=== PATIENT | female | born 1945 | race Caucasian/White ===

== ENCOUNTER → 2017-10-15 10:48 | Outpatient (CLI) | payer MEDICARE, SELFPAY ==
--- NOTE | 2017-10-15 14:48 | PFTCOMP ---
COMPLETE PULMONARY FUNCTION TEST INTERPRETATION Brief HPI: Patient is a 72 year old female, currently under the care of myself, who presents to [facility] for complete pulmonary function tests secondary to diagnosis of pulmonary hypertension. Respiratory therapist reports good effort and reproducible results. Interpretation: Forced expiration spirometry shows no large airways obstructive ventilatory defect with an FEV1 of 89 % predicted. There is no significant bronchodilator response by ATS criteria. Spirograms are of good quality and plateau normally. The respiratory flow volume loop shows a normal pattern. Lung volumes by body plethysmography show a normal total lung capacity at 4.13 L, 90 % predicted. All other lung volumes are within normal limits. Diffusion capacity by carbon monoxide is decreased at 42 % predicted. The airway resistance is normal. Compared to previous pulmonary function tests from 03/15/2017, there has been no significant change. Impression: Isolated defect in diffusion capacity consistent with patient's diagnosis of pulmonary hypertension. There is been no significant change compared to previous testing
--- NOTE | 2017-10-15 14:51 | PFTCOMP_ITS ---
COMPLETE PULMONARY FUNCTION TEST INTERPRETATION Brief HPI: Patient is a 72 year old female, currently under the care of myself, who presents to [facility] for complete pulmonary function tests secondary to diagnosis of pulmonary hypertension. Respiratory therapist reports good effort and reproducible results. Interpretation: Forced expiration spirometry shows no large airways obstructive ventilatory defect with an FEV1 of 89 % predicted. There is no significant bronchodilator response by ATS criteria. Spirograms are of good quality and plateau normally. The respiratory flow volume loop shows a normal pattern. Lung volumes by body plethysmography show a normal total lung capacity at 4.13 L , 90 % predicted. All other lung volumes are within normal limits. Diffusion capacity by carbon monoxide is decreased at 42 % predicted. The airway resistance is normal. Compared to previous pulmonary function tests from 03/15/2017, there has been no significant change. Impression: Isolated defect in diffusion capacity consistent with patient's diagnosis of pulmonary hypertension. There is been no significant change compared to previous testing
== END ==
PROVIDERS: Family Provider Internal Medicine; PCP Internal Medicine; Visit Provider Internal Medicine Critical Care Medicine
DX: I27.20 Pulmonary hypertension, unspecified (principal)
CPT/HCPCS: 94060; 94726; 94729

== ENCOUNTER 2017-10-23 14:22 | Outpatient (RCR) | payer MEDICARE, SELFPAY | END 2017-10-23 23:59 | LOC: NS 14:22 | PROVIDERS: Family Provider Internal Medicine; PCP Internal Medicine; Visit Provider Specialist | DX: E66.8 Other obesity (principal); E11.9 Type 2 diabetes mellitus without complications; Z71.3 Dietary counseling and surveillance | CPT/HCPCS: 97802 ==

== ENCOUNTER 2017-11-13 10:21 | Outpatient (RCR) | payer MEDICARE, SELFPAY | END 2017-11-23 23:59 | LOC: NS 10:21 | PROVIDERS: Family Provider Internal Medicine; PCP Internal Medicine; Visit Provider Specialist | DX: E66.8 Other obesity (principal); E11.9 Type 2 diabetes mellitus without complications; Z71.3 Dietary counseling and surveillance | CPT/HCPCS: 97803 ==

== ENCOUNTER 2017-11-25 11:57 | Outpatient (RCR) | payer MEDICARE, SELFPAY | END 2017-12-23 23:59 | LOC: NS 11:57 | PROVIDERS: Family Provider Internal Medicine; PCP Internal Medicine; Visit Provider Specialist | DX: E66.8 Other obesity (principal); E11.9 Type 2 diabetes mellitus without complications; Z71.3 Dietary counseling and surveillance | CPT/HCPCS: 97803 ==

== ENCOUNTER → 2017-11-26 11:00 | Outpatient (CLI) | payer MEDICARE, SELFPAY | PROVIDERS: Family Provider Internal Medicine; PCP Internal Medicine; Visit Provider Internal Medicine Critical Care Medicine | DX: G47.9 Sleep disorder, unspecified (principal) | CPT/HCPCS: 98960; G0463 ==

== ENCOUNTER 2018-01-22 09:45 | Outpatient (RCR) | payer MEDICARE, SELFPAY | END 2018-01-23 23:59 | LOC: NS 09:45 | PROVIDERS: Family Provider Internal Medicine; PCP Internal Medicine; Visit Provider Specialist | DX: E66.8 Other obesity (principal); E11.9 Type 2 diabetes mellitus without complications; Z71.3 Dietary counseling and surveillance | CPT/HCPCS: 97803 ==

== ENCOUNTER → 2018-02-14 09:09 | Outpatient (CLI) | payer MEDICARE, SELFPAY ==
[2018-02-14 09:41] VITALS: PULSE 56; PULSE 58; PULSE 81; PULSE 83; PULSE 84; PULSE 85; PULSE 88; PULSE 90; O2SAT 88; O2SAT 91; O2SAT 92; O2SAT 93; O2SAT 96; O2SAT 98
--- NOTE | 2018-02-14 12:07 | WT_ITS ---
PSN 6 Minute Walk Test - 6 Minute Walk Test 6 Minute Walk Test: 6 Minute Walk Test PSN:6-Minute Walk Test Start: 02/14/18 09: 41 Freq: Status: Active Protocol: RESP.6MINW Document 02/14/18 09:41 ROB (Rec: 02/14/18 09:43 ROB [id number]) 6 Minute Walk Test Date Performed 02/14/18 Time Performed 09:15 Height 5 ft 3 in Weight: 282 lb Weight in Pounds 282.[address]: Jake Silva Assistive device used: Cane Pre-test Oxygen Delivery Method Room Air Pulse Ox (%) 96 Pulse Rate (60-100 beats/min) 56 L Dyspnea Domonique Scale (0-10) 0 Exertion Domonique Scale (6-20) 6 1st minute Oxygen Delivery Method Room Air Pulse Ox (%) 92 Pulse Rate (60-100 beats/min) 81 2nd minute Oxygen Delivery Method Room Air Pulse Ox (%) 88 Pulse Rate (60-100 beats/min) 85 3rd minute Oxygen Flow Rate (L/min) (L/min) 2 Oxygen Delivery Method Nasal Cannula Pulse Ox (%) 93 Pulse Rate (60-100 beats/min) 83 4th minute Oxygen Flow Rate (L/min) (L/min) 2 Oxygen Delivery Method Nasal Cannula Pulse Ox (%) 92 Pulse Rate (60-100 beats/min) 84 5th minute Oxygen Flow Rate (L/min) (L/min) 2 Oxygen Delivery Method Nasal Cannula Pulse Ox (%) 92 Pulse Rate (60-100 beats/min) 88 6th minute Oxygen Flow Rate (L/min) (L/min) 2 Oxygen Delivery Method Nasal Cannula Pulse Ox (%) 91 Pulse Rate (60-100 beats/min) 90 Dyspnea Domonique Scale (0-10) 3 Exertion Domonique Scale (6-20) 13 Post-test Oxygen Flow Rate (L/min) (L/min) 2 Oxygen Delivery Method Nasal Cannula Pulse Ox (%) 98 Pulse Rate (60-100 beats/min) 58 L Full Laps Walked 13 Partial Lap, Number of Tiles Walked 28 Total Distance Walked (ft) 795 - Interpretation Interpretation: The patient ambulated 795 feet over the course of 6 minutes beginning on room air with use of a cane. Pretesting oxygen saturation was noted to be 96% on room air. With ambulation, the miguelina oxygen saturation was 88% at minute 2 of testing. 2 L/min of supplemental oxygen was applied and the patient was able to complete the remainder of the test, while maintaining oxygen saturations at or above 88%. This testing indicates significant exertional oxygen desaturation along with impaired walk distance. - Recommendations Recommendations: 2 L/min of supplemental oxygen she be utilized with exertion.
== END ==
PROVIDERS: Family Provider Internal Medicine; PCP Internal Medicine; Visit Provider Nurse Practitioner Acute Care
DX: R06.02 Shortness of breath (principal)
CPT/HCPCS: 94618

== ENCOUNTER → 2018-02-25 11:25 | Outpatient (CLI) | payer MEDICARE, SELFPAY ==
[2018-02-25 14:22] LABS: Absolute Lymphocyte Count 1.32 X10^3/ul (0.83-4.51); Basophil# 0.03 X10^3/uL; Basophil% 0.6 % (0-1); Eosinophil# 0.22 X10^3/uL; Eosinophils% 4.4 % (0-5); Hematocrit 33.1 % (37-47); Hemoglobin 10.4 g/dl (12.0-15.0); Lymphocyte # 1.32 X10^3/ul (4.0); Lymphocyte % 26.6 % (19-41); Mean Corp Hgb Conc 31.4 g/gl (32-36); Mean Corpuscular Hgb 28.4 pg (27.0-32.0); Mean Corpuscular Volume 90.4 fL (81-99); Mean Platelet Vol. 12.1 fl (6.2-12.0); Monocyte# 0.37 X10^3/uL; Monocyte% 7.4 % (0-10); Neutrophil # 3.02 X10^3/uL (2.7-7.7); Neutrophil % 60.8 % (47-70); Platelet Count 214 K/mm3 (150-450); RBC Distribution Width CV 13.7 % (11.6-14.6); RBC Distribution Width SD 45.1 fl (35.1-43.9); Red Blood Count 3.66 M/mm3 (4.2-5.4)
[2018-02-25 14:29] LABS: POSITIVE COUNT NO; POSITIVE DIFFERENTIAL NO; POSITIVE MORPHOLOGY NO
[2018-02-25 14:34] LABS: Microalbumin,Random Urine 58.6 mg/L (NO RANGE EST.); Microalbumin:Creatinine Ratio 29.9 mg/g CRE (<30 mg/g CRE)
[2018-02-25 15:17] LABS: AST(SGOT) 20 U/L (15-37); Alanine Aminotransfer ALT/SGPT 29 U/L (13-56); Albumin, Serum 3.8 g/dL (3.2-5.0); Alkaline Phosphatase 76 U/L (45-117); Anion Gap 10 (5-15); BUN 34 mg/dL (7-18); BUN/Creat Ratio 38.1 RATIO (10-20); Calcium,Total 8.9 mg/dL (8.5-10.1); Chloride 106 mmol/L (98-107); Cholesterol 126 mg/dL (200); Creatinine, Serum 0.89 mg/dL (0.55-1.02); EST Glomerular Filtration Rate 66 mL/min (>60); Est Glom Filt Rate - Afr Amer 80 mL/min (>60); Ferritin 99 ng/mL (8-252); Globulin 3.9 g/dL (2.2-4.2); Glucose 91 mg/dL (74-106); High Density Lipoprotein 43 mg/dL; Iron 59 ug/dL (50-170); Iron Binding Capacity,Total 375 ug/dL (250-450); Potassium 4.5 mmol/L (3.5-5.1); Protein, Total 7.7 g/dL (6.4-8.2); Sodium Level 141 mmol/L (136-145); Thyroid Stim Hormone (TSH) 0.97 uIU/mL (0.358-3.74); Triglycerides 104 mg/dL; Very Low Density Lipoprotein 21 mg/dL (5-40)
[2018-02-26 09:52] LABS: Vitamin B12 492 pg/mL (211-911)
[2018-02-28 13:11] LABS: Lipoprotein A 130 nmol/L (<75)
[2018-02-28 14:06] LABS: Vitamin D 1,25-Dihydroxy 19.3 pg/mL (19.9-79.3)
== END ==
PROVIDERS: Internal Medicine Medical Oncology; Family Provider Internal Medicine; PCP Internal Medicine; Visit Provider Internal Medicine
DX: E55.9 Vitamin D deficiency, unspecified (principal); E78.2 Mixed hyperlipidemia; E53.8 Deficiency of other specified B group vitamins; I11.9 Hypertensive heart disease without heart failure; E11.9 Type 2 diabetes mellitus without complications
CPT/HCPCS: 36415; 80053; 80061; 82043; 82570; 82607; 82652; 82728; 82746; 83540; 83550; 83695; 84443; 85025

== ENCOUNTER → 2018-10-02 10:35 | Outpatient (CLI) | payer MEDICARE, SELFPAY ==
[2018-09-19 11:17] VITALS: BMI 52.6
[2018-10-02 12:24] LABS: Absolute Lymphocyte Count 1.37 X10^3/ul (0.83-4.51); Absolute Neutrophil Count 3.6 X10^3/uL (2.0-7.7); Basophil# 0.05 X10^3/uL; Basophil% 0.9 % (0-1); Eosinophil# 0.22 X10^3/uL; Eosinophils% 3.9 % (0-5); Hematocrit 36.8 % (37-47); Hemoglobin 11.2 g/dl (12.0-15.0); Lymphocyte # 1.37 X10^3/ul (4.0); Mean Corp Hgb Conc 30.4 g/gl (32-36); Mean Corpuscular Hgb 27.9 pg (27.0-32.0); Mean Corpuscular Volume 91.8 fL (81-99); Monocyte# 0.43 X10^3/uL; Monocyte% 7.5 % (0-10); Neutrophil # 3.61 X10^3/uL (2.7-7.7); Neutrophil % 63.3 % (47-70); Platelet Count 219 K/mm3 (150-450); RBC Distribution Width CV 13.8 % (11.6-14.6); RBC Distribution Width SD 45.8 fl (35.1-43.9); Red Blood Count 4.01 M/mm3 (4.2-5.4); White Blood Count 5.7 K/mm3 (4.4-11.0)
[2018-10-02 12:25] LABS: Color, Urine Yellow (Yellow); Glucose, Dipstick Normal (Normal); Ketone-Dipstick Negative (Negative); Leukocyte Esterase-Dipstick 25 /ul (Negative); Nitrite-Dipstick Negative (Negative); Occult Blood-Urine Negative /ul (Negative); Protein-Dipstick Negative (Negative); Urine Bilirubin Dipstick Negative (Negative); Urine Clarity Sl. Cloudy (Clear); Urine Urobilinogen Normal (Normal)
[2018-10-02 12:40] LABS: Microalbumin:Creatinine Ratio 11.6 mg/g CRE (<30 mg/g CRE)
[2018-10-02 12:44] LABS: POSITIVE COUNT NO; POSITIVE DIFFERENTIAL NO; POSITIVE MORPHOLOGY NO
[2018-10-02 13:01] LABS: AST(SGOT) 16 U/L (15-37); Alanine Aminotransfer ALT/SGPT 27 U/L (13-56); Albumin, Serum 3.9 g/dL (3.2-5.0); Alkaline Phosphatase 85 U/L (45-117); Anion Gap 12 (5-15); BUN 30 mg/dL (7-18); BUN/Creat Ratio 35.3 RATIO (10-20); Calcium,Total 9.2 mg/dL (8.5-10.1); Chloride 107 mmol/L (98-107); Cholesterol 153 mg/dL (200); Creatinine, Serum 0.85 mg/dL (0.55-1.02); EST Glomerular Filtration Rate 70 mL/min (>60); Est Glom Filt Rate - Afr Amer 84 mL/min (>60); Glucose 101 mg/dL (74-106); High Density Lipoprotein 47 mg/dL; Potassium 4.7 mmol/L (3.5-5.1); Protein, Total 7.9 g/dL (6.4-8.2); Sodium Level 140 mmol/L (136-145); Thyroid Stim Hormone (TSH) 0.97 uIU/mL (0.358-3.74); Triglycerides 158 mg/dL; Very Low Density Lipoprotein 32 mg/dL (5-40)
[2018-10-03 10:14] LABS: Vitamin D,25 Hydroxy 32.3 ng/mL (29.95-100.01)
== END ==
PROVIDERS: Family Provider Internal Medicine; PCP Internal Medicine; Referring Provider Internal Medicine; Visit Provider Internal Medicine
DX: E11.9 Type 2 diabetes mellitus without complications (principal); E55.9 Vitamin D deficiency, unspecified; I27.23 Pulmonary hypertension due to lung diseases and hypoxia
CPT/HCPCS: 36415; 80053; 80061; 81002; 82043; 82306; 82570; 84443; 85025

== ENCOUNTER → 2018-12-18 12:04 | Outpatient (CLI) | payer MEDICARE, SELFPAY ==
[2018-10-20 13:21] VITALS: BMI 53.3
--- NOTE | 2018-12-18 12:07 | RAD_ITS ---
STUDY: X-RAY - RIGHT KNEE REASON FOR EXAM: Female, 73 years old. Pain TECHNIQUE: 4 view(s) of the knee. COMPARISON: None. FINDINGS: Normal visualized distal femur. Normal visualized proximal tibia and fibula. Normal proximal tibiofibular articulation. There is severe degenerative arthrosis of the medial femorotibial compartment with severe joint space narrowing. Normal lateral femorotibial compartment. There is moderate degenerative arthrosis of the patellofemoral articulation. The soft tissue structures are unremarkable. RAD/Knee 4 or More Views IMPRESSION: Degenerative arthrosis. Electronically Signed: Armando Shelby MD at 12:44 EDT , Service support ,
--- NOTE | 2018-12-18 12:08 | RAD_ITS ---
STUDY: X-RAY - LEFT KNEE REASON FOR EXAM: Female, 73 years old. Pain TECHNIQUE: 4 view(s) of the knee. COMPARISON: None. FINDINGS: Normal visualized distal femur. Normal visualized proximal tibia and fibula. Normal proximal tibiofibular articulation. There is severe degenerative arthrosis of the medial femorotibial compartment with severe joint space narrowing. Normal lateral femorotibial compartment. There is severe degenerative arthrosis of the patellofemoral articulation. The soft tissue structures are unremarkable. RAD/Knee 4 or More Views IMPRESSION: Degenerative arthrosis. Electronically Signed: Armando Shelby MD at 12:45 EDT , Service support ,
== END ==
PROVIDERS: Family Provider Internal Medicine; PCP Internal Medicine; Referring Provider Internal Medicine; Visit Provider Internal Medicine
DX: M25.561 Pain in right knee (principal); M25.562 Pain in left knee
CPT/HCPCS: 73564

== ENCOUNTER → 2019-02-05 14:10 | Outpatient (CLI) | payer MEDICARE, SELFPAY ==
[2018-10-20 13:21] VITALS: BMI 53.3
--- NOTE | 2019-02-05 14:12 | BI_ITS ---
MAMMOGRAPHY - BILATERAL SCREENING REASON FOR EXAM: Female, 73 years old. Routine annual screening examination. PERTINENT HISTORY: Non-contributory. TECHNIQUE: Digital bilateral breast yvonne (3D mammographic acquisition) in the CC and MLO projections. 2-D mediolateral oblique (MLO) and craniocaudad (CC) views of both breasts were obtained. CAD: Full Field Digital Mammography with Computer Added Detection was performed. COMPARISON: Comparison is made with prior study dated October 16, 2016 and March 01, 2015. FINDINGS: Breast Composition: There are scattered areas of fibroglandular density. There are no dominant masses or suspicious calcifications. No other significant abnormalities are identified. There has been no significant change since the prior study. BI/SCREEN MAMM (CAD) W/YVONNE BILAT IMPRESSION: Stable bilateral screening mammogram. Yearly follow-up mammogram recommended. (A) ASSESSMENT CATEGORY: BIRADS Category 1: Negative. A letter regarding these results will be sent to the patient by the facility within 30 days. Approximately 10% of breast cancers are not detected by mammography. A normal mammogram should not delay biopsy of a clinically suspicious abnormality. [id number] Electronically Signed: Reginaldo Martinez, at 8:22 EDT , Service support ,
--- NOTE | 2019-02-05 14:15 | BD_ITS ---
STUDY: DUAL ENERGY X-RAY ABSORPTIOMETRY / DXA REASON FOR EXAM: Female, 73 years old. The patient is postmenopausal. Loss of height. TECHNIQUE: Bone Mineral Density (BMD) measurements of lumbar spine and bilateral hips were obtained. COMPARISON: Comparison is made with prior study dated October 16, 2016. FINDINGS: Lumbar Spine (L1-L4): g/cm2 (1.538) / T-score (3.1) / Z-score (4.8) Findings are suggestive of normal bone density with a low fracture risk. Left Femur Total: g/cm2 (1.329) / T-score (2.5) / Z-score (4.2) Left Femoral Neck: g/cm2 (1.253) / T-score (1.5) / Z-score (3.4) Right Femur Total: g/cm2 (1.182) / T-score (1.4) / Z-score (3.0) Right Femoral Neck: g/cm2 (1.096) / T-score (0.4) / Z-score (2.3) The T-Scores on the most recent prior examination were: Lumbar Spine (L1-L4): There has been worsening of bone density since the previous examination. Left Femur Total: which represents an improvement of 2.2%. Right Femur Total: which represents a worsening of 6.7%. BD/Dexa Bone Density Study IMPRESSION: The patient is considered normal as outlined below according to World [place] Organization (WHO) criteria with a low fracture risk. There has been worsening of bone density since the previous examination. Reference Information: The T-score is the number of standard deviations above or below the standard which is normal for young adults at their peak bone mineral density. The World Health Organization (WHO) interprets the T-scores as follows: Above -1 Normal bone density Between -1 and -2.5 Osteopenia Equal to / or below -2.5 Osteoporosis As a practical clinical guideline, osteopenia may be graded as follows: Mild -1 through -1.5 Moderate -1.6 through -2.0 Severe -2.1 through -2.4 The Z-score is the number of standard deviations above or below age-matched controls. A Z-score of less than -1.5 would be considered abnormal. References: 1. NIH Osteoporosis and Related Bone Diseases http://www.osteo.org 2. International Society for Clinical Densitometry http://www.iscd.org 3. National Osteoporosis Foundation http://www.nof.org Electronically Signed: Reginaldo Martinez, at 15:44 EDT , Service support ,
== END ==
PROVIDERS: Family Provider Internal Medicine; PCP Internal Medicine; Referring Provider Internal Medicine; Visit Provider Internal Medicine
DX: Z12.31 Encounter for screening mammogram for malignant neoplasm of breast (principal); Z78.0 Asymptomatic menopausal state; M54.32 Sciatica, left side
CPT/HCPCS: 77063; 77067; 77080; 97110; 97162

== ENCOUNTER 2019-03-18 11:30 | Outpatient (RCR) | payer MEDICARE, SELFPAY ==
[2018-10-20 13:21] VITALS: BMI 53.3
--- NOTE | 2019-02-05 17:02 | HP.PTEVAL ---
Patient's Visit Information SHANTI PAZ is a 73 year old F referred to Physical Therapy by Skyla Tobias DO with a diagnosis of RIGHT KNEE PAIN. Date of Evaluation: 02/05/19 Physical Therapist: Harsh Flores, PT, Cert MDT, OCS - Visit Plan Frequency: 2x /Week Duration: 4 Weeks Plan: PT INTERVENTIONS ROM ,STRENGTHENING QUADS/HAMS /HIP ,BALANCE PROGRAM ,NUSTEP,MODALITIES NEEDED - Subjective Findings: This 73 y/o female presents to physical therapy with right > left knee pain. This pateint has had knee pain for several years. Patient for DR Tobias recommended PT and tried Stem cells 2weeks . Patient also seen DR Collazo and needs TKR due to patient severe DJD arthrosis . Patient pain is worse on right than left. Patient symptoms located global knee . Described as ache,sharp pain occasionally . Aggravating factors worse with standing,walking ,stairs. Patient unable to knee or squat. Allevaiting factors MHP,rest. Denies parathesia/tingling.Patient has peripheral neuropathy thus can have occassional tingling. Patient has improved sleeping. Patient has had cortizone injections. Symptoms affects ability to perform ADL'S and housework chores.Thus ,patient needs to use QC for gait. Patient condition affect QOL. SOCIAL: . VOCATION: retired - Pain Right Knee Pain Intensity (Out of 10): 5 Pain Intensity Range: 10 Left Knee Pain Intensity (Out of 10): 3 Pain Intensity Range: 10 - Objective POSTURE: mild foward posture,knee valgus, genu rectuvatum. GAIT: ambulates with with QC with 3 point gait slow janet. BALANCE : good- with QC. NEURO: intact. PALPATION: medial joint superintendent pipelines right > left. MMT: quads/hams 4-/5,hip flexion 4-/5,ankle 4/5,hip abd 3+/5. AROM: 0-110 degrees supine flexion. FLEXABLITY: hams min tight. STAIRS: one step at a time with rail - Goals Goal 1:: Patient to be Independant with HEP Goal Time Frame: 4-6 Weeks Goal 2:: Patient decrease pain by by 50% or greater to improve function gait. Goal Time Frame: 4-6 Weeks Goal 3:: Patient to improve AROM knee flexion by 5-10 degrees to improve function. Goal Time Frame: 4-6 Weeks Goal 4:: Patient to increase strength quads/hams/hip 4/5 to improve function gait. Goal Time Frame: 4-6 Weeks Goal 5:: Patient to improve LFES score by 5 points > to improve QOL. Goal Time Frame: 4-6 Weeks - Rehabilitation Potential Physical Therapy Diagnosis: This patient has bilateral knee pain with decrease ROM,strengt impairs walking and standing thus bveifit from skilled PT . Rehabilitation Potential: Good - Anticipated Interventions Patient/Client Instruction: Educate patient on: Condition, Plan of Care For the Purpose of:: To decrease pain, To increase ROM, To improve muscle performance and motor function, To improve ability to perform ADL's, To improve performance and independence with ADL's, To improve ability of physical actions for home/community/work/leisure, To improve health of tissue, To decrease soft tissue restriction, To increase flexibility/ROM, To improve balance, To reduce risk of recurrence, To improve ability to perform tasks related to life management Therapeutic Exercise to Include: Strength training, Endurance training, Balance training, Flexibilty training, Passive ROM, Active ROM Comment: KNEE/HIP For the Purpose of:: To decrease pain, To increase ROM, To improve muscle performance and motor function, To improve ability to perform ADL's, To increase tolerance to activity/condition/position, To improve ability of physical actions for home/community/work/leisure, To improve health of tissue, To decrease soft tissue restriction, To increase flexibility/ROM, To improve balance, To improve ability to perform tasks related to life management TENS: Yes IF ES: Yes Cryotherapy (ice pack, ice massage): Yes Thermo therapy (hot pack): Yes Ultrasound (thermal/non thermal): Yes For the Purpose of:: To decrease pain, To improve nutrient delivery to tissue, To increase oxygenation perfusion, To improve health of tissue, To decrease soft tissue restriction Thank you for the opportunity to evaluate your patient. For Medicare and Medicare HMO plans, please review the plan of care and approve it. It will need to be FAXED BACK to us at [phone] for Medicare purposes. For Medicare only, by signing this I certify the plan of care. Please let me know if there are questions or concerns regarding this plan of care. Physician Signature: Date:
--- NOTE | 2019-04-28 10:43 | HP.PTDCNRP_ITS ---
HP - Discharge Summary (1) - Patient Information SHANTI PAZ was seen in my office for initial evaluation on 02/05/19. The following Plan of Care was established for this patient: Initial Frequency: 2x /Week Initial Duration: 4 Weeks - Anticipated Interventions Patient/Client Instruction: Educate patient on: Condition, Plan of Care For the Purpose of:: To decrease pain, To increase ROM, To improve muscle perfo rmance and motor function, To improve ability to perform ADL's, To improve performance and independence with ADL's, To improve ability of physical actions for home/community/work/leisure, To improve health of tissue, To decrease soft tissue restriction, To increase flexibility/ROM, To improve balance, To reduce risk of recurrence, To improve ability to perform tasks related to life management Therapeutic Exercise to Include: Strength training, Endurance training, Balance training, Flexibilty training, Passive ROM, Active ROM For the Purpose of:: To decrease pain, To increase ROM, To improve muscle performance and motor function, To improve ability to perform ADL's, To increase tolerance to activity/condition/position, To improve ability of physical actions for home/community/work/leisure, To improve health of tissue, To decrease soft tissue restriction, To increase flexibility/ROM, To improve balance, To improve ability to perform tasks related to life management TENS: Yes IF ES: Yes Cryotherapy (ice pack, ice massage): Yes Thermo therapy (hot pack): Yes Ultrasound (thermal/non thermal): Yes For the Purpose of:: To decrease pain, To improve nutrient delivery to tissue, To increase oxygenation perfusion, To improve health of tissue, To decrease soft tissue restriction This patient was last seen in our office 03/18/19. Pertinent comments regarding their Physical therapy will appear below: Patient seen for knee pain for Aquatic PT for ROM strength ,progressing with decreasing pain and strength,thus d/c. At this point I will be discontinuing this patient from physical therapy. I would be happy to see this patient again in the future if found appropriate by the physician. Thank you! Harsh Flores, PT, Cert MDT, OCS
== END 2019-03-18 19:00 | disposition home or self-care (01) ==
LOC: PT 11:30
PROVIDERS: Family Provider Internal Medicine; PCP Internal Medicine; Visit Provider Internal Medicine
DX: M54.32 Sciatica, left side (principal)
CPT/HCPCS: 97014; 97110; 97113; 97162; G0283

== ENCOUNTER → 2019-08-13 15:18 | Outpatient (CLI) | payer MEDICARE, SELFPAY ==
[2019-05-20 14:21] VITALS: BMI 56.7
--- NOTE | 2019-08-13 15:34 | CT_ITS ---
STUDY: CT ABDOMEN AND PELVIS WITHOUT CONTRAST REASON FOR EXAM: Female, 73 years old. Left flank pain. RADIATION DOSAGE (If Supplied By Facility): CTDIvol = ( 31.15 ) mGy, DLP = ( 1642.17 ) mGycm TECHNIQUE: Transaxial images were obtained from the dome of the diaphragm to the symphysis pubis without oral contrast, and without intravenous contrast. Sagittal and coronal images were reconstructed. Individualized dose optimization techniques were used for this CT. COMPARISON: None. FINDINGS: 1.3 x 0.9 cm nodule in the left lower lobe seen on series 2 image 7. This is not demonstrated on prior radiographs. Heart size is normal. The liver is unremarkable. The gallbladder is unremarkable. The spleen and pancreas are unremarkable. The adrenal glands are normal. The kidneys are unremarkable. No stones or hydronephrosis. Ureters are normal in course and caliber. No ureteral stone. The aorta is normal in caliber. There is no free fluid, free air, or organized collection. No bowel obstruction or inflammatory change. Diverticulosis. No acute diverticulitis. Normal appendix. Urinary bladder is nondistended. Small, fat-containing umbilical hernia. Normal osseous structures. CT/Abdomen/Pelvis without Cont IMPRESSION: 1. Left lower lobe lung nodule, nonspecific. Options for further evaluation include: Chest CT to evaluate for additional lesions, 3 month follow-up, PET scan. 2. Diverticulosis, no acute diverticulitis. 3. Fat-containing umbilical hernia. Electronically Signed: Johanna Borja MD at 16:59 EST Tel , Service support ,
[2019-08-13 15:37] LABS: Absolute Lymphocyte Count 1.03 X10^3/uL (0.83-4.51); Absolute Neutrophil Count 7.5 X10^3/uL (2.0-7.7); Basophil# 0.05 X10^3/uL; Basophil% 0.5 % (0-1); Eosinophil# 0.05 X10^3/uL; Eosinophils% 0.5 % (0-5); Hematocrit 34.7 % (37-47); Hemoglobin 11.2 g/dL (12.0-15.0); Lymphocyte # 1.03 X10^3/ul (4.0); Lymphocyte % 11.1 % (19-41); Mean Corp Hgb Conc 32.3 g/dL (32-36); Mean Corpuscular Hgb 28.4 pg (27.0-32.0); Mean Corpuscular Volume 87.8 fL (81-99); Mean Platelet Vol. 10.6 fl (6.2-12.0); Monocyte# 0.57 X10^3/uL; Monocyte% 6.1 % (0-10); NRBC Flagged by Analyzer 0 % (0-5); Neutrophil % 80.5 % (47-70); Platelet Count 192 K/mm3 (150-450); RBC Distribution Width CV 13.5 % (11.6-14.6); RBC Distribution Width SD 43.5 fl (35.1-43.9); Red Blood Count 3.95 M/mm3 (4.2-5.4); White Blood Count 9.3 K/mm3 (4.4-11.0)
[2019-08-13 15:59] LABS: ALB/GLOB Ratio 0.9 RATIO (0.9-2.4); AST(SGOT) 18 U/L (15-37); Alanine Aminotransfer ALT/SGPT 21 U/L (13-56); Albumin, Serum 3.8 g/dL (3.2-5.0); Alkaline Phosphatase 91 U/L (45-117); Anion Gap 7 (5-15); BUN 23 mg/dL (7-18); BUN/Creat Ratio 23.8 RATIO (10-20); Calcium,Total 8.8 mg/dL (8.5-10.1); Chloride 109 mmol/L (98-107); Creatinine, Serum 0.97 mg/dL (0.55-1.02); EST Glomerular Filtration Rate 60 mL/min (>60); Est Glom Filt Rate - Afr Amer 73 mL/min (>60); Globulin 4.3 g/dL (2.2-4.2); Glucose 131 mg/dL (74-106); Potassium 4.1 mmol/L (3.5-5.1); Protein, Total 8.1 g/dL (6.4-8.2); Sodium Level 136 mmol/L (136-145)
== END ==
PROVIDERS: Family Provider Internal Medicine; PCP Internal Medicine; Referring Provider Nurse Practitioner Gerontology; Visit Provider Nurse Practitioner Gerontology
DX: R50.9 Fever, unspecified (principal); R10.9 Unspecified abdominal pain
CPT/HCPCS: 36415; 74176; 80053; 85025

== ENCOUNTER → 2019-08-24 06:38 | Outpatient (CLI) | payer MEDICARE, SELFPAY ==
[2019-05-20 14:21] VITALS: BMI 56.7
--- NOTE | 2019-08-24 06:40 | CT_ITS ---
STUDY: CT CHEST WITH CONTRAST REASON FOR EXAM: Female, 74 years old. LUNG NODULE FOLLOW UP SEEN ON CT ABD/PEL -- INCREASED SHORTNESS OF BREATH -- HX-PULMONARY HTN,DIAB,HTN RADIATION DOSAGE (If Supplied By Facility): CTDIvol = ( 17.91 ) mGy, DLP = ( 708.51 ) mGycm TECHNIQUE: Transaxial imaging was performed following intravenous administration of IV 100mL Isovue-300. Individualized dose optimization techniques were used for this CT. COMPARISON: None. FINDINGS: There is a lobulated nodule in the posterior basal segment of the left lung lower lobe measures 1.4 cm may represent a neoplastic process. Further evaluation by PET scan and or biopsy may be warranted. There is no demonstrated pleural abnormality. Normal heart and pericardium. Normal mediastinum. Normal hilar regions. Multiple moderate-sized segmental and subsegmental pulmonary emboli are noted in the right upper lobe, right lower lobe, right middle lobe, left upper lobe, lingula and left lower lobe consistent with pulmonary emboli. Normal aorta arch and descending thoracic aorta. Normal osseous structures. There is no demonstrated abnormality of the visualized upper abdomen. CT/Chest WITH Contrast IMPRESSION: There is a lobulated nodule in the posterior basal segment of the left lung lower lobe measures 1.4 cm may represent a neoplastic process. Further evaluation by PET scan and or biopsy may be warranted. Multiple moderate-sized segmental and subsegmental pulmonary emboli are noted in the right upper lobe, right lower lobe, right middle lobe, left upper lobe, lingula and left lower lobe consistent with pulmonary emboli. N.B. : The above information has been verbally conveyed by Mary Grace Tyson to Dr Jake MD, on 08/24/2019 07:57:47 (ET). Electronically Signed: Mary Grace Tyson, at 7:39 EST Tel , Service support ,
== END ==
PROVIDERS: Family Provider Internal Medicine; PCP Internal Medicine; Referring Provider Internal Medicine; Visit Provider Internal Medicine
DX: R91.1 Solitary pulmonary nodule (principal)
CPT/HCPCS: 71260; Q9967

== ENCOUNTER 2019-08-24 07:03 | Inpatient (IN) | payer MEDICARE, SELFPAY ==
[2019-05-20 14:21] VITALS: BMI 56.7
[2019-08-24] VITALS (17 sets, daily range): BP systolic 128–169; BP diastolic 51–97; PULSE 72–99; RESP 14–19; TEMP 36.6–36.9; O2SAT 89–98; BMI 51.5; BMI 50.1
--- NOTE | 2019-08-24 07:39 | EKG12_ITS ---
Test Reason : SOB Blood Pressure : / mmHG Vent. Rate : 094 BPM Atrial Rate : 094 BPM P-R Int : 210 ms QRS Dur : 092 ms QT Int : 342 ms P-R-T Axes : 053 000 056 degrees QTc Int : 427 ms Sinus rhythm with 1st degree A-V block Poor R-wave progression Confirmed by USAMA WELSH, SERENA ([id number]), legal editor DANIELA BRAGA ([id number]) on 08/27/2019 11:05:45 AM Referred By: LOLITA Confirmed By:SERENA FORRESTER MD
[2019-08-24 08:06] LABS: Absolute Lymphocyte Count 2.08 X10^3/uL (0.83-4.51); Basophil# 0.08 X10^3/uL; Basophil% 0.9 % (0-1); Eosinophil# 0.27 X10^3/uL; Eosinophils% 2.9 % (0-5); Hematocrit 37.9 % (37-47); Hemoglobin 11.9 g/dL (12.0-15.0); Lymphocyte # 2.08 X10^3/ul (4.0); Lymphocyte % 22.7 % (19-41); Mean Corp Hgb Conc 31.4 g/dL (32-36); Mean Corpuscular Hgb 28.2 pg (27.0-32.0); Mean Corpuscular Volume 89.8 fL (81-99); Mean Platelet Vol. 10.6 fl (6.2-12.0); Monocyte# 0.64 X10^3/uL; NRBC Flagged by Analyzer 0 % (0-5); Neutrophil # 6.02 X10^3/uL (2.7-7.7); Neutrophil % 65.7 % (47-70); Platelet Count 261 K/mm3 (150-450); RBC Distribution Width CV 13.8 % (11.6-14.6); RBC Distribution Width SD 45.1 fl (35.1-43.9); Red Blood Count 4.22 M/mm3 (4.2-5.4); White Blood Count 9.2 K/mm3 (4.4-11.0)
[2019-08-24 08:21] LABS: Anion Gap 8 (5-15); BUN 38 mg/dL (7-18); BUN/Creat Ratio 30.9 RATIO (10-20); Calcium,Total 9.4 mg/dL (8.5-10.1); Chloride 111 mmol/L (98-107); Creatinine, Serum 1.23 mg/dL (0.55-1.02); EST Glomerular Filtration Rate 45 mL/min (>60); Est Glom Filt Rate - Afr Amer 55 mL/min (>60); Estimated Creatinine Clearance 34.65 ml/min; Glucose 129 mg/dL (74-106); Potassium 4.8 mmol/L (3.5-5.1); Sodium Level 141 mmol/L (136-145)
--- NOTE | 2019-08-24 08:27 | ED.VISSUMM ---
- ER Visit Summary Date of Service: 08/24/19 Chief Complaint: [Shortness of breath and concern for pulmonary emboli] History of Present Illness: The patient is a 74 F [presents to the emergency department from radiology. Patient was having an outpatient CT scan of the chest to evaluate a nodule that was found on earlier CT of the abdomen and pelvis. The techs had concern for bilateral pulmonary emboli. Patient denies any chest pain. She denies any fevers. She is had a mild cough that is nonproductive. She describes increased exertional dyspnea recently. Patient has history of diabetes, hypertension, COPD, rheumatoid arthritis, anxiety, neuropathy. Patient states that she wears oxygen at night but not typically during the day.] Physical Examination: [HEENT-PERRLA, EOMI. Cranial nerves II through XII grossly intact. TMs clear. Mucous membranes moist. No adenopathy. Cardiovascular-regular rate and rhythm without murmur or ectopy Lungs-good aeration bilaterally. Patient has some coarse rhonchi occasionally. No accessory muscle use or retractions. No conversational dyspnea. Abdomen-normoactive bowel sounds, soft, nontender, no rebound or rigidity, no peritoneal signs. Extremities-intact ?4, normal range of motion, normal pulses, atraumatic] Test Results: [CBC with differential was unremarkable. Chemistries unremarkable. BUN was 38 and creatinine 1.23. Troponin is less than 0.15. CT of the chest showed bilateral pulmonary emboli and a left lower lobe nodule measuring 1.4 cm which they recommended further evaluation with biopsy.] EKG obtained arrival showed a sinus rhythm with a ventricular rate of 94 bpm with no acute ST segment changes. Emergency Department Course and Treatment: [Patient ambulated in the department without oxygen and her O2 sat dropped into the low 80s and then into the 70s before getting placed back on oxygen. She was started on Lovenox subcu 140 mg.] Treatment Plan: [Admit] Disposition: [Admit] Impression: [Bilateral pulmonary emboli Hypoxemia Left lung nodule suspicious for malignancy.] This note was generated with [employer] software. It may contain incorrect words, spelling, and punctuation that were not noted in review of the chart prior to signing ED Disposition - Plan for ED Patient: Referrals: Skyla Tobias DO [Primary Care Provider] -
--- NOTE | 2019-08-24 08:39 | PCM.HP.STD ---
Problem List (1) Chronic hypoxemic respiratory failure Status: Chronic (2) History of left heart catheterization Status: Chronic Comment: 08/30/[address] Cook [facility]; per Dr. Anderson [facility] (NORMAL CORONARIES) (3) Hyperlipidemia Status: Chronic Qualifiers: Hyperlipidemia type: pure hypercholesterolemia Qualified Code(s): E78.00 - Pure hypercholesterolemia, unspecified; E78.0 - Pure hypercholesterolemia (4) Rheumatoid arthritis Status: Chronic (5) Gallstones Status: Chronic (6) Depression Status: Chronic (7) Anxiety Status: Chronic (8) Osteoarthritis Status: Chronic Qualifiers: Osteoarthritis location: knee Osteoarthritis type: primary Laterality: right Qualified Code(s): M17.11 - Unilateral primary osteoarthritis, right knee (9) COPD (chronic obstructive pulmonary disease) Status: Chronic (10) Fatigue Status: Chronic (11) Hyperkalemia Status: Chronic (12) Type 2 diabetes mellitus Status: Chronic (13) BMI 50.0-59.9, adult Status: Chronic (14) Dyspnea on exertion Status: Chronic (15) Palpitations Status: Chronic (16) Ectopic atrial tachycardia Status: Chronic (17) Hypertension Status: Chronic Qualifiers: Hypertension type: essential hypertension Qualified Code(s): I10 - Essential (primary) hypertension (18) Compression of sciatic nerve Status: Chronic (19) Neuropathy, peripheral Status: Chronic (20) Hypoxemia Status: Chronic (21) Dyspnea Status: Chronic (22) JAYE (obstructive sleep apnea) Status: Chronic Comment: BiPAP 18/14 cm of water (23) Pulmonary hypertension Status: Chronic (24) Anemia Status: Chronic Qualifiers: Anemia type: unspecified type Qualified Code(s): D64.9 - Anemia, unspecified History of Present Illness Date of Admission: 08/24/19 Chief Complaint: Shortness of breath. The patient is a 74 year old F who comorbidities who was sent to the emergency department with abnormal CT. Patient had been diagnosed with a lung nodule as part of evaluation for kidney stones. Repeat CT was ordered on the day of her admission which did show presence of bilateral pulmonary embolism. Patient on further questioning did admit to bilateral flank pain. She also did complain of some shortness of breath. Patient however denied any chest pain. Denied any recent long travel. Denied any bilateral calf pain. Patient was started on therapeutic Lovenox admitted to a monitored bed subsequently Past Medical History Past Medical History (Chronic Problems): Chronic Problems (Last Reviewed 08/24/19 @ 13:48 by Binu Chirinos MD) Chronic hypoxemic respiratory failure (Chronic) History of left heart catheterization (Chronic) 08/30/[address] Cook [facility]; per Dr. Anderson [facility] (NORMAL CORONARIES) Hyperlipidemia (Chronic) Rheumatoid arthritis (Chronic) Gallstones (Chronic) Depression (Chronic) Anxiety (Chronic) Osteoarthritis (Chronic) COPD (chronic obstructive pulmonary disease) (Chronic) Fatigue (Chronic) Hyperkalemia (Chronic) Type 2 diabetes mellitus (Chronic) BMI 50.0-59.9, adult (Chronic) Dyspnea on exertion (Chronic) Palpitations (Chronic) Ectopic atrial tachycardia (Chronic) Hypertension (Chronic) Compression of sciatic nerve (Chronic) Neuropathy, peripheral (Chronic) Hypoxemia (Chronic) Dyspnea (Chronic) JAYE (obstructive sleep apnea) (Chronic) BiPAP 18/14 cm of water Pulmonary hypertension (Chronic) Anemia (Chronic) Medical History: Medical History (Last Reviewed 08/24/19 @ 13:48 by Binu Chirinos MD) Hyperlipidemia (Chronic) E78.5 History of hysterectomy (Resolved) Z98.890, Z90.710 Rheumatoid arthritis (Chronic) M06.9 Gallstones (Chronic) K80.20 Osteoarthritis (Chronic) M19.90 COPD (chronic obstructive pulmonary disease) (Chronic) J44.9 Type 2 diabetes mellitus (Chronic) E11.9 BMI 50.0-59.9, adult (Chronic) Z68.43 Ectopic atrial tachycardia (Chronic) I47.1 Hypertension (Chronic) I10 JAYE (obstructive sleep apnea) (Chronic) G47.33 BiPAP 18/14 cm of water Pulmonary hypertension (Chronic) I27.20 Anemia (Chronic) D64.9 Allergies codeine Adverse Reaction (Verified 08/24/19 07:04) Vomiting hydrocodone bitartrate [From Vicodin] Adverse Reaction (Verified 08/24/19 07:04) Nausea meperidine HCl [From Demerol] Adverse Reaction (Verified 08/24/19 07:04) Vomiting morphine Adverse Reaction (Verified 08/24/19 07:04) Vomiting Home Medications: Ambulatory Orders Medication Instructions Recorded Paroxetine [Paxil] 20 mg PO QHS 06/17/14 metFORMIN HCl [Glucophage] 1,000 mg PO DINNER 06/17/14 Metoprolol Tartrate [Lopressor 50 mg PO BID 11/20/16 (Beta Chasity)] cholecalciferol (vitamin D3) 5,000 5,000 unit PO QDAY 12/13/17 unit tablet meloxicam 15 mg tablet 15 mg PO QDAY 12/13/17 glucosamine 750 kg-allzlhogqhz-txp 1 tab PO DAILY tab 10/20/18 no1 644 mg-C 30 mg-victorina 1 mg tablet losartan 50 mg-hydrochlorothiazide 1 tab PO DAILY #90 tab 10/20/18 12.5 mg tablet fluticasone propionate 50 2 spray INTRANASAL DAILY #18.2 g 05/20/19 mcg/actuation nasal spray,suspension Clarithromycin 1 tab PO BID 08/24/19 Surgical History: Surgical History (Last Reviewed 08/24/19 @ 13:49 by Binu Chirinos MD) History of left heart catheterization (Chronic) Z98.890 08/30/[address] Cook [facility]; per Dr. Anderson [facility] (NORMAL CORONARIES) History of dilation and curettage (Resolved) Z98.890 History of cholecystectomy (Resolved) Z98.890, Z90.49 History of carpal tunnel release (Resolved) Z98.890 Smoking Status: Former smoker - *Family History Maternal Family History: Family History (Last Reviewed 08/24/19 @ 13:49 by Binu Chirinos MD) Father CAD (coronary artery disease) Diabetes Hypertension Arthritis Mother Arthritis Heart disease Hypertension Paternal Family History: Family History (Last Reviewed 08/24/19 @ 13:49 by Binu Chirinos MD) Father CAD (coronary artery disease) Diabetes Hypertension Arthritis Mother Arthritis Heart disease Hypertension Review of Systems Constitutional: Denies: Anorexia, Chills, Fever, Night Sweats, Weight Change HEENT: Denies: Head Aches, Sinus Congestion, Sinus Drainage Cardiovascular: Denies: Chest Pain, Orthopnea, Palpitations, Paroxysmal Noc. Dyspnea Respiratory: Reports: Shortness of Breath, Shortness of breath upon exertion. Denies: Cough Gastrointestinal: Denies: Abdominal Pain, Hematemesis, Hematochezia, Nausea, Melena, Vomiting Genitourinary: Denies: Dysuria, Frequency, Hematuria, Urgency Musculoskeletal: Denies: Joint Pain, Joint Tenderness Skin: Denies: Rash Neurological: Denies: Focal weakness, Numbness, Tingling Psychiatric: Denies: Homicidal Ideations, Suicidal Ideations Hematologic/ Lymphatic: Denies: Easy Bruising, Easy Bleeding VTE Information - Inpt Only VTE Present on Admission: Yes Objective: GENERAL: cooperative HEENT: Atraumatic; EYES; Anicteric, Normal Conjunctiva NECK; supple, normal thyroid, RESPIRATORY: Diminished to auscultation CARDIOVASCULAR: Regular S1 S2, GI: soft, normoactive bowel sounds, : No Renal angle tenderness; EXTREMITIES: No edema, no clubbing, MUSCULOSKELETAL: no muscle waisting NEURO: Awake; no lateralizing signs. SKIN: No Rash PSYCH; Flat affect - Physical Exam Vitals/I&O's: Vital Signs Temp Pulse Resp BP Pulse Ox 97.9 F 99 14 138/79 H 95 08/24/19 07:04 08/24/19 08:28 08/24/19 08:28 08/24/19 08:28 08/24/19 08:28 Oxygen Flow Rate (L/min) 2 Oxygen Delivery Method Nasal Cannula Weight: 136.078 kg Body Mass Index (BMI) 51.5 Laboratory Results 08/24/19 07:55: WBC 9.2, RBC 4.22, Hgb 11.9 L, Hct 37.9, MCV 89.8, MCH 28.2, MCHC 31.4 L, RDW Std Deviation 45.1 H, RDW Coeff of Marine 13.8, Plt Count 261, MPV 10.6, Immature Gran % (Auto) 0.800, Neut % (Auto) 65.7, Lymph % (Auto) 22.7, Archuleta % (Auto) 7.0, Eos % (Auto) 2.9, Baso % (Auto) 0.9, Absolute Neuts (auto) 6.0, Absolute Lymphs (auto) 2.08, Nucleated RBC % 0 08/24/19 07:55: Sodium 141, Potassium 4.8, Chloride 111 H, Carbon Dioxide 22.0, Anion Gap 8, BUN 38 H, Creatinine 1.23 H, Estim Creat Clear Calc 34.65, Est GFR (MDRD) Af Amer 55 L, Est GFR (MDRD) Non-Af 45 L, BUN/Creatinine Ratio 30.9 H, Glucose 129 H, Calcium 9.4, Troponin I < 0.015 08/24/19 07:55: Protein C Antigen Pending, Free Protein S Pending, Total Protein S Pending 08/24/19 07:55: PT Ratio Pending, Thrombin Time Pending, Thrombin Time Mix Pending, Lupus Anticoag aPTT Pending, Func Antithrombin III Pending, Factor V Leiden Mutat Pending, Beta-2-GPI IgG Ab Pending, Beta-2-GPI IgA Ab Pending, Beta-2-GPI IgM Ab Pending, Anti-Cardiolipin IgG Ab Pending, Anti-Cardiolipin IgM Ab Pending Assessment/Plan All Active Problems (Last Reviewed 08/24/19 @ 13:48 by Binu Chirinos MD) History of dilation and curettage (Resolved) History of hysterectomy (Resolved) History of cholecystectomy (Resolved) History of carpal tunnel release (Resolved) Abnormal stress test (Resolved) Abnormal findings on diagnostic imaging of heart and coronary circulation (Resolved) Patient is a 74-year-old lady admitted with shortness of breath found to have bilateral pulmonary embolism 1. Acute bilateral pulmonary embolism. ?CTA obtained demonstrated multiple moderate sized segmental and subsegmental pulmonary emboli noted in the right upper lobe, right lower lung right middle lobe left upper lobe lingula and left lower lobe patient admitted to a monitored bed. Patient was started on therapeutic Lovenox. As part of her management ordered a 2D echo bilateral venous duplex 2. Lung nodule ?CT obtained demonstrated a 1.4 cm lobulated nodule in the posterior basal segment of the left lung which was felt to represent possible neoplastic process further evaluation with PET scan versus biopsy was recommended. Consult placed to pulmonary medicine 3. Pulmonary hypertension Patient is followed by pulmonary medicine as outpatient consult placed 4. Hypertension ~ blood pressure controlled, home medications continued with dose adjustment as needed 5. Dyslipidemia ~Managed with diet 6. Morbid obesity with BMI of 50.1 Weight loss advised 7. Diabetes mellitus type II ~ patient's oral hypoglycemics held. Placed onAccu-Cheks a.c. and at bedtime and covered with sliding scale insulin 8. Chronic hypoxic respiratory failure Patient is on baseline home O2 9. Obstructive sleep apnea ?Patient is on Pap therapy at home 10. Generalized osteoarthritis ?Pain meds as needed Advance planning; did discuss with the patient regarding advanced directives as well as CODE STATUS. Did explain the various scenarios involved ( FULL CODE, DNR CCA, DNR CCA with no intubation, and DNR CC and what each meant) patient is to remain full code with CPR and intubation if warranted.. Order was placed. Time spent on discussion 18 minutes. Active Medications Acetaminophen (Tylenol) 650 mg PO Q6H PRN PRN PRN Reason: Pain Score 1-3/Temp > 100.7 F Last Admin: 08/24/19 11:27 Dose: 650 mg Documented by: Al Hydroxide/Mg Hydroxide (Mylanta Ii) 30 ml PO Q6H PRN PRN PRN Reason: Gastric Burning Albuterol Sulfate (Ventolin Aerosols) 2.5 mg INHALATION Q2H PRN PRN PRN Reason: SOB/Wheezing Enoxaparin Sodium (Lovenox) 100 mg SC Q12 [facility] Last Admin: 08/24/19 11:19 Dose: Not Given Documented by: Enoxaparin Sodium (Lovenox) 40 mg SC Q12 [facility] Last Admin: 08/24/19 11:19 Dose: Not Given Documented by: Glucagon () 1 mg IM .X1 PRN PRN Reason: Hypoglycemia Guaifenesin (Robitussin) 20 ml PO Q4H PRN PRN PRN Reason: COUGH Hydrochlorothiazide () 12.5 mg PO DAILY [facility] Last Admin: 08/24/19 11:52 Dose: 12.5 mg Documented by: Sodium Chloride () 250 mls @ 15 mls/hr IV .[id number] PRN PRN Reason: Saline Flush Sodium Chloride () 250 mls @ 15 mls/hr IV .[id number] PRN PRN Reason: Additional IVPB Infusion Dextrose (Dextrose 10%-Water) 250 mls @ 999 mls/hr IV .Q16M PRN; Protocol PRN Reason: HYPOGLYCEMIA Insulin Human Lispro (Humalog Kwikpen (Bkc)) 0 unit SC ACHS [facility]; Protocol Losartan Potassium (Cozaar) 50 mg PO DAILY [facility] Last Admin: 08/24/19 11:27 Dose: 50 mg Documented by: Magnesium Hydroxide (Milk Of Magnesia) 30 ml PO DAILY PRN PRN PRN Reason: Constipation Melatonin (Melatonin) 3 mg PO QHS PRN PRN PRN Reason: INSOMNIA Metoprolol Tartrate (Lopressor (Beta Chasity)) 50 mg PO BID [facility] Last Admin: 12/30/19 11:27 Dose: 50 mg Documented by: Nitroglycerin (Nitrostat) 0.4 mg SUBLINGUAL Q5M PRN PRN Reason: CARDIAC/CHEST PAIN Ondansetron HCl (Zofran) 4 mg IV Q8H PRN PRN PRN Reason: NAUSEA/VOMITING Oxycodone HCl (Oxyir) 5 mg PO Q4H PRN PRN PRN Reason: Pain Score 4-5/10 Oxycodone HCl (Oxyir) 10 mg PO Q4H PRN PRN PRN Reason: Pain Score 6-10/10 Paroxetine HCl (Paxil) 20 mg PO DAILY@2200 [place] Sodium Chloride () 10 - 40 ml IV UD PRN PRN Reason: SALINE FLUSH Code Visit Inpatient E&M: 98580 Init Hosp L3 Procedures: 73139 Advncd Care Plan 30 Min
--- NOTE | 2019-08-24 09:18 | VDLE_ITS ---
Reason For Study: Pulmonary embolism RIGHT LEFT GSV is normal. GSV is normal. CFV is compressible, spontaneous, phasic, CFV is compressible, spontaneous, phasic, competent and demonstrates normal competent, and demonstrates normal augmentation. augmentation. FV is compressible, spontaneous, phasic, FV is compressible, spontaneous, phasic, competent and demonstrates normal competent and demonstrates normal augmentation. augmentation. POP V is compressible, spontaneous, phasic, POP V is compressible, spontaneous, phasic, competent and demonstrates normal competent and demonstrates normal augmentation. augmentation. T/P Trunk is compressible. T/P Trunk is compressible. PTV is compressible. PTV is compressible. RT PerV is compressible. LT PerV is compressible. Procedure Exam performed portable in patient room. A preliminary report was called and/or faxed to [facility]. Interpretation Summary Deep veins of the lower extremities are bilaterally patent and compressible segmentally. There is no evidence of deep vein thrombosis on either side. Valvular competence appears intact within the proximal deep venous systems bilaterally. The great saphenous veins appear bilaterally patent and compressible segmentally. Ordering Physician: Binu Chirinos Referring Physician: Skyla Tobias M.D. Performed By: Anjelica Lazaro RVT
[2019-08-24] MEDS: Enoxaparin 150 MG/ML Syringe 140 MG SC ×2 (09:55→20:34)
[2019-08-24] MEDS: Acetaminophen 325 MG Tablet 650 MG PO ×2 (11:27→20:25)
[2019-08-24] MEDS: Metoprolol Tartrate 50 MG Tablet PO ×2 (11:27→20:22)
[2019-08-24] MEDS: Losartan Potassium 50 MG Tablet PO (11:27)
[2019-08-24] MEDS: hydroCHLOROthiazide 12.5mg 12.5 MG PO (11:52)
[2019-08-24 12:31] LABS: Bedside Glucose 99 mg/dL (70-110)
[2019-08-24 17:20] LABS: Bedside Glucose 85 mg/dL (70-110)
--- NOTE | 2019-08-24 20:30 | NURSING ---
Pt requesting meds to be given early at this time.
[2019-08-24 21:16] LABS: Bedside Glucose 147 mg/dL (70-110)
[2019-08-24] MEDS: Paroxetine 20 MG Tablet PO (22:32)
[2019-08-24] MEDS: MELATONIN 3 MG TABLET PO (22:32)
[2019-08-25] VITALS (8 sets, daily range): BP systolic 112–134; BP diastolic 45–64; PULSE 65–88; RESP 16–18; TEMP 36.6–36.8; O2SAT 90–99
--- NOTE | 2019-08-25 06:21 | CON.PCM_ITS ---
Reason for Consult Date of Consultation: 08/25/19 Reason for Consultation: Bilateral pulmonary emboli and lung mass History of Present Illness: The patient is a 74-year-old female, with a history as outlined below, who was sent from the radiology department to the ED for evaluation after she was noted to have bilateral pulmonary emboli on a CT scan which was scheduled for outpatient purposes, along with subjective complaints of shortness of breath. The patient had a CT abdomen and pelvis completed on August 13 due to complaints of left flank pain. That imaging study demonstrated the incidental finding of a 1.3 x 0.9 cm nodule in the left lower lobe. Therefore, the patient's primary care provider ordered a CT chest with contrast to follow-up on the aforementioned findings. That imaging study again demonstrated the presence of a subpleural 1.4 cm nodule in the left lower lobe. There was also evidence of bilateral pulmonary emboli. The patient is currently followed by Dr. Silva in the pulmonary medicine clinic, having last been seen in April 2019. She has a known history of chronic hypoxemic respiratory failure, rheumatoid arthritis, pulmonary hypertension and obstructive sleep apnea. During her last office visit, she was noted to have a nocturnal BiPAP pressure support requirement of 18/14 centimeters of water. On presentation to the emergency department, the patient was noted to be afebrile and a bit hypertensive with a blood pressure of 169/97 mmHg. She was saturating 92% on room air. Initial laboratory evaluation revealed no evidence of a leukocytosis. Chemistry profile revealed evidence of mild acute kidney injury with a creatinine of 1.23. Troponin was negative. BNP was elevated to 150. The patient was subsequently started on Lovenox therapy and admitted to the progressive care unit for further management. The patient has no personal or family history of venous thromboembolic disease or underlying hypercoagulable disorder. She denies a personal history of malignancy. She states that she is up-to-date with her routine screening mammo grams and colonoscopy and that no abnormality has ever been identified in the past. The patient denies any recent immobility or prolonged travel. Past Medical History Past Medical History (Chronic Problems): Chronic Problems (Last Reviewed 08/24/19 @ 13:48 by Binu Chirinos MD) Chronic hypoxemic respiratory failure (Chronic) History of left heart catheterization (Chronic) 08/30/[address] Cook [facility]; per Dr. Anderson [facility] (NORMAL CORONARIES) Hyperlipidemia (Chronic) Rheumatoid arthritis (Chronic) Gallstones (Chronic) Depression (Chronic) Anxiety (Chronic) Osteoarthritis (Chronic) COPD (chronic obstructive pulmonary disease) (Chronic) Fatigue (Chronic) Hyperkalemia (Chronic) Type 2 diabetes mellitus (Chronic) BMI 50.0-59.9, adult (Chronic) Dyspnea on exertion (Chronic) Palpitations (Chronic) Ectopic atrial tachycardia (Chronic) Hypertension (Chronic) Compression of sciatic nerve (Chronic) Neuropathy, peripheral (Chronic) Hypoxemia (Chronic) Dyspnea (Chronic) JAYE (obstructive sleep apnea) (Chronic) BiPAP 18/14 cm of water Pulmonary hypertension (Chronic) Anemia (Chronic) Medical History: Medical History (Last Reviewed 08/24/19 @ 13:48 by Binu Chirinos MD) Hyperlipidemia (Chronic) E78.5 History of hysterectomy (Resolved) Z98.890, Z90.710 Rheumatoid arthritis (Chronic) M06.9 Gallstones (Chronic) K80.20 Osteoarthritis (Chronic) M19.90 COPD (chronic obstructive pulmonary disease) (Chronic) J44.9 Type 2 diabetes mellitus (Chronic) E11.9 BMI 50.0-59.9, adult (Chronic) Z68.43 Ectopic atrial tachycardia (Chronic) I47.1 Hypertension (Chronic) I10 JAYE (obstructive sleep apnea) (Chronic) G47.33 BiPAP 18/14 cm of water Pulmonary hypertension (Chronic) I27.20 Anemia (Chronic) D64.9 Allergies codeine Adverse Reaction (Verified 08/24/19 07:04) Vomiting hydrocodone bitartrate [From Vicodin] Adverse Reaction (Verified 08/24/19 07:04) Nausea meperidine HCl [From Demerol] Adverse Reaction (Verified 08/24/19 07:04) Vomiting morphine Adverse Reaction (Verified 08/24/19 07:04) Vomiting Home Medications: Ambulatory Orders Medication Instructions Recorded Paroxetine [Paxil] 20 mg PO QHS 06/17/14 metFORMIN HCl [Glucophage] 1,000 mg PO DINNER 06/17/14 Metoprolol Tartrate [Lopressor 50 mg PO BID 11/20/16 (Beta Chasity)] cholecalciferol (vitamin D3) 5,000 5,000 unit PO QDAY 12/13/17 unit tablet meloxicam 15 mg tablet 15 mg PO QDAY 12/13/17 glucosamine 750 [id number] 1 tab PO DAILY tab 10/20/18 no1 644 mg-C 30 mg-victorina 1 mg tablet losartan 50 mg-hydrochlorothiazide 1 tab PO DAILY #90 tab 10/20/18 12.5 mg tablet fluticasone propionate 50 2 spray INTRANASAL DAILY #18.2 g 05/20/19 mcg/actuation nasal spray,suspension Clarithromycin 1 tab PO BID 08/24/19 Surgical History: Surgical History (Last Reviewed 08/24/19 @ 13:49 by Binu Chirinos MD) History of left heart catheterization (Chronic) Z98.890 08/30/[address] Cook [facility]; per Dr. Anderson [facility] (NORMAL CORONARIES) History of dilation and curettage (Resolved) Z98.890 History of cholecystectomy (Resolved) Z98.890, Z90.49 History of carpal tunnel release (Resolved) Z98.890 Smoking Status: Former smoker - *Family History Maternal Family History: Family History (Last Reviewed 08/24/19 @ 13:49 by Binu Chirinos MD) Father CAD (coronary artery disease) Diabetes Hypertension Arthritis Mother Arthritis Heart disease Hypertension Paternal Family History: Family History (Last Reviewed 08/24/19 @ 13:49 by Binu Chirinos MD) Father CAD (coronary artery disease) Diabetes Hypertension Arthritis Mother Arthritis Heart disease Hypertension Review of Systems Constitutional: Denies: Chills, Fever, Weight Change HEENT: Denies: Head Aches, Sinus Congestion, Sinus Drainage Cardiovascular: Denies: Chest Pain, Palpitations Respiratory: Reports: Shortness of breath upon exertion. Denies: Cough Gastrointestinal: Denies: Abdominal Pain, Nausea, Vomiting Genitourinary: Denies: Dysuria Musculoskeletal: Denies: Joint Pain, Joint Tenderness Skin: Denies: Rash, Wounds Neurological: Denies: Numbness, Tingling, Focal weakness Psychiatric: Reports: Anxiety Hematologic/ Lymphatic: Reports: Hx of blood clot Objective: The patient's most recent lab work, culture data and imaging studies have all been personally reviewed. Pulmonary function studies last completed in September 2017 revealed evidence of an isolated reduction in diffusing capacity. A 6- minute walk test completed in January 2018 revealed the need for 2 L/min of supplemental oxygen with exertion. Surface echocardiogram from March 2017 revealed normal LV size with mild concentric LVH and an ejection fraction of 55%. Right ventricular systolic pressure was estimated to be 44 mmHg. Titration polysomnogram from August 2017 revealed the need for nocturnal bilevel with a pressure support of 23/ centimeters of water. - Physical Exam Vitals/I&O's: Vital Signs Temp Pulse Resp BP Pulse Ox 98.1 F 66 18 127/45 H 98 08/25/19 04:45 08/25/19 04:45 08/25/19 04:45 08/25/19 04:45 08/25/19 04:45 Oxygen Flow Rate (L/min) 2 Oxygen Delivery Method Nasal Cannula Weight: 292 lb 1.8 oz Body Mass Index (BMI) 50.1 Intake and Output for Last 24 Hours 08/23/19 08/24/19 08/25/19 23:59 23:59 23:59 Intake Total 300 / 420 120 / 120 Balance 300 / 420 120 / 120 General: Alert, Oriented x3, Cooperative, No apparent distress, - - Morbidly obese. Sitting in bedside recliner. HEENT: Atraumatic, PERRLA, Normocephalic Oral: No Gingival or Mucosal Lesions/ Ulcerations Neck: Supple, No Nodes, Trachea Midline Lungs: No rhonchi, No wheeze, No rales, Diminished Cardiovascular: Regular rate, Regular Rhythm, Normal S1, Normal S2, No murmurs Abdomen: Bowel Sounds Present, Soft, Non Tender, Obese Extremities: No clubbing, No cyanosis, No edema Skin: No breakdown Musculoskeletal: No Tenderness to Palpation of Joints or Extremities, No Muscle Wasting Lymphatic: No Cervical, Supraclavicular, or Inguinal Adenopathy Neurological: Cranial nerves II-XII grossly intact, Neuro grossly intact Psych/Mental Status: Alert and oriented to time, place, person, mood and affect Labs (Last 48 Hours) 08/24/19 08/24/19 08/24/19 07:55 07:55 07:55 WBC 9.2 RBC 4.22 Hgb 11.9 L Hct 37.9 MCV 89.8 MCH 28.2 MCHC 31.4 L RDW Std Deviation 45.1 H RDW Coeff of Marine 13.8 Plt Count 261 MPV 10.6 Immature Gran % (Auto) 0.800 Neut % (Auto) 65.7 Lymph % (Auto) 22.7 Becker % (Auto) 7.0 Eos % (Auto) 2.9 Baso % (Auto) 0.9 Absolute Neuts (auto) 6.0 Absolute Lymphs (auto) 2.08 Nucleated RBC % 0 PT Ratio Thrombin Time Thrombin Time Mix Lupus Anticoag aPTT Protein C Antigen Pending Free Protein S Pending Total Protein S Pending Func Antithrombin III Factor V Leiden Mutat Sodium 141 Potassium 4.8 Chloride 111 H Carbon Dioxide 22.0 Anion Gap 8 BUN 38 H Creatinine 1.23 H Estim Creat Clear Calc 34.65 Est GFR (MDRD) Af Amer 55 L Est GFR (MDRD) Non-Af 45 L BUN/Creatinine Ratio 30.9 H Glucose 129 H Calcium 9.4 Troponin I < 0.015 B-Natriuretic Peptide Beta-2-GPI IgG Ab Beta-2-GPI IgA Ab Beta-2-GPI IgM Ab Anti-Cardiolipin IgG Ab Anti-Cardiolipin IgM Ab POC Glucose 08/24/19 08/24/19 08/24/19 07:55 07:55 10:55 WBC RBC Hgb Hct MCV MCH MCHC RDW Std Deviation RDW Coeff of Marine Plt Count MPV Immature Gran % (Auto) Neut % (Auto) Lymph % (Auto) Becker % (Auto) Eos % (Auto) Baso % (Auto) Absolute Neuts (auto) Absolute Lymphs (auto) Nucleated RBC % PT Ratio Pending Thrombin Time Pending Thrombin Time Mix Pending Lupus Anticoag aPTT Pending Protein C Antigen Free Protein S Total Protein S Func Antithrombin III Pending Factor V Leiden Mutat Pending Sodium Potassium Chloride Carbon Dioxide Anion Gap BUN Creatinine Estim Creat Clear Calc Est GFR (MDRD) Af Amer Est GFR (MDRD) Non-Af BUN/Creatinine Ratio Glucose Calcium Troponin I < 0.015 B-Natriuretic Peptide 150.0 H Beta-2-GPI IgG Ab Pending Beta-2-GPI IgA Ab Pending Beta-2-GPI IgM Ab Pending Anti-Cardiolipin IgG Ab Pending Anti-Cardiolipin IgM Ab Pending POC Glucose 08/24/19 08/24/19 08/24/19 12:25 14:30 17:12 WBC RBC Hgb Hct MCV MCH MCHC RDW Std Deviation RDW Coeff of Marine Plt Count MPV Immature Gran % (Auto) Neut % (Auto) Lymph % (Auto) Becker % (Auto) Eos % (Auto) Baso % (Auto) Absolute Neuts (auto) Absolute Lymphs (auto) Nucleated RBC % PT Ratio Thrombin Time Thrombin Time Mix Lupus Anticoag aPTT Protein C Antigen Free Protein S Total Protein S Func Antithrombin III Factor V Leiden Mutat Sodium Potassium Chloride Carbon Dioxide Anion Gap BUN Creatinine Estim Creat Clear Calc Est GFR (MDRD) Af Amer Est GFR (MDRD) Non-Af BUN/Creatinine Ratio Glucose Calcium Troponin I < 0.015 B-Natriuretic Peptide Beta-2-GPI IgG Ab Beta-2-GPI IgA Ab Beta-2-GPI IgM Ab Anti-Cardiolipin IgG Ab Anti-Cardiolipin IgM Ab POC Glucose 99 85 08/24/19 20:19 WBC RBC Hgb Hct MCV MCH MCHC RDW Std Deviation RDW Coeff of Marine Plt Count MPV Immature Gran % (Auto) Neut % (Auto) Lymph % (Auto) Becker % (Auto) Eos % (Auto) Baso % (Auto) Absolute Neuts (auto) Absolute Lymphs (auto) Nucleated RBC % PT Ratio Thrombin Time Thrombin Time Mix Lupus Anticoag aPTT Protein C Antigen Free Protein S Total Protein S Func Antithrombin III Factor V Leiden Mutat Sodium Potassium Chloride Carbon Dioxide Anion Gap BUN Creatinine Estim Creat Clear Calc Est GFR (MDRD) Af Amer Est GFR (MDRD) Non-Af BUN/Creatinine Ratio Glucose Calcium Troponin I B-Natriuretic Peptide Beta-2-GPI IgG Ab Beta-2-GPI IgA Ab Beta-2-GPI IgM Ab Anti-Cardiolipin IgG Ab Anti-Cardiolipin IgM Ab POC Glucose 147 H Current Medications Acetaminophen (Tylenol) 650 mg PO Q6H PRN PRN PRN Reason: Pain Score 1-3/Temp > 100.7 F Last Admin: 08/24/19 20:25 Dose: 650 mg Documented by: Al Hydroxide/Mg Hydroxide (Mylanta Ii) 30 ml PO Q6H PRN PRN PRN Reason: Gastric Burning Albuterol Sulfate (Ventolin Aerosols) 2.5 mg INHALATION Q2H PRN PRN PRN Reason: SOB/Wheezing Enoxaparin Sodium (Lovenox) 140 mg SC Q12 [place] Last Admin: 08/24/19 20:34 Dose: 140 mg Documented by: Glucagon () 1 mg IM .X1 PRN PRN Reason: Hypoglycemia Guaifenesin (Robitussin) 20 ml PO Q4H PRN PRN PRN Reason: COUGH Hydrochlorothiazide () 12.5 mg PO DAILY [facility] Last Admin: 08/24/19 11:52 Dose: 12.5 mg Documented by: Sodium Chloride () 250 mls @ 15 mls/hr IV .[id number] PRN PRN Reason: Saline Flush Sodium Chloride () 250 mls @ 15 mls/hr IV .[id number] PRN PRN Reason: Additional IVPB Infusion Dextrose (Dextrose 10%-Water) 250 mls @ 999 mls/hr IV .Q16M PRN; Protocol PRN Reason: HYPOGLYCEMIA Insulin Human Lispro (Humalog Kwikpen (Bkc)) 0 unit SC ACHS [facility]; Protocol Last Admin: 08/24/19 20:23 Dose: Not Given Documented by: Losartan Potassium (Cozaar) 50 mg PO DAILY [facility] Last Admin: 08/24/19 11:27 Dose: 50 mg Documented by: Magnesium Hydroxide (Milk Of Magnesia) 30 ml PO DAILY PRN PRN PRN Reason: Constipation Melatonin (Melatonin) 3 mg PO QHS PRN PRN PRN Reason: INSOMNIA Last Admin: 08/24/19 22:32 Dose: 3 mg Documented by: Metoprolol Tartrate (Lopressor (Beta Chasity)) 50 mg PO BID [facility] Last Admin: 08/24/19 20:22 Dose: 50 mg Documented by: Nitroglycerin (Nitrostat) 0.4 mg SUBLINGUAL Q5M PRN PRN Reason: CARDIAC/CHEST PAIN Ondansetron HCl (Zofran) 4 mg IV Q8H PRN PRN PRN Reason: NAUSEA/VOMITING Oxycodone HCl (Oxyir) 5 mg PO Q4H PRN PRN PRN Reason: Pain Score 4-5/10 Oxycodone HCl (Oxyir) 10 mg PO Q4H PRN PRN PRN Reason: Pain Score 6-10/10 Paroxetine HCl (Paxil) 20 mg PO DAILY@2200 [facility] Last Admin: 08/24/19 22:32 Dose: 20 mg Documented by: Sodium Chloride () 10 - 40 ml IV UD PRN PRN Reason: SALINE FLUSH Assessment/Plan All Active Problems (Last Reviewed 08/24/19 @ 13:48 by Binu Chirinos MD) History of dilation and curettage (Resolved) History of hysterectomy (Resolved) History of cholecystectomy (Resolved) History of carpal tunnel release (Resolved) Abnormal stress test (Resolved) Abnormal findings on diagnostic imaging of heart and coronary circulation (Resolved) RECOMMENDATIONS: 1. Consider transitioning from Lovenox over to Eliquis or Xarelto. 2. CT-guided lung biopsy versus PET scan can be arranged for the patient following discharge on an outpatient basis. 3. Perform walking oximetry study prior to consideration for discharge home. 4. Continue nocturnal BiPAP therapy per home regimen with a pressure support of 18/14 centimeters of water. 5. Outpatient pulmonary follow-up is recommended within 2 weeks of discharge. IMPRESSIONS: 1. Bilateral pulmonary emboli The patient was admitted to the hospital in the setting of shortness of breath and radiographic evidence of bilateral pulmonary emboli. The exact precipitating etiology is unknown. The patient is currently on therapeutic Lovenox. Echocardiogram is pending. 2. Chronic hypoxemic respiratory failure/pulmonary hypertension The patient has a baseline 2 L/min supplemental oxygen requirement. She appears to be at her baseline both from a breathing perspective and supplemental oxygen need. Recommend performing a walking oximetry study prior to consideration for discharge home. 3. Left lower lobe lung nodule CT chest did demonstrate evidence of a 1.4 cm left lower lobe lung nodule, subpleural location, along with a right apical lung nodule. The patient does have a very limited, remote smoking history, having quit completely 30 years ago. She reports that all of her routine cancer screening is up-to-date without any abnormalities previously identified. Options for further work-up were discussed with the patient and included outpatient PET scan versus percutaneous CT-guided lung biopsy. Risks and benefits of each were discussed with the patient. At this time, the patient is leaning towards pursuing CT-guided lung biopsy. However, she would like to discuss further with her family before making a definitive decision. Therefore, I do believe that this procedure can be completed likely next week on an outpatient basis. She can likely be transitioned over to Eliquis or Xarelto, with plans to hold systemic anticoagul ation for 24 hours prior to lung biopsy. 4. Obstructive sleep apnea The patient currently utilizes nocturnal BiPAP therapy with a pressure support of 18/14 centimeters of water. Recommend continuing this therapy while the patient is admitted to the hospital. 5. Morbid obesity/hypertension/hyperlipidemia/diabetes mellitus Complicates care, management, recovery and prognosis. Continue home medications as indicated. This note was generated with [employer] dictation software. It may contain incorrect words, spelling, and punctuation that were not noted in checking the note before signing. Code Visit Inpatient E&M: 39411 Init Hosp L3
[2019-08-25 06:31] LABS: Bedside Glucose 120 mg/dL (70-110)
[2019-08-25 08:06] LABS: Absolute Lymphocyte Count 1.73 X10^3/uL (0.83-4.51); Absolute Neutrophil Count 4.9 X10^3/uL (2.0-7.7); Basophil# 0.07 X10^3/uL; Basophil% 0.9 % (0-1); Eosinophil# 0.28 X10^3/uL; Eosinophils% 3.7 % (0-5); Hematocrit 37.1 % (37-47); Hemoglobin 11.4 g/dL (12.0-15.0); Lymphocyte # 1.73 X10^3/ul (4.0); Lymphocyte % 22.6 % (19-41); Mean Corp Hgb Conc 30.7 g/dL (32-36); Mean Corpuscular Hgb 27.3 pg (27.0-32.0); Mean Corpuscular Volume 88.8 fL (81-99); Mean Platelet Vol. 10.6 fl (6.2-12.0); Monocyte# 0.64 X10^3/uL; Monocyte% 8.4 % (0-10); NRBC Flagged by Analyzer 0 % (0-5); Neutrophil % 63.9 % (47-70); Platelet Count 253 K/mm3 (150-450); RBC Distribution Width CV 13.7 % (11.6-14.6); RBC Distribution Width SD 44.7 fl (35.1-43.9); Red Blood Count 4.18 M/mm3 (4.2-5.4); White Blood Count 7.7 K/mm3 (4.4-11.0)
[2019-08-25] MEDS: Acetaminophen 325 MG Tablet 650 MG PO (08:16)
[2019-08-25 08:22] LABS: Anion Gap 7 (5-15); BUN 31 mg/dL (7-18); BUN/Creat Ratio 27.7 RATIO (10-20); Calcium,Total 9.4 mg/dL (8.5-10.1); Chloride 110 mmol/L (98-107); Creatinine, Serum 1.12 mg/dL (0.55-1.02); EST Glomerular Filtration Rate 51 mL/min (>60); Est Glom Filt Rate - Afr Amer 61 mL/min (>60); Estimated Creatinine Clearance 38.05 ml/min; Glucose 138 mg/dL (74-106); Magnesium 1.4 mg/dL (1.6-2.6); Potassium 4.5 mmol/L (3.5-5.1); Sodium Level 141 mmol/L (136-145)
[2019-08-25] MEDS: hydroCHLOROthiazide 12.5mg 12.5 MG PO (09:34)
[2019-08-25] MEDS: Metoprolol Tartrate 50 MG Tablet PO (09:34)
[2019-08-25] MEDS: Losartan Potassium 50 MG Tablet PO (09:34)
[2019-08-25] MEDS: Enoxaparin 150 MG/ML Syringe 140 MG SC (09:45)
--- NOTE | 2019-08-25 10:08 | DCINST_ITS ---
You will use the following diet at home:: No restrictions Your food should be the consistency of: Regular Discharge Activity: Return to Normal Activity Allergies/Adverse Reactions: Allergies codeine Adverse Reaction (Verified 08/24/19 07:04) Vomiting hydrocodone bitartrate [From Vicodin] Adverse Reaction (Verified 08/24/19 07:04) Nausea meperidine HCl [From Demerol] Adverse Reaction (Verified 08/24/19 07:04) Vomiting morphine Adverse Reaction (Verified 08/24/19 07:04) Vomiting Medications to take at Discharge Paroxetine [Paxil] 20 mg PO QHS 06/17/14 metFORMIN HCl [Glucophage] 1,000 mg PO DINNER 06/17/14 Metoprolol Tartrate [Lopressor (beta pranay)] 50 mg PO BID 11/20/16 cholecalciferol (vitamin D3) 5,000 unit tablet 5,000 unit PO QDAY 12/13/17 meloxicam 15 mg tablet 15 mg PO QDAY 12/13/17 glucosamine 750 [id number] no1 644 mg-C 30 mg-victorina 1 mg tablet 1 tab PO DAILY tab 10/20/18 losartan 50 mg-hydrochlorothiazide 12.5 mg tablet 1 tab PO DAILY #90 tab 10/20/18 fluticasone propionate 50 mcg/actuation nasal spray,suspension 2 spray INTRANASAL DAILY #18.2 g 05/20/19 Clarithromycin 1 tab PO BID 08/24/19 Apixaban [Eliquis] 5 mg PO BID #90 tab 08/25/19 Magnesium Oxide [Mag-Ox 400] 400 mg PO BIDCM #30 tab 08/25/19 The following prescriptions were given: Apixaban [Eliquis] 5 mg PO BID #90 tab Transmission Status: Pending to [id number] Magnesium Oxide [Mag-Ox 400] 400 mg PO BIDCM #30 tab Transmission Status: Pending to [id number] Primary Care Physician: Skyla Tobias DO [Primary Care Provider] - Please follow up with your Primary Care Physician in: in 3-5 days Test Results: Test results from this visit will be discussed in further detail at your follow- up appointment, if applicable. Please Follow Up With: Skyla Tobias DO Please Follow Up With: Christopher Arreola DO Please Follow Up With: Reginaldo Martinez MD When: for outpatient CT guided biopsy as scheduled Proposed Discharge Date: 08/25/19
--- NOTE | 2019-08-25 10:12 | DS.PCM_ITS ---
Discharge Date and Diagnosis Date of Admission: 08/24/19 Date of Discharge: 08/25/19 - Primary Discharge Diagnosis Acute pulmonary embolism - Secondary Discharge Diagnosis Chronic Problems (Last Reviewed 08/24/19 @ 13:48 by Binu Chirinos MD) Chronic hypoxemic respiratory failure (Chronic) History of left heart catheterization (Chronic) 08/30/[address] Cook [facility]; per Dr. Anderson [facility] (NORMAL CORONARIES) Hyperlipidemia (Chronic) Rheumatoid arthritis (Chronic) Gallstones (Chronic) Depression (Chronic) Anxiety (Chronic) Osteoarthritis (Chronic) COPD (chronic obstructive pulmonary disease) (Chronic) Fatigue (Chronic) Hyperkalemia (Chronic) Type 2 diabetes mellitus (Chronic) BMI 50.0-59.9, adult (Chronic) Dyspnea on exertion (Chronic) Palpitations (Chronic) Ectopic atrial tachycardia (Chronic) Hypertension (Chronic) Compression of sciatic nerve (Chronic) Neuropathy, peripheral (Chronic) Hypoxemia (Chronic) Dyspnea (Chronic) JAYE (obstructive sleep apnea) (Chronic) BiPAP 18/14 cm of water Pulmonary hypertension (Chronic) Anemia (Chronic) Hospital Course and Treatment Summary of Care Provided: Patient is a 74-year-old lady admitted with shortness of breath found to have bilateral pulmonary embolism 1. Acute bilateral pulmonary embolism. ?CTA obtained demonstrated multiple moderate sized segmental and subsegmental pulmonary emboli noted in the right upper lobe, right lower lung right middle lobe left upper lobe lingula and left lower lobe patient admitted to a monitored bed. Patient was started on therapeutic Lovenox. As part of her management ordered a 2D echo bilateral venous duplex. Patient bilateral venous duplex did not demonstrate any presence of DVT. Patient currently she did improve much earlier than her expected 2 midnight stay on admission. She was discharged home on Eliquis 10 mg p.o. daily for 7 days then 5 mg twice daily subsequently 2. Lung nodule ?CT obtained demonstrated a 1.4 cm lobulated nodule in the posterior basal segment of the left lung which was felt to represent possible neoplastic process further evaluation with PET scan versus biopsy was recommended. Consult placed to pulmonary medicine ?Patient was seen in consultation by Dr. Rajesh Arreola with pulmonary medicine he did schedule for patient to undergo outpatient biopsy. This was secured for the patient prior to patient being discharged. Patient was instructed to hold Eliquis 2 days prior to his scheduled procedure 3. Pulmonary hypertension Patient is followed by pulmonary medicine as outpatient consult placed 4. Hypertension ~ blood pressure controlled, home medications continued with dose adjustment as needed 5. Dyslipidemia ~Managed with diet 6. Morbid obesity with BMI of 50.1 Weight loss advised 7. Diabetes mellitus type II ~ patient's oral hypoglycemics held. Placed onAccu-Cheks a.c. and at bedtime and covered with sliding scale insulin 8. Chronic hypoxic respiratory failure Patient is on baseline home O2 9. Obstructive sleep apnea ?Patient is on Pap therapy at home 10. Generalized osteoarthritis ?Pain meds as needed Objective: GENERAL: cooperative HEENT: Atraumatic; EYES; Anicteric, Normal Conjunctiva NECK; supple, normal thyroid, RESPIRATORY: Diminished to auscultation CARDIOVASCULAR: Regular S1 S2, GI: soft, normoactive bowel sounds, : No Renal angle tenderness; EXTREMITIES: No edema, no clubbing, MUSCULOSKELETAL: no muscle waisting NEURO: Awake; no lateralizing signs. SKIN: No Rash - Physical Exam Vitals/I&O's: Vital Signs Temp Pulse Resp BP Pulse Ox 98.3 F 88 16 112/48 L 96 08/25/19 08:24 08/25/19 09:34 08/25/19 08:24 08/25/19 08:24 08/25/19 08:24 Oxygen Flow Rate (L/min) 2 Oxygen Delivery Method Room Air Weight: 132.5 kg Body Mass Index (BMI) 50.1 Intake and Output for Last 24 Hours 08/23/19 08/24/19 08/25/19 23:59 23:59 23:59 Intake Total 300 / 420 120 / 120 Balance 300 / 420 120 / 120 Laboratory Results 08/24/19 10:55: Troponin I < 0.015 08/24/19 12:25: POC Glucose 99 08/24/19 14:30: Troponin I < 0.015 08/24/19 17:12: POC Glucose 85 08/24/19 20:19: POC Glucose 147 H 08/25/19 06:27: POC Glucose 120 H 08/25/19 07:55: WBC 7.7, RBC 4.18 L, Hgb 11.4 L, Hct 37.1, MCV 88.8, MCH 27.3, MCHC 30.7 L, RDW Std Deviation 44.7 H, RDW Coeff of Marine 13.7, Plt Count 253, MPV 10.6, Immature Gran % (Auto) 0.500, Neut % (Auto) 63.9, Lymph % (Auto) 22.6, Glynn % (Auto) 8.4, Eos % (Auto) 3.7, Baso % (Auto) 0.9, Absolute Neuts (auto) 4.9, Absolute Lymphs (auto) 1.73, Nucleated RBC % 0 08/25/19 07:55: Sodium 141, Potassium 4.5, Chloride 110 H, Carbon Dioxide 24.0, Anion Gap 7, BUN 31 H, Creatinine 1.12 H, Estim Creat Clear Calc 38.05, Est GFR (MDRD) Af Amer 61, Est GFR (MDRD) Non-Af 51 L, BUN/Creatinine Ratio 27.7 H, Glucose 138 H, Calcium 9.4, Magnesium 1.4 L Current Medications Acetaminophen (Tylenol) 650 mg PO Q6H PRN PRN PRN Reason: Pain Score 1-3/Temp > 100.7 F Last Admin: 08/25/19 08:16 Dose: 650 mg Documented by: Al Hydroxide/Mg Hydroxide (Mylanta Ii) 30 ml PO Q6H PRN PRN PRN Reason: Gastric Burning Albuterol Sulfate (Ventolin Aerosols) 2.5 mg INHALATION Q2H PRN PRN PRN Reason: SOB/Wheezing Enoxaparin Sodium (Lovenox) 140 mg SC Q12 [facility] Last Admin: 08/25/19 09:45 Dose: 140 mg Documented by: Glucagon () 1 mg IM .X1 PRN PRN Reason: Hypoglycemia Guaifenesin (Robitussin) 20 ml PO Q4H PRN PRN PRN Reason: COUGH Hydrochlorothiazide () 12.5 mg PO DAILY [facility] Last Admin: 08/25/19 09:34 Dose: 12.5 mg Documented by: Sodium Chloride () 250 mls @ 15 mls/hr IV .[id number] PRN PRN Reason: Saline Flush Sodium Chloride () 250 mls @ 15 mls/hr IV .[id number] PRN PRN Reason: Additional IVPB Infusion Dextrose (Dextrose 10%-Water) 250 mls @ 999 mls/hr IV .Q16M PRN; Protocol PRN Reason: HYPOGLYCEMIA Magnesium Sulfate 2 gm/ (Dextrose) 104 mls @ 52 mls/hr IV X1 ONE Stop: 08/25/19 11:59 Insulin Human Lispro (Humalog Kwikpen (Bkc)) 0 unit SC ACHS [facility]; Protocol Last Admin: 08/25/19 06:28 Dose: Not Given Documented by: Losartan Potassium (Cozaar) 50 mg PO DAILY [facility] Last Admin: 08/25/19 09:34 Dose: 50 mg Documented by: Magnesium Hydroxide (Milk Of Magnesia) 30 ml PO DAILY PRN PRN PRN Reason: Constipation Magnesium [facility]ide (Mag-Ox 400) [facility] Melatonin (Melatonin) 3 mg PO QHS PRN PRN PRN Reason: INSOMNIA Last Admin: 08/24/19 22:32 Dose: 3 mg Documented by: Metoprolol Tartrate (Lopressor (Beta Chasity)) 50 mg PO BID [facility] Last Admin: 08/25/19 09:34 Dose: 50 mg Documented by: Nitroglycerin (Nitrostat) 0.4 mg SUBLINGUAL Q5M PRN PRN Reason: CARDIAC/CHEST PAIN Ondansetron HCl (Zofran) 4 mg IV Q8H PRN PRN PRN Reason: NAUSEA/VOMITING Oxycodone HCl (Oxyir) 5 mg PO Q4H PRN PRN PRN Reason: Pain Score 4-5/10 Oxycodone HCl (Oxyir) 10 mg PO Q4H PRN PRN PRN Reason: Pain Score 6-10/10 Paroxetine HCl (Paxil) 20 mg PO DAILY@2200 [facility] Last Admin: 08/24/19 22:32 Dose: 20 mg Documented by: Sodium Chloride () 10 - 40 ml IV UD PRN PRN Reason: SALINE FLUSH Discharge Diet: No Restrictions Discharge Activity: Return to Normal Activity Home Medications: Medications to take at Discharge Paroxetine [Paxil] 20 mg PO QHS 06/17/14 metFORMIN HCl [Glucophage] 1,000 mg PO DINNER 06/17/14 Metoprolol Tartrate [Lopressor (beta chasity)] 50 mg PO BID 11/20/16 cholecalciferol (vitamin D3) 5,000 unit tablet 5,000 unit PO QDAY 12/13/17 meloxicam 15 mg tablet 15 mg PO QDAY 12/13/17 glucosamine 750 [id number] 644 mg-C 30 mg-victorina 1 mg tablet 1 tab PO DAILY tab 10/20/18 losartan 50 mg-hydrochlorothiazide 12.5 mg tablet 1 tab PO DAILY #90 tab 10/20/18 fluticasone propionate 50 mcg/actuation nasal spray,suspension 2 spray INTRANASAL DAILY #18.2 g 05/20/19 Clarithromycin 1 tab PO BID 08/24/19 Apixaban [Eliquis] 5 mg PO BID #90 tab 08/25/19 Magnesium Oxide [Mag-Ox 400] 400 mg PO BIDCM #30 tab 08/25/19 Following Prescrptions Were Given to Patient: Apixaban [Eliquis] 5 mg PO BID #90 tab Transmission Status: Received by [facility] [id number] Magnesium Oxide [Mag-Ox 400] 400 mg PO BIDCM #30 tab Transmission Status: Sent to [facility] [id number] Primary Care Physician: Skyla Tobias DO [Primary Care Provider] - Please follow up with your Primary Care Physician in: in 3-5 days Please Follow Up With: Skyla Tobias DO Please Follow Up With: Christopher Arreola DO Please Follow Up With: Reginaldo Martinez MD When: for outpatient CT guided biopsy as scheduled Disposition: Home Minutes spent on discharge:: 35 Medical Necessity - Tobacco Use Smoking Status: Former smoker Meaningful Use Info Meaningful Use Diagnoses (Choose all that apply): VTE - VTE Anticoag overlap given w/in hospital stay or rx'd at ct?: No Pt receive overlap for 5 days?: No Reason overlap not ordered, prescribed, or given for 5 days: Treatment Not Indicated Code Visit Inpatient E&M: 79060 Disch Hosp
--- NOTE | 2019-08-25 11:10 | CASEMGMT ---
RN CM [employer]UT[employer] ARCHITECT CM to room to meet with patient for initial transition planning/care coordination assessment. MORRIS JEFFERY introduced self and role at [facility]. Pt voices understanding and consents to assessment at this time. Pt resting in bed in no distress at this time. Pt is A/O at this time and answers all questions appropriately. Care providers, pharmacy, and demographics verified/updated at this time. PCP: Micheline Specialists: Ricardo--pulmonology, Justin--cardiology Preferred Pharmacy: [facility] Insurance: [place] [employer] [facility] Prescription Benefit: Yes Living Will/HPOA: does not have LW or HCPOA . Interested in more information and would like to talk to SW to complete paperwork. DAYANNA Bai, made aware. Pt also given [employer] card and made aware can schedule an appt as an out-pt if SW is not available to see her prior to discharge. Pt voices understanding. LNOK: , 2 adult sons. Living Arrangements: Lives in one-story home with her . 2 steps to enter. IADL's. and pt share home mgmt tasks. Transportation: Pt states drives self and states no transportation concerns at this time. will drive her home @ d/c. DME: has the following DME: rails/grab bars, hand held shower, quad cane, O2 @ 2L/M via n/c w/exertion and HS through [employer]. BIPAP w/O2 bleed-in. Has walker and W/C available but do not use. Pt states no need for further DME at this time. HHC/SNF: No history of either and denies needs. No needs identified. States has been to OP therapy in the past and currently belongs to [facility]. Does not want additional OP therapy at this time. Pt wishes to return home and states has no concerns with going home at time of discharge. CM to follow for any further discharge planning/needs. Pt voices no further concerns/needs at this time. Advised pt to ask for CM if any further questions/concerns/needs arise. Voices understanding. PLAN: Home w/spousal support and discharge plans in place. Pt will be discharged home on Eliquis. Eliquis has been e-scribed to [facility]. Call placed to [facility] and [facility] 30-day free savings card applied. Per pharmacy, after the 30 days, pt's co-pay will be $305 until her deductible is met. Pt made aware that 1st 30 days is free and cost of co-pay per pharmacist. Pt instructed on importance of taking medications and to discuss concerns of cost with her PCP. Pt also given information on [facility] and instructions. Pt voices appreciation. Denzel DE LA CRUZN RN CM
[2019-08-25] MEDS: 0.9% Saline Lock 10 ML Syringe IV ×2 (11:16→13:49)
[2019-08-25 11:25] LABS: Bedside Glucose 109 mg/dL (70-110)
--- NOTE | 2019-08-25 15:35 | NURSING ---
Reviewed and agreed on all charting with Anahy Wetzel RN
[2019-08-27 16:07] LABS: Dilute Prothrombin Time (dPT) 42.6 sec (0.0-55.0); Dilute Russell Viper Venom 40.7 sec (0.0-47.0); PTT-LA 31.6 sec (0.0-51.9); Thrombin Time 18.3 sec (0.0-23.0); dPT Confirm Ratio 1.03 Ratio (0.00-1.40)
[2019-08-28 12:51] LABS: Anti-Cardiolipin Ab, IgG, Qn < 9 GPL U/mL (0-14); Anti-Cardiolipin Ab, IgM, Qn < 9 MPL U/mL (0-12); Antithrombin 3 Function 123 % (75-135); Beta-2-Glycoprotein I IgA <9 (0-25); Beta-2-Glycoprotein I IgG <9 (0-20); Beta-2-Glycoprotein I IgM <9 (0-32); Interpretation Comment: (.)
--- NOTE | 2019-08-28 15:05 | CASEMGMT ---
MORRIS JEFFERY Discharge Follow-Up Phone Call. Lace: 9 Strata: 3 Discharge Date: 08/25/19 Adm Dx: PE Attempted discharge follow up phone call. No answer. Message left for pt to return call to RN LATIA if she has any questions/concerns re: discharge instructions, medications, or follow-up appts. Phone number provided. Denzel HANNA RN CM
[2019-08-29 13:06] LABS: Protein C Antigen 141 % (60-150); Protein S, Free 136 % (57-157); Protein S, Total 140 % (60-150)
== END 2019-08-25 15:15 | disposition home or self-care (01) | DRG 176 ==
LOC: ED 07:33 → PCU 09:41
PROVIDERS: Admitting Provider Internal Medicine; Emergency Provider Emergency Medicine; Family Provider Internal Medicine; PCP Internal Medicine; Visit Provider Internal Medicine
DX: I26.99 Other pulmonary embolism without acute cor pulmonale (principal); Z68.43 Body mass index [BMI] 50.0-59.9, adult; J96.11 Chronic respiratory failure with hypoxia; E78.5 Hyperlipidemia, unspecified; E66.01 Morbid (severe) obesity due to excess calories; Z99.81 Dependence on supplemental oxygen; M06.9 Rheumatoid arthritis, unspecified; F32.9 Major depressive disorder, single episode, unspecified; F41.9 Anxiety disorder, unspecified; G47.33 Obstructive sleep apnea (adult) (pediatric); I27.20 Pulmonary hypertension, unspecified; D64.9 Anemia, unspecified; J44.9 Chronic obstructive pulmonary disease, unspecified; I10 Essential (primary) hypertension; Z87.891 Personal history of nicotine dependence; R91.1 Solitary pulmonary nodule
CPT/HCPCS: 36415; 71260; 80048; 81241; 82962; 83735; 83880; 84484; 85025; 85300; 85302; 85305; 85306; 86146; 86147; 93005; 93306; 93970; 99251; 99283; J7040; Q9957; Q9967; A4216; C8929; G0463

== ENCOUNTER → 2019-09-07 10:09 | Outpatient (CLI) | payer MEDICARE, SELFPAY ==
[2019-08-24 09:21] VITALS: BMI 50.1
[2019-09-07 13:03] LABS: Hematocrit 34.4 % (37-47); Hemoglobin 10.4 g/dL (12.0-15.0); Mean Corp Hgb Conc 30.2 g/dL (32-36); Mean Corpuscular Hgb 27.8 pg (27.0-32.0); Mean Platelet Vol. 12.4 fl (6.2-12.0); Platelet Count 226 K/mm3 (150-450); RBC Distribution Width CV 14.2 % (11.6-14.6); RBC Distribution Width SD 47.8 fl (35.1-43.9); Red Blood Count 3.74 M/mm3 (4.2-5.4)
[2019-09-07 13:08] LABS: International Normalized Ratio 1.1; Prothrombin Time (Protime)PT. 13.5 SECONDS (11.7-14.9)
== END ==
PROVIDERS: Family Provider Internal Medicine; PCP Internal Medicine; Referring Provider Internal Medicine Critical Care Medicine; Visit Provider Internal Medicine Critical Care Medicine
DX: R91.1 Solitary pulmonary nodule (principal)
CPT/HCPCS: 36415; 85027; 85610

== ENCOUNTER → 2019-09-09 09:04 | Outpatient (CLI) | payer MEDICARE, SELFPAY ==
[2019-08-24 09:21] VITALS: BMI 50.1
--- NOTE | 2019-09-08 | ASPIGT_PTH ---
PATIENT: SHANTI PAZ LOC: SD U#:[id number] AGE/SX: 79/F ROOM: RE09/09/[address]: Dr. Christopher Arreola DO : 1945 BED: DIS: SPEC #: [id number] RECD: 09/09/19 13:49 STATUS: NELLIE REGloria #: [id number] RICHIE: 09/08/19 00:[address]: Christopher Arreola DEPT: SURGICAL PATHOLOGY RECD BY: Abdulkadir Johnson ENTERED: 09/09/19 13:50 SP TYPE: ASP RAD OTHR DR: Dr. Skyla Tobias DO Tissues: Lung, NOS Procedures: FNA Specimen Adequacy Special Stain Group I Surgery Specimen Level IV Imprint (control) HEADER OPERATION: CT-guided left lung biopsy PRE-OP DIAGNOSIS: LLL lung nodule TISSUE SUBMITTED: Left lung biopsy 20 gauge MICROSCOPIC DIAGNOSIS Left lower lung nodule, CT-guided core biopsy: Benign spindle cell proliferation, most consistent with myxoma. Fragments of lung parenchymal tissue with reactive changes, pneumocyte-2 hyperplasia, mild interstitial fibrosis and chronic inflammation. See comment. LIZZIE:charo 09/10/19 COMMENT The specimen is evaluated at the time of biopsy by Dr. Lucio. Immediate Evaluation = No evidence of malignancy. Correlation with clinical, radiologic findings and appropriate follow up are necessary. Case has been reviewed in consultation with Dr. Lucio who concurs with the above diagnosis. IDC:AM MICROSCOPIC DESCRIPTION Slides are reviewed. GROSS DESCRIPTION Received in fixative is one container labeled with the patient's name and designated left lung. The specimen consists of a fragment of shore soft tissue measuring 0.2 x 0.2 x <0.1 cm. The specimen is totally submitted in one cassette. Three touch imprints are prepared at the time of core biopsy. / LIZZIE:charo 09/09/19 TC:5 CPT: 45952, 43917
[2019-09-09] VITALS (11 sets, daily range): BP systolic 112–186; BP diastolic 25–100; PULSE 57–73; RESP 12–19; TEMP 37.2; O2SAT 95–100; BMI 50.1
--- NOTE | 2019-09-09 09:05 | CT_ITS ---
PROCEDURE: CT GUIDED CORE NEEDLE BIOPSY OF A left lower lobe LUNG LESION INDICATION: Female, 74 years old. Left lower lobe pulmonary nodule. PHYSICIAN: Dr. Martinez. CONSENT: Written informed consent was obtained having explained the risks, benefits and alternatives in detail with the patient who accepted the risks and agreed to proceed. Laboratory review and clinical assessment was performed. CONSCIOUS SEDATION PROTOCOL: The Drugs used were: 2 mg Versed, IV., and 50 mcg Fentanyl, IV. The sedation time was: 16minutes. Conscious sedation was started at 10:12 AM and terminated at 10:28 AM. The conscious sedation protocol was independently monitored. RADIATION DOSAGE (If Supplied By Facility): CTDIvol = ( 16.5 ) mGy, DLP = ( 475.86 ) mGycm Individualized dose optimization techniques were used for this CT. TECHNIQUE: The patient was placed in the prone position. A noncontrast CT was performed to localize the lesion in the peripheral left lower lobe . The skin surface was prepped and draped in a sterile fashion. 1% lidocaine was used for local anesthesia. Using CT guidance, a 20-gauge coaxial biopsy device was advanced to the periphery of the lesion. A total of 3 core specimens were obtained. The specimens were placed in a formalin solution. A post procedure CT demonstrated no adverse sequelae or pneumothorax. The patient tolerated the procedure well without adverse event. A negative biopsy does not exclude malignancy. Further imaging or clinical followup based on patient condition and degree of clinical suspicion for malignancy. Suggest rebiopsy, if biopsy results do not match with clinical scenario. CT/Biopsy/Inj or Needle Placement IMPRESSION: 1. CT directed core needle biopsy of the left lower lobe pulmonary nodule using CT image guidance with image documentation as described. Pathology results are pending. 2. Conscious Sedation protocol utilized with independent monitoring. Electronically Signed: Reginaldo Martinez, at 11:00 EST , Service support ,
[2019-09-09] MEDS: fentaNYL 100 MCG/2 ML Ampul IV (10:12)
[2019-09-09] MEDS: Midazolam 2 MG/2 ML Syringe IV (10:15)
--- NOTE | 2019-09-09 12:00 | RAD_ITS ---
STUDY: X-RAY CHEST REASON FOR EXAM: Female, 74 years old. POST LEFT LUNG BX TECHNIQUE: AP inspiration and expiration views. COMPARISON: Comparison is made with prior study dated September 09, 2017. FINDINGS: This is an immediate post left lung biopsy radiograph. There is no evidence of pneumothorax. No acute abnormality seen. RAD/Chest Insp/Exp 2 View IMPRESSION: No evidence of pneumothorax on the immediate post left lung biopsy radiograph. Electronically Signed: Reginaldo Martinez, at 10:52 EST , Service support ,
--- NOTE | 2019-09-09 12:28 | RAD_ITS ---
STUDY: X-RAY CHEST REASON FOR EXAM: Female, 74 years old. 2HR, POST LUNG BX, LT SIDE. INSPR/EXPR VWS TECHNIQUE: AP inspiration and expiration view. COMPARISON: Comparison is made with prior study done earlier in the day. FINDINGS: There is no evidence of pneumothorax on the 2 hour post left lung biopsy radiographs. RAD/Chest Insp/Exp 2 View IMPRESSION: No evidence of pneumothorax on the 2 hour post left lung biopsy radiograph. Electronically Signed: Reginaldo Martinez, at 12:47 EST , Service support ,
== END ==
PROVIDERS: Family Provider Internal Medicine; PCP Internal Medicine; Referring Provider Internal Medicine Critical Care Medicine; Visit Provider Internal Medicine Critical Care Medicine
DX: D14.32 Benign neoplasm of left bronchus and lung (principal); J84.10 Pulmonary fibrosis, unspecified; R91.1 Solitary pulmonary nodule
CPT/HCPCS: 32405; 71046; 77012; 88172; 88305; 88312; 99156; 99157; J7040; A4216

== ENCOUNTER → 2019-12-07 13:28 | Outpatient (CLI) | payer MEDICARE, SELFPAY ==
[2019-11-04 12:55] VITALS: BMI 50.6
--- NOTE | 2019-12-07 13:30 | CT_ITS ---
STUDY: CT CHEST WITHOUT CONTRAST REASON FOR EXAM: Female, 74 years old. Left lower lung mass follow up, no new problems or pain. Lung biopsy 08/2019. Hx diabetes. RADIATION DOSAGE (If Supplied By Facility): CTDIvol = ( 20.41 ) mGy, DLP = ( 707.91 ) mGycm TECHNIQUE: Transaxial imaging was performed without the administration of intravenous contrast material. Multiplanar coronal and sagittal images were reformatted. Individualized dose optimization techniques were used for this CT. COMPARISON: Comparison is made with prior examination dated August 24, 2019. FINDINGS: Small benign-appearing bilateral axillary lymph nodes. The previously seen peripheral based nodule in the left lower lobe as seen on axial image #159 is decreased in size. It presently measures 10.4 mm x 8.8 mm. Previously, it measured 1.4 cm. There is no demonstrated pleural abnormality. There are calcifications of the coronary arteries. There are multiple small lymph nodes within the mediastinum, which are normal in size and morphology most compatible with reactive lymph hyperplasia. Normal hilar regions. Normal unenhanced pulmonary arteries. There is atherosclerotic calcification of the aortic arch. There are multi-level degenerative changes of the thoracic spine. There is no demonstrated abnormality of the visualized upper abdomen. CT/Chest without Contrast IMPRESSION: Slight decrease in size in the peripheral based nodule in the left lower lobe as compared to prior study. Electronically Signed: Reginaldo Martinez, at 15:25 EDT , Service support ,
== END ==
PROVIDERS: PCP Internal Medicine; Referring Provider Nurse Practitioner Acute Care; Visit Provider Nurse Practitioner Acute Care
DX: R91.8 Other nonspecific abnormal finding of lung field (principal)
CPT/HCPCS: 71250

== ENCOUNTER → 2019-12-31 10:56 | Outpatient (CLI) | payer MEDICARE, SELFPAY ==
[2019-11-04 12:55] VITALS: BMI 50.6
[2019-12-31 11:45] LABS: Mucous, Urine 0 SEEN /hpf (<or=2+); Red Blood Cells-Urine 0 SEEN /hpf (0-5)
[2019-12-31 12:44] LABS: Absolute Lymphocyte Count 1.53 X10^3/uL (0.83-4.51); Absolute Neutrophil Count 3.5 X10^3/uL (2.0-7.7); Basophil# 0.06 X10^3/uL; Eosinophil# 0.24 X10^3/uL; Eosinophils% 4.1 % (0-5); Hematocrit 33.3 % (37-47); Hemoglobin 10.1 g/dL (12.0-15.0); Lymphocyte # 1.53 X10^3/ul (4.0); Lymphocyte % 26.3 % (19-41); Mean Corp Hgb Conc 30.3 g/dL (32-36); Mean Corpuscular Hgb 27.7 pg (27.0-32.0); Mean Corpuscular Volume 91.5 fL (81-99); Mean Platelet Vol. 11.6 fl (6.2-12.0); Monocyte# 0.42 X10^3/uL; Monocyte% 7.2 % (0-10); NRBC Flagged by Analyzer 0 % (0-5); Neutrophil # 3.53 X10^3/uL (2.7-7.7); Neutrophil % 60.7 % (47-70); Platelet Count 241 K/mm3 (150-450); RBC Distribution Width CV 14.6 % (11.6-14.6); RBC Distribution Width SD 48.6 fl (35.1-43.9); Red Blood Count 3.64 M/mm3 (4.2-5.4); White Blood Count 5.8 K/mm3 (4.4-11.0)
[2019-12-31 13:01] LABS: Color, Urine Yellow (Yellow); Glucose, Dipstick Normal (Normal); Ketone-Dipstick Negative (Negative); Leukocyte Esterase-Dipstick 25 /ul (Negative); Nitrite-Dipstick Negative (Negative); Occult Blood-Urine Negative /ul (Negative); Protein-Dipstick Negative (Negative); Specific Gravity, Urine 1.015 (1.002-1.030); Urine Bilirubin Dipstick Negative (Negative); Urine Clarity Sl. Cloudy (Clear); Urine Urobilinogen Normal (Normal)
[2019-12-31 13:07] LABS: Bacteria 2+ /hpf (None Seen); Squamous Epithelial Cells - UA 0-5 SEEN /hpf (5-10); White Blood Cells 0-5 SEEN /hpf (0-5)
[2019-12-31 13:14] LABS: Microalbumin,Random Urine 19.9 mg/L (NO RANGE EST.); Microalbumin:Creatinine Ratio 22.3 mg/g CRE (<30 mg/g CRE)
[2019-12-31 13:19] LABS: Vitamin B12 442 pg/mL (211-911)
[2019-12-31 13:33] LABS: ALB/GLOB Ratio 0.9 RATIO (0.9-2.4); AST(SGOT) 15 U/L (15-37); Alanine Aminotransfer ALT/SGPT 24 U/L (13-56); Albumin, Serum 3.6 g/dL (3.2-5.0); Alkaline Phosphatase 71 U/L (45-117); Anion Gap 6 (5-15); BUN 34 mg/dL (7-18); BUN/Creat Ratio 30.9 RATIO (10-20); Calcium,Total 8.9 mg/dL (8.5-10.1); Chloride 111 mmol/L (98-107); Cholesterol 158 mg/dL (200); EST Glomerular Filtration Rate 52 mL/min (>60); Est Glom Filt Rate - Afr Amer 62 mL/min (>60); Glucose 104 mg/dL (74-106); High Density Lipoprotein 44 mg/dL; Potassium 5.3 mmol/L (3.5-5.1); Protein, Total 7.6 g/dL (6.4-8.2); Sodium Level 140 mmol/L (136-145); Thyroid Stim Hormone (TSH) 1.42 uIU/mL (0.358-3.74); Triglycerides 215 mg/dL; Very Low Density Lipoprotein 43 mg/dL (5-40)
== END ==
PROVIDERS: PCP Internal Medicine; Referring Provider Internal Medicine; Visit Provider Internal Medicine
DX: E11.9 Type 2 diabetes mellitus without complications (principal); E55.9 Vitamin D deficiency, unspecified; E53.8 Deficiency of other specified B group vitamins
CPT/HCPCS: 80053; 80061; 81001; 82043; 82306; 82570; 82607; 84443; 85025

== ENCOUNTER → 2020-02-24 12:55 | Outpatient (CLI) | payer MEDICARE, SELFPAY ==
[2020-02-04 12:02] VITALS: BMI 51.5
--- NOTE | 2020-02-24 12:56 | ECHOD_ITS ---
Reason For Study: PHTN Procedure This was a 2D Doppler, Color Flow transthoracic echocardiogram. The study was technically difficult. Due to body habitus. Exam performed in department. Left Ventricle Normal size and thickness. D shaped septum in diastole. The estimated ejection fraction is 65 %. Stage 1 diastolic dysfunction. No regional wall motion abnormalities noted. Right Ventricle Mildly dilated right ventricle. Normal systolic function. Atria The left atrium is mildly enlarged. Normal right atrium. Normal atrial septum. Mitral Valve The mitral valve is structurally normal. No prolapse or stenosis seen. Tricuspid Valve Normal tricuspid valve. Trivial tricuspid valve insufficiency. Right ventricular systolic pressure estimated to be 54 mmHg. Moderate pulmonary hypertension. Aortic Valve Normal aortic valve. Trisinus/trileaflet aortic valve. Pulmonic Valve The pulmonic valve is not well visualized. Great Vessels Normal aortic root. Normal arch. The inferior vena cava is dilated. No collapse of the inferior vena cava. Pericardium/Pleural No pericardial effusion. MMode/2D Measurements & Calculations LVIDd: 5.4 cm IVSd: 1.2 cm LVOT diam: 2.1 cm LVIDs: 3.6 cm LVPWd: 1.2 cm LVOT area: 3.6 cm2 RVDd: 3.8 cm FS: 33.5 % Ao root diam: 3.5 cm LAV(MOD-bp): 64.6 ml LA A4 area: 21.7 cm2 LAV(MOD-bp) Indexed: 28.1 ml/m2 LAV(MOD-sp2): 63.2 ml LAV(MOD-sp4): 64.8 ml LA dimension(2D): 4.3 cm RA A4 area: 17.6 cm2 Time Measurements MV dec time: 0.28 sec Doppler Measurements & Calculations MV E max mo: 86.3 cm/sec Lat Peak E' Mo: 8.3 cm/sec Med Peak E' Mo: 6.4 cm/sec MV A max mo: 117.3 cm/sec E/E' lat: 10.4 E/E' med: 13.5 MV E/A: 0.74 Ao V2 max: 205.2 cm/sec LV V1 max: 125.3 cm/sec SV(LVOT): 111.6 ml Ao max P.5 mmHg LV V1 max P.3 mmHg Ao V2 mean: 141.1 cm/sec LV V1 mean P.9 mmHg Ao mean P.7 mmHg LV V1 mean: 95.4 cm/sec Ao V2 VTI: 44.3 cm LV V1 VTI: 31.1 cm VIKY(I,D): 2.5 cm2 VIKY(V,D): 2.2 cm2 PA V2 max: 127.1 cm/sec TR max mo: 349.7 cm/sec TR max P.1 mmHg Interpretation Summary The estimated ejection fraction is 65 %. Stage 1 diastolic dysfunction. D shaped septum in diastole. The left atrium is mildly enlarged. Trivial tricuspid valve insufficiency. Right ventricular systolic pressure estimated to be 54 mmHg. Moderate pulmonary hypertension. Compared to echo report dated 08/24/2019, LV function has remained the same and RVSP has decreased from 61 to 54 mmHg. The study was technically difficult. Ordering Physician: Seven Anderson Referring Physician: Skyla Tobias Performed By: Socorro Ahn RDCS, RVT
== END ==
PROVIDERS: PCP Internal Medicine; Referring Provider Internal Medicine Cardiovascular Disease; Visit Provider Internal Medicine Cardiovascular Disease
DX: I27.20 Pulmonary hypertension, unspecified (principal); Z98.890 Other specified postprocedural states
CPT/HCPCS: 93306

== ENCOUNTER → 2020-05-30 12:42 | Outpatient (CLI) | payer MEDICARE, SELFPAY ==
[2020-02-25 06:08] VITALS: BMI 51.8
--- NOTE | 2020-05-30 12:44 | BI_ITS ---
MAMMOGRAPHY - BILATERAL SCREENING REASON FOR EXAM: Female, 74 years old. Routine annual screening examination. PERTINENT HISTORY: NO FM HX , GAINED 10#, PAST ASPIRATION YRS AGO, BILAT MOLES MARKED TECHNIQUE: Digital bilateral breast yvonne (3D mammographic acquisition) in the CC and MLO projections. 2-D mediolateral oblique (MLO) and craniocaudad (CC) views of both breasts were obtained. CAD: Full Field Digital Mammography with Computer Added Detection was performed. COMPARISON: 09/07/2018 FINDINGS: Breast Composition: The breasts are heterogeneously dense, which may obscure small masses. There is a new spiculated partially obscured mass in the upper outer quadrant of the left breast measuring 1.7 cm. Further evaluation by ultrasound is recommended. No other significant abnormalities are identified. BI/SCREEN MAMM (CAD) W/YVONNE BILAT IMPRESSION: Further imaging evaluation recommended, as described above. (E) ASSESSMENT CATEGORY: BIRADS Category 0: Incomplete. Need additional imaging evaluation. A letter regarding these results will be sent to the patient by the facility within 30 days. Approximately 10% of breast cancers are not detected by mammography. A normal mammogram should not delay biopsy of a clinically suspicious abnormality. [id number] Electronically Signed: Mary Grace Tyson, at 14:13 EDT Tel , Service support ,
== END ==
PROVIDERS: PCP Internal Medicine; Referring Provider Internal Medicine; Visit Provider Internal Medicine
DX: Z12.31 Encounter for screening mammogram for malignant neoplasm of breast (principal)
CPT/HCPCS: 77063; 77067

== ENCOUNTER → 2020-06-01 14:56 | Outpatient (CLI) | payer MEDICARE, SELFPAY ==
[2020-02-25 06:08] VITALS: BMI 51.8
--- NOTE | 2020-06-01 14:58 | US_ITS ---
STUDY: ULTRASOUND BREAST - LEFT REASON FOR EXAM: Female, 74 years old. Upper outer quadrant mass TECHNIQUE: Axial and longitudinal images of the LEFT breast were performed with a high resolution ultrasound transducer. # OF IMAGES: 37 COMPARISON: None. FINDINGS: LEFT Breast: There is a lesion #1 in the upper outer quadrant. The lesion measures 1.4 x 1.2 x 1.9 cm in size. Clock notation: 3 o''clock position. Distance from nipple: 3 cm. Posterior Enhancement: No. Posterior Shadowing: Strong. Margins: Indistinct and jagged. Echogenicity: Hypoechoic. Compression effect on Shape: No change. US/Breast Limited Unilateral IMPRESSION: Suspicious mass in the left breast. ASSESSMENT CATEGORY: BIRADS Category 4: Suspicious - Biopsy Should Be Considered. A letter regarding these results will be sent to the patient by the facility within 30 days. Electronically Signed: Mary Grace Tyson, at 12:24 EDT Tel , Service support ,
== END ==
PROVIDERS: PCP Internal Medicine; Referring Provider Internal Medicine; Visit Provider Internal Medicine
DX: N63.21 Unspecified lump in the left breast, upper outer quadrant (principal)
CPT/HCPCS: 76642

== ENCOUNTER → 2020-06-08 15:27 | Outpatient (CLI) | payer MEDICARE, SELFPAY ==
[2020-06-07 13:20] VITALS: BMI 51.8
--- NOTE | 2020-06-08 | IMM_PTH ---
AGE/SX: ROOM: REG: REG DR: KARTHIK: BED: DIS: SPEC #: [id number] RECD: 06/10/20 13:42 STATUS: NELLIE REQ #: [id number] RICHIE: 06/08/20 00:[address]: Omar Nash DEPT: IMMUNOHISTOCHEMISTRY RECD BY: Erika Lazaro ENTERED: 06/10/20 13:43 SP TYPE: IMMUNO OTHR DR: Dr. Skyla Tobias DO Tissues: Left breast, NOS Procedures: CALPONIN-1 (add) CK5-6 (add) CK8 (add) MARSHALL-2 (add) E-CAD (add) HER2 NAYELI (add) KI-67 (add) P53 (add) NE (add) GATA3 (add) P40 (add) ER (initial) PHYSICIAN & INSTITUTION [place] [id number] SPECIMEN INFORMATION: Tissue Source: Left breast Clinical Info: Left breast mass Specimen Number: [id number] CPT code: 93251, 92685 x8, 15621 x3 METHODOLOGY: Deparaffinized sections of prefer/formalin-fixed tissue or PAP/DQ stained slides are incubated with monoclonal/polyclonal antibodies/oligonucleotide probes. Localization is made via biotin free immunoperoxidase method. Appropriate controls are performed and reacted as expected. Results on target cell population are indicated in the following table: RESULTS: ANTIBODY / CLONE RESULT P53 (DO-7) positive, focal and weak Ki-67 (30-9) positive, low CK8 (23imuqT03) positive CK5-6 (D5 & 1684) negative Calponin-1 (OV789N) negative P40 (BC28) negative E-Cad (ECH-6) positive MARSHALL-2 (SP21) positive GATA3 (L50-823) positive MORPHOMETRIC ANALYSIS ER (clone 6F11) >95%, strong intensity NE (clone 16/1E2) >95%, strong intensity Her-2Neu (clone CB11) 1+ The prognostic test for HER2 is performed on formalin-fixed paraffin embedded tissue. A 3+ (positive) staining pattern is defined as intense, homogeneous, complete, circumferential membranous staining in >10% of contiguous tumor cells. A similar weak (2+) staining pattern is interpreted as equivocal. LINDSEY follow-up testing is recommended for all equivocal cases. Positivity/negativity for ER/NE is reported if > or < 1% of the tumor cells are immuno- reactive, respectively. The ASCO/CAP criteria is used for scoring. Reference: Journal of Clinical Oncology, 2013; 31:4666-7511 & 2010; 16:4246-6583. Duration of fixation: 7 Hrs; Sample Adequate: Yes. These assays have not been validated on decalcified tissues. Results should be interpreted with caution given the likelihood of false negativity on decalcified specimens. These tests were developed and their performance characteristics determined by [facility]. They may not have been cleared or approved by the U.S. Food and Drug Administration. The FDA has determined that such clearance or approval is not necessary. The above immunohistochemical/dualISH markers are ordered and reviewed by the Pathologist. INTERPRETATION: Left breast, core biopsy: Invasive ductal carcinoma, nuclear grade 2 Positive for estrogen receptors (favorable prognostic indicator). Positive for progesterone receptors (favorable prognostic indicator). Negative for overexpression of ZET6ldp. SJ:charo 06/13/20
--- NOTE | 2020-06-08 12:30 | BRBX_PTH ---
AGE/SX: ROOM: REG: REG DR: KARTHIK: BED: DIS: SPEC #: [id number] RECD: 06/08/20 15:21 STATUS: NELLIE WRIGHT #: [id number] RICHIE: 06/08/20 12:[address]: Omar Nash DEPT: SURGICAL PATHOLOGY RECD BY: Akua Gilbert ENTERED: 06/09/20 06:46 SP TYPE: BREAST BX OTHR DR: Dr. Skyla Tobias DO Tissues: Left breast, NOS Procedures: Surgery Specimen Level IV HEADER OPERATION: Left breast biopsy PRE-OP DIAGNOSIS: Left breast mass TISSUE SUBMITTED: Left breast tissue MICROSCOPIC DIAGNOSIS Left breast, core biopsy: Invasive ductal carcinoma with the following characteristics: Maximal length - 10.5 millimeters Nuclear grade - 2/3 AM:charo 06/10/20 COMMENT ER/LA/Waa4xiz studies are being performed on sections of tumor and the results from this study will be reported separately ([id number]). Case has been reviewed in consultation with Dr. Ortez who concurs with the above diagnosis. IDC:SJ MICROSCOPIC DESCRIPTION Slides are reviewed. GROSS DESCRIPTION Received in fixative is one container labeled with the patient name and designated left breast. The specimen consists of three elongated fragments of shore-yellow fibroadipose tissue that in aggregate measure 1.5 x 0.5 x 0.1 cm. The entire specimen is submitted in one cassette. / LIZZIE:charo 06/09/20 TC:0 CPT: 34928
--- NOTE | 2020-06-08 12:30 | BRBX_PTH ---
AGE/SX: ROOM: REG: REG DR: KARTHIK: BED: DIS: SPEC #: [id number] RECD: 06/08/20 15:21 STATUS: NELLIE WRIGHT #: [id number] RICHIE: 06/08/20 12:[address]: Omar Nash DEPT: SURGICAL PATHOLOGY RECD BY: Akua Gilbert ENTERED: 06/09/20 06:46 SP TYPE: BREAST BX OTHR DR: Dr. Skyla Tobias DO Tissues: Left breast, NOS Procedures: Surgery Specimen Level IV HEADER OPERATION: Left breast biopsy PRE-OP DIAGNOSIS: Left breast mass TISSUE SUBMITTED: Left breast tissue MICROSCOPIC DIAGNOSIS Left breast, core biopsy: Invasive ductal carcinoma with the following characteristics: Maximal length - 10.5 millimeters Nuclear grade - 1/3 AM:charo 06/10/20 COMMENT ER/IA/Tgo5ydv studies are being performed on sections of tumor and the results from this study will be reported separately ([id number]). Case has been reviewed in consultation with Dr. Ortez who concurs with the above diagnosis. IDC:SJ MICROSCOPIC DESCRIPTION Slides are reviewed. GROSS DESCRIPTION Received in fixative is one container labeled with the patient name and designated left breast. The specimen consists of three elongated fragments of shore-yellow fibroadipose tissue that in aggregate measure 1.5 x 0.5 x 0.1 cm. The entire specimen is submitted in one cassette. / LIZZIE:charo 06/09/20 TC:0 CPT: 79065
== END ==
DX: C50.912 Malignant neoplasm of unspecified site of left female breast (principal)
CPT/HCPCS: 88305; 88341; 88342

== ENCOUNTER 2020-06-27 07:39 | Day surgery (SDC) | payer MEDICARE, SELFPAY ==
--- NOTE | 2020-06-20 12:55 | EKG12_ITS ---
Test Reason : PRE OP Blood Pressure : / mmHG Vent. Rate : 070 BPM Atrial Rate : 070 BPM P-R Int : 218 ms QRS Dur : 092 ms QT Int : 362 ms P-R-T Axes : 059 -02 057 degrees QTc Int : 390 ms Sinus rhythm with sinus arrhythmia with 1st degree A-V block Otherwise normal ECG Confirmed by JEFF WELSH, EMERY ([id number]), editor in chief newspaper HERNAN HUNTER ([id number]) on 06/21/2020 10:18:23 AM Referred By: Omar Nash Confirmed By:EMERY AGUILAR MD
[2020-06-20 13:39] LABS: Hematocrit 35.8 % (37-47); Hemoglobin 11.1 g/dL (12.0-15.0); Mean Corpuscular Hgb 28.3 pg (27.0-32.0); Mean Corpuscular Volume 91.3 fL (81-99); Mean Platelet Vol. 11.4 fl (6.2-12.0); Platelet Count 272 K/mm3 (150-450); RBC Distribution Width CV 14.5 % (11.6-14.6); RBC Distribution Width SD 47.9 fl (35.1-43.9); Red Blood Count 3.92 M/mm3 (4.2-5.4); White Blood Count 7.9 K/mm3 (4.4-11.0)
[2020-06-20 14:04] LABS: ALB/GLOB Ratio 0.8 RATIO (0.9-2.4); AST(SGOT) 19 U/L (15-37); Alanine Aminotransfer ALT/SGPT 26 U/L (13-56); Albumin, Serum 3.6 g/dL (3.2-5.0); Alkaline Phosphatase 86 U/L (45-117); Anion Gap 11 (5-15); BUN 35 mg/dL (7-18); BUN/Creat Ratio 29.7 RATIO (10-20); Calcium,Total 9.2 mg/dL (8.5-10.1); Chloride 113 mmol/L (98-107); Creatinine, Serum 1.18 mg/dL (0.55-1.02); EST Glomerular Filtration Rate 48 mL/min (>60); Est Glom Filt Rate - Afr Amer 58 mL/min (>60); Globulin 4.4 g/dL (2.2-4.2); Glucose 116 mg/dL (74-106); Potassium 4.6 mmol/L (3.5-5.1); Sodium Level 143 mmol/L (136-145)
[2020-06-27] VITALS (11 sets, daily range): BP systolic 90–138; BP diastolic 43–71; PULSE 62–78; RESP 16–18; TEMP 36.1–36.8; O2SAT 92–97; BMI 51.3
--- NOTE | 2020-06-27 | AXNB_PTH ---
PATIENT: SHANTI PAZ LOC: [facility] – [place] U#:[id number] AGE/SX: 74/F ROOM: RE06/27/[address]: Dr. Omar Nash MD : 1945 BED: DIS: 06/27/2020 SPEC #: [id number] RECD: 06/27/20 12:26 STATUS: NELLIE REGloria #: [id number] RICHIE: 06/27/20 00:[address]: Omar Nash DEPT: SURGICAL PATHOLOGY RECD BY: Erika Lazaro ENTERED: 06/27/20 13:36 SP TYPE: AX NODE BX OTHR DR: Dr. Skyla Tobias DO Tissues: A - Axillary lymph node, NOS B - Left breast, NOS Procedures: Frozen Section (charge) Frozen Section Add'l ([facility]) Surgery Specimen Level V HEADER OPERATION: Left breast stereotactic wire localization lumpectomy with sentinel lymph node biopsy PRE-OP DIAGNOSIS: Malignant neoplasm of upper outer quadrant left breast, ER positive TISSUE SUBMITTED: A - [place] lymph node, FS at 1222, B - Left breast mass, wire - anterior, short stitch - superior, long stitch - lateral FROZEN SECTION DIAGNOSIS A. Left axillary sentinel lymph nodes, biopsy: Two out of two lymph nodes negative for carcinoma. AM: 06/27/20 MICROSCOPIC DIAGNOSIS A. Left axillary sentinel lymph nodes, biopsy: Two out of two lymph nodes negative for carcinoma. B. Left breast, lumpectomy: Invasive ductal carcinoma x2. See cancer summary below. AM: 06/30/20 COMMENT INVASIVE BREAST CANCER SUMMARY Procedure: Excision with wire guidance Specimen: Type: Partial breast Size: 8 x 5.5 x 3 cm Laterality: Left breast Invasive Tumor: Size: 1.2 x 1 x 0.8 cm and 1.5 mm in greatest dimension (block 8, measured microscopically). Focality: two foci of invasive tumor Histologic type: Invasive ductal carcinoma. Histologic grade (Miquel grade): Glandular/tubular differentiation score: 3 Nuclear pleomorphism score: 2 Mitotic count score: 1 Overall grade: 2 (score of 6) Lymph-vascular invasion: Not identified Ductal Carcinoma In Situ: Estimated size (extent): 1 millimeter Number of blocks: 1 of 12 blocks Architectural pattern: solid and cribriform with associated microcalcifications. Nuclear grade: 1 Necrosis: Not identified Lobular Carcinoma In Situ: Not present Tumor extension: Skin: No skin present. Nipple: No nipple present. Skeletal muscle: No skeletal muscle identified. Margins Involved by Invasive Carcinoma: Distance from closest margin: 0.5 cm from posterior margin Margins Involved by In Situ Carcinoma: Distance from closest margin: 8 mm from posterior margin Lymph Nodes: Number of sentinel lymph nodes examined: 2 Total number of lymph nodes examined: 2 No evidence of macrometastases, micrometastases or isolated tumor cells. See specimens A Microcalcifications: Present in carcinoma and in ductal carcinoma in situ and non-neoplastic tissue. Treatment Effect: Unknown Additional Pathologic Findings: Intraductal hyperplasia without atypia, intraductal papilloma, fibrocystic change with associated microcalcifications. Focal vessel wall microcalcifications, focal intravascular thrombus and changes of previous biopsy. Ancillary Studies: Previously performed on same tumor ([id number] /[id number]) ER: >95%, strong intensity OR: >95%, strong intensity Pnw1fwe: 1+, negative by IHC Clinical History: Mass of left breast Pathologic Stage: T1c N0 Mx The above summary is in compliance with [employer] [place] Path[employer] (CAP) Cancer Protocols Checklist and [place] Joint Committee on Cancer (AJCC), Staging Manual, 8th Ed. Immunohistochemistry ([id number]) supports the above diagnosis. Smaller focus of tumor shows nuclear grade 1. Case has been reviewed in consultation with Dr. Ortez who concurs with the above diagnosis. IDC:SJ MICROSCOPIC DESCRIPTION Slides are reviewed. GROSS DESCRIPTION A - Received fresh for frozen section diagnosis labeled with the patient's name is a specimen designated sentinel lymph nodes. The specimen consists of a piece of adipose tissue containing two nodules measuring 7 x 3.5 x 1.5 cm. The nodule, consistent with lymph node, measures 2 x 1.5 x 0.2 cm and 4.3 x 3 x 1 cm. The lymph nodes are submitted in entirety in nine cassettes for frozen section diagnosis as follows: 1 & 2 - one bisected lymph node, 3-9 - one serially sectioned lymph node. / AM:charo 06/28/20 B - Received fresh for intraoperative consultation with the patient's name and designated left breast mass. The specimen consists of a piece of fibroadipose tissue with needle localization measuring 8 x 5.5 x 3 cm. The specimen is oriented by suture as follows: wire - anterior, short stitch - superior, long stitch - lateral. The specimen is inked as follows: anterior - yellow, posterior - black, superior - blue, inferior - green, medial - red and lateral - orange. Serial sections reveal a shore, indurated mass measuring 1.2 x 1 x 0.8 cm. This mass is 0.5 cm away from the closest posterior margin. This information is conveyed to the surgeon intraoperatively. Sections of the rest of the specimen reveal shore-yellow adipose cut surfaces mixed with shore-white fibrous area. Evs Manager sections are submitted in 12 cassettes as follows: 1 & 2 - perpendicular margin, 3-6 - tumor with closest posterior margin, 7-12 - contact center representative sections adjacent to and away from the tumor. Sections will be submitted after additional fixation. / SJ:charo 06/28/20 TC:0 CPT: 79265 x2, 88001, 23430 x8 ADDENDUM ADDENDUM ADDENDUM ADDENDUM ADDENDUM ADDENDUM ADDENDUM ADDENDUM 08/04/2020 08:28 ADDENDUM 08/04/2020 08:28 ADDENDUM 08/04/2020 08:28 ADDENDUM 08/04/2020 08:28 ADDENDUM 08/04/2020 08:28 An order for Oncotype testing was received from Dr. Mccrary. This necessitated case review, block and slide selection by pathologist at [facility]. Breast Cancer Recurrence Score = 10 Results of the complete Oncotype testing ([employer] report) are viewable in EMR under: Reports - Pathology - Lab Pathology Report, Scanned.
--- NOTE | 2020-06-27 | IMM_PTH ---
PATIENT: SHANTI PAZ LOC: [facility] – [place] U#:[id number] AGE/SX: 74/F ROOM: RE06/27/[address]: Dr. Omar Nash MD : 1945 BED: DIS: 06/27/2020 SPEC #: [id number] RECD: 06/30/20 11:48 STATUS: NELLIE REQ #: [id number] RICHIE: 06/27/20 00:[address]: Omar Nash DEPT: IMMUNOHISTOCHEMISTRY RECD BY: Erika Lazaro ENTERED: 06/30/20 11:52 SP TYPE: IMMUNO OTHR DR: Dr. Skyla Tobias, Tissues: A - Axillary lymph node, NOS B - Left breast, NOS Procedures: SMA (add) Calponin-1(initial) CK5-6 (add) CK7 (add) CK8 (add) E-CAD (add) Pankeratin (initial) Pankeratin (add) P40 (add) PHYSICIAN & [address] [address] SPECIMEN INFORMATION: Tissue Source: A - [place] lymph node, B - Left breast mass Clinical Info: Malignant neoplasm of upper outer quadrant left breast, ER positive Specimen Number: [id number] A1-A9, B8 CPT code: 75121 x2, 48310 x22 METHODOLOGY: Deparaffinized sections of prefer/formalin-fixed tissue or PAP/DQ stained slides are incubated with monoclonal/polyclonal antibodies/oligonucleotide probes. Localization is made via biotin free immunoperoxidase method. Appropriate controls are performed and reacted as expected. Results on target cell population are indicated in the following table: RESULTS: ANTIBODY / CLONE RESULT Block A1 AE1-3 (AE1/AE3/PCK26) negative CK7 (OV-TL12/30) negative Block A2 AE1-3 (AE1/AE3/PCK26) negative CK7 (OV-TL12/30) negative Block A3 AE1-3 (AE1/AE3/PCK26) negative CK7 (OV-TL12/30) negative Block A4 AE1-3 (AE1/AE3/PCK26) negative CK7 (OV-TL12/30) negative Block A5 AE1-3 (AE1/AE3/PCK26) negative CK7 (OV-TL12/30) negative Block A6 AE1-3 (AE1/AE3/PCK26) negative CK7 (OV-TL12/30) negative Block A7 AE1-3 (AE1/AE3/PCK26) negative CK7 (OV-TL12/30) negative Block A8 AE1-3 (AE1/AE3/PCK26) negative CK7 (OV-TL12/30) negative Block A9 AE1-3 (AE1/AE3/PCK26) negative CK7 (OV-TL12/30) negative Block B8 P40 (BC28) negative Calponin-1 (BN408E) negative CK5-6 (D5 & 1684) negative Actin (1A4) negative E-Cad (ECH-6) positive CK8 (94tcphX06 positive These tests were developed and their performance characteristics determined by [facility]. They may not have been cleared or approved by the U.S. Food and Drug Administration. The FDA has determined that such clearance or approval is not necessary. The above immunohistochemical/dualISH markers are ordered and reviewed by the Pathologist. INTERPRETATION: A. Left axillary sentinel lymph nodes, biopsy: Two out of two lymph nodes, negative for metastatic carcinoma. B. Left breast, lumpectomy: A minute focus of invasive ductal carcinoma (block B8). SJ:charo 07/01/20
--- NOTE | 2020-06-27 08:30 | NM_ITS ---
PROCEDURE: NUCLEAR MEDICINE Injection [place] Node - LEFT breast(s). REASON FOR EXAM: Female, 74 years old. Left breast cancer. TECHNIQUE: [place] node localization using radionuclide methods of the LEFT breast(s) was performed following subcutaneous administration of 1.1 mCi of of sulfur colloid Tc-99m. FINDINGS: 1.1 mCi of technetium labeled sulfur colloid was injected in 4 equal aliquots at the site of the previous breast biopsy. NM/Lymph Node Injection Only IMPRESSION: Subcutaneous injection of 1.1 mCi of technetium labeled sulfur colloid for sentinel node imaging. Electronically Signed: Reginaldo Martinez, at 8:25 EST , Service support ,
--- NOTE | 2020-06-27 09:26 | BI_ITS ---
SURGICAL BREAST SPECIMEN RADIOGRAPH CLINICAL: Document presence of tissue clip marker in biopsy specimen. FINDINGS: Specimen shows presence of tissue clip marker. Electronically Signed: Reginaldo Martinez, at 13:52 EST , Service support , BI/Breast Biopsy Specimen
[2020-06-27] MEDS: Lactated Ringers 1,000 ML 100 ML IV (10:09)
[2020-06-27 10:20] LABS: Bedside Glucose 109 mg/dL (70-110)
--- NOTE | 2020-06-27 10:35 | PCM.HP.BLA ---
Problem List (1) Breast cancer Status: Acute Qualifiers: History and Physical Date of Admission: 06/27/20 Intake Intake Visit Reasons: F/U Discuss Results Allergies codeine Adverse Reaction (Verified 06/15/20 13:33) Vomiting hydrocodone bitartrate [From Vicodin] Adverse Reaction (Verified 06/15/20 13:33) Nausea meperidine HCl [From Demerol] Adverse Reaction (Verified 06/15/20 13:33) Vomiting morphine Adverse Reaction (Verified 06/15/20 13:33) Vomiting Medications Paroxetine [Paxil] 20 mg PO QHS 06/17/14 [History Confirmed 06/15/20] metFORMIN HCl [Glucophage] 1,000 mg PO DINNER 06/17/14 [History Confirmed 06/15/20] Metoprolol Tartrate [Lopressor (beta pranay)] 50 mg PO BID 11/20/16 [History Confirmed 06/15/20] cholecalciferol (vitamin D3) 125 mcg (5,000 unit) tablet 5,000 unit PO QDAY 12/13/17 [History Confirmed 06/15/20] meloxicam 15 mg tablet 15 mg PO QDAY 12/13/17 [History Confirmed 06/15/20] losartan 50 mg-hydrochlorothiazide 12.5 mg tablet 1 tab PO DAILY #90 tab 10/20/18 [Rx Confirmed 06/15/20] fluticasone propionate 50 mcg/actuation nasal spray,suspension 2 spray INTRANASAL DAILY #18.2 g 05/20/19 [Rx Confirmed 06/15/20] Apixaban [Eliquis] 5 mg PO BID #90 tab 08/25/19 [Rx Confirmed 06/15/20] magnesium oxide 400 mg (241.3 mg magnesium) tablet 400 mg PO BID tab 02/04/20 [History Confirmed 06/15/20] gabapentin 600 mg tablet 600 mg PO .prn tab 06/06/20 [History Confirmed 06/15/20] FORMERLY [facility] Medical History Abnormal mammogram of left breast (Acute) Hyperlipidemia (Chronic) Rheumatoid arthritis (Chronic) Gallstones (Chronic) Osteoarthritis (Chronic) COPD (chronic obstructive pulmonary disease) (Chronic) Type 2 diabetes mellitus (Chronic) BMI 50.0-59.9, adult (Chronic) Ectopic atrial tachycardia (Chronic) Hypertension (Chronic) JAYE (obstructive sleep apnea) (Chronic) Pulmonary hypertension (Chronic) Anemia (Chronic) Surgical History History of left heart catheterization (Chronic) History of dilation and curettage (Resolved) History of hysterectomy (Resolved) History of cholecystectomy (Resolved) History of carpal tunnel release (Resolved) Family History Father CAD (coronary artery disease) Diabetes Hypertension Arthritis Mother Arthritis Heart disease Hypertension Social History (Updated 06/15/20 @ 13:[address] Omar Nash MD) Smoking Status: Former smoker Tobacco: How many years used: 10 how long ago did patient quit smokin + years ago second hand exposure: No alcohol intake: never substance use type: does not use caffeine: Yes Type: coffee Number of servings: 2 what type of physical activity do you participate in: walking frequency: 3-4 times per week HPI HPI HPI: SHANTI PAZ, is a 74 F who presents to the office today for follow-up of her ultrasound-guided needle core biopsy upper outer quadrant left breast that I performed for her on June 08, 2020. Pathology is positive for invasive ductal carcinoma as noted below. My previous office notes reflect the following as well. It is pertinent that the patient is on chronic Eliquis therapy because of pulmonary embolization of undetermined etiology. 06/08/20 ultrasound needle core biopsy left breast 2 o'clock position +3 cm Left breast, core biopsy:Invasive ductal carcinoma with the following characteristics:Maximal length ?10.5 millimeters Nuclear grade ?2/3 Estrogen receptor greater than 95% positive. Progesterone receptor greater than 95% positive. 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 Is patient in pain?: No Allergies codeine Adverse Reaction (Verified 06/06/20 14:44) Vomiting hydrocodone bitartrate [From Vicodin] Adverse Reaction (Verified 06/06/20 14:44) Nausea meperidine HCl [From Demerol] Adverse Reaction (Verified 06/06/20 14:44) Vomiting morphine Adverse Reaction (Verified 06/06/20 14:44) Vomiting Medications Paroxetine [Paxil] 20 mg PO QHS 06/17/14 [History Confirmed 06/06/20] metFORMIN HCl [Glucophage] 1,000 mg PO DINNER 06/17/14 [History Confirmed 06/06/20] Metoprolol Tartrate [Lopressor (beta pranay)] 50 mg PO BID 11/20/16 [History Confirmed 06/06/20] cholecalciferol (vitamin D3) 125 mcg (5,000 unit) tablet 5,000 unit PO QDAY 12/13/17 [History Confirmed 06/06/20] meloxicam 15 mg tablet 15 mg PO QDAY 12/13/17 [History Confirmed 06/06/20] losartan 50 mg-hydrochlorothiazide 12.5 mg tablet 1 tab PO DAILY #90 tab 10/20/18 [Rx Confirmed 06/06/20] fluticasone propionate 50 mcg/actuation nasal spray,suspension 2 spray INTRANASAL DAILY #18.2 g 05/20/19 [Rx Confirmed 06/06/20] Apixaban [Eliquis] 5 mg PO BID #90 tab 08/25/19 [Rx Confirmed 06/06/20] magnesium oxide 400 mg (241.3 mg magnesium) tablet 400 mg PO BID tab 02/04/20 [History Confirmed 06/06/20] gabapentin 600 mg tablet 600 mg PO .prn tab 06/06/20 [History Confirmed 06/06/20] [facility] Medical History Hyperlipidemia (Chronic) Rheumatoid arthritis (Chronic) Gallstones (Chronic) Osteoarthritis (Chronic) COPD (chronic obstructive pulmonary disease) (Chronic) Type 2 diabetes mellitus (Chronic) BMI 50.0-59.9, adult (Chronic) Ectopic atrial tachycardia (Chronic) Hypertension (Chronic) JAYE (obstructive sleep apnea) (Chronic) Pulmonary hypertension (Chronic) Anemia (Chronic) Surgical History History of left heart catheterization (Chronic) History of dilation and curettage (Resolved) History of hysterectomy (Resolved) History of cholecystectomy (Resolved) History of carpal tunnel release (Resolved) Family History Father CAD (coronary artery disease) Diabetes Hypertension Arthritis Mother Arthritis Heart disease Hypertension Social History (Updated 06/06/20 @ 15:[address] Omar Nash MD) Smoking Status: Former smoker Tobacco: How many years used: 10 how long ago did patient quit smokin + years ago second hand exposure: No alcohol intake: never substance use type: does not use caffeine: Yes Type: coffee Number of servings: 2 what type of physical activity do you participate in: walking frequency: 3-4 times per week HPI HPI HPI: SHANTI PAZ, is a 74 F who presents to the office today for surgical consultation regarding an abnormal left breast mammogram and ultrasound. The patient is referred by her primary care physician Dr. Skyla Tobias a written copy of my surgical consult recommendations will return to her. 74-year-old female. G3, . Menarche was at age 10. First child was born when she was 20. She states that long ago she thinks she had a right breast needle aspiration for what sounds like mastitis. Family history is negative for breast cancer. She is not been on any estrogen replacement. July 2019 she was complaining of left flank pain fever feeling like she had the flu. She had a kidney CT scan done which apparently suggested a left lung mass. A CT of the lung was obtained showing multiple bilateral pulmonary emboli. Apparently according to her she had venous imaging failing to show lower extremity clots. She was placed on Eliquis anticoagulation. She states she had a left lung biopsy which was benign. She remains on Eliquis therapy at this time. As of May 30, 2020 she had bilateral screening mammography. The breasts were noted to be heterogenous Dylan dense. There was felt to be a new spiculated obscured mass in the upper outer quadrant of the left breast and it measured 1.7 cm. Further imaging was requested. On June 01, 2020 a left breast ultrasound was obtained. This demonstrated at the 3 o'clock position left breast a 1.4 x 1.2 x 1.9 cm spiculated mass about 3 cm from the nipple. BI-RADS Category 4. HPI HPI HPI: SHANTI PAZ, is a 74 F who presents to the office today for ROS General General: Yes fatigue; no weight change, appetite, colon cancer, breast cancer or weakness HEENT HEENT: No difficulty swallowing, eye injury, eye surgery, swollen glands or hoarseness Endo Endocrine: Yes diabetes mellitus; no thyroid disease, thyroid cancer, Hair loss, heat intolerance or cold intolerance Skin Skin: No rash or changing moles Breast Breast: Yes abnormal mammogram and abnormal US; no left breast lump, right breast lump, nipple discharge, breast pain or breast enlargement Musc Musculoskeletal: Yes back problems, arthritis and rheumatoid arthritis; no gout or joint pain Cardio Cardiovascular: Yes heart disease and high blood pressure; no murmur, pacemaker, atrial fibrillation, heart attack, heart stent, palpitations, shortness of breat with exertion or chest pain Psych Psychiatric: Yes anxiety; no depression or hearing voices Resp Respiratory: Yes shortness of breath, Yes sleep apnea, Yes cough, No COPD, No asthma, No emphysema, No wheezing Gastro Gastrointestinal: No abdominal pain, No nausea or vomiting, Yes diarrhea, No constipation, No blood in stool, No acid reflux, No hemorrhoids, No ulcers, No gallbladder problem, No black,tarry stools [place] Hematologic: Yes blood thinners, No blood disorders, No bleeding, Yes anemia, Yes blood clots Neuro Neurologic: No system reviewed and no additional complaints, except as docu, No as per HPI, No abnormal walking, No abnormal hearing, No abnormal movements, No abnormal speech, No behavioral changes, No burning sensations, No confusion, No seizure-like activity, No unsteadiness, No dizziness, No localized weakness, No frequent falls, No headache(s), No lack of coordination, No loss of vision, No memory loss, Yes numbness, No other visual disturbances, No radiating pain, No restless legs, No sensory deficit, No fainting, Yes tingling, No tremor(s), No weakness, No other Exam Const General: cooperative, comfortable, no acute distress Nutritional Appearance: obese morbidly obese Orientation: alert [facility] Head: normal to inspection Eyes General: appearance normal, both eyes and all related structures Chest Breast Palpation: No nipple discharge Other: Right breast: Mild diffuse fibrous change. No nipple discharge. No focal mass. No axillary or clavicular adenopathy Left breast: Palpable mass noted upper outer quadrant left breast approximately 2 o'clock position +3 cm. No distortion. Nontender. Deeply placed. No distinct axillary or clavicular adenopathy. Breast and axillary examination difficult secondary to body habitus Resp Effort & Inspection: normal respiratory effort Auscultation: clear to auscultation bilaterally Cardio Rate: regular rate Rhythm: regular rhythm Heart Sounds: no murmurs GI Palpation: soft Auscultation: normal bowel sounds Other: I am not able to detect any internal organs secondary to habitus Musc Cervical Spine: normal cervical lordosis Skin Other: Hyperpigmentation bilateral lower extremity gaiter area Extrem Other: Enlargement bilateral lower extremities with nonpitting lower extremity swelling Psych Affect: normal affect Assessment & Plan Problems 1. Abnormal mammogram of left breast R92.8 Plan 74-year-old female who had bilateral pulmonary emboli July 2019 of undetermined etiology. She is currently on Eliquis therapy. I have reviewed her bilateral mammograms and left breast ultrasound. Lesion in question upper inner quadrant left breast 2 o'clock position +3 cm is of concern. I recommend that we hold the patient's Eliquis therapy and schedule her for an ultrasound-guided needle core biopsy. We will try to expedite her management. She is aware of the technique, benefit, risk, alternatives. She has had an opportunity ask and have questions answered. I very much appreciate the kind opportunity of assisting with her surgical care. It is of note that the patient's BMI is 51.8. And not the distance past she had the bilateral pulmonary emboli of undetermined etiology. Great care will need to be taken perioperatively with extended DVT prophylaxis. Copy: Dr. Skyla Nash M.D., F.A.C.S. Coding Level of Care Code 16775 Diagnoses Abnormal mammogram of left breast R92.8 HPI HPI HPI: SHANTI PAZ, is a 74 F who presents to the office today for Assessment & Plan Problems 1. Malignant neoplasm of upper-outer quadrant of left breast in female, estrogen receptor positive C50.412; Z17.0 Plan 74-year-old female. Invasive ductal cancer upper outer quadrant left breast 2 o'clock position +3 cm. Estrogen and progesterone positive with HER-2/bennett 1+. Patient is on chronic Eliquis therapy because of history of pulmonary embolus. BMI is greater than 51. I propose for her a stereotactic wire localization upper outer quadrant left breast with subsequent wire localized lumpectomy and left axillary nuclear tracer and blue dye sentinel lymph node biopsy. We have discussed the technique, benefit, risk and alternatives. We have provided her written descriptive information. I believe based upon the patient's medical comorbidities and chronic anticoagulation and body habitus that a lesser degree of surgery would allow me to have her off her Eliquis therapy a shorter period of time. I hopefully anticipate outpatient treatment and would be able to provide Lovenox therapy at the completion of her procedure. I anticipate holding the Eliquis 24 hours preoperatively and the day of surgery and then barring any complications resuming postop day #1. I have offered potential hematology oncology consultation but she concurs with postoperative consultation. She has had an opportunity to ask and have questions answered. We will schedule and proceed at her discretion. I appreciate the ongoing opportunity of assisting with her surgical care. Copy: Dr. Skyla Nash M.D., F.A.C.S. Coding Level of Care Code Off vis,est,level 2 Diagnoses Malignant neoplasm of upper-outer quadrant of left breast in female, estrogen receptor positive C50.412; Z17.0 ??Breast location: upper outer quadrant of breast ??Estrogen receptor status: positive ??Patient sex: female ??Laterality: left I have re-examined the patient. There are no clinical changes since date of exam. Procedure Criteria Procedure Type: Elective COVID Risk Discussion: The surgeon/proceduralist and patient have discussed in detail the risk of exposure to and/or potential harm posed by the COVID-19 virus with having a surgery/procedure at this time versus the risk of delaying the surgery/procedure. It is not possible to know either the risk of delaying the surgery or procedure or chance of getting an infection with perfect accuracy, but a joint decision was made between the patient and the surgeon/proceduralist to proceed at this time with the scheduled surgery/procedure as indicated on the consent form.
--- NOTE | 2020-06-27 11:24 | DCINST_ITS ---
Discharge Diet: No Restrictions Discharge Activity: May Not Drive - for 2-3 days or while taking narcotic pain meds. May shower in (days): 1 Lifting Restrictions: 10 pounds for 1 week. Call your doctor if your incision/area has: Continuous Slow Oozing, Sudden In creased Bleeding Call your doctor if you observe: Fever of 101 or Higher Suture Line Care: Avoid Pulling/Pushing, Avoid Pinching/Bending Remove Dressing in (days):: 1 - Remove bulky dressing tomorrow. May leave any opsite dressing for 3-4 days[address] Keep dressing in place until your follow-up appointment. Additional Dressing/Incision Instructions:: Remove bulky dressing tomorrow. May leave any opsite dressing for 3-4 days. Keep dressing in place until your follow-up appointment. Allergies/Adverse Reactions: Allergies codeine Adverse Reaction (Verified 06/27/20 10:00) Vomiting hydrocodone bitartrate [From Vicodin] Adverse Reaction (Verified 06/27/20 10:00) Nausea meperidine HCl [From Demerol] Adverse Reaction (Verified 06/27/20 10:00) Vomiting morphine Adverse Reaction (Verified 06/27/20 10:00) Vomiting Medications to take at Discharge Paroxetine [Paxil] 20 mg PO QHS 06/17/14 metFORMIN HCl [Glucophage] 1,000 mg PO DINNER 06/17/14 Metoprolol Tartrate [Lopressor (beta pranay)] 50 mg PO BID 11/20/16 cholecalciferol (vitamin D3) 125 mcg (5,000 unit) tablet 5,000 unit PO QDAY 12/13/17 meloxicam 15 mg tablet 15 mg PO QDAY 12/13/17 magnesium oxide 400 mg (241.3 mg magnesium) tablet 400 mg PO BID tab 02/04/20 gabapentin 600 mg tablet 600 mg PO .prn PRN tab 06/06/20 Apixaban [Eliquis] 5 mg PO BID 06/17/20 Fluticasone Propionate [Flonase Allergy Relief] 2 spray INTRANASAL DAILY PRN 06/17/20 Losartan/Hydrochlorothiazide [Hyzaar 50-12.5 Tablet] 1 tab PO DAILY 06/17/20 Primary Care Physician: Skyla Tobias DO [Primary Care Provider] - Please Follow Up With: Omar Nash MD - [phone] When: Office appointment in 7 to 10 days please
--- NOTE | 2020-06-27 11:30 | PCM.OPRPT ---
Problem List (1) Breast cancer Status: Acute Qualifiers: Report of Operation Date of Procedure: 06/27/20 Pre-Operative Diagnosis: Outer mid left breast cancer Post-Operative Diagnosis: Same Surgery/Procedure Performed:: Stereotactic wire localization outer mid left breast. Wire localized left breast lumpectomy with left axillary blue dye and nuclear tracer sentinel lymph node biopsy Description of Surgical Findings:: Timeout and informed consent was obtained. The patient was taken to the mammography suite and underwent stereotactic wire localization left breast. She was placed prone on the table. The left breast was placed in lateral medial view. The marking clip in question was rapidly identified. Stereotactic images was obtained. The breast was prepped with Betadine. 1% lidocaine was used as a local anesthetic. Total of 1 cc was used. A Kopan's needle was advanced to depth was 15 mm. The needle was inserted wire display stereotactic images were obtained demonstrating adequate localization. Sterile dressings were applied. Patient was subsequently taken to the operating for definitive resection. Timeout again informed consent was obtained. The patient was placed supine on the table. She underwent general anesthesia. The left arm was carefully wrapped with soft roll and placed at right angles to the table. Blue dye was injected retroareolar region massage. Left breast was sterilely prepped and draped. An oblique incision was made in the left axilla and guided by the blue dye and nuclear tracer sentinel lymph nodes examined. The nuclear tracer unfortunately only identified the mass. There was absolutely no activity in the left axilla. Fortunately blue dye did some tracking. There is seem to be clinically a enlarged lymph node I dissected this free and there appeared to be a smaller additional lymph node which I also dissected free. This appeared to be in the area where the lymphatic blue dye tracking was. Hemostasis was obtained with hemoclips and electrocautery. The specimen was sent for analysis and frozen section suggestive to lymph nodes 1 quite large and either with malignancy. I made a curvilinear incision in the upper outer left breast guided by the wire localization. I did dissection into the subcutaneous tissue aided by electrocautery dissection. The tumor ended up being more lateral so I had to do somewhat of a skating dissection laterally to get to it and then circumferential dissection was performed directly down upon the chest wall. The specimen was resected. Long suture was placed laterally a short suture superior and the wire exited anteriorly. Hemostasis obtained with cautery. 4 corners of the cavity were marked with hemoclips. Hemostasis was intact. Both the wound and axilla were treated with FloSeal to further assure hemostasis. The wounds were then closed with a deep layer of interrupted 3-0 Vicryl and then a running septic or 4-0 Monocryl. Steri-Strips Telfa bulky dry dressings applied. The periincisional areas anesthetized with 30 cc of 0.5% Marcaine. Sponge and instrument and needle counts were reported the surgeon to be correct. Blood loss was minimal. She tolerated the procedure well was taken to the recovery area in satisfactory condition without apparent complication. Specimen left axillary sentinel lymph nodes x2. Left breast lumpectomy. Drains none. Blood loss minimal. Omar Nash M.D., F.A.C.S. Type of Anesthesia:: General Anesthesiologist: Xavier Sharma
[2020-06-27] MEDS: Isosulfan Blue 1% 5 ML Vial (11:50)
[2020-06-27] MEDS: Bupivacaine Mpf 0.5% 30 ML VIAL (13:00)
[2020-06-27] MEDS: Enoxaparin 40 MG/0.4 ML Syringe SC (14:32)
[2020-06-27 14:35] LABS: Bedside Glucose 132 mg/dL (70-110)
== END 2020-06-27 16:00 | disposition home or self-care (01) ==
LOC: SDC 07:40 → AC 08:20
PROVIDERS: Anesthesiology; PCP Internal Medicine; Referring Provider Surgery; Visit Provider Surgery
PROC: (CPT 19301; principal; 2020-06-27 11:15)
DX: C50.412 Malignant neoplasm of upper-outer quadrant of left female breast (principal); Z17.0 Estrogen receptor positive status [ER+]; Z79.01 Long term (current) use of anticoagulants; Z79.1 Long term (current) use of non-steroidal anti-inflammatories (NSAID); Z79.84 Long term (current) use of oral hypoglycemic drugs; Z86.711 Personal history of pulmonary embolism; Z87.891 Personal history of nicotine dependence; Z88.5 Allergy status to narcotic agent; E78.5 Hyperlipidemia, unspecified; M16.0 Bilateral primary osteoarthritis of hip; G47.33 Obstructive sleep apnea (adult) (pediatric); J44.9 Chronic obstructive pulmonary disease, unspecified; E11.9 Type 2 diabetes mellitus without complications; D64.9 Anemia, unspecified
CPT/HCPCS: 00400; 19301; 38525; 19281; 36415; 38792; 76098; 80053; 82962; 85027; 87635; 88305; 88307; 88331; 88332; 88341; 88342; 93005; A9541; C9803; J7120; J2405; Q9968; U0003

== ENCOUNTER 2020-08-31 14:53 | Inpatient (IN) | payer MEDICARE, SELFPAY ==
[2020-06-27 10:00] VITALS: BMI 51.3
[2020-08-11 09:00] VITALS: BMI 51.9
[2020-08-31] VITALS (11 sets, daily range): BP systolic 136–168; BP diastolic 60–95; PULSE 72–79; RESP 17–22; TEMP 36.6–36.7; O2SAT 90–92; BMI 45.6; BMI 49.1
--- NOTE | 2020-08-31 15:03 | ED.DCSUM_ITS ---
History of Present Illness Chief Complaint: Shortness of Breath Detail of Chief Complaint: COVID, diarrhea, sob Informant: Patient Onset: Weeks - 1-2 since onset of COVID illness Context: Gradual Onset Timing: Continuous Quality: watery nonbloody diarrhea, WELCH Current Severity: Moderate Maximum Severity: Moderate Worsened by: exertion, standing Relieved by: rest Narrative: Patient started with cough, congestion, sore throat, malaise, myalgias, progressing to nausea and diarrhea, the nausea is gone she had no vomiting or significant abdominal pain, she continues to have diarrhea that has been there for about 5 days and now she is feeling near syncopal every time she stands up. She feels dehydrated. She feels like she is not keeping in much in the way of fluids because of the diarrhea. For this reason she was sent to the hospital. She denies being dyspneic due to Covid initially, saying I am short of breath because of my pulmonary hypertension and then admitting that her chronic dyspnea is a little worse. Nurse upon arrival states that her baseline 2-3 L of oxygen had her in the 70s, she had them put her on 5 L to get her into the 90s. She denies any chest discomfort. No syncope. No palpitations. Living at home with her who also has Covid. - Past Medical History (1) Anemia Status: Chronic (2) Anxiety Status: Chronic (3) Breast cancer Status: Chronic (4) COPD (chronic obstructive pulmonary disease) Status: Chronic (5) Chronic hypoxemic respiratory failure Status: Chronic (6) Depression Status: Chronic (7) Ectopic atrial tachycardia Status: Chronic (8) Hyperlipidemia Status: Chronic (9) Hypertension Status: Chronic (10) Neuropathy, peripheral Status: Chronic (11) JAYE (obstructive sleep apnea) Status: Chronic Comment: BiPAP 18/14 cm of water (12) Osteoarthritis Status: Chronic (13) Rheumatoid arthritis Status: Chronic (14) Type 2 diabetes mellitus Status: Chronic Past Medical History - Allergies and Home Meds Allergies/Adverse Reactions: Allergies codeine Adverse Reaction (Verified 08/11/20 08:59) Vomiting hydrocodone bitartrate [From Vicodin] Adverse Reaction (Verified 08/11/20 08:59) Nausea meperidine HCl [From Demerol] Adverse Reaction (Verified 08/11/20 08:59) Vomiting morphine Adverse Reaction (Verified 08/11/20 08:59) Vomiting Primary Care Physician: Skyla Tobias DO [Primary Care Provider] - Lives: Spouse/ Significant Other Smoking Status: Former smoker Review of Systems General: Reports: Malaise. Denies: Chills, Fever, Sweats Eyes: Denies: Visual changes - bilaterally, Diplopia ENT: Reports: Rhinorrhea - And congestion without facial pain, Sore throat. Denies: Bilateral ear pain Cardiovascular: Denies: Chest pain, Palpitations Respiratory: Reports: Cough, Sputum - Rare, nonbloody, Dyspnea on exertion. Denies: Dyspnea Gastrointestinal: Reports: Diarrhea. Denies: Abdominal pain, Nausea, Vomiting, Melena, Hematochezia Genitourinary: Denies: Dysuria, Hematuria, Frequency Musculoskeletal: Reports: Myalgias. Denies: Swelling, Extremity Pain Skin: Denies: Rash, Wounds Neurological: Reports: Headache. Denies: Weakness, Numbness Physical Exam Vital Signs/Narrative: Vital Signs Temp Pulse Resp BP Pulse Ox 08/31/20 15:02 97.9 F 74 17 141/95 H 90 08/31/20 14:56 97.9 F 74 17 141/95 H 90 Inital Vital Signs reviewed: Yes General: Well nourished, Well developed, Obese, No Acute Distress - Speaking full sentences, conversive Head: Normocephalic, Atraumatic Eyes: Perrl, EOMI ENT: Moist mucous membranes, No rhinorrhea Neck: Supple, Nontender, No lymphadenopathy, No JVD Cardiovascular: Regular rate, Regular rhythm, No murmurs Respiratory: No distress, Chest nontender, Rhonchi - Bibasilar high-pitched. Negative for: Rales, Wheezing Abdomen: Soft, Nontender, Nondistended, Normal bowel sounds Back: Nontender, Normal Inspection Extremities: Nontender, No edema, - - Multiple chronic venous varicosities bilateral lower extremities. Negative for: Calf Tenderness Skin: Normal color, No rash, No Trauma Neurological: Alert, Oriented x3, Cranial nerves II-XII grossly intact, Normal Strength, Normal Sensation Psychological: Normal affect, Normal Mood Diagnostic/Tx/Re-eval Impressions Chest X-Ray 08/31/20 15:30 IMPRESSION: Increased markings with areas of confluence in both lung bases suggestive of bibasilar infiltrates. Electronically Signed: Reginaldo Martinez, at 15:45 EST , Service support , 08/31/20 15:30 Chest 1 View (Portable) [RAD] Stat Laboratory Results 08/31/20 08/31/20 15:45 15:45 WBC 6.1 RBC 4.67 Hgb 13.2 Hct 41.0 MCV 87.8 MCH 28.3 MCHC 32.2 RDW Std Deviation 44.9 H RDW Coeff of Marine 14.0 Plt Count 219 MPV 10.8 Immature Gran % (Auto) 0.700 Neut % (Auto) 75.8 H Lymph % (Auto) 16.9 L [place] % (Auto) 6.1 Eos % (Auto) 0.2 Baso % (Auto) 0.3 Absolute Neuts (auto) 4.6 Absolute Lymphs (auto) 1.03 Nucleated RBC % 0 Sodium 134 L Potassium 3.9 Chloride 108 H Carbon Dioxide 17.0 L Anion Gap 9 BUN 54 H Creatinine 2.25 H Estim Creat Clear Calc 20.22 Est GFR (MDRD) Af Amer 27 L Est GFR (MDRD) Non-Af 23 L BUN/Creatinine Ratio 24.0 H Glucose 120 H Calcium 8.9 Total Bilirubin 0.40 AST 44 H ALT 39 Alkaline Phosphatase 119 H Total Protein 8.3 H Albumin 3.4 Globulin 4.9 H Albumin/Globulin Ratio 0.7 L - Rhythm Strip Rhythm Strip: Sinus Rhythm Rate: 70 Ectopy: None - EKG Initial EKG Interpretation: Sinus Rhythm, No Acute Injury Pattern - Medical Decision Making Work-up as above, she has acute kidney injury on top of mild chronic renal insufficiency. I think this is due to fairly significant dehydration due to the diarrhea and COVID-19, her x-ray shows pneumonia with regards to this. She was started on steroids, she is requiring more oxygen than her baseline, and she is agreeable to be admitted to the hospital. Stable for floor cohort. ED Disposition - Plan for ED Patient: Disposition: [facility] Diagnosis: CAMILA (acute kidney injury), Postural dizziness with near syncope, Dehydration, Diarrhea due to COVID-19, Pneumonia due to COVID-19 virus, Hypoxemia Referrals: Skyla Tobias DO [Primary Care Provider] -
--- NOTE | 2020-08-31 15:30 | RAD_ITS ---
STUDY: X-RAY CHEST REASON FOR EXAM: Female, 75 years old. PT WAS DX WITH COVID ON 08/28, SYMPTOMS STARTED ON 08/20. HER PCP FEELS SHE IS DEHYDRATED AND NEEDS FLUID AND SENT HER TO ER. TECHNIQUE: Single AP portable view of the chest. COMPARISON: Comparison is made with prior study dated 09/09/2019. FINDINGS: EKG electrodes are seen. Surgical clips are seen in the left axillary region. Mild elevation of the right hemidiaphragm. There are increased markings at the lung bases with areas of confluence suggestive of the bibasilar infiltrates. There is no demonstrated pleural abnormality. There is mild cardiac enlargement. Normal mediastinum and gama. Normal visualized pulmonary arteries. There is atherosclerotic tortuosity of the aortic arch and descending thoracic aorta. There are diffuse degenerative changes of the visualized thoracic spine. Normal visualized ribs, clavicles, and shoulders. There is no demonstrated abnormality of the visualized soft tissue structures of the upper abdomen. RAD/Chest 1 View (Portable) IMPRESSION: Increased markings with areas of confluence in both lung bases suggestive of bibasilar infiltrates. Electronically Signed: Reginaldo Martinez, at 15:45 EST , Service support ,
[2020-08-31] MEDS: 0.9% Normal Saline 1,000 ML 999 ML IV (15:51)
[2020-08-31 15:57] LABS: Absolute Lymphocyte Count 1.03 X10^3/uL (0.83-4.51); Absolute Neutrophil Count 4.6 X10^3/uL (2.0-7.7); Basophil# 0.02 X10^3/uL; Basophil% 0.3 % (0-1); Eosinophil# 0.01 X10^3/uL; Eosinophils% 0.2 % (0-5); Hemoglobin 13.2 g/dL (12.0-15.0); Lymphocyte # 1.03 X10^3/ul (4.0); Lymphocyte % 16.9 % (19-41); Mean Corp Hgb Conc 32.2 g/dL (32-36); Mean Corpuscular Hgb 28.3 pg (27.0-32.0); Mean Corpuscular Volume 87.8 fL (81-99); Mean Platelet Vol. 10.8 fl (6.2-12.0); Monocyte# 0.37 X10^3/uL; Monocyte% 6.1 % (0-10); NRBC Flagged by Analyzer 0 % (0-5); Neutrophil # 4.63 X10^3/uL (2.7-7.7); Neutrophil % 75.8 % (47-70); Platelet Count 219 K/mm3 (150-450); RBC Distribution Width SD 44.9 fl (35.1-43.9); Red Blood Count 4.67 M/mm3 (4.2-5.4); White Blood Count 6.1 K/mm3 (4.4-11.0)
[2020-08-31 16:13] LABS: ALB/GLOB Ratio 0.7 RATIO (0.9-2.4); AST(SGOT) 44 U/L (15-37); Alanine Aminotransfer ALT/SGPT 39 U/L (13-56); Albumin, Serum 3.4 g/dL (3.2-5.0); Alkaline Phosphatase 119 U/L (45-117); Anion Gap 9 (5-15); BUN 54 mg/dL (7-18); Calcium,Total 8.9 mg/dL (8.5-10.1); Chloride 108 mmol/L (98-107); Creatinine, Serum 2.25 mg/dL (0.55-1.02); EST Glomerular Filtration Rate 23 mL/min (>60); Est Glom Filt Rate - Afr Amer 27 mL/min (>60); Estimated Creatinine Clearance 20.22 ml/min; Globulin 4.9 g/dL (2.2-4.2); Glucose 120 mg/dL (74-106); Potassium 3.9 mmol/L (3.5-5.1); Protein, Total 8.3 g/dL (6.4-8.2); Sodium Level 134 mmol/L (136-145)
[2020-08-31] MEDS: dexAMETHasone 4 MG/ML Vial 6 MG IV (17:12)
--- NOTE | 2020-08-31 17:25 | NURSING ---
MS2 COVID CAMILA, DEHYDRATION, NEAR SYNCOPE, COVID DIARREA, PNEUMONIA NHAN
--- NOTE | 2020-08-31 17:50 | PCM.HP.STD ---
Problem List (1) COVID-19 Status: Acute (2) CAMILA (acute kidney injury) Status: Acute (3) Dyspnea Status: Chronic (4) Hypoxemia Status: Chronic (5) Neuropathy, peripheral Status: Chronic (6) Compression of sciatic nerve Status: Chronic (7) Palpitations Status: Chronic (8) Dyspnea on exertion Status: Chronic (9) Abnormal findings on diagnostic imaging of heart and coronary circulation Status: Resolved (10) Abnormal stress test Status: Resolved (11) Hyperkalemia Status: Chronic (12) Fatigue Status: Chronic (13) COPD (chronic obstructive pulmonary disease) Status: Chronic Qualifiers: COPD type: unspecified COPD Qualified Code(s): J44.9 - Chronic obstructive pulmonary disease, unspecified (14) Anxiety Status: Chronic (15) Depression Status: Chronic (16) Chronic hypoxemic respiratory failure Status: Chronic (17) PND (post-nasal drip) Status: Chronic (18) Lung mass Status: Acute Comment: Found 2018 (19) CAMILA (acute kidney injury) Status: Acute (20) Postural dizziness with near syncope Status: Acute (21) Dehydration Status: Acute (22) Diarrhea due to COVID-19 Status: Acute (23) Pneumonia due to COVID-19 virus Status: Acute (24) History of lumpectomy of left breast Status: Acute Comment: 06/27/2020 (25) Breast cancer Status: Chronic Qualifiers: Breast location: upper outer quadrant of breast Patient sex: female Laterality: left (26) Abnormal mammogram of left breast Status: Acute (27) History of left heart catheterization Status: Chronic Comment: 08/30/[address] Cook [facility]; 11/17/[address] Anderson [facility] (NORMAL CORONARIES) (28) Hyperlipidemia Status: Chronic Qualifiers: Hyperlipidemia type: pure hypercholesterolemia Qualified Code(s): E78.00 - Pure hypercholesterolemia, unspecified; E78.0 - Pure hypercholesterolemia (29) History of dilation and curettage Status: Resolved (30) History of hysterectomy Status: Resolved (31) History of cholecystectomy Status: Resolved (32) History of carpal tunnel release Status: Resolved (33) Rheumatoid arthritis Status: Chronic (34) Gallstones Status: Chronic (35) Osteoarthritis Status: Chronic Qualifiers: Osteoarthritis location: knee Osteoarthritis type: primary Laterality: right Qualified Code(s): M17.11 - Unilateral primary osteoarthritis, right knee (36) Type 2 diabetes mellitus Status: Chronic (37) BMI 50.0-59.9, adult Status: Chronic (38) Ectopic atrial tachycardia Status: Chronic (39) Hypertension Status: Chronic Qualifiers: Hypertension type: essential hypertension Qualified Code(s): I10 - Essential (primary) hypertension (40) JAYE (obstructive sleep apnea) Status: Chronic Comment: BiPAP 18/14 cm of water (41) Pulmonary hypertension Status: Chronic (42) Anemia Status: Chronic Qualifiers: Anemia type: unspecified type Qualified Code(s): D64.9 - Anemia, unspecified History of Present Illness Date of Admission: 08/31/20 Chief Complaint: diarrhea The patient is a 75 year old F who has been sick since August 20. Patient started off not feeling well and then over the past 5 days has just been having diarrhea. Patient had a COVID-19 check on the third and the results came back today is positive. Patient's is also sick with COVID-19 but he is at home. Patient just has not been eating much and has been having diarrhea. Patient is on home oxygen due to pulmonary hypertension at around 3 L but was requiring 5 L of oxygen in the emergency room. She had a chest x-ray that showed bilateral pulmonary infiltrates. Patient was treated with dexamethasone for the Covid. Patient had lab work that showed acute kidney injury with creatinine 2.25, with a baseline of 1.14. Patient did receive IV fluids. [] Past Medical History Past Medical History (Chronic Problems): Chronic Problems (Last Reviewed 08/11/20 @ 09:12 by Tana Rutledge RN) Dyspnea (Chronic) Hypoxemia (Chronic) Neuropathy, peripheral (Chronic) Compression of sciatic nerve (Chronic) Palpitations (Chronic) Dyspnea on exertion (Chronic) Hyperkalemia (Chronic) Fatigue (Chronic) COPD (chronic obstructive pulmonary disease) (Chronic) Anxiety (Chronic) Depression (Chronic) Chronic hypoxemic respiratory failure (Chronic) PND (post-nasal drip) (Chronic) Breast cancer (Chronic) History of left heart catheterization (Chronic) 08/30/[address] Cook [facility]; 11/17/[address] Anderson [facility] (NORMAL CORONARIES) Hyperlipidemia (Chronic) Rheumatoid arthritis (Chronic) Gallstones (Chronic) Osteoarthritis (Chronic) Type 2 diabetes mellitus (Chronic) BMI 50.0-59.9, adult (Chronic) Ectopic atrial tachycardia (Chronic) Hypertension (Chronic) JAYE (obstructive sleep apnea) (Chronic) BiPAP 18/14 cm of water Pulmonary hypertension (Chronic) Anemia (Chronic) Medical History: Medical History (Last Reviewed 08/31/20 @ 17:[address] Alexis Aquino, DO) Breast cancer (Chronic) C50.919 Abnormal mammogram of left breast (Acute) R92.8 Hyperlipidemia (Chronic) E78.5 Rheumatoid arthritis (Chronic) M06.9 Gallstones (Chronic) K80.20 Osteoarthritis (Chronic) M19.90 Type 2 diabetes mellitus (Chronic) E11.9 BMI 50.0-59.9, adult (Chronic) Z68.43 Ectopic atrial tachycardia (Chronic) I47.1 Hypertension (Chronic) I10 JAYE (obstructive sleep apnea) (Chronic) G47.33 BiPAP 18/14 cm of water Pulmonary hypertension (Chronic) I27.20 Anemia (Chronic) D64.9 Pulmonary emboli I26.99 Allergies codeine Adverse Reaction (Verified 08/11/20 08:59) Vomiting hydrocodone bitartrate [From Vicodin] Adverse Reaction (Verified 08/11/20 08:59) Nausea meperidine HCl [From Demerol] Adverse Reaction (Verified 08/11/20 08:59) Vomiting morphine Adverse Reaction (Verified 08/11/20 08:59) Vomiting Home Medications: Ambulatory Orders Medication Instructions Recorded Paroxetine [Paxil] 20 mg PO QHS 06/17/14 metFORMIN HCl [Glucophage] 1,000 mg PO DINNER 06/17/14 Metoprolol Tartrate [Lopressor 50 mg PO BID 11/20/16 (beta pranay)] meloxicam 15 mg tablet 15 mg PO DAILY 12/13/17 magnesium oxide 400 mg (241.3 mg 400 mg PO BID tab 02/04/20 magnesium) tablet gabapentin 600 mg tablet 600 mg PO DAILY PRN tab 06/06/20 Apixaban [Eliquis] 5 mg PO BID 06/17/20 Fluticasone Propionate [Flonase 2 spray INTRANASAL DAILY PRN 06/17/20 Allergy Relief] Cholecalciferol (Vitamin D3) 125 mcg PO DAILY 08/31/20 [Vitamin D3] Losartan/Hydrochlorothiazide 1 tab PO DAILY 08/31/20 [Losartan-Hctz 50-12.5 mg Tab] Surgical History: Surgical History (Last Reviewed 08/31/20 @ 17:[address] Alexis Aquino DO) History of lumpectomy of left breast (Acute) Onset Date: ~06/2020 Z98.890 06/27/2020 History of left heart catheterization (Chronic) Z98.890 08/30/[address] Cook [facility]; 11/17/[address] Anderson [facility] (NORMAL CORONARIES) History of dilation and curettage (Resolved) Z98.890 History of hysterectomy (Resolved) Z98.890, Z90.710 History of cholecystectomy (Resolved) Z98.890, Z90.49 History of carpal tunnel release (Resolved) Z98.890 Lives: Spouse/ Significant Other Smoking Status: Former smoker - *Family History Maternal Family History: Family History (Last Reviewed 08/31/20 @ 17:[address] Alexis Aquino DO) Father CAD (coronary artery disease) Diabetes Hypertension Arthritis Mother Arthritis Heart disease Hypertension Review of Systems Constitutional: Reports: Malaise, Weakness. Denies: Anorexia, Chills, Fever, Night Sweats Eyes: Denies: Blurred vision, Double vision HEENT: Denies: Head Aches, Sinus Congestion, Sinus Drainage Cardiovascular: Denies: Chest Pain, Palpitations Respiratory: Denies: Cough, Shortness of breath at rest, Sputum production Gastrointestinal: Reports: Diarrhea. Denies: Abdominal Pain, Nausea, Vomiting Genitourinary: Denies: Dysuria Musculoskeletal: Denies: Joint Pain, Joint Tenderness Skin: Denies: Rash, Wounds Neurological: Denies: Numbness, Tingling, Focal weakness Psychiatric: Denies: Anxiety, Depression Hematologic/ Lymphatic: Denies: Easy Bruising, Easy Bleeding, Hx of blood clot Comment: All review of systems were negative except as mentioned above in the history of present illness and the other review of systems. VTE Information - Inpt Only VTE Present on Admission: No VTE Mechan Device Prophylaxis: None VTE Pharm Prophylaxis ordered?: No Reason prophylaxis not ordered:: Treatment Not Indicated Patient Problems: Active and Suspected Problems (Last Reviewed 08/11/20 @ 09:12 by Tana Rutledge RN) Lung mass (Acute) Found 2018 CAMILA (acute kidney injury) (Acute) Postural dizziness with near syncope (Acute) Dehydration (Acute) Diarrhea due to COVID-19 (Acute) Pneumonia due to COVID-19 virus (Acute) COVID-19 (Acute) CAMILA (acute kidney injury) (Acute) History of lumpectomy of left breast (Acute ~06/2020) 06/27/2020 Abnormal mammogram of left breast (Acute) - Physical Exam Vitals/I&O's: Vital Signs Temp Pulse Resp BP Pulse Ox 36.6 C 73 18 168/79 H 92 08/31/20 17:26 08/31/20 17:26 08/31/20 17:26 08/31/20 17:26 08/31/20 17:26 Oxygen Flow Rate (L/min) 5 Oxygen Delivery Method Nasal Cannula Weight: 128.2 kg Body Mass Index (BMI) 45.6 Intake and Output for Last 24 Hours 08/29/20 08/30/20 08/31/20 23:59 23:59 23:59 Intake Total 1000 / 1000 Balance 1000 / 1000 General: Alert, No apparent distress HEENT: Atraumatic, Normocephalic Oral: Moist Mucosa, - - Some redness on the soft palate. Neck: No Nodes, Thyroid Normal Size and Texture Lungs: Normal air movement, - - Bibasilar crackles Cardiovascular: Regular rate, No murmurs Abdomen: Bowel Sounds Present, Soft, Non Tender, Non-Distended, Obese Extremities: No edema, No Calf Tenderness Skin: No rashes, No breakdown Musculoskeletal: No Tenderness to Palpation of Joints or Extremities, No Muscle Wasting Psych/Mental Status: Normal Affect, Appropriate Laboratory Results 08/31/20 15:45: WBC 6.1, RBC 4.67, Hgb 13.2, Hct 41.0, MCV 87.8, MCH 28.3, MCHC 32.2, RDW Std Deviation 44.9 H, RDW Coeff of Marine 14.0, Plt Count 219, MPV 10.8, Immature Gran % (Auto) 0.700, Neut % (Auto) 75.8 H, Lymph % (Auto) 16.9 L, [place] % (Auto) 6.1, Eos % (Auto) 0.2, Baso % (Auto) 0.3, Absolute Neuts (auto) 4.6, Absolute Lymphs (auto) 1.03, Nucleated RBC % 0 08/31/20 15:45: Sodium 134 L, Potassium 3.9, Chloride 108 H, Carbon Dioxide 17.0 L, Anion Gap 9, BUN 54 H, Creatinine 2.25 H, Estim Creat Clear Calc 20.22, Est GFR (MDRD) Af Amer 27 L, Est GFR (MDRD) Non-Af 23 L, BUN/Creatinine Ratio 24.0 H, Glucose 120 H, Calcium 8.9, Total Bilirubin 0.40, AST 44 H, ALT 39, Alkaline Phosphatase 119 H, Total Protein 8.3 H, Albumin 3.4, Globulin 4.9 H, Albumin/Globulin Ratio 0.7 L Chest x-ray personally reviewed and showed bilateral pulmonary infiltrates. Assessment/Plan All Active Problems (Last Reviewed 08/11/20 @ 09:12 by Tana Rutledge RN) Abnormal findings on diagnostic imaging of heart and coronary circulation (Resolved) Abnormal stress test (Resolved) Lung mass (Acute) CAMILA (acute kidney injury) (Acute) Postural dizziness with near syncope (Acute) Dehydration (Acute) Diarrhea due to COVID-19 (Acute) Pneumonia due to COVID-19 virus (Acute) COVID-19 (Acute) CAMILA (acute kidney injury) (Acute) History of lumpectomy of left breast (Acute ~06/2020) Abnormal mammogram of left breast (Acute) History of dilation and curettage (Resolved) History of hysterectomy (Resolved) History of cholecystectomy (Resolved) History of carpal tunnel release (Resolved) 1. Acute Covid-19 pneumonia: Started illness was August 20. Patient received dexamethasone in the emergency room and patient will order require 9 more days of dexamethasone. We will also start the patient on remdesivir. 2. Acute on chronic respiratory kael failure: Patient on 5 L, baseline is around 3. Wean oxygen as tolerated. Secondary to Covid pneumonia. 3. Acute kidney injury: Likely prerenal given the diarrhea. Will give an additional 500 cc of IV fluid. Cautious with providing too much fluid in patient with a COVID-19. We will also hold the patient's meloxicam, losartan, HCTZ, Metformin 4. Diabetes mellitus type 2: Metformin on hold. Sliding scale insulin. Anticipate blood sugar becoming elevated with steroid use. 5. History of PE: Continue with apixaban 6. VTE prophylaxis: Not indicated as patient is already anticoagulated. 7. Advanced care planning: Discussed with the patient. Patient unsure. Informed patient that we would leave her at full CODE STATUS unless she indicates to us otherwise. Inpatient E&M: 83424 Init Hosp L2
--- NOTE | 2020-08-31 17:53 | PCS.PANDOC ---
PANDEMIC DOCUMENTATION INITIATED: Date: 08/31/20 Time: 6814
[2020-08-31 18:52] LABS: BNP,B-Type NATRIURETIC PEPTIDE 54.8 pg/mL (0-100)
[2020-08-31 18:53] LABS: Alkaline Phosphatase 125 U/L (45-117); LDH 490 U/L (84-246)
[2020-08-31 19:52] LABS: International Normalized Ratio 1.3; Prothrombin Time (Protime)PT. 15.6 SECONDS (11.7-14.9)
[2020-08-31 19:53] LABS: Fibrinogen 614 mg/dl (203-444)
[2020-08-31] MEDS: Metoprolol Tartrate 50 MG Tablet PO (20:11)
[2020-08-31] MEDS: Magnesium Chloride 64 MG Delay Rel.Tablet 128 MG PO (20:11)
[2020-08-31] MEDS: Paroxetine 20 MG Tablet PO (20:12)
[2020-08-31] MEDS: APIXABAN 5 MG TABLET PO (20:12)
[2020-08-31 20:26] LABS: D-Dimer Quantitative (DVT/PE) 2.34 FEU/ug/m (0.27-0.49)
[2020-08-31 20:27] LABS: Procalcitonin 0.18 ng/mL (0.00-0.09)
[2020-08-31 22:11] LABS: Bedside Glucose 148 mg/dL (70-110)
[2020-09-01] VITALS (11 sets, daily range): BP systolic 124–150; BP diastolic 58–85; PULSE 69–80; RESP 18–22; TEMP 36–36.4; O2SAT 89–95
[2020-09-01] MEDS: Acetaminophen 325 MG Tablet 650 MG PO ×3 (01:58→22:31)
[2020-09-01] MEDS: 0.9% Saline Lock 10 ML Syringe IV ×2 (02:01→22:33)
[2020-09-01 06:43] LABS: Absolute Lymphocyte Count 0.72 X10^3/uL (0.83-4.51); Absolute Neutrophil Count 2.9 X10^3/uL (2.0-7.7); Basophil# 0.01 X10^3/uL; Basophil% 0.3 % (0-1); Hemoglobin 12.4 g/dL (12.0-15.0); Lymphocyte # 0.72 X10^3/ul (4.0); Lymphocyte % 18.4 % (19-41); Mean Corp Hgb Conc 32.6 g/dL (32-36); Mean Corpuscular Hgb 28.2 pg (27.0-32.0); Mean Corpuscular Volume 86.6 fL (81-99); Mean Platelet Vol. 10.7 fl (6.2-12.0); Monocyte# 0.31 X10^3/uL; Monocyte% 7.9 % (0-10); NRBC Flagged by Analyzer 0 % (0-5); Neutrophil # 2.86 X10^3/uL (2.7-7.7); Neutrophil % 73.1 % (47-70); POSITIVE MORPHOLOGY YES; Platelet Count 224 K/mm3 (150-450); RBC Distribution Width CV 13.8 % (11.6-14.6); RBC Distribution Width SD 43.8 fl (35.1-43.9); Red Blood Count 4.39 M/mm3 (4.2-5.4); White Blood Count 3.9 K/mm3 (4.4-11.0)
[2020-09-01 06:55] LABS: Differential Indicated SCAN CRITERIA MET
[2020-09-01 07:10] LABS: Bedside Glucose 109 mg/dL (70-110)
[2020-09-01 07:19] LABS: ALB/GLOB Ratio 0.8 RATIO (0.9-2.4); AST(SGOT) 39 U/L (15-37); Alanine Aminotransfer ALT/SGPT 34 U/L (13-56); Albumin, Serum 3.2 g/dL (3.2-5.0); Alkaline Phosphatase 117 U/L (45-117); Anion Gap 11 (5-15); BUN 55 mg/dL (7-18); BUN/Creat Ratio 32.7 RATIO (10-20); Calcium,Total 8.3 mg/dL (8.5-10.1); Chloride 110 mmol/L (98-107); Creatinine, Serum 1.68 mg/dL (0.55-1.02); EST Glomerular Filtration Rate 32 mL/min (>60); Est Glom Filt Rate - Afr Amer 38 mL/min (>60); Estimated Creatinine Clearance 24.98 ml/min; Glucose 128 mg/dL (74-106); Potassium 4.7 mmol/L (3.5-5.1); Protein, Total 7.2 g/dL (6.4-8.2); Sodium Level 137 mmol/L (136-145)
[2020-09-01] MEDS: APIXABAN 5 MG TABLET PO ×2 (09:54→22:32)
[2020-09-01] MEDS: dexAMETHasone 4 MG Tablet 6 MG PO (09:54)
[2020-09-01] MEDS: Magnesium Chloride 64 MG Delay Rel.Tablet 128 MG PO ×2 (09:54→22:32)
[2020-09-01] MEDS: Metoprolol Tartrate 50 MG Tablet PO ×2 (09:54→22:32)
--- NOTE | 2020-09-01 10:33 | CASEMGMT ---
MORRIS JEFFERY ASSESSMENT COVID-19 +. Testing done 08/28/20 @ [facility], [place], [place]. MORRIS JEFFERY placed call to pt's room for initial transition planning/care coordination assessment. MORRIS JEFFERY introduced self and role at [facility]. Pt voices understanding and consents to assessment at this time. Pt is A/O at this time and answers all questions appropriately. Care providers, pharmacy, and demographics verified/updated at this time. PCP: Dr Tobias Specialists: Dr Silva--pulmonology, [facility]/cardiology Preferred Pharmacy: [facility] Retail Insurance: [employer] YARITZA Prescription Benefit: Yes Living Will/HPOA: States does not have LW or HCPOA. Pt was given info/SW contact info last admission, but states she did not have these completed, but is still interested in completing these. MORRIS JEFFERY informed pt she can make an appt with SW as an out-pt once she is out of quarantine. RNKamila, given [employer] card and will give to pt. LNOK: , 2 adult sons. Living Arrangements: Lives in one-story home with her . 2 steps to enter. IADL's. and pt share home mgmt tasks. supportive and able to help as needed. Hires cleaning lady every 2 weeks. @ home who is also + COVID. She states he is doing fairly well, with his symptoms being mostly a cough, no SOB. Granddaughters live close and able to bring groceries, supplies, and medications as needed. Transportation: Pt states drives self and states no transportation concerns at this time. will drive her home @ d/c. DME: States has the following DME: rails/grab bars, hand held shower, quad cane, O2 @ 2L/M via n/c w/exertion and HS through [employer]. States the doctor told her she could increase to 3 L/M as needed. Has concentrator and portable tanks. can bring in portable tank @ d/c. BIPAP w/O2 bleed-in. Has walker, shower chair, BSC, and W/C available but do not use. Pt states no need for further DME at this time. HHC/SNF: No history of either and denies needs. No needs identified. States has been to OP therapy in the past. Declines need for HHC at this time. Aware, if in the future, she would like HHC or OP therapy, to talk with PCP. She voices understanding. Pt wishes to return home and states has no concerns with going home at time of discharge. CM to follow for any increase O2 needs @ d/c and any further discharge planning/needs. Pt voices no further concerns/needs at this time. Advised pt to ask for CM if any further questions/concerns/needs arise. Voices understanding. PLAN: Home w/spousal support and discharge plans in place. Has Home O2 @ 2 L/M. Recommend Home O2 ambulatory testing completed prior to d/c. If requires > 2 L/M O2, will need updated O2 script faxed to [facility]. Denzel DE LA CRUZN RN CM
--- NOTE | 2020-09-01 11:25 | CASEMGMT ---
RN CM Note: [place] to [facility] [place]. 2L NC continuous w/concentrator and portability. If patient would require higher oxygen flow on dc, an updated script will be needed. Lila HANNA RN ACM
[2020-09-01 11:41] LABS: Bedside Glucose 141 mg/dL (70-110)
[2020-09-01] MEDS: Insulin Lispro 100 UNIT/ML INSULN.PEN SC (16:48)
--- NOTE | 2020-09-01 18:37 | PN_ITS ---
Patient Problems: Active and Suspected Problems (Last Reviewed 08/31/20 @ 17:[address] Alexis Aquino, DO) Lung mass (Acute) Found 2018 CAMILA (acute kidney injury) (Acute) Postural dizziness with near syncope (Acute) Dehydration (Acute) Diarrhea due to COVID-19 (Acute) Pneumonia due to COVID-19 virus (Acute) COVID-19 (Acute) CAMILA (acute kidney injury) (Acute) History of lumpectomy of left breast (Acute ~06/2020) 06/27/2020 Abnormal mammogram of left breast (Acute) Subjective: Patient was seen and examined today, she was admitted yesterday secondary to Covid 19 pneumonia. Patient is on chronic oxygen at home at 3 L. She is currently on nasal cannula oxygen at 13 L/min. Patient does not complain of any fevers or chills. - Physical Exam Vitals/I&O's: Vital Signs Temp Pulse Resp BP Pulse Ox 97.2 F L 73 20 H 150/68 H 92 09/01/20 16:44 09/01/20 16:44 09/01/20 16:44 09/01/20 16:44 09/01/20 16:44 Oxygen Flow Rate (L/min) 13 Oxygen Delivery Method Nasal Cannula Weight: 129.818 kg Body Mass Index (BMI) 49.1 Intake and Output for Last 24 Hours 08/30/20 08/31/20 09/01/20 23:59 23:59 23:59 Intake Total 1250 / 1250 250 / 250 Balance 1250 / 1250 250 / 250 General: Alert, Oriented x3, Cooperative, No apparent distress, Well developed, Well nourished HEENT: Atraumatic, PERRLA, EOMI, Normocephalic Oral: Moist Mucosa Neck: Supple, No JVD, Trachea Midline, Thyroid Normal Size and Texture Lungs: Clear to auscultation, Normal air movement, No rhonchi, No wheeze, No rales Cardiovascular: Regular rate, Regular Rhythm, Normal S1, Normal S2, No murmurs, PMI Normal Abdomen: Bowel Sounds Present, Soft, Non Tender, Non-Distended, No hernias noted Extremities: No clubbing, No cyanosis, No edema, Capillary Refill Less than 3 Seconds Skin: No rashes, No breakdown Musculoskeletal: No Tenderness to Palpation of Joints or Extremities Neurological: Cranial nerves II-XII grossly intact, Neuro grossly intact, Sensory exam intact to light touch and pain, Coordination normal Psych/Mental Status: Normal Affect, Appropriate, Alert and oriented to time, place, person, mood and affect Laboratory Results 08/31/20 15:45: Alkaline Phosphatase 125 H, Lactate Dehydrogenase 490 H 08/31/20 15:45: B-Natriuretic Peptide 54.8 08/31/20 19:15: PT 15.6 H, INR 1.3, Fibrinogen 614 H, D-Dimer Quant (PE/DVT) 2.34 H* 08/31/20 19:15: Procalcitonin 0.18 H 08/31/20 21:03: POC Glucose 148 H 09/01/20 06:35: WBC 3.9 L, RBC 4.39, Hgb 12.4, Hct 38.0, MCV 86.6, MCH 28.2, MCHC 32.6, RDW Std Deviation 43.8, RDW Coeff of Marine 13.8, Plt Count 224, MPV 10.7, Immature Gran % (Auto) 0.300, Neut % (Auto) 73.1 H, Lymph % (Auto) 18.4 L, [place] % (Auto) 7.9, Eos % (Auto) 0.0, Baso % (Auto) 0.3, Absolute Neuts (auto) 2.9, Absolute Lymphs (auto) 0.72 L, Nucleated RBC % 0 09/01/20 06:35: Sodium 137, Potassium 4.7, Chloride 110 H, Carbon Dioxide 16.0 L , Anion Gap 11, BUN 55 H, Creatinine 1.68 H, Estim Creat Clear Calc 24.98, Est GFR (MDRD) Af Amer 38 L, Est GFR (MDRD) Non-Af 32 L, BUN/Creatinine Ratio 32.7 H , Glucose 128 H, Calcium 8.3 L, Total Bilirubin 0.30, AST 39 H, ALT 34, Alkaline Phosphatase 117, Total Protein 7.2, Albumin 3.2, Globulin 4.0, Albumin/Globulin Ratio 0.8 L 09/01/20 06:43: POC Glucose 109 09/01/20 11:28: POC Glucose 141 H Current Medications Acetaminophen (Acetaminophen 325 Mg Tablet) 650 mg PO Q6H PRN PRN PRN Reason: Pain Score 1-10/Temp > 100.7 F Last Admin: 09/01/20 09:59 Dose: 650 mg Documented by: Albuterol Sulfate (Albuterol Sulfate Hfa 6.7 Gm Inhaler (200 Puffs)) 2 puff IH Q4H PRN PRN Reason: SHORTNESS OF BREATH Apixaban (Apixaban 5 Mg Tablet) 5 mg PO BID [facility] Last Admin: 09/01/20 09:54 Dose: 5 mg Documented by: Cholecalciferol (Cholecalciferol (Vit D3) 1,000 Unit (25mcg)) 5,000 unit PO DAILY [facility] Last Admin: 09/01/20 09:54 Dose: 5,000 unit Documented by: Dexamethasone (Dexamethasone 4 Mg Tablet) 6 mg PO DAILY [facility] Last Admin: 09/01/20 09:54 Dose: 6 mg Documented by: Fluticasone Propionate (Fluticasone 0.05% 1 [place] Nasal.Sry) 2 spray NASAL D AILY PRN PRN Reason: NASAL CONGESTION Gabapentin (Gabapentin 600 Mg Tablet) 600 mg PO DAILY PRN PRN Reason: Pain 1-10 / Neuopathy Remdesivir 100 mg/ Sodium (Chloride) 250 mls @ 125 mls/hr IV DAILY [facility] Stop: 09/04/20 11:59 Last Infusion: 09/01/20 12:12 Dose: Infused Documented by: Insulin Human Lispro (Insulin Lispro 100 Unit/Ml Insuln.Pen) 0 unit SC TIDAC [facility]; Protocol Last Admin: 09/01/20 16:48 Dose: 1 u Documented by: Magnesium Chloride (Magnesium Chloride 64 Mg Delay Rel.Tablet) 128 mg PO BID [facility] Last Admin: 09/01/20 09:54 Dose: 128 mg Documented by: Metoprolol Tartrate (Metoprolol Tartrate 50 Mg Tablet) 50 mg PO BID [facility] Last Admin: 09/01/20 09:54 Dose: 50 mg Documented by: Ondansetron HCl (Ondansetron 4 Mg/2 Ml Vial) 4 mg IV Q8H PRN PRN PRN Reason: NAUSEA/VOMITING Paroxetine HCl (Paroxetine 20 Mg Tablet) 20 mg PO QHS [facility] Last Admin: 08/31/20 20:12 Dose: 20 mg Documented by: Sodium Chloride (0.9% Saline Lock 10 Ml Syringe) 10 - 40 ml IV UD PRN PRN Reason: SALINE FLUSH Last Admin: 09/01/20 02:01 Dose: 10 ml Documented by: Throat Lozenges (Benzocaine/Menthol 1 Lozenge) 1 lozenge MUCOUS MEM Q2H PRN PRN PRN Reason: SORE THROAT Medical Necessity - Tobacco Use Smoking Status: Former smoker Assessment/Plan All Active Problems (Last Reviewed 08/31/20 @ 17:[address] Alexis Aquino, DO) Abnormal findings on diagnostic imaging of heart and coronary circulation (Resolved) Abnormal stress test (Resolved) Lung mass (Acute) CAMILA (acute kidney injury) (Acute) Postural dizziness with near syncope (Acute) Dehydration (Acute) Diarrhea due to COVID-19 (Acute) Pneumonia due to COVID-19 virus (Acute) COVID-19 (Acute) CAMIAL (acute kidney injury) (Acute) History of lumpectomy of left breast (Acute ~06/2020) Abnormal mammogram of left breast (Acute) History of dilation and curettage (Resolved) History of hysterectomy (Resolved) History of cholecystectomy (Resolved) History of carpal tunnel release (Resolved) #1 COVID-19 pneumonia-patient is receiving a remdesivir and dexamethasone, I will have pulmonary medicine see the patient tomorrow #2 acute on chronic hypoxic respiratory failure-patient is currently on 15 L at this time, she will more than likely need BiPAP support #3 CAMILA on a component of chronic kidney disease stage III-improved at this time #4 morbid obesity #5 obstructive sleep apnea #6 hyperlipidemia #7 type 2 diabetes-blood sugars will be monitored, sliding scale insulin will be administered #8 pulmonary hypertension #9 breast cancer Inpatient E&M: 83020 [facility] Hosp L2
[2020-09-01 21:00] LABS: Bedside Glucose 155 mg/dL (70-110)
[2020-09-01] MEDS: Paroxetine 20 MG Tablet PO (22:33)
[2020-09-01 22:55] LABS: Bedside Glucose 147 mg/dL (70-110)
[2020-09-02] VITALS (11 sets, daily range): BP systolic 143–160; BP diastolic 65–70; PULSE 64–86; RESP 18–22; TEMP 36.2–37; O2SAT 92–96
[2020-09-02 08:33] LABS: Bedside Glucose 102 mg/dL (70-110)
[2020-09-02] MEDS: APIXABAN 5 MG TABLET PO ×2 (08:55→22:57)
[2020-09-02] MEDS: Magnesium Chloride 64 MG Delay Rel.Tablet 128 MG PO ×2 (08:56→22:56)
[2020-09-02] MEDS: dexAMETHasone 4 MG Tablet 6 MG PO (08:56)
[2020-09-02] MEDS: Metoprolol Tartrate 50 MG Tablet PO ×2 (08:56→22:56)
[2020-09-02] MEDS: Insulin Lispro 100 UNIT/ML INSULN.PEN SC ×2 (12:02→16:15)
[2020-09-02 12:11] LABS: Bedside Glucose 167 mg/dL (70-110)
--- NOTE | 2020-09-02 14:45 | PCM.CONS.PUL ---
Problem List (1) Hypoxemia Status: Chronic (2) Neuropathy, peripheral Status: Chronic (3) Fatigue Status: Chronic (4) COPD (chronic obstructive pulmonary disease) Status: Chronic Qualifiers: COPD type: unspecified COPD Qualified Code(s): J44.9 - Chronic obstructive pulmonary disease, unspecified (5) Anxiety Status: Chronic (6) Depression Status: Chronic (7) Diarrhea due to COVID-19 Status: Acute (8) Pneumonia due to COVID-19 virus Status: Acute (9) CAMILA (acute kidney injury) Status: Acute (10) History of lumpectomy of left breast Status: Acute Comment: 06/27/2020 (11) Hyperlipidemia Status: Chronic Qualifiers: Hyperlipidemia type: pure hypercholesterolemia Qualified Code(s): E78.00 - Pure hypercholesterolemia, unspecified; E78.0 - Pure hypercholesterolemia (12) History of dilation and curettage Status: Resolved (13) History of hysterectomy Status: Resolved (14) History of cholecystectomy Status: Resolved (15) History of carpal tunnel release Status: Resolved (16) Rheumatoid arthritis Status: Chronic (17) Type 2 diabetes mellitus Status: Chronic (18) BMI 50.0-59.9, adult Status: Chronic (19) Hypertension Status: Chronic Qualifiers: Hypertension type: essential hypertension Qualified Code(s): I10 - Essential (primary) hypertension (20) JAYE (obstructive sleep apnea) Status: Chronic Comment: BiPAP 18/14 cm of water (21) Pulmonary hypertension Status: Chronic Reason for Consult Date of Consultation: 09/02/20 Reason for Consultation: Hypoxia History of Present Illness: The patient is a 75 year old F with past medical history listed below, who presented to [facility] on 08/31/2020 secondary to the development of cough, congestion, sore throat and shortness of breath. Patient reportedly had progression of nausea and diarrhea. No vomiting was reported. Patient states that she felt like she was dehydrated and was sent to the hospital. Patient reports an onset of symptoms on August 20, but has felt that her shortness of breath kept getting worse. Patient is on oxygen at baseline of 2 to 3 L, but had saturations in the 70s. Patient was increased to 5 L to get acceptable saturations. Patient does live at home at baseline. On presentation to the ER, patient was hypertensive at 141/95 saturating 90% on 5 L nasal cannula. Physical exam was consistent with rhonchi and varicose veins. Chest x-ray showed increased bilateral infiltrates. Patient did not have a leukocytosis or thrombocytopenia. Patient did have acute kidney injury with a BUN of 54 and creatinine of 2.25. Liver function were relatively unremarkable. Patient was admitted to the floor for further evaluation. On my evaluation, patient was saturating 92% on 15 L nasal cannula. Patient had reported worsening in shortness of breath over the course of her hospitalization. Patient is on BiPAP 18/14 centimeters of water at baseline, but states that she has been unable to use it while hospitalized secondary to mask leak. There were attempts to change to a full facemask that were unsuccessful. Patient denied any current chest pain, abdominal pain, but did have some loose stools and nausea. Review of systems otherwise negative from a constitutional, HEENT, respiratory, cardiovascular, GI, genitourinary, musculoskeletal, skin, neurologic, psychiatric and hematologic system unless stated above. Past Medical History Past Medical History (Chronic Problems): Chronic Problems (Last Reviewed 08/31/20 @ 17:[address] Alexis Aquino DO) Dyspnea (Chronic) Hypoxemia (Chronic) Neuropathy, peripheral (Chronic) Compression of sciatic nerve (Chronic) Palpitations (Chronic) Dyspnea on exertion (Chronic) Hyperkalemia (Chronic) Fatigue (Chronic) COPD (chronic obstructive pulmonary disease) (Chronic) Anxiety (Chronic) Depression (Chronic) Chronic hypoxemic respiratory failure (Chronic) PND (post-nasal drip) (Chronic) Breast cancer (Chronic) History of left heart catheterization (Chronic) 08/30/[address] Cook [facility]; 11/17/[address] Anderson [facility] (NORMAL CORONARIES) Hyperlipidemia (Chronic) Rheumatoid arthritis (Chronic) Gallstones (Chronic) Osteoarthritis (Chronic) Type 2 diabetes mellitus (Chronic) BMI 50.0-59.9, adult (Chronic) Ectopic atrial tachycardia (Chronic) Hypertension (Chronic) JAYE (obstructive sleep apnea) (Chronic) BiPAP 18/14 cm of water Pulmonary hypertension (Chronic) Anemia (Chronic) Medical History: Medical History (Last Reviewed 08/31/20 @ 17:[address] Alexis Aquino DO) Breast cancer (Chronic) C50.919 Abnormal mammogram of left breast (Acute) R92.8 Hyperlipidemia (Chronic) E78.5 Rheumatoid arthritis (Chronic) M06.9 Gallstones (Chronic) K80.20 Osteoarthritis (Chronic) M19.90 Type 2 diabetes mellitus (Chronic) E11.9 BMI 50.0-59.9, adult (Chronic) Z68.43 Ectopic atrial tachycardia (Chronic) I47.1 Hypertension (Chronic) I10 JAYE (obstructive sleep apnea) (Chronic) G47.33 BiPAP 18/14 cm of water Pulmonary hypertension (Chronic) I27.20 Anemia (Chronic) D64.9 Pulmonary emboli I26.99 Allergies codeine Adverse Reaction (Verified 08/11/20 08:59) Vomiting hydrocodone bitartrate [From Vicodin] Adverse Reaction (Verified 08/11/20 08:59) Nausea meperidine HCl [From Demerol] Adverse Reaction (Verified 08/11/20 08:59) Vomiting morphine Adverse Reaction (Verified 08/11/20 08:59) Vomiting Home Medications: Ambulatory Orders Medication Instructions Recorded Paroxetine [Paxil] 20 mg PO QHS 06/17/14 metFORMIN HCl [Glucophage] 1,000 mg PO DINNER 06/17/14 Metoprolol Tartrate [Lopressor 50 mg PO BID 11/20/16 (beta pranay)] meloxicam 15 mg tablet 15 mg PO DAILY 12/13/17 magnesium oxide 400 mg (241.3 mg 400 mg PO BID tab 02/04/20 magnesium) tablet gabapentin 600 mg tablet 600 mg PO DAILY PRN tab 06/06/20 Apixaban [Eliquis] 5 mg PO BID 06/17/20 Fluticasone Propionate [Flonase 2 spray INTRANASAL DAILY PRN 06/17/20 Allergy Relief] Cholecalciferol (Vitamin D3) 125 mcg PO DAILY 08/31/20 [Vitamin D3] Losartan/Hydrochlorothiazide 1 tab PO DAILY 08/31/20 [Losartan-Hctz 50-12.5 mg Tab] Surgical History: Surgical History (Last Reviewed 08/31/20 @ 17:[address] Alexis Aquino, ) History of lumpectomy of left breast (Acute) Onset Date: ~06/2020 Z98.890 06/27/2020 History of left heart catheterization (Chronic) Z98.890 08/30/[address] Cook [facility]; 11/17/[address] Anderson [facility] (NORMAL CORONARIES) History of dilation and curettage (Resolved) Z98.890 History of hysterectomy (Resolved) Z98.890, Z90.710 History of cholecystectomy (Resolved) Z98.890, Z90.49 History of carpal tunnel release (Resolved) Z98.890 Lives: Spouse/ Significant Other Smoking Status: Former smoker - *Family History Maternal Family History: Family History (Last Reviewed 08/31/20 @ 17:[address] Alexis Aquino DO) Father CAD (coronary artery disease) Diabetes Hypertension Arthritis Mother Arthritis Heart disease Hypertension Review of Systems Comment: See HPI Patient Problems: Active and Suspected Problems (Last Reviewed 08/31/20 @ 17:[address] Alexis Aquino DO) Lung mass (Acute) Found 2018 CAMILA (acute kidney injury) (Acute) Postural dizziness with near syncope (Acute) Dehydration (Acute) Diarrhea due to COVID-19 (Acute) Pneumonia due to COVID-19 virus (Acute) COVID-19 (Acute) CAMILA (acute kidney injury) (Acute) History of lumpectomy of left breast (Acute ~06/2020) 06/27/2020 Abnormal mammogram of left breast (Acute) Objective: All imaging was personally reviewed. Patient does have previous pulmonary function test that were also reviewed. Chest x-ray showed increased pulmonary infiltrates bilaterally. - Physical Exam Vitals/I&O's: Vital Signs Temp Pulse Resp BP Pulse Ox 37.0 C 67 18 143/66 H 96 09/02/20 08:50 09/02/20 12:04 09/02/20 12:04 09/02/20 08:56 09/02/20 12:04 Oxygen Flow Rate (L/min) 15 Oxygen Delivery Method Airvo Weight: 129.818 kg Body Mass Index (BMI) 49.1 Intake and Output for Last 24 Hours 08/31/20 09/01/20 09/02/20 23:59 23:59 23:59 Intake Total 1250 / 1250 250 / 250 250 / 250 Balance 1250 / 1250 250 / 250 250 / 250 General: Alert, Oriented x3, Cooperative, - - Mild to moderate conversational dyspnea HEENT: Atraumatic, PERRLA, EOMI, Normocephalic, - - No scleral icterus or injection noted Oral: Moist Mucosa, No Gingival or Mucosal Lesions/ Ulcerations, - - Crowded posterior pharynx Neck: Supple, No JVD, No Nodes, Trachea Midline Lungs: No rhonchi, No rales, Diminished, Wheezes, - - Symmetric expansion Cardiovascular: Regular rate, Regular Rhythm, Normal S1, Normal S2, No murmurs, No rub noted, No Gallop Abdomen: Bowel Sounds Present, Soft, Non Tender, Non-Distended, Obese Extremities: No clubbing, No cyanosis, No edema Skin: No rashes, No breakdown Musculoskeletal: No Tenderness to Palpation of Joints or Extremities Lymphatic: No Cervical, Supraclavicular, or Inguinal Adenopathy Neurological: Cranial nerves II-XII grossly intact, Neuro grossly intact, Motor Exam 5/5 strength throughout Psych/Mental Status: Alert and oriented to time, place, person, mood and affect Microbiology Past 72 Hours 09/01/20 14:25 Stool Enteric Bacteriology - Final 09/01/20 14:25 Stool C. difficile DNA Amplification - Final Laboratory Results 09/01/20 16:39: POC Glucose 155 H 09/01/20 22:19: POC Glucose 147 H 09/02/20 06:30: POC Glucose 102 09/02/20 12:01: POC Glucose 167 H Current Medications Acetaminophen (Acetaminophen 325 Mg Tablet) 650 mg PO Q6H PRN PRN PRN Reason: Pain Score 1-10/Temp > 100.7 F Last Admin: 09/01/20 22:31 Dose: 650 mg Documented by: Albuterol Sulfate (Albuterol Sulfate Hfa 6.7 Gm Inhaler (200 Puffs)) 2 puff IH Q4H PRN PRN Reason: SHORTNESS OF BREATH Apixaban (Apixaban 5 Mg Tablet) 5 mg PO BID [facility] Last Admin: 09/02/20 08:55 Dose: 5 mg Documented by: Cholecalciferol (Cholecalciferol (Vit D3) 1,000 Unit (25mcg)) 5,000 unit PO DAILY [facility] Last Admin: 09/02/20 08:55 Dose: 5,000 unit Documented by: Dexamethasone (Dexamethasone 4 Mg Tablet) 6 mg PO DAILY [facility] Last Admin: 09/02/20 08:56 Dose: 6 mg Documented by: Fluticasone Propionate (Fluticasone 0.05% 1 [place] Nasal.Sry) 2 spray NASAL DAILY PRN PRN Reason: NASAL CONGESTION Gabapentin (Gabapentin 600 Mg Tablet) 600 mg PO DAILY PRN PRN Reason: Pain 1-10 / Neuopathy Remdesivir 100 mg/ Sodium (Chloride) 250 mls @ 125 mls/hr IV DAILY [facility] Stop: 09/04/20 11:59 Last Infusion: 09/02/20 12:02 Dose: Infused Documented by: Insulin Human Lispro (Insulin Lispro 100 Unit/Ml Insuln.Pen) 0 unit SC TIDAC [facility]; Protocol Last Admin: 09/02/20 12:02 Dose: 1 u Documented by: Magnesium Chloride (Magnesium Chloride 64 Mg Delay Rel.Tablet) 128 mg PO BID [facility] Last Admin: 09/02/20 08:56 Dose: 128 mg Documented by: Metoprolol Tartrate (Metoprolol Tartrate 50 Mg Tablet) 50 mg PO BID [facility] Last Admin: 09/02/20 08:56 Dose: 50 mg Documented by: Ondansetron HCl (Ondansetron 4 Mg/2 Ml Vial) 4 mg IV Q8H PRN PRN PRN Reason: NAUSEA/VOMITING Paroxetine HCl (Paroxetine 20 Mg Tablet) 20 mg PO QHS [facility] Last Admin: 09/01/20 22:33 Dose: 20 mg Documented by: Sodium Chloride (0.9% Saline Lock 10 Ml Syringe) 10 - 40 ml IV UD PRN PRN Reason: SALINE FLUSH Last Admin: 09/01/20 22:33 Dose: 10 ml Documented by: Sodium Chloride (Sodium Chloride 0.65% 1 [place].Btl) 1 - 2 spray NASAL TID PRN PRN PRN Reason: NASAL DRYNESS Throat Lozenges (Benzocaine/Menthol 1 Lozenge) 1 lozenge MUCOUS MEM Q2H PRN PRN PRN Reason: SORE THROAT Assessment/Plan All Active Problems (Last Reviewed 08/31/20 @ 17:[address] Alexis Aquino, DO) Abnormal findings on diagnostic imaging of heart and coronary circulation (Resolved) Abnormal stress test (Resolved) Lung mass (Acute) CAMILA (acute kidney injury) (Acute) Postural dizziness with near syncope (Acute) Dehydration (Acute) Diarrhea due to COVID-19 (Acute) Pneumonia due to COVID-19 virus (Acute) COVID-19 (Acute) CAMILA (acute kidney injury) (Acute) History of lumpectomy of left breast (Acute ~06/2020) Abnormal mammogram of left breast (Acute) History of dilation and curettage (Resolved) History of hysterectomy (Resolved) History of cholecystectomy (Resolved) History of carpal tunnel release (Resolved) RECOMMENDATIONS: 1. Initiate Airvo for oxygenation 2. Decadron and remdesivir per infectious disease 3. Hold on aggressive fluid resuscitation 4. Wean oxygen as tolerated 5. Anticipate need for Lantus given Decadron 6. Continue full anticoagulation given history of PE IMPRESSIONS: 1. Acute on chronic hypoxic respiratory failure secondary to COVID-19 pneumonia With a baseline oxygen requirement of approximately 3 L/min, but is currently requiring 15 L/min. Patient has been initiated on dexamethasone and remdesivir. Defer to infectious disease for continuation. Would hold on aggressive fluid resuscitation as this has been shown to make hypoxia worse in the short-term. Patient may benefit from transition to Airvo for minimal CPAP and better control of FiO2. 2. Obstructive sleep apnea Patient compliant with BiPAP at home at 18/14 centimeters of water. This can be given by hospital BiPAP if necessary to maintain saturations. 3. Acute kidney injury Medical suspicion for prerenal etiology secondary to diarrhea. Patient has received fluids initially. Agree with holding meloxicam, losartan and Metformin. We will continue to monitor on a daily basis. Hold on diuretic therapy given probable volume depletion. 4. Diabetes mellitus type 2 Discontinue Metformin secondary to concerns for lactic acidosis in the setting of acute kidney injury. Do anticipate patient may require Lantus coverage given Decadron. Sliding scale would also be appropriate. Unclear how much p.o. intake patient will have secondary to needs for supplemental oxygen. 5. Morbid obesity/advanced age/history of PE Complicates care, management, recovery and prognosis. Okay to continue for anticoagulation from my perspective. Inpatient E&M: [id number] Init Hosp L3
--- NOTE | 2020-09-02 16:09 | PCM.PROGNOTE ---
Patient Problems: Active and Suspected Problems (Last Reviewed 08/31/20 @ 17:[address] Alexis Aquino, DO) Lung mass (Acute) Found 2018 CAMILA (acute kidney injury) (Acute) Postural dizziness with near syncope (Acute) Dehydration (Acute) Diarrhea due to COVID-19 (Acute) Pneumonia due to COVID-19 virus (Acute) COVID-19 (Acute) CAMILA (acute kidney injury) (Acute) History of lumpectomy of left breast (Acute ~06/2020) 06/27/2020 Abnormal mammogram of left breast (Acute) Subjective: Patient was seen and examined today, she remains on Airvo, patient has no complaints of any fevers or chills. Objective: General: Alert, Oriented x3, Cooperative, No apparent distress, Well developed, Well nourished HEENT: Atraumatic, PERRLA, EOMI, Normocephalic Oral: Moist Mucosa Neck: Supple, No JVD, Trachea Midline, Thyroid Normal Size and Texture Lungs: Clear to auscultation, Normal air movement, No rhonchi, No wheeze, No rales Cardiovascular: Regular rate, Regular Rhythm, Normal S1, Normal S2, No murmurs, PMI Normal Abdomen: Bowel Sounds Present, Soft, Non Tender, Non-Distended, No hernias noted Extremities: No clubbing, No cyanosis, No edema, Capillary Refill Less than 3 Seconds Skin: No rashes, No breakdown Musculoskeletal: No Tenderness to Palpation of Joints or Extremities Neurological: Cranial nerves II-XII grossly intact, Neuro grossly intact, Sensory exam intact to light touch and pain, Coordination normal Psych/Mental Status: Normal Affect, Appropriate, Alert and oriented to time, place, person, mood and affect - Physical Exam Vitals/I&O's: Vital Signs Temp Pulse Resp BP Pulse Ox 98.6 F 67 18 143/66 H 96 09/02/20 08:50 09/02/20 12:04 09/02/20 12:04 09/02/20 08:56 09/02/20 12:04 Oxygen Flow Rate (L/min) 15 Oxygen Delivery Method Airvo Weight: 129.818 kg Body Mass Index (BMI) 49.1 Intake and Output for Last 24 Hours 08/31/20 09/01/20 09/02/20 23:59 23:59 23:59 Intake Total 1250 / 1250 250 / 250 250 / 250 Balance 1250 / 1250 250 / 250 250 / 250 Microbiology Past 72 Hours 09/01/20 14:25 Stool Enteric Bacteriology - Final 09/01/20 14:25 Stool C. difficile DNA Amplification - Final Laboratory Results 09/01/20 16:39: POC Glucose 155 H 09/01/20 22:19: POC Glucose 147 H 09/02/20 06:30: POC Glucose 102 09/02/20 12:01: POC Glucose 167 H Current Medications Acetaminophen (Acetaminophen 325 Mg Tablet) 650 mg PO Q6H PRN PRN PRN Reason: Pain Score 1-10/Temp > 100.7 F Last Admin: 09/01/20 22:31 Dose: 650 mg Documented by: Albuterol Sulfate (Albuterol Sulfate Hfa 6.7 Gm Inhaler (200 Puffs)) 2 puff IH Q4H PRN PRN Reason: SHORTNESS OF BREATH Apixaban (Apixaban 5 Mg Tablet) 5 mg PO BID [facility] Last Admin: 09/02/20 08:55 Dose: 5 mg Documented by: Cholecalciferol (Cholecalciferol (Vit D3) 1,000 Unit (25mcg)) 5,000 unit PO DAILY [facility] Last Admin: 09/02/20 08:55 Dose: 5,000 unit Documented by: Dexamethasone (Dexamethasone 4 Mg Tablet) 6 mg PO DAILY [facility] Last Admin: 09/02/20 08:56 Dose: 6 mg Documented by: Fluticasone Propionate (Fluticasone 0.05% 1 [place] Nasal.Sry) 2 spray NASAL DAILY PRN PRN Reason: NASAL CONGESTION Gabapentin (Gabapentin 600 Mg Tablet) 600 mg PO DAILY PRN PRN Reason: Pain 1-10 / Neuopathy Guaifenesin (Guaifenesin 1,200 Mg Tablet) 1,200 mg PO BID [facility] Remdesivir 100 mg/ Sodium (Chloride) 250 mls @ 125 mls/hr IV DAILY [facility] Stop: 09/04/20 11:59 Last Infusion: 09/02/20 12:02 Dose: Infused Documented by: Insulin Human Lispro (Insulin Lispro 100 Unit/Ml Insuln.Pen) 0 unit SC TIDAC [facility]; Protocol Last Admin: 09/02/20 12:02 Dose: 1 u Documented by: Magnesium Chloride (Magnesium Chloride 64 Mg Delay Rel.Tablet) 128 mg PO BID [facility] Last Admin: 09/02/20 08:56 Dose: 128 mg Documented by: Metoprolol Tartrate (Metoprolol Tartrate 50 Mg Tablet) 50 mg PO BID [facility] Last Admin: 09/02/20 08:56 Dose: 50 mg Documented by: Ondansetron HCl (Ondansetron 4 Mg/2 Ml Vial) 4 mg IV Q8H PRN PRN PRN Reason: NAUSEA/VOMITING Paroxetine HCl (Paroxetine 20 Mg Tablet) 20 mg PO QHS [facility] Last Admin: 09/01/20 22:33 Dose: 20 mg Documented by: Sodium Chloride (0.9% Saline Lock 10 Ml Syringe) 10 - 40 ml IV UD PRN PRN Reason: SALINE FLUSH Last Admin: 09/01/20 22:33 Dose: 10 ml Documented by: Sodium Chloride (Sodium Chloride 0.65% 1 [place].Btl) 1 - 2 spray NASAL TID PRN PRN PRN Reason: NASAL DRYNESS Throat Lozenges (Benzocaine/Menthol 1 Lozenge) 1 lozenge MUCOUS MEM Q2H PRN PRN PRN Reason: SORE THROAT Medical Necessity - Tobacco Use Smoking Status: Former smoker Assessment/Plan All Active Problems (Last Reviewed 08/31/20 @ 17:[address] Alexis Aquino, DO) Abnormal findings on diagnostic imaging of heart and coronary circulation (Resolved) Abnormal stress test (Resolved) Lung mass (Acute) CAMILA (acute kidney injury) (Acute) Postural dizziness with near syncope (Acute) Dehydration (Acute) Diarrhea due to COVID-19 (Acute) Pneumonia due to COVID-19 virus (Acute) COVID-19 (Acute) CAMILA (acute kidney injury) (Acute) History of lumpectomy of left breast (Acute ~06/2020) Abnormal mammogram of left breast (Acute) History of dilation and curettage (Resolved) History of hysterectomy (Resolved) History of cholecystectomy (Resolved) History of carpal tunnel release (Resolved) #1 COVID-19 pneumonia-patient is receiving remdesivir and dexamethasone, [facility] medicine is participating in her care. #2 acute on chronic hypoxic respiratory failure-patient is currently on Airvo at this time, she will more than likely need BiPAP support in the near future #3 CAMILA on a component of chronic kidney disease stage III-CMP will be checked tomorrow #4 morbid obesity #5 obstructive sleep apnea #6 hyperlipidemia #7 type 2 diabetes-blood sugars will be monitored, sliding scale insulin will be administered #8 pulmonary hypertension #9 breast cancer Inpatient E&M: 33540 Subs Hosp L2
[2020-09-02] MEDS: Sodium Chloride 0.65% 1 SPRAY SPRAY.BTL NASAL (16:14)
[2020-09-02] MEDS: guaiFENesin 1,200 MG Tablet 1200 MG PO ×2 (16:15→22:57)
[2020-09-02 16:31] LABS: Bedside Glucose 182 mg/dL (70-110)
[2020-09-02] MEDS: Acetaminophen 325 MG Tablet 650 MG PO (20:31)
--- NOTE | 2020-09-02 20:45 | NURSING ---
Per RT, Airvo set at 40L 60%.
[2020-09-02] MEDS: Paroxetine 20 MG Tablet PO (22:57)
[2020-09-02 23:31] LABS: Bedside Glucose 129 mg/dL (70-110)
[2020-09-03] VITALS (13 sets, daily range): BP systolic 131–163; BP diastolic 67–76; PULSE 65–78; RESP 12–25; TEMP 36–36.6; O2SAT 92–98
--- NOTE | 2020-09-03 | NURSING ---
Per RT Romatt, Airvo adjusted to 50L 60%.
--- NOTE | 2020-09-03 03:30 | NURSING ---
RT notified that pt is having difficulty maintaining her pulse ox when asleep, Airvo increased to 60L 75%.
[2020-09-03 05:24] LABS: ALB/GLOB Ratio 0.6 RATIO (0.9-2.4); AST(SGOT) 58 U/L (15-37); Alanine Aminotransfer ALT/SGPT 56 U/L (13-56); Albumin, Serum 3.1 g/dL (3.2-5.0); Alkaline Phosphatase 137 U/L (45-117); Anion Gap 9 (5-15); BUN 42 mg/dL (7-18); BUN/Creat Ratio 38.9 RATIO (10-20); Calcium,Total 9.2 mg/dL (8.5-10.1); Chloride 106 mmol/L (98-107); Creatinine, Serum 1.08 mg/dL (0.55-1.02); EST Glomerular Filtration Rate 53 mL/min (>60); Est Glom Filt Rate - Afr Amer 64 mL/min (>60); Estimated Creatinine Clearance 38.87 ml/min; Globulin 4.8 g/dL (2.2-4.2); Glucose 111 mg/dL (74-106); Potassium 4.3 mmol/L (3.5-5.1); Protein, Total 7.9 g/dL (6.4-8.2); Sodium Level 137 mmol/L (136-145)
--- NOTE | 2020-09-03 06:17 | NURSING ---
pt AM wt 125.8kg
[2020-09-03 06:36] LABS: Bedside Glucose 113 mg/dL (70-110)
--- NOTE | 2020-09-03 07:38 | PCM.PN.PUL ---
Patient Problems: Active and Suspected Problems (Last Reviewed 08/31/20 @ 17:[address] Alexis Aquino, DO) Lung mass (Acute) Found 2018 CAMILA (acute kidney injury) (Acute) Postural dizziness with near syncope (Acute) Dehydration (Acute) Diarrhea due to COVID-19 (Acute) Pneumonia due to COVID-19 virus (Acute) COVID-19 (Acute) CAMILA (acute kidney injury) (Acute) History of lumpectomy of left breast (Acute ~06/2020) 06/27/2020 Abnormal mammogram of left breast (Acute) Subjective: Patient with difficulty saturating overnight. Patient was not placed on BiPAP, but did have Airvo increased to 60 L/min. Patient is reporting being significantly tired this morning despite 75% oxygen to maintain saturations. No chest pain or abdominal pain is reported. - Physical Exam Vitals/I&O's: Vital Signs Temp Pulse Resp BP Pulse Ox 36.6 C 70 22 H 131/75 H 94 09/03/20 03:00 09/03/20 06:58 09/03/20 06:58 09/03/20 03:00 09/03/20 06:58 Oxygen Flow Rate (L/min) 15 Oxygen Delivery Method Airvo Weight: 129.818 kg Body Mass Index (BMI) 49.1 Intake and Output for Last 24 Hours 09/01/20 09/02/20 09/03/20 23:59 23:59 23:59 Intake Total 250 / 250 250 / 500 550 / 550 Balance 250 / 250 250 / 500 550 / 550 General: Alert, Cooperative, No apparent distress, - - RASS -1. Morbidly obese. HEENT: Atraumatic, PERRLA, EOMI, Normocephalic, - - No scleral icterus or injection noted Oral: Moist Mucosa, No Gingival or Mucosal Lesions/ Ulcerations Neck: Supple, No JVD, No Nodes, Trachea Midline Lungs: No rhonchi, No rales, Diminished, Wheezes Cardiovascular: Regular rate, Regular Rhythm, Normal S1, Normal S2, No murmurs, No rub noted, No Gallop Abdomen: Bowel Sounds Present, Soft, Non Tender, Non-Distended, Obese Extremities: No clubbing, No cyanosis, Edema Skin: No rashes, No breakdown Musculoskeletal: No Tenderness to Palpation of Joints or Extremities Lymphatic: No Cervical, Supraclavicular, or Inguinal Adenopathy Neurological: Cranial nerves II-XII grossly intact, Neuro grossly intact, Motor Exam 5/5 strength throughout Psych/Mental Status: Anxious, Restless Microbiology Past 72 Hours 09/01/20 14:25 Stool Enteric Bacteriology - Final 09/01/20 14:25 Stool C. difficile DNA Amplification - Final Laboratory Results 09/02/20 06:30: POC Glucose 102 09/02/20 12:01: POC Glucose 167 H 09/02/20 16:14: POC Glucose 182 H 09/02/20 22:54: POC Glucose 129 H 09/03/20 04:37: Sodium 137, Potassium 4.3, Chloride 106, Carbon Dioxide 22.0, Anion Gap 9, BUN 42 H, Creatinine 1.08 H, Estim Creat Clear Calc 38.87, Est GFR (MDRD) Af Amer 64, Est GFR (MDRD) Non-Af 53 L, BUN/Creatinine Ratio 38.9 H, Glucose 111 H, Calcium 9.2, Total Bilirubin 0.60, AST 58 H, ALT 56, Alkaline Phosphatase 137 H, Total Protein 7.9, Albumin 3.1 L, Globulin 4.8 H, Albumin/Globulin Ratio 0.6 L 09/03/20 06:06: POC Glucose 113 H Current Medications Acetaminophen (Acetaminophen 325 Mg Tablet) 650 mg PO Q6H PRN PRN PRN Reason: Pain Score 1-10/Temp > 100.7 F Last Admin: 09/02/20 20:31 Dose: 650 mg Documented by: Albuterol Sulfate (Albuterol Sulfate Hfa 6.7 Gm Inhaler (200 Puffs)) 2 puff IH Q4H PRN PRN Reason: SHORTNESS OF BREATH Apixaban (Apixaban 5 Mg Tablet) 5 mg PO BID [facility] Last Admin: 09/02/20 22:57 Dose: 5 mg Documented by: Cholecalciferol (Cholecalciferol (Vit D3) 1,000 Unit (25mcg)) 5,000 unit PO DAILY [facility] Last Admin: 09/02/20 08:55 Dose: 5,000 unit Documented by: Dexamethasone (Dexamethasone 4 Mg Tablet) 6 mg PO DAILY [facility] Last Admin: 09/02/20 08:56 Dose: 6 mg Documented by: Fluticasone Propionate (Fluticasone 0.05% 1 [place] Nasal.Sry) 2 spray NASAL DAILY PRN PRN Reason: NASAL CONGESTION Gabapentin (Gabapentin 600 Mg Tablet) 600 mg PO DAILY PRN PRN Reason: Pain 1-10 / Neuopathy Guaifenesin (Guaifenesin 1,200 Mg Tablet) 1,200 mg PO BID [facility] Last Admin: 09/02/20 22:57 Dose: 1,200 mg Documented by: Remdesivir 100 mg/ Sodium (Chloride) 250 mls @ 125 mls/hr IV DAILY [facility] Stop: 09/04/20 11:59 Last Infusion: 09/02/20 12:02 Dose: Infused Documented by: Insulin Human Lispro (Insulin Lispro 100 Unit/Ml Insuln.Pen) 0 unit SC TIDAC [facility]; Protocol Last Admin: 09/03/20 06:07 Dose: Not Given Documented by: Magnesium Chloride (Magnesium Chloride 64 Mg Delay Rel.Tablet) 128 mg PO BID [facility] Last Admin: 09/02/20 22:56 Dose: 128 mg Documented by: Metoprolol Tartrate (Metoprolol Tartrate 50 Mg Tablet) 50 mg PO BID [facility] Last Admin: 09/02/20 22:56 Dose: 50 mg Documented by: Ondansetron HCl (Ondansetron 4 Mg/2 Ml Vial) 4 mg IV Q8H PRN PRN PRN Reason: NAUSEA/VOMITING Paroxetine HCl (Paroxetine 20 Mg Tablet) 20 mg PO QHS [facility] Last Admin: 09/02/20 22:57 Dose: 20 mg Documented by: Sodium Chloride (0.9% Saline Lock 10 Ml Syringe) 10 - 40 ml IV UD PRN PRN Reason: SALINE FLUSH Last Admin: 09/01/20 22:33 Dose: 10 ml Documented by: Sodium Chloride (Sodium Chloride 0.65% 1 [place].Btl) 1 - 2 spray NASAL TID PRN PRN PRN Reason: NASAL DRYNESS Last Admin: 09/02/20 16:14 Dose: 2 spray Documented by: Throat Lozenges (Benzocaine/Menthol 1 Lozenge) 1 lozenge MUCOUS MEM Q2H PRN PRN PRN Reason: SORE THROAT Medical Necessity - Tobacco Use Smoking Status: Former smoker Assessment/Plan All Active Problems (Last Reviewed 08/31/20 @ 17:[address] Alexis Aquino, DO) Abnormal findings on diagnostic imaging of heart and coronary circulation (Resolved) Abnormal stress test (Resolved) Lung mass (Acute) CAMILA (acute kidney injury) (Acute) Postural dizziness with near syncope (Acute) Dehydration (Acute) Diarrhea due to COVID-19 (Acute) Pneumonia due to COVID-19 virus (Acute) COVID-19 (Acute) CAMILA (acute kidney injury) (Acute) History of lumpectomy of left breast (Acute ~06/2020) Abnormal mammogram of left breast (Acute) History of dilation and curettage (Resolved) History of hysterectomy (Resolved) History of cholecystectomy (Resolved) History of carpal tunnel release (Resolved) RECOMMENDATIONS: 1. Transition to BiPAP therapy with sleep. May take breaks to Airvo if tolerates 2. Decadron and remdesivir per infectious disease 3. Okay to continue remdesivir from my perspective, will monitor liver function 4. Wean oxygen as tolerated 5. Anticipate need for Lantus given Decadron 6. Continue full anticoagulation given history of PE IMPRESSIONS: 1. Acute on chronic hypoxic respiratory failure secondary to COVID-19 pneumonia With a baseline oxygen requirement of approximately 3 L/min, but is currently requiring 15 L/min. Patient has been initiated on dexamethasone and remdesivir. Defer to infectious disease for continuation. Unclear if patient is progressing to ARDS versus obstruction from uncontrolled sleep apnea. Patient will be placed on baseline BiPAP settings 2. Obstructive sleep apnea Patient compliant with BiPAP at home at 18/14 centimeters of water. This can be given by hospital BiPAP if necessary to maintain saturations. 3. Acute kidney injury Improving. Medical suspicion for prerenal etiology secondary to diarrhea. Patient has received fluids initially. Agree with holding meloxicam, losartan and Metformin. We will continue to monitor on a daily basis. Hold on diuretic therapy given probable volume depletion. 4. Diabetes mellitus type 2 Discontinue Metformin secondary to concerns for lactic acidosis in the setting of acute kidney injury. Do anticipate patient may require Lantus coverage given Decadron. Sliding scale would also be appropriate. Unclear how much p.o. intake patient will have secondary to needs for supplemental oxygen. 5. Morbid obesity/advanced age/history of PE Complicates care, management, recovery and prognosis. Okay to continue for anticoagulation from my perspective. Inpatient E&M: [id number] [facility] Hosp L3
[2020-09-03] MEDS: APIXABAN 5 MG TABLET PO ×2 (08:01→22:50)
[2020-09-03] MEDS: Magnesium Chloride 64 MG Delay Rel.Tablet 128 MG PO ×2 (08:02→22:50)
[2020-09-03] MEDS: Metoprolol Tartrate 50 MG Tablet PO ×2 (08:02→22:58)
[2020-09-03] MEDS: dexAMETHasone 4 MG Tablet 6 MG PO (08:03)
[2020-09-03] MEDS: guaiFENesin 1,200 MG Tablet 1200 MG PO ×2 (08:03→22:50)
[2020-09-03] MEDS: Insulin Lispro 100 UNIT/ML INSULN.PEN SC ×2 (11:35→16:25)
--- NOTE | 2020-09-03 15:51 | PCM.PROGNOTE ---
Patient Problems: Active and Suspected Problems (Last Reviewed 08/31/20 @ 17:[address] Alexis Aquino, DO) Lung mass (Acute) Found 2018 CAMILA (acute kidney injury) (Acute) Postural dizziness with near syncope (Acute) Dehydration (Acute) Diarrhea due to COVID-19 (Acute) Pneumonia due to COVID-19 virus (Acute) COVID-19 (Acute) CAMILA (acute kidney injury) (Acute) History of lumpectomy of left breast (Acute ~06/2020) 06/27/2020 Abnormal mammogram of left breast (Acute) Subjective: Patient was seen and examined today, she is on BiPAP but appears comfortable, she does not complain of any fevers or chills. Objective: General: Alert, Oriented x3, Cooperative, No apparent distress, Well developed, Well nourished HEENT: Atraumatic, PERRLA, EOMI, Normocephalic Oral: Moist Mucosa Neck: Supple, No JVD, Trachea Midline, Thyroid Normal Size and Texture Lungs: Clear to auscultation, Normal air movement, No rhonchi, No wheeze, No rales Cardiovascular: Regular rate, Regular Rhythm, Normal S1, Normal S2, No murmurs, PMI Normal Abdomen: Bowel Sounds Present, Soft, Non Tender, Non-Distended, No hernias noted Extremities: No clubbing, No cyanosis, No edema, Capillary Refill Less than 3 Seconds Skin: No rashes, No breakdown Musculoskeletal: No Tenderness to Palpation of Joints or Extremities Neurological: Cranial nerves II-XII grossly intact, Neuro grossly intact, Sensory exam intact to light touch and pain, Coordination normal Psych/Mental Status: Normal Affect, Appropriate, Alert and oriented to time, place, person, mood and affect - Physical Exam Vitals/I&O's: Vital Signs Temp Pulse Resp BP Pulse Ox 98 F 70 25 H 134/67 H 93 09/03/20 09:00 09/03/20 11:40 09/03/20 11:40 09/03/20 09:00 09/03/20 11:40 Oxygen Flow Rate (L/min) 15 Oxygen Delivery Method Bi-pap Weight: 129.818 kg Body Mass Index (BMI) 49.1 Intake and Output for Last 24 Hours 09/01/20 09/02/20 09/03/20 23:59 23:59 23:59 Intake Total 250 / 250 250 / 500 920 / 920 Balance 250 / 250 250 / 500 920 / 920 Microbiology Past 72 Hours 09/01/20 14:25 Stool Enteric Bacteriology - Final 09/01/20 14:25 Stool C. difficile DNA Amplification - Final Laboratory Results 09/02/20 16:14: POC Glucose 182 H 09/02/20 22:54: POC Glucose 129 H 09/03/20 04:37: Sodium 137, Potassium 4.3, Chloride 106, Carbon Dioxide 22.0, Anion Gap 9, BUN 42 H, Creatinine 1.08 H, Estim Creat Clear Calc 38.87, Est GFR (MDRD) Af Amer 64, Est GFR (MDRD) Non-Af 53 L, BUN/Creatinine Ratio 38.9 H, Glucose 111 H, Calcium 9.2, Total Bilirubin 0.60, AST 58 H, ALT 56, Alkaline Phosphatase 137 H, Total Protein 7.9, Albumin 3.1 L, Globulin 4.8 H, Albumin/Globulin Ratio 0.6 L 09/03/20 06:06: POC Glucose 113 H Current Medications Acetaminophen (Acetaminophen 325 Mg Tablet) 650 mg PO Q6H PRN PRN PRN Reason: Pain Score 1-10/Temp > 100.7 F Last Admin: 09/02/20 20:31 Dose: 650 mg Documented by: Albuterol Sulfate (Albuterol Sulfate Hfa 6.7 Gm Inhaler (200 Puffs)) 2 puff IH Q4H PRN PRN Reason: SHORTNESS OF BREATH Apixaban (Apixaban 5 Mg Tablet) 5 mg PO BID [facility] Last Admin: 09/03/20 08:01 Dose: 5 mg Documented by: Cholecalciferol (Cholecalciferol (Vit D3) 1,000 Unit (25mcg)) 5,000 unit PO DAILY [facility] Last Admin: 09/03/20 08:01 Dose: 5,000 unit Documented by: Dexamethasone (Dexamethasone 4 Mg Tablet) 6 mg PO DAILY [facility] Last Admin: 09/03/20 08:03 Dose: 6 mg Documented by: Fluticasone Propionate (Fluticasone 0.05% 1 [place] Nasal.Sry) 2 spray NASAL DAILY PRN PRN Reason: NASAL CONGESTION Gabapentin (Gabapentin 600 Mg Tablet) 600 mg PO DAILY PRN PRN Reason: Pain 1-10 / Neuopathy Guaifenesin (Guaifenesin 1,200 Mg Tablet) 1,200 mg PO BID [facility] Last Admin: 09/03/20 08:03 Dose: 1,200 mg Documented by: Remdesivir 100 mg/ Sodium (Chloride) 250 mls @ 125 mls/hr IV DAILY [facility] Stop: 09/04/20 11:59 Last Infusion: 09/03/20 12:47 Dose: Infused Documented by: Insulin Human Lispro (Insulin Lispro 100 Unit/Ml Insuln.Pen) 0 unit SC TIDAC [facility]; Protocol Last Admin: 09/03/20 11:35 Dose: 1 u Documented by: Magnesium Chloride (Magnesium Chloride 64 Mg Delay Rel.Tablet) 128 mg PO BID [facility] Last Admin: 09/03/20 08:02 Dose: 128 mg Documented by: Metoprolol Tartrate (Metoprolol Tartrate 50 Mg Tablet) 50 mg PO BID [facility] Last Admin: 09/03/20 08:02 Dose: 50 mg Documented by: Ondansetron HCl (Ondansetron 4 Mg/2 Ml Vial) 4 mg IV Q8H PRN PRN PRN Reason: NAUSEA/VOMITING Oxymetazoline HCl (Oxymetazoline 0.05% 1 [place].Btl) 1 spray NASAL BID [facility] Paroxetine HCl (Paroxetine 20 Mg Tablet) 20 mg PO QHS [facility] Last Admin: 09/02/20 22:57 Dose: 20 mg Documented by: Sodium Chloride (0.9% Saline Lock 10 Ml Syringe) 10 - 40 ml IV UD PRN PRN Reason: SALINE FLUSH Last Admin: 09/01/20 22:33 Dose: 10 ml Documented by: Sodium Chloride (Sodium Chloride 0.65% 1 [place].Btl) 1 - 2 spray NASAL TID PRN PRN PRN Reason: NASAL DRYNESS Last Admin: 09/02/20 16:14 Dose: 2 spray Documented by: Throat Lozenges (Benzocaine/Menthol 1 Lozenge) 1 lozenge MUCOUS MEM Q2H PRN PRN PRN Reason: SORE THROAT Medical Necessity - Tobacco Use Smoking Status: Former smoker Assessment/Plan All Active Problems (Last Reviewed 08/31/20 @ 17:[address] Alexis Aquino, DO) Abnormal findings on diagnostic imaging of heart and coronary circulation (Resolved) Abnormal stress test (Resolved) Lung mass (Acute) CAMILA (acute kidney injury) (Acute) Postural dizziness with near syncope (Acute) Dehydration (Acute) Diarrhea due to COVID-19 (Acute) Pneumonia due to COVID-19 virus (Acute) COVID-19 (Acute) CAMILA (acute kidney injury) (Acute) History of lumpectomy of left breast (Acute ~06/2020) Abnormal mammogram of left breast (Acute) History of dilation and curettage (Resolved) History of hysterectomy (Resolved) History of cholecystectomy (Resolved) History of carpal tunnel release (Resolved) #1 COVID-19 pneumonia-patient is receiving remdesivir and dexamethasone, pulmonary medicine is participating in her care. #2 acute on chronic hypoxic respiratory failure-patient is currently on BiPAP at this time #3 CAMILA on a component of chronic kidney disease stage III-creatinine is improved today #4 morbid obesity #5 obstructive sleep apnea #6 hyperlipidemia #7 type 2 diabetes-blood sugars will be monitored, sliding scale insulin will be administered #8 pulmonary hypertension #9 breast cancer Inpatient E&M: [id number] Subs Hosp L2
[2020-09-03 16:11] LABS: Bedside Glucose 171 mg/dL (70-110)
[2020-09-03 16:30] LABS: Bedside Glucose 214 mg/dL (70-110)
[2020-09-03] MEDS: Paroxetine 20 MG Tablet PO (22:50)
[2020-09-03] MEDS: Oxymetazoline 0.05% 1 SPRAY SPRAY.BTL NASAL (22:57)
[2020-09-04] VITALS (15 sets, daily range): BP systolic 112–148; BP diastolic 52–72; PULSE 61–97; RESP 12–26; TEMP 36.3–36.6; O2SAT 85–95
[2020-09-04 06:56] LABS: Bedside Glucose 136 mg/dL (70-110)
[2020-09-04 07:06] LABS: Bedside Glucose 122 mg/dL (70-110)
[2020-09-04 07:41] LABS: Absolute Lymphocyte Count 1.05 X10^3/uL (0.83-4.51); Absolute Neutrophil Count 8.9 X10^3/uL (2.0-7.7); Basophil# 0.03 X10^3/uL; Basophil% 0.3 % (0-1); Eosinophil# 0.03 X10^3/uL; Eosinophils% 0.3 % (0-5); Hematocrit 40.2 % (37-47); Hemoglobin 13.2 g/dL (12.0-15.0); Lymphocyte # 1.05 X10^3/ul (4.0); Lymphocyte % 9.7 % (19-41); Mean Corp Hgb Conc 32.8 g/dL (32-36); Mean Corpuscular Volume 85.2 fL (81-99); Mean Platelet Vol. 10.3 fl (6.2-12.0); Monocyte# 0.68 X10^3/uL; Monocyte% 6.3 % (0-10); NRBC Flagged by Analyzer 0 % (0-5); Neutrophil # 8.89 X10^3/uL (2.7-7.7); Neutrophil % 82.1 % (47-70); POSITIVE MORPHOLOGY YES; Platelet Count 119 K/mm3 (150-450); RBC Distribution Width CV 13.8 % (11.6-14.6); RBC Distribution Width SD 43.2 fl (35.1-43.9); Red Blood Count 4.72 M/mm3 (4.2-5.4); White Blood Count 10.8 K/mm3 (4.4-11.0)
[2020-09-04 07:43] LABS: Differential Indicated SCAN CRITERIA MET
--- NOTE | 2020-09-04 07:45 | PCM.PN.PUL ---
Patient Problems: Active and Suspected Problems (Last Reviewed 08/31/20 @ 17:[address] Alexis Aquino, DO) Lung mass (Acute) Found 2018 CAMILA (acute kidney injury) (Acute) Postural dizziness with near syncope (Acute) Dehydration (Acute) Diarrhea due to COVID-19 (Acute) Pneumonia due to COVID-19 virus (Acute) COVID-19 (Acute) CAMILA (acute kidney injury) (Acute) History of lumpectomy of left breast (Acute ~06/2020) 06/27/2020 Abnormal mammogram of left breast (Acute) Subjective: Patient did require BiPAP throughout the day yesterday. Patient is requiring 80% FiO2 to maintain saturations. Patient overall feels subjectively unchanged compared to previous. Patient denies any GI symptoms at this time. - Physical Exam Vitals/I&O's: Vital Signs Temp Pulse Resp BP Pulse Ox 36.3 C L 67 18 148/72 H 92 09/04/20 03:00 09/04/20 03:54 09/04/20 03:54 09/04/20 03:00 09/04/20 03:54 Oxygen Flow Rate (L/min) 15 Oxygen Delivery Method Bi-pap Weight: 129.818 kg Body Mass Index (BMI) 49.1 Intake and Output for Last 24 Hours 09/02/20 09/03/20 09/04/20 23:59 23:59 23:59 Intake Total 250 / 500 1120 / 1170 170 / 170 Output Total 150 / 150 Balance 250 / 500 1120 / 1170 20 / 20 General: Alert, Oriented x3, Cooperative, No apparent distress - On BiPAP, - - Morbidly obese HEENT: Atraumatic, PERRLA, EOMI, Normocephalic, - - No scleral icterus or injection noted Oral: No Gingival or Mucosal Lesions/ Ulcerations, Dry Mucosa, - - Crowded posterior pharynx Neck: Supple, No Nodes, Trachea Midline, - - JVD difficult to assess secondary to body habitus and BiPAP Lungs: No rhonchi, No wheeze, No rales, Diminished, - - Symmetric expansion Cardiovascular: Regular rate, Regular Rhythm, Normal S1, Normal S2, No murmurs, No rub noted, No Gallop Abdomen: Bowel Sounds Present, Soft, Non Tender, Non-Distended, Obese Extremities: No clubbing, No cyanosis, Edema Skin: No rashes, No breakdown Musculoskeletal: No Tenderness to Palpation of Joints or Extremities Lymphatic: No Cervical, Supraclavicular, or Inguinal Adenopathy Neurological: Cranial nerves II-XII grossly intact, Neuro grossly intact, Motor Exam 5/5 strength throughout Psych/Mental Status: Alert and oriented to time, place, person, mood and affect Microbiology Past 72 Hours 09/01/20 14:25 Stool Enteric Bacteriology - Final 09/01/20 14:25 Stool C. difficile DNA Amplification - Final Laboratory Results 09/03/20 11:35: POC Glucose 171 H 09/03/20 16:23: POC Glucose 214 H 09/03/20 22:45: POC Glucose 136 H 09/04/20 06:18: WBC 10.8, RBC 4.72, Hgb 13.2, Hct 40.2, MCV 85.2, MCH 28.0, MCHC 32.8, RDW Std Deviation 43.2, RDW Coeff of Marine 13.8, Plt Count 119 L, MPV 10.3, Immature Gran % (Auto) 1.300 H, Neut % (Auto) 82.1 H, Lymph % (Auto) 9.7 L, [place] % (Auto) 6.3, Eos % (Auto) 0.3, Baso % (Auto) 0.3, Absolute Neuts (auto) 8.9 H, Absolute Lymphs (auto) 1.05, Nucleated RBC % 0 09/04/20 06:33: POC Glucose 122 H Current Medications Acetaminophen (Acetaminophen 325 Mg Tablet) 650 mg PO Q6H PRN PRN PRN Reason: Pain Score 1-10/Temp > 100.7 F Last Admin: 09/02/20 20:31 Dose: 650 mg Documented by: Albuterol Sulfate (Albuterol Sulfate Hfa 6.7 Gm Inhaler (200 Puffs)) 2 puff IH Q4H PRN PRN Reason: SHORTNESS OF BREATH Last Admin: 09/03/20 22:59 Dose: 2 puff Documented by: Apixaban (Apixaban 5 Mg Tablet) 5 mg PO BID [facility] Last Admin: 09/03/20 22:50 Dose: 5 mg Documented by: Cholecalciferol (Cholecalciferol (Vit D3) 1,000 Unit (25mcg)) 5,000 unit PO DAILY [facility] Last Admin: 09/03/20 08:01 Dose: 5,000 unit Documented by: Dexamethasone (Dexamethasone 4 Mg Tablet) 6 mg PO DAILY [facility] Last Admin: 09/03/20 08:03 Dose: 6 mg Documented by: Fluticasone Propionate (Fluticasone 0.05% 1 [place] Nasal.Sry) 2 spray NASAL DAILY PRN PRN Reason: NASAL CONGESTION Gabapentin (Gabapentin 600 Mg Tablet) 600 mg PO DAILY PRN PRN Reason: Pain 1-10 / Neuopathy Guaifenesin (Guaifenesin 1,200 Mg Tablet) 1,200 mg PO BID [facility] Last Admin: 09/03/20 22:50 Dose: 1,200 mg Documented by: Remdesivir 100 mg/ Sodium (Chloride) 250 mls @ 125 mls/hr IV DAILY [facility] Stop: 09/04/20 11:59 Last Infusion: 09/03/20 12:47 Dose: Infused Documented by: Insulin Human Lispro (Insulin Lispro 100 Unit/Ml Insuln.Pen) 0 unit SC TIDAC [facility]; Protocol Last Admin: 09/04/20 06:44 Dose: Not Given Documented by: Magnesium Chloride (Magnesium Chloride 64 Mg Delay Rel.Tablet) 128 mg PO BID [facility] Last Admin: 09/03/20 22:50 Dose: 128 mg Documented by: Metoprolol Tartrate (Metoprolol Tartrate 50 Mg Tablet) 50 mg PO BID [facility] Last Admin: 09/03/20 22:58 Dose: 50 mg Documented by: Ondansetron HCl (Ondansetron 4 Mg/2 Ml Vial) 4 mg IV Q8H PRN PRN PRN Reason: NAUSEA/VOMITING Oxymetazoline HCl (Oxymetazoline 0.05% 1 [place].Btl) 1 spray NASAL BID [facility] Last Admin: 09/03/20 22:57 Dose: 1 spray Documented by: Paroxetine HCl (Paroxetine 20 Mg Tablet) 20 mg PO QHS [facility] Last Admin: 09/03/20 22:50 Dose: 20 mg Documented by: Sodium Chloride (0.9% Saline Lock 10 Ml Syringe) 10 - 40 ml IV UD PRN PRN Reason: SALINE FLUSH Last Admin: 09/01/20 22:33 Dose: 10 ml Documented by: Sodium Chloride (Sodium Chloride 0.65% 1 [place].Btl) 1 - 2 spray NASAL TID PRN PRN PRN Reason: NASAL DRYNESS Last Admin: 09/02/20 16:14 Dose: 2 spray Documented by: Throat Lozenges (Benzocaine/Menthol 1 Lozenge) 1 lozenge MUCOUS MEM Q2H PRN PRN PRN Reason: SORE THROAT Medical Necessity - Tobacco Use Smoking Status: Former smoker Assessment/Plan All Active Problems (Last Reviewed 08/31/20 @ 17:[address] Alexis Aquino, DO) Abnormal findings on diagnostic imaging of heart and coronary circulation (Resolved) Abnormal stress test (Resolved) Lung mass (Acute) CAMILA (acute kidney injury) (Acute) Postural dizziness with near syncope (Acute) Dehydration (Acute) Diarrhea due to COVID-19 (Acute) Pneumonia due to COVID-19 virus (Acute) COVID-19 (Acute) CAMILA (acute kidney injury) (Acute) History of lumpectomy of left breast (Acute ~06/2020) Abnormal mammogram of left breast (Acute) History of dilation and curettage (Resolved) History of hysterectomy (Resolved) History of cholecystectomy (Resolved) History of carpal tunnel release (Resolved) RECOMMENDATIONS: 1. Continue BiPAP therapy with sleep. May take breaks to Airvo if tolerates 2. Decadron and remdesivir per infectious disease 3. Okay to continue remdesivir from my perspective, will await liver function 4. Wean oxygen as tolerated. Consider diuretic challenge pending results of BMP 5. Anticipate need for Lantus given Decadron 6. Continue full anticoagulation given history of PE IMPRESSIONS: 1. Acute on chronic hypoxic respiratory failure secondary to COVID-19 pneumonia With a baseline oxygen requirement of approximately 3 L/min, but is currently requiring 15 L/min. Patient has been initiated on dexamethasone and remdesivir. Defer to infectious disease for continuation. Given relatively stable oxygen requirements, ARDS is less likely. Patient does have Decadron and remdesivir pending, but may benefit from diuretic therapy if able to tolerate from a renal function. BMP is currently pending. 2. Obstructive sleep apnea Patient compliant with BiPAP at home at 18/14 centimeters of water. This can be given by hospital BiPAP if necessary to maintain saturations. 3. Acute kidney injury Awaiting morning labs. Medical suspicion for prerenal etiology secondary to diarrhea. Patient has received fluids initially. Agree with holding meloxicam, losartan and Metformin. We will continue to monitor on a daily basis. Hold on diuretic therapy given probable volume depletion. 4. Diabetes mellitus type 2 Discontinue Metformin secondary to concerns for lactic acidosis in the setting of acute kidney injury. Do anticipate patient may require Lantus coverage given Decadron. However, sugars appear to be stable at this time. Sliding scale would also be appropriate. Unclear how much p.o. intake patient will have secondary to needs for supplemental oxygen. 5. Morbid obesity/advanced age/history of PE Complicates care, management, recovery and prognosis. Okay to continue full anticoagulation from my perspective. Inpatient E&M: 94826 Subs Hosp L3
[2020-09-04 08:13] LABS: Platelet Estimate ADEQUATE (ADEQ); Red Cell Morphology NORM C+C NORMAL (NORM C&C)
--- NOTE | 2020-09-04 08:25 | CPS ---
Patient placed on large nasal interface for Airvo and heater increased to 34 degrees.
[2020-09-04] MEDS: Oxymetazoline 0.05% 1 SPRAY SPRAY.BTL NASAL ×2 (08:36→20:11)
[2020-09-04] MEDS: dexAMETHasone 4 MG Tablet 6 MG PO (08:38)
[2020-09-04] MEDS: Metoprolol Tartrate 50 MG Tablet PO ×2 (08:38→20:10)
[2020-09-04] MEDS: APIXABAN 5 MG TABLET PO ×2 (08:38→20:09)
[2020-09-04] MEDS: guaiFENesin 1,200 MG Tablet 1200 MG PO ×2 (08:38→20:10)
[2020-09-04] MEDS: Magnesium Chloride 64 MG Delay Rel.Tablet 128 MG PO ×2 (08:38→20:09)
[2020-09-04] MEDS: Acetaminophen 325 MG Tablet 650 MG PO ×2 (10:30→20:10)
[2020-09-04] MEDS: Insulin Lispro 100 UNIT/ML INSULN.PEN SC ×2 (11:51→16:20)
[2020-09-04 12:47] LABS: ALB/GLOB Ratio 0.6 RATIO (0.9-2.4); AST(SGOT) 42 U/L (15-37); Alanine Aminotransfer ALT/SGPT 58 U/L (13-56); Albumin, Serum 2.7 g/dL (3.2-5.0); Alkaline Phosphatase 148 U/L (45-117); Anion Gap 11 (5-15); BUN 38 mg/dL (7-18); BUN/Creat Ratio 36.2 RATIO (10-20); Calcium,Total 8.8 mg/dL (8.5-10.1); Chloride 102 mmol/L (98-107); Creatinine, Serum 1.05 mg/dL (0.55-1.02); EST Glomerular Filtration Rate 54 mL/min (>60); Est Glom Filt Rate - Afr Amer 66 mL/min (>60); Estimated Creatinine Clearance 39.98 ml/min; Globulin 4.8 g/dL (2.2-4.2); Glucose 201 mg/dL (74-106); Potassium 4.5 mmol/L (3.5-5.1); Protein, Total 7.5 g/dL (6.4-8.2); Sodium Level 134 mmol/L (136-145)
[2020-09-04 14:16] LABS: Bedside Glucose 204 mg/dL (70-110)
--- NOTE | 2020-09-04 15:22 | PCM.PROGNOTE ---
Patient Problems: Active and Suspected Problems (Last Reviewed 08/31/20 @ 17:[address] Alexis Aquino, DO) Lung mass (Acute) Found 2018 CAMILA (acute kidney injury) (Acute) Postural dizziness with near syncope (Acute) Dehydration (Acute) Diarrhea due to COVID-19 (Acute) Pneumonia due to COVID-19 virus (Acute) COVID-19 (Acute) CAMILA (acute kidney injury) (Acute) History of lumpectomy of left breast (Acute ~06/2020) 06/27/2020 Abnormal mammogram of left breast (Acute) Subjective: Patient was seen and examined today, current renal functions appears stable at this time, I talked with pulmonary medicine concerning her care today. She has no complaints of any fever chills or chest discomfort. She is sitting in a chair eating lunch at this time. She is on Airvo. Objective: General: Alert, Oriented x3, Cooperative, No apparent distress, Well developed, Well nourished HEENT: Atraumatic, PERRLA, EOMI, Normocephalic Oral: Moist Mucosa Neck: Supple, No JVD, Trachea Midline, Thyroid Normal Size and Texture Lungs: Clear to auscultation, Normal air movement, No rhonchi, No wheeze, No rales Cardiovascular: Regular rate, Regular Rhythm, Normal S1, Normal S2, No murmurs, PMI Normal Abdomen: Bowel Sounds Present, Soft, Non Tender, Non-Distended, No hernias noted Extremities: No clubbing, No cyanosis, No edema, Capillary Refill Less than 3 Seconds Skin: No rashes, No breakdown Musculoskeletal: No Tenderness to Palpation of Joints or Extremities Neurological: Cranial nerves II-XII grossly intact, Neuro grossly intact, Sensory exam intact to light touch and pain, Coordination normal Psych/Mental Status: Normal Affect, Appropriate, Alert and oriented to time, place, person, mood and affect - Physical Exam Vitals/I&O's: Vital Signs Temp Pulse Resp BP Pulse Ox 98 F 81 18 141/61 H 93 09/04/20 09:00 09/04/20 09:00 09/04/20 09:00 09/04/20 09:00 09/04/20 09:00 Oxygen Flow Rate (L/min) 15 Oxygen Delivery Method Airvo Weight: 129.818 kg Body Mass Index (BMI) 49.1 Intake and Output for Last 24 Hours 09/02/20 09/03/20 09/04/20 23:59 23:59 23:59 Intake Total 250 / 500 1120 / 1170 780 / 780 Output Total 550 / 550 Balance 250 / 500 1120 / 1170 230 / 230 Microbiology Past 72 Hours 09/01/20 14:25 Stool Enteric Bacteriology - Final 09/01/20 14:25 Stool C. difficile DNA Amplification - Final Laboratory Results 09/03/20 11:35: POC Glucose 171 H 09/03/20 16:23: POC Glucose 214 H 09/03/20 22:45: POC Glucose 136 H 09/04/20 02:10: Sodium 134 L, Potassium 4.5, Chloride 102, Carbon Dioxide 21.0, Anion Gap 11, BUN 38 H, Creatinine 1.05 H, Estim Creat Clear Calc 39.98, Est GFR (MDRD) Af Amer 66, Est GFR (MDRD) Non-Af 54 L, BUN/Creatinine Ratio 36.2 H, Glucose 201 H, Calcium 8.8, Total Bilirubin 0.70, AST 42 H, ALT 58 H, Alkaline Phosphatase 148 H, Total Protein 7.5, Albumin 2.7 L, Globulin 4.8 H, Albumin/Globulin Ratio 0.6 L 09/04/20 06:18: WBC 10.8, RBC 4.72, Hgb 13.2, Hct 40.2, MCV 85.2, MCH 28.0, MCHC 32.8, RDW Std Deviation 43.2, RDW Coeff of Marine 13.8, Plt Count 119 L, MPV 10.3, Immature Gran % (Auto) 1.300 H, Neut % (Auto) 82.1 H, Lymph % (Auto) 9.7 L, [place] % (Auto) 6.3, Eos % (Auto) 0.3, Baso % (Auto) 0.3, Absolute Neuts (auto) 8.9 H, Absolute Lymphs (auto) 1.05, Nucleated RBC % 0, Platelet Estimate ADEQUATE, RBC Morphology NORM C+C 09/04/20 06:33: POC Glucose 122 H 09/04/20 11:50: POC Glucose 204 H Current Medications Acetaminophen (Acetaminophen 325 Mg Tablet) 650 mg PO Q6H PRN PRN PRN Reason: Pain Score 1-10/Temp > 100.7 F Last Admin: 09/04/20 10:30 Dose: 650 mg Documented by: Albuterol Sulfate (Albuterol Sulfate Hfa 6.7 Gm Inhaler (200 Puffs)) 2 puff IH Q4H PRN PRN Reason: SHORTNESS OF BREATH Last Admin: 09/03/20 22:59 Dose: 2 puff Documented by: Apixaban (Apixaban 5 Mg Tablet) 5 mg PO BID [facility] Last Admin: 09/04/20 08:38 Dose: 5 mg Documented by: Cholecalciferol (Cholecalciferol (Vit D3) 1,000 Unit (25mcg)) 5,000 unit PO DAILY [facility] Last Admin: 09/04/20 08:38 Dose: 5,000 unit Documented by: Dexamethasone (Dexamethasone 4 Mg Tablet) 6 mg PO DAILY [facility] Last Admin: 09/04/20 08:38 Dose: 6 mg Documented by: Fluticasone Propionate (Fluticasone 0.05% 1 [place] Nasal.Sry) 2 spray NASAL DAILY PRN PRN Reason: NASAL CONGESTION Guaifenesin (Guaifenesin 1,200 Mg Tablet) 1,200 mg PO BID [facility] Last Admin: 09/04/20 08:38 Dose: 1,200 mg Documented by: Insulin Human Lispro (Insulin Lispro 100 Unit/Ml Insuln.Pen) 0 unit SC TIDAC [facility]; Protocol Last Admin: 09/04/20 11:51 Dose: 2 u Documented by: Magnesium Chloride (Magnesium Chloride 64 Mg Delay Rel.Tablet) 128 mg PO BID [facility] Last Admin: 09/04/20 08:38 Dose: 128 mg Documented by: Metoprolol Tartrate (Metoprolol Tartrate 50 Mg Tablet) 50 mg PO BID [facility] Last Admin: 09/04/20 08:38 Dose: 50 mg Documented by: Ondansetron HCl (Ondansetron 4 Mg/2 Ml Vial) 4 mg IV Q8H PRN PRN PRN Reason: NAUSEA/VOMITING Oxymetazoline HCl (Oxymetazoline 0.05% 1 [place].Btl) 1 spray NASAL BID [facility] Last Admin: 09/04/20 08:36 Dose: 1 spray Documented by: Paroxetine HCl (Paroxetine 20 Mg Tablet) 20 mg PO QHS [facility] Last Admin: 09/03/20 22:50 Dose: 20 mg Documented by: Sodium Chloride (0.9% Saline Lock 10 Ml Syringe) 10 - 40 ml IV UD PRN PRN Reason: SALINE FLUSH Last Admin: 09/01/20 22:33 Dose: 10 ml Documented by: Sodium Chloride (Sodium Chloride 0.65% 1 [place].Btl) 1 - 2 spray NASAL TID PRN PRN PRN Reason: NASAL DRYNESS Last Admin: 09/02/20 16:14 Dose: 2 spray Documented by: Throat Lozenges (Benzocaine/Menthol 1 Lozenge) 1 lozenge MUCOUS MEM Q2H PRN PRN PRN Reason: SORE THROAT Medical Necessity - Tobacco Use Smoking Status: Former smoker Assessment/Plan All Active Problems (Last Reviewed 08/31/20 @ 17:[address] Alexis Aquino, DO) Abnormal findings on diagnostic imaging of heart and coronary circulation (Resolved) Abnormal stress test (Resolved) Lung mass (Acute) CAMILA (acute kidney injury) (Acute) Postural dizziness with near syncope (Acute) Dehydration (Acute) Diarrhea due to COVID-19 (Acute) Pneumonia due to COVID-19 virus (Acute) COVID-19 (Acute) CAMILA (acute kidney injury) (Acute) History of lumpectomy of left breast (Acute ~06/2020) Abnormal mammogram of left breast (Acute) History of dilation and curettage (Resolved) History of hysterectomy (Resolved) History of cholecystectomy (Resolved) History of carpal tunnel release (Resolved) #1 COVID-19 pneumonia-patient is receiving remdesivir and dexamethasone, pulmonary medicine is participating in her care. I will administer another dose of IV Lasix today. #2 acute on chronic hypoxic respiratory failure-patient is currently on Airvo at this time #3 CAMILA on a component of chronic kidney disease stage III-creatinine is improved today #4 morbid obesity #5 obstructive sleep apnea #6 hyperlipidemia #7 type 2 diabetes-blood sugars will be monitored, sliding scale insulin will be administered #8 pulmonary hypertension #9 breast cancer Inpatient E&M: [id number] [facility] Hosp L2
[2020-09-04] MEDS: Furosemide 40 MG/4 ML Vial IV (16:19)
[2020-09-04 17:06] LABS: Bedside Glucose 225 mg/dL (70-110)
[2020-09-04] MEDS: Paroxetine 20 MG Tablet PO (20:09)
[2020-09-05] VITALS (18 sets, daily range): BP systolic 124–158; BP diastolic 59–83; PULSE 65–94; RESP 12–21; TEMP 36.2–37.2; O2SAT 87–94
[2020-09-05 07:16] LABS: Bedside Glucose 107 mg/dL (70-110)
[2020-09-05] MEDS: APIXABAN 5 MG TABLET PO ×2 (09:39→21:38)
[2020-09-05] MEDS: Metoprolol Tartrate 50 MG Tablet PO ×2 (09:40→21:38)
[2020-09-05] MEDS: dexAMETHasone 4 MG Tablet 6 MG PO (09:40)
[2020-09-05] MEDS: Magnesium Chloride 64 MG Delay Rel.Tablet 128 MG PO ×2 (09:40→21:37)
[2020-09-05] MEDS: guaiFENesin 1,200 MG Tablet 1200 MG PO ×2 (09:40→21:37)
[2020-09-05] MEDS: Oxymetazoline 0.05% 1 SPRAY SPRAY.BTL NASAL (09:41)
[2020-09-05 10:11] LABS: Bedside Glucose 166 mg/dL (70-110)
[2020-09-05 12:10] LABS: Bedside Glucose 180 mg/dL (70-110)
[2020-09-05] MEDS: Insulin Lispro 100 UNIT/ML INSULN.PEN SC ×2 (12:33→17:07)
[2020-09-05 17:46] LABS: Bedside Glucose 183 mg/dL (70-110)
--- NOTE | 2020-09-05 18:19 | PN_ITS ---
Patient Problems: Active and Suspected Problems (Last Reviewed 08/31/20 @ 17:[address] Alexis Aquino, DO) Lung mass (Acute) Found 2018 CAMILA (acute kidney injury) (Acute) Postural dizziness with near syncope (Acute) Dehydration (Acute) Diarrhea due to COVID-19 (Acute) Pneumonia due to COVID-19 virus (Acute) COVID-19 (Acute) CAMILA (acute kidney injury) (Acute) History of lumpectomy of left breast (Acute ~06/2020) 06/27/2020 Abnormal mammogram of left breast (Acute) Subjective: Patient denies any subjective feeling of shortness of breath but per discussion with nursing has been back and forth between noninvasive ventilation and AIRVO all day today. She states her appetite is poor. Vitals/I&O's: Vital Signs Temp Pulse Resp BP Pulse Ox 97.2 F L 79 20 H 158/74 H 92 09/05/20 16:55 09/05/20 16:55 09/05/20 16:55 09/05/20 16:55 09/05/20 16:55 Oxygen Flow Rate (L/min) 91 Oxygen Delivery Method Airvo Weight: 129.818 kg Body Mass Index (BMI) 49.1 Intake and Output for Last 24 Hours 09/03/20 09/04/20 09/05/20 23:59 23:59 23:59 Intake Total 1120 / 1170 1180 / 1180 50 / 50 Output Total 1250 / 1550 950 / 950 Balance 1120 / 1170 -70 / -370 -900 / -900 General: Alert, Oriented x3, Cooperative, No apparent distress, Well developed, Well nourished HEENT: Atraumatic, PERRLA, EOMI, Normocephalic, EAC Clear Oral: Moist Mucosa, No Gingival or Mucosal Lesions/ Ulcerations, - - No thrush, Mallampati 3-4 Neck: Supple, Trachea Midline, Thyroid Normal Size and Texture, - - Short thick neck Lungs: No rhonchi, No wheeze, No rales, Diminished, - - Exam limited by body habitus Cardiovascular: Regular rate, Regular Rhythm, Normal S1, Normal S2, No murmurs, No Ectopic Activity, No rub noted, No Gallop Abdomen: Bowel Sounds Present, Soft, Non Tender, Non-Distended, Obese Extremities: No clubbing, No cyanosis, No edema, Capillary Refill Less than 3 S econds, Peripheral Pulses Normal Skin: No rashes, No breakdown Musculoskeletal: No Tenderness to Palpation of Joints or Extremities, No Muscle Wasting Lymphatic: No Cervical, Supraclavicular, or Inguinal Adenopathy Neurological: Cranial nerves II-XII grossly intact, Neuro grossly intact, Muscle tone normal, Coordination normal Psych/Mental Status: Normal Affect, Appropriate Laboratory Results 09/04/20 21:08: POC Glucose 166 H 09/05/20 06:10: POC Glucose 107 09/05/20 11:36: POC Glucose 180 H 09/05/20 17:05: POC Glucose 183 H Current Medications Acetaminophen (Acetaminophen 325 Mg Tablet) 650 mg PO Q6H PRN PRN PRN Reason: Pain Score 1-10/Temp > 100.7 F Last Admin: 09/04/20 20:10 Dose: 650 mg Documented by: Albuterol Sulfate (Albuterol Sulfate Hfa 6.7 Gm Inhaler (200 Puffs)) 2 puff IH Q4H PRN PRN Reason: SHORTNESS OF BREATH Last Admin: 09/04/20 20:12 Dose: 2 puff Documented by: Apixaban (Apixaban 5 Mg Tablet) 5 mg PO BID [facility] Last Admin: 09/05/20 09:39 Dose: 5 mg Documented by: Cholecalciferol (Cholecalciferol (Vit D3) 1,000 Unit (25mcg)) 5,000 unit PO DAILY [facility] Last Admin: 09/05/20 09:39 Dose: 5,000 unit Documented by: Dexamethasone (Dexamethasone 4 Mg Tablet) 6 mg PO DAILY [facility] Last Admin: 09/05/20 09:40 Dose: 6 mg Documented by: Fluticasone Propionate (Fluticasone 0.05% 1 [place] Nasal.Sry) 2 spray NASAL DAILY PRN PRN Reason: NASAL CONGESTION Guaifenesin (Guaifenesin 1,200 Mg Tablet) 1,200 mg PO BID [facility] Last Admin: 09/05/20 09:40 Dose: 1,200 mg Documented by: Insulin Human Lispro (Insulin Lispro 100 Unit/Ml Insuln.Pen) 0 unit SC TIDAC [facility]; Protocol Last Admin: 09/05/20 17:07 Dose: 1 u Documented by: Magnesium Chloride (Magnesium Chloride 64 Mg Delay Rel.Tablet) 128 mg PO BID [facility] Last Admin: 09/05/20 09:40 Dose: 128 mg Documented by: Metoprolol Tartrate (Metoprolol Tartrate 50 Mg Tablet) 50 mg PO BID [facility] Last Admin: 09/05/20 09:40 Dose: 50 mg Documented by: Ondansetron HCl (Ondansetron 4 Mg/2 Ml Vial) 4 mg IV Q8H PRN PRN PRN Reason: NAUSEA/VOMITING Oxymetazoline HCl (Oxymetazoline 0.05% 1 [place].Btl) 1 spray NASAL BID [facility] Last Admin: 09/05/20 09:41 Dose: 1 spray Documented by: Paroxetine HCl (Paroxetine 20 Mg Tablet) 20 mg PO QHS [facility] Last Admin: 09/04/20 20:09 Dose: 20 mg Documented by: Sodium Chloride (0.9% Saline Lock 10 Ml Syringe) 10 - 40 ml IV UD PRN PRN Reason: SALINE FLUSH Last Admin: 09/01/20 22:33 Dose: 10 ml Documented by: Sodium Chloride (Sodium Chloride 0.65% 1 [place].Btl) 1 - 2 spray NASAL TID PRN PRN PRN Reason: NASAL DRYNESS Last Admin: 09/02/20 16:14 Dose: 2 spray Documented by: Throat Lozenges (Benzocaine/Menthol 1 Lozenge) 1 lozenge MUCOUS MEM Q2H PRN PRN PRN Reason: SORE THROAT STROKE Vital Signs/Narrative: Vital Signs Temp Pulse Resp BP Pulse Ox 09/05/20 16:55 97.2 F L 79 20 H 158/74 H 92 Medical Necessity - Tobacco Use Smoking Status: Former smoker Assessment/Plan All Active Problems (Last Reviewed 08/31/20 @ 17:[address] Alexis Aquino, DO) Abnormal findings on diagnostic imaging of heart and coronary circulation (Resolved) Abnormal stress test (Resolved) Lung mass (Acute) CAMILA (acute kidney injury) (Acute) Postural dizziness with near syncope (Acute) Dehydration (Acute) Diarrhea due to COVID-19 (Acute) Pneumonia due to COVID-19 virus (Acute) COVID-19 (Acute) CAMILA (acute kidney injury) (Acute) History of lumpectomy of left breast (Acute ~06/2020) Abnormal mammogram of left breast (Acute) History of dilation and curettage (Resolved) History of hysterectomy (Resolved) History of cholecystectomy (Resolved) History of carpal tunnel release (Resolved) Acute hypoxic respiratory failure secondary to Covid pneumonia -Patient has a baseline O2 requirement of 3 L -Currently on high flow and noninvasive ventilation with a flow of 91 and an FiO2 of 90 -Continue Decadron and has completed remdesivir -Assess CBC and CMP in a.m.--> will consider diuresis - start Lasix IV push 40 mg twice daily and monitor creatinine -Patient on apixaban 5 mg twice daily -Patient at high risk for requiring intubation continue to monitor continuous oxygen saturations -I did discuss CODE STATUS again with her today and she maintains her full code Diarrhea -Likely secondary to Covid -C. difficile DN a amplification negative -Enteric stool sample negative -Per patient this has improved CAMILA -Repeat CMP in a.m. -Had been improving Transaminitis -Likely related to acute Covid infection -Repeat in a.m. Hypertension -Continue metoprolol twice daily -Home losartan is on hold with CAMILA Hyperlipidemia Patient is currently on no statin therapy at home History of breast cancer -No acute issues DM-2 -Hold Metformin -Continue SSI -Hold on Lantus for now fasting sugar this a.m. was 166 -Reassess with BMP in a.m. JAYE -Continue BiPAP 18/14 cm of water as needed and at bedtime History of pulmonary embolism -Continue Eliquis 5 mg twice daily Morbid obesity -Recommend weight loss -BMI is 49.1 -Increases risk of complications related to Covid infection Depression -Continue Paxil DVT prophylaxis -Therapeutic Eliquis CODE STATUS -Full code Inpatient E&M: [id number] [facility] [[email or web address]] Hosp L3
--- NOTE | 2020-09-05 18:33 | NURSING ---
pts. granddaughter took pts bipap home on saturday - for to look at.
[2020-09-05] MEDS: Paroxetine 20 MG Tablet PO (21:38)
--- NOTE | 2020-09-05 22:45 | NURSING ---
Pt had increased O2 needs on BiPap 100%. During rest pt pulse ox would go as low as 84%. While awake, pt pulse ox 91-94%. During medication administration, placed pt on AirVo. Pt took medications quickly and w/o difficulty. Pulse ox to 76% during this time. Readily replaced BiPap, and pt recovered to high 80's within 5 minutes. Pt did not c/o of difficulty breathing or shortness of breath. Due to increased O2 needs Dr. Lazo ordered pt to ICU and to change BiPap to APRV mode. Respiratory was called and Model Set Artist aware. Room ICU 1 is assigned.
--- NOTE | 2020-09-05 22:55 | PCM.PN.BLA ---
Progress Note Notified by nurse that patient is struggling to breathe and she is hypoxic on BiPAP. Patient was seen. Alert and oriented x3. Tachypneic. Discussed with patient and is okay to intubate. Start patient on AVAPS and transfer to the intensive care unit. Called nurses after patient has been transferred to intensive care unit. Per nurse patient is doing well on avap STROKE Vital Signs/Narrative: Vital Signs Temp Pulse Resp BP Pulse Ox 09/05/20 21:38 87 142/82 H 09/05/20 21:25 97.3 F L 84 21 H 142/82 H 91 09/05/20 19:21 85 17 87
--- NOTE | 2020-09-05 23:28 | NURSING ---
Pt received into ICU rm 1 and transferred, BiPAP settings changed to AVAPS: Vt 550, RR16, EPAP12, MaxP26, MinP18, I-time 1.2, FiO2 100%
--- NOTE | 2020-09-05 23:35 | NURSING ---
Pt received w/belongings:cellphone+grain distributor,quad cane,glasses,clothes in bags x2.
[2020-09-06] VITALS (52 sets, daily range): BP systolic 73–158; BP diastolic 33–87; PULSE 56–107; RESP 14–26; TEMP 36.3–38.2; O2SAT 63–99; BMI 47.1
--- NOTE | 2020-09-06 00:52 | NURSING ---
Pillow removed from behind pt's head, explained to pt that she needed an optimal airway opening;alarm volumes increased on monitor at bedside and pt informed to concentrate on deep breaths when you hear the monitor alarm. Pt agrees, denies other needs at this time.
[2020-09-06 05:41] LABS: Absolute Lymphocyte Count 0.87 X10^3/uL (0.83-4.51); Absolute Neutrophil Count 11.6 X10^3/uL (2.0-7.7); Basophil# 0.02 X10^3/uL; Basophil% 0.2 % (0-1); Eosinophil# 0.02 X10^3/uL; Eosinophils% 0.2 % (0-5); Hematocrit 40.2 % (37-47); Hemoglobin 12.9 g/dL (12.0-15.0); Lymphocyte # 0.87 X10^3/ul (4.0); Lymphocyte % 6.6 % (19-41); Mean Corp Hgb Conc 32.1 g/dL (32-36); Mean Corpuscular Hgb 27.6 pg (27.0-32.0); Mean Corpuscular Volume 85.9 fL (81-99); Mean Platelet Vol. 10.7 fl (6.2-12.0); Monocyte% 4.5 % (0-10); NRBC Flagged by Analyzer 0 % (0-5); Neutrophil # 11.55 X10^3/uL (2.7-7.7); Neutrophil % 87.2 % (47-70); Platelet Count 156 K/mm3 (150-450); RBC Distribution Width CV 13.6 % (11.6-14.6); RBC Distribution Width SD 42.5 fl (35.1-43.9); Red Blood Count 4.68 M/mm3 (4.2-5.4); White Blood Count 13.2 K/mm3 (4.4-11.0)
[2020-09-06 06:01] LABS: ALB/GLOB Ratio 0.5 RATIO (0.9-2.4); AST(SGOT) 37 U/L (15-37); Alanine Aminotransfer ALT/SGPT 47 U/L (13-56); Albumin, Serum 2.6 g/dL (3.2-5.0); Alkaline Phosphatase 159 U/L (45-117); Anion Gap 7 (5-15); BUN 47 mg/dL (7-18); BUN/Creat Ratio 45.6 RATIO (10-20); Calcium,Total 9.2 mg/dL (8.5-10.1); Chloride 102 mmol/L (98-107); Creatinine, Serum 1.03 mg/dL (0.55-1.02); EST Glomerular Filtration Rate 56 mL/min (>60); Est Glom Filt Rate - Afr Amer 67 mL/min (>60); Estimated Creatinine Clearance 40.75 ml/min; Globulin 5.6 g/dL (2.2-4.2); Glucose 119 mg/dL (74-106); Potassium 4.4 mmol/L (3.5-5.1); Protein, Total 8.2 g/dL (6.4-8.2); Sodium Level 133 mmol/L (136-145)
--- NOTE | 2020-09-06 06:24 | PN_ITS ---
Subjective: The patient was seen and examined at the bedside this morning. Events from the last 24 hours have been reviewed. The patient is currently afebrile, hemodynamically stable and maintaining appropriate oxygen saturations on AVAPS with an FiO2 requirement of 100%. The patient was transferred overnight from [place] [id number] to the medical intensive care unit due to further decompensation in her respiratory status. The patient was initially mated to the hospital on August 31 with acute on chronic respiratory failure secondary to COVID-19 pneumonia. She has been essentially BiPAP dependent now for several days. Creatinine is stable this morning at 1.03. Prior D-dimer on August 31 was elevated at 2.34. The patient has already completed a treatment course of remdesivir and remains on Decadron and systemic anticoagulation with Eliquis. Given that the patient has been BiPAP dependent for several days and readily desaturates when removed from noninvasive positive pressure ventilatory support, the decision was made this morning to proceed with intubation. Intubation Indication: Respiratory failure Consent was obtained from: Patient The patient was placed in the appropriate sniffing position. Preoxygenated sedation via BiPAP was provided for a minimum of 3 minutes. The patient had continuous cardiac as well as pulse oximetry monitoring during the procedure. Procedure sedation was provided by the administration of 4 mg of Versed and 20 mg of etomidate. Direct laryngoscopy was then performed using a number three MAC blade, which revealed a grade one view. A 7.5 mm endotracheal tube was visualized advancing between the cords to the level of 23 cm at the lip. The stylette was then removed and discarded. Tube placement was confirmed by fogging in the tube along with equal and bilateral breath sounds. Colorimetric change was visualized on the CO2 meter. The cuff was then inflated and the tube secured using a commercially available device. A good pulse oximetry waveform was seen on the monitor throughout the procedure. A portable chest x-ray has been ordered to confirm appropriate placement. The patient tolerated the procedure well. Objective: The patient's most recent lab work, culture data and imaging studies have all been personally reviewed. Surface echocardiogram dated February 2020 revealed stage I diastolic dysfunction with an ejection fraction of 65%. Right ventricular systolic pressure was estimated to be 54 mmHg. General: Alert, Cooperative, - - BiPAP mask in place HEENT: Atraumatic, Normocephalic Oral: No Gingival or Mucosal Lesions/ Ulcerations, Dry Mucosa Neck: Supple, No Nodes, Trachea Midline Lungs: Diminished, Tachypneic Cardiovascular: Regular rate, Regular Rhythm Abdomen: Bowel Sounds Present, Soft, Non Tender, Obese Extremities: No clubbing, No cyanosis, Edema Skin: No breakdown Musculoskeletal: No Tenderness to Palpation of Joints or Extremities Lymphatic: No Cervical, Supraclavicular, or Inguinal Adenopathy Neurological: Neuro grossly intact Psych/Mental Status: Normal Affect, Appropriate Vital Signs Temp Pulse Resp BP Pulse Ox 98 F 79 22 H 146/76 H 91 09/06/20 04:00 09/06/20 04:58 09/06/20 04:58 09/06/20 04:00 09/06/20 04:58 Oxygen Flow Rate (L/min) 100 Oxygen Delivery Method Bi-pap Weight: 274 lb 11.135 oz Body Mass Index (BMI) 49.1 Intake and Output for Last 24 Hours 09/04/20 09/05/20 09/06/20 23:59 23:59 23:59 Intake Total 1180 / 1180 50 / 50 Output Total 1250 / 1550 950 / 1150 450 / 450 Balance -70 / -370 -900 / -1100 -450 / -450 Labs (Last 48 Hours) 09/03/20 09/04/20 09/04/20 22:45 02:10 06:18 WBC 10.8 RBC 4.72 Hgb 13.2 Hct 40.2 MCV 85.2 MCH 28.0 MCHC 32.8 RDW Std Deviation 43.2 RDW Coeff of Marine 13.8 Plt Count 119 L MPV 10.3 Immature Gran % (Auto) 1.300 H Neut % (Auto) 82.1 H Lymph % (Auto) 9.7 L [place] % (Auto) 6.3 Eos % (Auto) 0.3 Baso % (Auto) 0.3 Absolute Neuts (auto) 8.9 H Absolute Lymphs (auto) 1.05 Nucleated RBC % 0 Platelet Estimate ADEQUATE RBC Morphology NORM C+C Sodium 134 L Potassium 4.5 Chloride 102 Carbon Dioxide 21.0 Anion Gap 11 BUN 38 H Creatinine 1.05 H Estim Creat Clear Calc 39.98 Est GFR (MDRD) Af Amer 66 Est GFR (MDRD) Non-Af 54 L BUN/Creatinine Ratio 36.2 H Glucose 201 H Calcium 8.8 Total Bilirubin 0.70 AST 42 H ALT 58 H Alkaline Phosphatase 148 H Total Protein 7.5 Albumin 2.7 L Globulin 4.8 H Albumin/Globulin Ratio 0.6 L POC Glucose 136 H 09/04/20 09/04/20 09/04/20 06:33 11:50 16:18 WBC RBC Hgb Hct MCV MCH MCHC RDW Std Deviation RDW Coeff of Marine Plt Count MPV Immature Gran % (Auto) Neut % (Auto) Lymph % (Auto) Freestone % (Auto) Eos % (Auto) Baso % (Auto) Absolute Neuts (auto) Absolute Lymphs (auto) Nucleated RBC % Platelet Estimate RBC Morphology Sodium Potassium Chloride Carbon Dioxide Anion Gap BUN Creatinine Estim Creat Clear Calc Est GFR (MDRD) Af Amer Est GFR (MDRD) Non-Af BUN/Creatinine Ratio Glucose Calcium Total Bilirubin AST ALT Alkaline Phosphatase Total Protein Albumin Globulin Albumin/Globulin Ratio POC Glucose 122 H 204 H 225 H 09/04/20 09/05/20 09/05/20 21:08 06:10 11:36 WBC RBC Hgb Hct MCV MCH MCHC RDW Std Deviation RDW Coeff of Marine Plt Count MPV Immature Gran % (Auto) Neut % (Auto) Lymph % (Auto) Freestone % (Auto) Eos % (Auto) Baso % (Auto) Absolute Neuts (auto) Absolute Lymphs (auto) Nucleated RBC % Platelet Estimate RBC Morphology Sodium Potassium Chloride Carbon Dioxide Anion Gap BUN Creatinine Estim Creat Clear Calc Est GFR (MDRD) Af Amer Est GFR (MDRD) Non-Af BUN/Creatinine Ratio Glucose Calcium Total Bilirubin AST ALT Alkaline Phosphatase Total Protein Albumin Globulin Albumin/Globulin Ratio POC Glucose 166 H 107 180 H 09/05/20 09/06/20 09/06/20 17:05 05:35 05:35 WBC 13.2 H RBC 4.68 Hgb 12.9 Hct 40.2 MCV 85.9 MCH 27.6 MCHC 32.1 RDW Std Deviation 42.5 RDW Coeff of Marine 13.6 Plt Count 156 MPV 10.7 Immature Gran % (Auto) 1.300 H Neut % (Auto) 87.2 H Lymph % (Auto) 6.6 L Fre[place] % (Auto) 4.5 Eos % (Auto) 0.2 Baso % (Auto) 0.2 Absolute Neuts (auto) 11.6 H Absolute Lymphs (auto) 0.87 Nucleated RBC % 0 Platelet Estimate RBC Morphology Sodium 133 L Potassium 4.4 Chloride 102 Carbon Dioxide 24.0 Anion Gap 7 BUN 47 H Creatinine 1.03 H Estim Creat Clear Calc 40.75 Est GFR (MDRD) Af Amer 67 Est GFR (MDRD) Non-Af 56 L BUN/Creatinine Ratio 45.6 H Glucose 119 H Calcium 9.2 Total Bilirubin 0.70 AST 37 ALT 47 Alkaline Phosphatase 159 H Total Protein 8.2 Albumin 2.6 L Globulin 5.6 H Albumin/Globulin Ratio 0.5 L POC Glucose 183 H Clinical Impression(s) from Imaging Studies Chest X-Ray 08/31/20 15:30 IMPRESSION: Increased markings with areas of confluence in both lung bases suggestive of bibasilar infiltrates. Electronically Signed: Reginaldo Michelle, at 15:45 EST , Service support , Medical Necessity - Tobacco Use Smoking Status: Former smoker Assessment/Plan All Active Problems (Last Reviewed 08/31/20 @ 17:[address] Alexis Aquino, DO) Abnormal findings on diagnostic imaging of heart and coronary circulation (Resolved) Abnormal stress test (Resolved) Lung mass (Acute) CAMILA (acute kidney injury) (Acute) Postural dizziness with near syncope (Acute) Dehydration (Acute) Diarrhea due to COVID-19 (Acute) Pneumonia due to COVID-19 virus (Acute) COVID-19 (Acute) CAMILA (acute kidney injury) (Acute) History of lumpectomy of left breast (Acute ~06/2020) Abnormal mammogram of left breast (Acute) History of dilation and curettage (Resolved) History of hysterectomy (Resolved) History of cholecystectomy (Resolved) History of carpal tunnel release (Resolved) RECOMMENDATIONS: 1. Proceed with intubation and obtain arterial blood gas in 1 hour. 2. Wean FiO2 and PEEP to maintain oxygen saturations at or above 90%. 3. Okay from my perspective to begin tube feeds 4. Continue systemic anticoagulation with Eliquis. 5. Continue Decadron with plans to complete a 10-day treatment course. 6. Obtain sputum culture. 7. Start appropriate GI prophylaxis. IMPRESSIONS: 1. Acute on chronic hypoxemic respiratory failure secondary to COVID-19 pneumonia The patient does have a baseline supplemental oxygen requirement of 3 L/min. At this time, the patient has been essentially BiPAP dependent for the last 3 to 4 days, without any appreciable improvement in her respiratory status. Therefore, the decision was made to proceed with intubation on the morning of September 06. The patient will remain systemically anticoagulated on Eliquis with plans to complete a 10-day treatment course of Decadron. We will also plan to continue IV diuretic therapy as tolerated by hemodynamics and renal function. Sputum culture will be obtained. Tube feeds can be initiated from my perspective. Obtain arterial blood gas 1 hour post intubation. Wean FiO2 and PEEP to maintain oxygen saturations at or above 90%. 2. Obstructive sleep apnea/heart failure with preserved ejection fraction/pulmonary hypertension The patient can be restarted on nocturnal BiPAP therapy if she is able to be weaned successfully from invasive mechanical ventilatory support. Given stability and renal function, plan to continue IV diuretic therapy. 3. Acute kidney injury Most likely prerenal in etiology. Renal function improved and the patient was able to be restarted on diuretic therapy. Plan to continue Lasix as tolerated by hemodynamics and renal function. 4. Diabetes mellitus/morbid obesity/advanced age/history of PE Complicates care, management, recovery and prognosis. Continue home medications as indicated. Okay to start tube feeds from my perspective. TIME: 45 minutes of critical care time, inclusive of procedures, was spent addressing the patient's acute on chronic hypoxemic respiratory failure, COVID-19 pneumonia, obstructive sleep apnea, diastolic heart failure, pulmonary hypertension, acute kidney injury, review of all data and collaboration with the care team. ([id number], [id number]) [id number] Critical care first hour
--- NOTE | 2020-09-06 07:11 | RAD_ITS ---
STUDY: X-RAY CHEST REASON FOR EXAM: Female, 75 years old. COVID 19, resp failure TECHNIQUE: Single AP portable view of the chest. COMPARISON: Comparison is made with prior examination dated 08/31/2020. FINDINGS: EKG electrodes are seen. Mild degree of persistent increased markings at the lung bases although this has improved as compared to prior study. There is no demonstrated pleural abnormality. There is borderline cardiomegaly. Normal mediastinum and gama. Normal visualized pulmonary arteries. Normal visualized aortic arch and descending thoracic aorta. There are diffuse degenerative changes of the visualized thoracic spine. There is degenerative osteoarthritis of the bilateral shoulders. There is no demonstrated abnormality of the visualized soft tissue structures of the upper abdomen. RAD/Chest 1 View (Portable) IMPRESSION: Mild residual increased markings at the lung bases although there has been improvement as compared to prior study. Electronically Signed: Reginaldo Martinez, at 12:34 EST , Service support ,
[2020-09-06] MEDS: 0.9% Saline Lock 10 ML Syringe IV ×3 (08:10→23:07)
[2020-09-06] MEDS: Furosemide 40 MG/4 ML Vial IV ×2 (08:10→16:46)
[2020-09-06] MEDS: Oxymetazoline 0.05% 1 SPRAY SPRAY.BTL NASAL (08:18)
[2020-09-06] MEDS: Midazolam 2 MG/2 ML Syringe 4 MG IV (10:30)
[2020-09-06] MEDS: Propofol 10MG/Ml 1,000 MG/100 ML Bottle 7.5 MG CONT INF ×2 (10:30→16:00)
[2020-09-06] MEDS: Etomidate 20 MG/10 ML Vial IV (10:32)
--- NOTE | 2020-09-06 10:35 | RAD_ITS ---
STUDY: X-RAY CHEST REASON FOR EXAM: Female, 75 years old. ETT AND OG TUBE PLACEMENTS TECHNIQUE: Single AP portable view of the chest. COMPARISON: Comparison is made with prior study done earlier in the day at 7:45 AM. FINDINGS: An endotracheal tube has been placed. The tip is at 4.9 cm proximal to the rj. An orogastric tube is seen with the tip in the distal portion of the body of the stomach. EKG electrodes are seen. Mild increased markings at the lung bases slightly worse on the left side. There has been no change. There is no demonstrated pleural abnormality. There is borderline cardiomegaly. Normal mediastinum and gama. Normal visualized pulmonary arteries. There is atherosclerotic tortuosity of the aortic arch and descending thoracic aorta. There are diffuse degenerative changes of the visualized thoracic spine. Normal visualized ribs, clavicles, and shoulders. There is no demonstrated abnormality of the visualized soft tissue structures of the upper abdomen. RAD/Chest 1 View (Portable) IMPRESSION: The tip of the endotracheal tube is at 4.9 cm proximal to the rj. The tip of the orogastric tube is in the distal portion of the body of the stomach. Electronically Signed: Reginaldo Martinez, at 11:10 EST , Service support ,
--- NOTE | 2020-09-06 10:37 | PCM.NTREPORT ---
Nutrition Therapy Report - History Nutrition Services has been consulted to:: Manage nutrient details of diet order, Manage enteral nutrition Current diet / nutrition support order:: consistent carbohydrate, 1800 calorie controlled; 120mL glucerna w/ meals - Anthropometric Measurements Height:: 5 ft 4 in Weight:: 124.6 kg Body Mass Index (BMI):: 47.1 - Relevant Labs Relevant Labs:: WBC 13.2 K/mm3 (4.4-11.0) H 09/06/20 05:35 RDW Std Deviation 44.9 fl (35.1-43.9) H 08/31/20 15:45 Plt Count 119 K/mm3 (150-450) L 09/04/20 06:18 Immature Gran % (Auto) 1.300 % (0.0-0.9) H 09/06/20 05:35 Neut % (Auto) 87.2 % (47-70) H 09/06/20 05:35 Lymph % (Auto) 6.6 % (19-41) L 09/06/20 05:35 Absolute Neuts (auto) 11.6 X10^3/uL (2.0-7.7) H 09/06/20 05:35 Absolute Lymphs (auto) 0.72 X10^3/uL (0.83-4.51) L 09/01/20 06:35 PT 15.6 SECONDS (11.7-14.9) H 08/31/20 19:15 Fibrinogen 614 mg/dl (203-444) H 08/31/20 19:15 D-Dimer Quant (PE/DVT) 2.34 FEU/ug/m (0.27-0.49) H* 08/31/20 19:15 Sodium 133 mmol/L (136-145) L 09/06/20 05:35 Chloride 110 mmol/L (98-107) H 09/01/20 06:35 Carbon Dioxide 16.0 mmol/L (21.0-32.0) L 09/01/20 06:35 BUN 47 mg/dL (7-18) H 09/06/20 05:35 Creatinine 1.03 mg/dL (0.55-1.02) H 09/06/20 05:35 Est GFR (MDRD) Af Amer 38 mL/min (>60) L 09/01/20 06:35 Est GFR (MDRD) Non-Af 56 mL/min (>60) L 09/06/20 05:35 BUN/Creatinine Ratio 45.6 RATIO (10-20) H 09/06/20 05:35 Glucose 119 mg/dL (74-106) H 09/06/20 05:35 Calcium 8.3 mg/dL (8.5-10.1) L 09/01/20 06:35 AST 42 U/L (15-37) H 09/04/20 02:10 ALT 58 U/L (13-56) H 09/04/20 02:10 Alkaline Phosphatase 159 U/L (45-117) H 09/06/20 05:35 Lactate Dehydrogenase 490 U/L (84-246) H 08/31/20 15:45 Total Protein 8.3 g/dL (6.4-8.2) H 08/31/20 15:45 Albumin 2.6 g/dL (3.2-5.0) L 09/06/20 05:35 Globulin 5.6 g/dL (2.2-4.2) H 09/06/20 05:35 Albumin/Globulin Ratio 0.5 RATIO (0.9-2.4) L 09/06/20 05:35 Procalcitonin 0.18 ng/mL (0.00-0.09) H 08/31/20 19:15 - Assessment Food / Nutrition-Related History:: Discussed in ICU rounds. Continues on bipap w/ plans for intubation later this date. Overall wt decrease of 5.2kg/4% since admission. Had lasix x1 per EMR so cannot r/o wt changes d/t fluid status but largely suspect wt loss r/t inadequate oral intake. Currently w/ generalized non-pitting edema per nursing documentation. Noted last BM 09/03/20. - Nutrition Diagnosis Problem / Etiology / Signs & Symptoms (PES):: Pt w/ severe, acute malnutrition related to inadequate energy intake during acute illness as evidenced by 5.2 kg/4% wt loss, estimated PO intake meeting < 50% of estimated energy requirements for 5 days. Evidence of Malnutrition Exists:: Yes Severe PCM:: Acute Illness - Nutrition Intervention Nutrition Prescription:: Using ASPEN recommendations for critically ill, morbidly obese pts, re-estimated nutritional needs 8356-6525 calories (11-14 calories/kg) and 108-135 g protein (2-2.5 g protein/kg IBW 54kg). Pt w/ significant risk for refeeding syndrome d/t lack of PO intake over past 5 days during acute illness. Per refeeding guidelines, will not exceed 10-15 calories/kg/day (2818-8740 calories) for first 3 days of enteral nutrition support. - Food / Nutrient Delivery Interventions Summary of nutrition intervention:: Will change to NPO while intubated and provide enteral nutrition support via OGT. Nutrition support ordered as / adjusted to:: Vital High Protein via OGT at goal rate of 50mL/hour w/ 75mL H2O flush every 4 hours to provide 1200 calories, 104 g protein, and 1453mL total fluid/day. Would start at 20mL/hour and increase by 15mL every 12 hours as pt tolerates until goal rate achieved. - MNT Monitoring Further MNT monitoring and evaluation required?: Yes MNT Follow-up in:: 1-2 days
[2020-09-06] MEDS: Insulin Lispro 100 UNIT/ML INSULN.PEN SC ×3 (11:19→22:53)
[2020-09-06 11:20] LABS: Bedside Glucose 153 mg/dL (70-110)
[2020-09-06 12:00] LABS: Base Excess -4 mmol/L (-2 to +2); Blood Gas Specimen Type ART; FI02 100; Mode AC; O2 Delivery Device ET Tube; PEEP 20; PO2 165 mmHG (75-100); RR 14; SO2 99 % (95-99); Total Carbon Dioxide 25 mmol/L; Vt 450; pH 7.26 (7.35-7.45)
--- NOTE | 2020-09-06 12:09 | NURSING ---
Dr Arreola At bedside at 1030 1030 4mg IV versed given 1032 20mg Etomidate given 1033 7[address] Arreola bilat breath sounds positive color Change [address] [place] advanced ETT [address] Arreola
--- NOTE | 2020-09-06 12:22 | PN_ITS ---
Patient Problems: Active and Suspected Problems (Last Reviewed 08/31/20 @ 17:[address] Alexis Aquino, DO) Lung mass (Acute) Found 2018 CAMILA (acute kidney injury) (Acute) Postural dizziness with near syncope (Acute) Dehydration (Acute) Diarrhea due to COVID-19 (Acute) Pneumonia due to COVID-19 virus (Acute) COVID-19 (Acute) CAMILA (acute kidney injury) (Acute) History of lumpectomy of left breast (Acute ~06/2020) 06/27/2020 Abnormal mammogram of left breast (Acute) Subjective: Patient with some decompensation related to hypoxia overnight. Transferred to the intensive care unit as there was concern that she would require intubation. Stabilized on noninvasive ventilation and remains on NIV this morning. Remains high risk for needing mechanical ventilation. Patient denies shortness of breath at this time. Vitals/I&O's: Vital Signs Temp Pulse Resp BP Pulse Ox 99.2 F H 107 H 22 H 123/63 H 95 09/06/20 12:00 09/06/20 12:00 09/06/20 12:00 09/06/20 12:00 09/06/20 12:00 Oxygen Flow Rate (L/min) 100 Oxygen Delivery Method Mechanical Ventilator Weight: 124.6 kg Body Mass Index (BMI) 47.1 Intake and Output for Last 24 Hours 09/04/20 09/05/20 09/06/20 23:59 23:59 23:59 Intake Total 1180 / 1180 50 / 50 Output Total 1250 / 1550 950 / 1150 1600 / 1600 Balance -70 / -370 -900 / -1100 -1600 / -1600 General: Alert, Oriented x3, Cooperative, No apparent distress, Well developed, Well nourished, - - Morbidly obese white female, lying in bed, on noninvasive ventilation HEENT: Atraumatic, PERRLA, EOMI, Normocephalic, EAC Clear Oral: Moist Mucosa, No Gingival or Mucosal Lesions/ Ulcerations, - - No thrush Neck: Supple, No JVD, Trachea Midline, Thyroid Normal Size and Texture Lungs: No rhonchi, No wheeze, No rales, Diminished Cardiovascular: Regular rate, Regular Rhythm, Normal S1, Normal S2, No murmurs, No Ectopic Activity, No rub noted, No Gallop Abdomen: Bowel Sounds Present, Soft, Non Tender, Non-Distended, Obese Extremities: No clubbing, No cyanosis, No edema, Capillary Refill Less than 3 Seconds, Peripheral Pulses Normal Skin: No rashes, No breakdown, - - Pale Neurological: Cranial nerves II-XII grossly intact, Neuro grossly intact Psych/Mental Status: Normal Affect, Appropriate Laboratory Results 09/05/20 17:05: POC Glucose 183 H 09/06/20 05:35: WBC 13.2 H, RBC 4.68, Hgb 12.9, Hct 40.2, MCV 85.9, MCH 27.6, MCHC 32.1, RDW Std Deviation 42.5, RDW Coeff of Marine 13.6, Plt Count 156, MPV 10.7, Immature Gran % (Auto) 1.300 H, Neut % (Auto) 87.2 H, Lymph % (Auto) 6.6 L , Dickens % (Auto) 4.5, Eos % (Auto) 0.2, Baso % (Auto) 0.2, Absolute Neuts (auto) 11.6 H, Absolute Lymphs (auto) 0.87, Nucleated RBC % 0 09/06/20 05:35: Sodium 133 L, Potassium 4.4, Chloride 102, Carbon Dioxide 24.0, Anion Gap 7, BUN 47 H, Creatinine 1.03 H, Estim Creat Clear Calc 40.75, Est GFR (MDRD) Af Amer 67, Est GFR (MDRD) Non-Af 56 L, BUN/Creatinine Ratio 45.6 H, Glucose 119 H, Calcium 9.2, Total Bilirubin 0.70, AST 37, ALT 47, Alkaline Phosphatase 159 H, Total Protein 8.2, Albumin 2.6 L, Globulin 5.6 H, Alb umin/Globulin Ratio 0.5 L 09/06/20 05:35: Total Creatine Kinase Pending, Triglycerides Pending 09/06/20 11:16: POC Glucose 153 H 09/06/20 11:52: Specimen Type ART, pH 7.26 L, Bicarbonate Actual 23.0, Total CO2 25, Base Excess -4 L, O2 Saturation 99, O2 % 100, ABG pCO2 51.0 H, ABG pO2 165 H , Respiration Rate 14, O2 Delivery Device ET Tube, Vent Mode AC, Tidal Volume 450, POC PEEP 20 Current Medications Acetaminophen (Acetaminophen 650 Mg/20 Ml Udc) 650 mg GT Q6H PRN PRN PRN Reason: Pain Score 1-10/Temp > 100.7 F Albuterol Sulfate (Albuterol Sulfate Hfa 6.7 Gm Inhaler (200 Puffs)) 2 puff IH Q4H PRN PRN Reason: SHORTNESS OF BREATH Last Admin: 09/04/20 20:12 Dose: 2 puff Documented by: Apixaban (Apixaban 5 Mg Tablet) 5 mg GT BID [facility] Cholecalciferol (Cholecalciferol (Vit D3) 1,000 Unit (25mcg)) 5,000 unit GT DAILY [facility] Dexamethasone (Dexamethasone 4 Mg Tablet) 6 mg GT DAILY [facility] Stop: 09/09/20 12:31 Fluticasone Propionate (Fluticasone 0.05% 1 Reed[place] Nasal.Sry) 2 spray NASAL DAILY PRN PRN Reason: NASAL CONGESTION Furosemide (Furosemide 40 Mg/4 Ml Vial) 40 mg IV BID@1000,1800 [facility] Last Admin: 09/06/20 08:10 Dose: 40 mg Documented by: Guaifenesin (Guaifenesin 1,200 Mg Tablet) 1,200 mg PO BID [facility] Last Admin: 09/06/20 12:16 Dose: Not Given Documented by: Enteral Nutritional Formula (Vital High Protein) 1,000 mls @ 50 mls/hr GT .Q20H [facility] Propofol (Diprivan) 1,000 mg in 100 mls @ 7.476 mls/hr CONT INF .Q12H [facility]; Protocol Fentanyl Citrate 1,000 mcg/ (Sodium Chloride) 100 mls @ 5 mls/hr CONT INF .Q20H [facility]; Protocol Insulin Human Lispro (Insulin Lispro 100 Unit/Ml Insuln.Pen) 0 unit SC TIDAC [facility]; Protocol Last Admin: 09/06/20 11:19 Dose: 1 u Documented by: Magnesium Chloride (Magnesium Chloride 64 Mg Delay Rel.Tablet) 128 mg PO BID [facility] Last Admin: 09/05/20 21:37 Dose: 128 mg Documented by: Metoprolol Tartrate (Metoprolol Tartrate 50 Mg Tablet) 50 mg GT BID [facility] Ondansetron HCl (Ondansetron 4 Mg/2 Ml Vial) 4 mg IV Q8H PRN PRN PRN Reason: NAUSEA/VOMITING Oxymetazoline HCl (Oxymetazoline 0.05% 1 Reedley Reedley.Btl) 1 spray NASAL BID [facility] Last Admin: 09/06/20 08:18 Dose: 1 spray Documented by: Paroxetine HCl (Paroxetine 20 Mg Tablet) 20 mg GT QHS [facility] Sodium Chloride (0.9% Saline Lock 10 Ml Syringe) 10 - 40 ml IV UD PRN PRN Reason: SALINE FLUSH Last Admin: 09/06/20 11:19 Dose: 40 ml Documented by: Sodium Chloride (Sodium Chloride 0.65% 1 Reedley Reedley.Btl) 1 - 2 spray NASAL TID PRN PRN PRN Reason: NASAL DRYNESS Last Admin: 09/02/20 16:14 Dose: 2 spray Documented by: Throat Lozenges (Benzocaine/Menthol 1 Lozenge) 1 lozenge MUCOUS MEM Q2H PRN PRN PRN Reason: SORE THROAT STROKE Vital Signs/Narrative: Vital Signs Temp Pulse Resp BP BP Pulse Ox 09/06/20 12:00 99.2 F H 107 H 22 H 123/63 H 95 09/06/20 11:00 105 H 26 H 123/43 H 94 09/06/20 10:45 100 26 H 91 09/06/20 10:30 100 26 H 91 09/06/20 10:00 97 18 142/72 H 90 09/06/20 09:00 77 18 141/69 H 93 Medical Necessity - Tobacco Use Smoking Status: Former smoker Assessment/Plan All Active Problems (Last Reviewed 08/31/20 @ 17:[address] Alexis Aquino, DO) Abnormal findings on diagnostic imaging of heart and coronary circulation (Resolved) Abnormal stress test (Resolved) Lung mass (Acute) CAMILA (acute kidney injury) (Acute) Postural dizziness with near syncope (Acute) Dehydration (Acute) Diarrhea due to COVID-19 (Acute) Pneumonia due to COVID-19 virus (Acute) COVID-19 (Acute) CAMILA (acute kidney injury) (Acute) History of lumpectomy of left breast (Acute ~06/2020) Abnormal mammogram of left breast (Acute) History of dilation and curettage (Resolved) History of hysterectomy (Resolved) History of cholecystectomy (Resolved) History of carpal tunnel release (Resolved) Acute hypoxic respiratory failure secondary to Covid pneumonia -Patient has a baseline O2 requirement of 3 L -Decompensation overnight with worsening hypoxemia Patient now on NIV extremely high risk for needing mechanical ventilation -Continue Decadron and has completed remdesivir -Continue Lasix -Continue apixaban 5 mg twice daily -Chest x-ray overall stable -Appreciate pulmonary input Diarrhea -Likely secondary to Covid -C. difficile DN a amplification negative -Enteric stool sample negative -Per patient this has improved CAMILA CKD stage II -Resolved -Creatinine appears to be 1-1.2 Transaminitis -Resolved Hypertension -Continue metoprolol twice daily -Home losartan is on hold with CAMILA Hyperlipidemia Patient is currently on no statin therapy at home History of breast cancer -No acute issues DM-2 -Hold Metformin -Continue SSI -Hold on Lantus for now fasting sugar this a.m. was 159 -Blood sugars appear to be in the goal range of 140-180 having her critical illness JAYE -BiPAP 18/14 cm of water as needed and at bedtime at baseline History of pulmonary embolism -Continue Eliquis 5 mg twice daily Morbid obesity -Recommend weight loss -BMI is 49.1 -Increases risk of complications related to Covid infection Depression -Continue Paxil DVT prophylaxis -Therapeutic Eliquis CODE STATUS -Full code Inpatient E&M: 85269 Subs Hosp L2
[2020-09-06] MEDS: dexAMETHasone 4 MG Tablet 6 MG GT (12:51)
[2020-09-06] MEDS: APIXABAN 5 MG TABLET GT ×2 (12:51→21:01)
[2020-09-06] MEDS: Metoprolol Tartrate 50 MG Tablet GT (12:51)
[2020-09-06] MEDS: Vital High Protein 1,000 ML 50 ML GT (12:52)
[2020-09-06 13:02] LABS: CPK Total, Creatine Kinase 44 U/L (26-192); Triglycerides 73 mg/dL
--- NOTE | 2020-09-06 16:41 | NURSING ---
4 govea colored rings removed from patient placed in denture cup with patient label locked in med drawer
[2020-09-06] MEDS: Acetaminophen 650 MG/20 ML UDC GT (16:46)
[2020-09-06 16:56] LABS: Bedside Glucose 203 mg/dL (70-110)
[2020-09-06] MEDS: Paroxetine 20 MG Tablet GT (21:01)
[2020-09-06] MEDS: Chlorhexidine 15 ML PO (22:00)
[2020-09-07] VITALS (52 sets, daily range): BP systolic 90–152; BP diastolic 28–75; PULSE 59–107; RESP 14–20; TEMP 36.9–37.2; O2SAT 90–97
[2020-09-07 04:38] LABS: ALB/GLOB Ratio 0.4 RATIO (0.9-2.4); AST(SGOT) 32 U/L (15-37); Alanine Aminotransfer ALT/SGPT 42 U/L (13-56); Albumin, Serum 2.4 g/dL (3.2-5.0); Alkaline Phosphatase 147 U/L (45-117); Anion Gap 11 (5-15); BUN 77 mg/dL (7-18); BUN/Creat Ratio 32.5 RATIO (10-20); Calcium,Total 8.6 mg/dL (8.5-10.1); Chloride 101 mmol/L (98-107); Creatinine, Serum 2.37 mg/dL (0.55-1.02); EST Glomerular Filtration Rate 21 mL/min (>60); Est Glom Filt Rate - Afr Amer 26 mL/min (>60); Estimated Creatinine Clearance 17.71 ml/min; Globulin 5.5 g/dL (2.2-4.2); Glucose 259 mg/dL (74-106); Magnesium 2.1 mg/dL (1.6-2.6); Phosphorus 5.9 mg/dL (2.5-4.9); Potassium 4.8 mmol/L (3.5-5.1); Protein, Total 7.9 g/dL (6.4-8.2); Sodium Level 133 mmol/L (136-145)
[2020-09-07 06:06] LABS: Bedside Glucose 238 mg/dL (70-110)
[2020-09-07] MEDS: TITRATION PARAMETER CHANGE 1 EACH IV (06:33)
--- NOTE | 2020-09-07 06:36 | PN_ITS ---
Subjective: The patient was seen and examined at the bedside this morning. Events from the last 24 hours have been reviewed. The patient is currently afebrile and is maintaining appropriate oxygen saturations on assist control mode of mechanical ventilation with an FiO2 requirement of 60% and PEEP of 15. Creatinine increased overnight from 1.03 to 2.37. Accordingly, the patient's IV Lasix was discontinued. The patient is currently documented to be overall net +1.6 L for the hospital admission. The patient did have to be started on Levophed over the course of the last day to maintain hemodynamic stability. She is currently requiring Levophed at 25 mcg/min. She remains sedated on fentanyl. Objective: The patient's most recent lab work, culture data and imaging studies have all been personally reviewed. Surface echocardiogram dated February 2020 revealed stage I diastolic dysfunction with an ejection fraction of 65%. Right ventricular systolic pressure was estimated to be 54 mmHg. Sputum culture is currently pending. General: - - Intubated, sedated and mechanically ventilated. No ventilator dyssynchrony noted. HEENT: Atraumatic, PERRLA, Normocephalic Oral: No Gingival or Mucosal Lesions/ Ulcerations, - - Endotracheal and OG tubes in place Neck: Supple, No Nodes, Trachea Midline Lungs: No rhonchi, No wheeze, No rales, Diminished Cardiovascular: Regular rate, Regular Rhythm Abdomen: Bowel Sounds Present, Soft, Non Tender, Obese Extremities: No clubbing, No cyanosis, Edema Skin: - - No significant change from previous Musculoskeletal: No Tenderness to Palpation of Joints or Extremities Lymphatic: No Cervical, Supraclavicular, or Inguinal Adenopathy Neurological: - - No focal neurological deficits. Currently sedated on the ventilator with a RASS of -1 Vital Signs Temp Pulse Resp BP Pulse Ox 98.9 F 67 15 137/44 H 92 09/07/20 06:00 09/07/20 06:00 09/07/20 06:00 09/07/20 06:00 09/07/20 06:00 Oxygen Flow Rate (L/min) 60 Oxygen Delivery Method Mechanical Ventilator Weight: 274 lb 7.608 oz Body Mass Index (BMI) 47.1 Intake and Output for Last 24 Hours 09/05/20 09/06/20 09/07/20 23:59 23:59 23:59 Intake Total 50 / 50 561.38 / 573.51 833.31 / 833.31 Output Total 950 / 1150 1600 / 1700 100 / 100 Balance -900 / -1100 -1038.62 / -1126.49 733.31 / 733.31 Labs (Last 48 Hours) 09/04/20 09/05/20 09/05/20 21:08 06:10 11:36 WBC RBC Hgb Hct MCV MCH MCHC RDW Std Deviation RDW Coeff of Marine Plt Count MPV Immature Gran % (Auto) Neut % (Auto) Lymph % (Auto) Conway % (Auto) Eos % (Auto) Baso % (Auto) Absolute Neuts (auto) Absolute Lymphs (auto) Nucleated RBC % Specimen Type pH Bicarbonate Actual Total CO2 Base Excess O2 Saturation O2 % ABG pCO2 ABG pO2 Respiration Rate O2 Delivery Device Vent Mode Tidal Volume POC PEEP Sodium Potassium Chloride Carbon Dioxide Anion Gap BUN Creatinine Estim Creat Clear Calc Est GFR (MDRD) Af Amer Est GFR (MDRD) Non-Af BUN/Creatinine Ratio Glucose Calcium Phosphorus Magnesium Total Bilirubin AST ALT Alkaline Phosphatase Total Creatine Kinase Total Protein Albumin Globulin Albumin/Globulin Ratio Triglycerides POC Glucose 166 H 107 180 H 09/05/20 09/06/20 09/06/20 17:05 05:35 05:35 WBC 13.2 H RBC 4.68 Hgb 12.9 Hct 40.2 MCV 85.9 MCH 27.6 MCHC 32.1 RDW Std Deviation 42.5 RDW Coeff of Marine 13.6 Plt Count 156 MPV 10.7 Immature Gran % (Auto) 1.300 H Neut % (Auto) 87.2 H Lymph % (Auto) 6.6 L Conway % (Auto) 4.5 Eos % (Auto) 0.2 Baso % (Auto) 0.2 Absolute Neuts (auto) 11.6 H Absolute Lymphs (auto) 0.87 Nucleated RBC % 0 Specimen Type pH Bicarbonate Actual Total CO2 Base Excess O2 Saturation O2 % ABG pCO2 ABG pO2 Respiration Rate O2 Delivery Device Vent Mode Tidal Volume POC PEEP Sodium 133 L Potassium 4.4 Chloride 102 Carbon Dioxide 24.0 Anion Gap 7 BUN 47 H Creatinine 1.03 H Estim Creat Clear Calc 40.75 Est GFR (MDRD) Af Amer 67 Est GFR (MDRD) Non-Af 56 L BUN/Creatinine Ratio 45.6 H Glucose 119 H Calcium 9.2 Phosphorus Magnesium Total Bilirubin 0.70 AST 37 ALT 47 Alkaline Phosphatase 159 H Total Creatine Kinase Total Protein 8.2 Albumin 2.6 L Globulin 5.6 H Albumin/Globulin Ratio 0.5 L Triglycerides POC Glucose 183 H 09/06/20 09/06/20 09/06/20 05:35 11:16 11:52 WBC RBC Hgb Hct MCV MCH MCHC RDW Std Deviation RDW Coeff of Marine Plt Count MPV Immature Gran % (Auto) Neut % (Auto) Lymph % (Auto) Conway % (Auto) Eos % (Auto) Baso % (Auto) Absolute Neuts (auto) Absolute Lymphs (auto) Nucleated RBC % Specimen Type ART pH 7.26 L Bicarbonate Actual 23.0 Total CO2 25 Base Excess -4 L O2 Saturation 99 O2 % 100 ABG pCO2 51.0 H ABG pO2 165 H Respiration Rate 14 O2 Delivery Device ET Tube Vent Mode AC Tidal Volume 450 POC PEEP 20 Sodium Potassium Chloride Carbon Dioxide Anion Gap BUN Creatinine Estim Creat Clear Calc Est GFR (MDRD) Af Amer Est GFR (MDRD) Non-Af BUN/Creatinine Ratio Glucose Calcium Phosphorus Magnesium Total Bilirubin AST ALT Alkaline Phosphatase Total Creatine Kinase 44 Total Protein Albumin Globulin Albumin/Globulin Ratio Triglycerides 73 POC Glucose 153 H 09/06/20 09/06/20 09/07/20 16:35 22:50 04:00 WBC RBC Hgb Hct MCV MCH MCHC RDW Std Deviation RDW Coeff of Marine Plt Count MPV Immature Gran % (Auto) Neut % (Auto) Lymph % (Auto) Conway % (Auto) Eos % (Auto) Baso % (Auto) Absolute Neuts (auto) Absolute Lymphs (auto) Nucleated RBC % Specimen Type pH Bicarbonate Actual Total CO2 Base Excess O2 Saturation O2 % ABG pCO2 ABG pO2 Respiration Rate O2 Delivery Device Vent Mode Tidal Volume POC PEEP Sodium 133 L Potassium 4.8 Chloride 101 Carbon Dioxide 21.0 Anion Gap 11 BUN 77 H Creatinine 2.37 H Estim Creat Clear Calc 17.71 Est GFR (MDRD) Af Amer 26 L Est GFR (MDRD) Non-Af 21 L BUN/Creatinine Ratio 32.5 H Glucose 259 H Calcium 8.6 Phosphorus 5.9 H Magnesium 2.1 Total Bilirubin 0.50 AST 32 ALT 42 Alkaline Phosphatase 147 H Total Creatine Kinase Total Protein 7.9 Albumin 2.4 L Globulin 5.5 H Albumin/Globulin Ratio 0.4 L Triglycerides POC Glucose 203 H 238 H Microbiology 09/06/20 10:50 Sputum, Induced/Lukens Gram Stain - Final Clinical Impression(s) from Imaging Studies Chest X-Ray 08/31/20 15:30 IMPRESSION: Increased markings with areas of confluence in both lung bases suggestive of bibasilar infiltrates. Electronically Signed: Reginaldo Michelle, at 15:45 EST , Service support , Chest X-Ray 09/06/20 07:11 IMPRESSION: Mild residual increased markings at the lung bases although there has been improvement as compared to prior study. Electronically Signed: Reginaldo Michelle, at 12:34 EST , Service support , Chest X-Ray 09/06/20 10:35 IMPRESSION: The tip of the endotracheal tube is at 4.9 cm proximal to the rj. The tip of the orogastric tube is in the distal portion of the body of the stomach. Electronically Signed: Reginaldo Michelle, at 11:10 EST , Service support , Medical Necessity - Tobacco Use Smoking Status: Former smoker Assessment/Plan All Active Problems (Last Reviewed 08/31/20 @ 17:[address] Alexis Aquino, DO) Abnormal findings on diagnostic imaging of heart and coronary circulation (Resolved) Abnormal stress test (Resolved) Lung mass (Acute) CAMILA (acute kidney injury) (Acute) Postural dizziness with near syncope (Acute) Dehydration (Acute) Diarrhea due to COVID-19 (Acute) Pneumonia due to COVID-19 virus (Acute) COVID-19 (Acute) CAMILA (acute kidney injury) (Acute) History of lumpectomy of left breast (Acute ~06/2020) Abnormal mammogram of left breast (Acute) History of dilation and curettage (Resolved) History of hysterectomy (Resolved) History of cholecystectomy (Resolved) History of carpal tunnel release (Resolved) RECOMMENDATIONS: 1. Continue Levophed and wean to maintain a mean arterial pressure at or above 60 mmHg. 2. Continue to hold Lasix given her renal insufficiency. 3. Obtain nephrology consultation. 4. Start empiric antimicrobials and check procalcitonin level. 5. Continue to wean FiO2 and PEEP to maintain oxygen saturations at or above 90%. 6. Continue systemic anticoagulation with Eliquis. 7. Continue Decadron to complete treatment course. 8. Continue appropriate GI prophylaxis. 9. Continue tube feeds as tolerated. IMPRESSIONS: 1. Acute on chronic hypoxemic respiratory failure secondary to COVID-19 pneumonia The patient does have a baseline supplemental oxygen requirement of 3 L/min. At this time, the patient has been essentially BiPAP dependent for the last 3 to 4 days, without any appreciable improvement in her respiratory status. Therefore, the decision was made to proceed with intubation on the morning of September 06. The patient will remain systemically anticoagulated on Eliquis with plans to complete a 10-day treatment course of Decadron. 2. Septic shock Plan to continue current supportive measures including vasopressor support to maintain a mean arterial pressure at or above 60 mmHg. Continue empiric antimicrobials, pending further infectious work-up. 3. Obstructive sleep apnea/heart failure with preserved ejection fraction/pulmonary hypertension The patient can be restarted on nocturnal BiPAP therapy if she is able to be wea jesus successfully from invasive mechanical ventilatory support. Given stability and renal function, plan to continue IV diuretic therapy. 4. Acute kidney injury Likely prerenal in etiology and related to a component of overdiuresis coupled with hemodynamic instability leading to ischemic ATN. As above, plan to continue vasopressor support to maintain hemodynamic stability. Diuretics have been discontinued. We will continue to monitor urine output for now. Nephrology consultation will also be obtained. 5. Diabetes mellitus/morbid obesity/advanced age/history of PE Complicates care, management, recovery and prognosis. Continue home medications as indicated. Okay to start tube feeds from my perspective. TIME: 40 minutes of critical care time, independent of procedures, was spent addressing the patient's acute on chronic hypoxemic respiratory failure, COVID- 19 pneumonia, obstructive sleep apnea, diastolic heart failure, pulmonary hypertension, acute kidney injury, septic shock, review of all data and collaboration with the care team. ([id number]) [id number] Critical care first hour
--- NOTE | 2020-09-07 06:37 | RAD_ITS ---
STUDY: X-RAY CHEST REASON FOR EXAM: Female, 75 years old. RESPIRATORY FAILURE, COVID TECHNIQUE: Single AP portable view of the chest. COMPARISON: 09/06/2020 FINDINGS: Interval placement of right upper extremity PICC with tip the catheter overlying the junction of right atrium and spur vena cava. Endotracheal tube and nasogastric tube both which are unchanged. The lungs are clear and expanded. There is no demonstrated pleural abnormality. Normal size heart. Normal mediastinum and gama. Normal visualized pulmonary arteries. Normal visualized aortic arch and descending thoracic aorta. Normal visualized thoracic spine. Normal visualized ribs, clavicles, and shoulders. There is no demonstrated abnormality of the visualized soft tissue structures of the upper abdomen. RAD/Chest 1 View (Portable) IMPRESSION: 1. Interval placement of right upper extremity PICC with tip the catheter overlying the junction of the right atrium and screw vena cava. 2. Endotracheal tube and nasogastric tube both which are unchanged. 3. No active disease. Electronically Signed: Walter Tse MD at 8:05 EST Tel , Service support ,
[2020-09-07] MEDS: Insulin Lispro 100 UNIT/ML INSULN.PEN SC ×4 (06:46→23:46)
[2020-09-07 07:00] LABS: Bedside Glucose 254 mg/dL (70-110)
[2020-09-07] MEDS: Chlorhexidine 15 ML PO ×2 (08:59→20:40)
[2020-09-07] MEDS: dexAMETHasone 4 MG Tablet 6 MG GT (09:00)
[2020-09-07] MEDS: APIXABAN 5 MG TABLET GT ×2 (09:01→20:40)
[2020-09-07] MEDS: 0.9% Saline Lock 10 ML Syringe IV (09:02)
[2020-09-07 10:11] LABS: Procalcitonin 0.75 ng/mL (0.00-0.09)
[2020-09-07 11:56] LABS: Base Excess -7 mmol/L (-2 to +2); Bicarbonate 20.5 mmol/L (22-26); Blood Gas Specimen Type ART; FI02 65; Mode AC/VC; O2 Delivery Device Adult Vent; PEEP 15; PO2 75 mmHG (75-100); RR 16; SITE L Brach; SO2 91 % (95-99); Total Carbon Dioxide 22 mmol/L; Vt 500; pCO2 49.7 mmHg (35-45); pH 7.22 (7.35-7.45)
[2020-09-07] MEDS: Senna/Docusate Sodium 1 Tablet 2 TABLET GT ×2 (12:35→20:40)
--- NOTE | 2020-09-07 13:00 | PCM.CONS.R ---
Consultation - Renal 09/07/20 PCP/ Referring MD: Requesting physician: [] Primary care physician: Dr. Skyla Tobias DO Reason for Consultation:: camila - History of Present Illness History of Present Illness: The patient is a 75 year old F who presented with a chief complaint of having diarrhea and also not feeling well since August 20. On August 28 she had a COVID-19 test which came back positive. Her was also sick on admission but he was at home. She also had decreased p.o. intake associated with diarrhea. She was on 3 L/min home oxygen for pulmonary hypertension but had increased oxygen requirements on admission and then later on she was intubated. Her chest x-ray showed bilateral pulmonary infiltrates. She was started on treatment with Covid. Her creatinine was 2.25 with a baseline of 1.14. Patient is currently intubated so review of systems cannot be obtained. Her creatinine was 1.03 yesterday and today was 2.37 which prompted renal consult. She was on Levophed currently the Levophed is on standby. The patient was systolic in the 80s yesterday. - Allergies Allergies: Allergies codeine Adverse Reaction (Verified 08/11/20 08:59) Vomiting hydrocodone bitartrate [From Vicodin] Adverse Reaction (Verified 08/11/20 08:59) Nausea meperidine HCl [From Demerol] Adverse Reaction (Verified 08/11/20 08:59) Vomiting morphine Adverse Reaction (Verified 08/11/20 08:59) Vomiting - Current Medications Current Medications: Current Medications Acetaminophen (Acetaminophen 650 Mg/20 Ml Udc) 650 mg GT Q6H PRN PRN PRN Reason: Pain Score 1-10/Temp > 100.7 F Last Admin: 09/06/20 16:46 Dose: 650 mg Documented by: Albuterol Sulfate (Albuterol Sulfate Hfa 6.7 Gm Inhaler (200 Puffs)) 2 puff IH Q4H PRN PRN Reason: SHORTNESS OF BREATH Last Admin: 09/04/20 20:12 Dose: 2 puff Documented by: Apixaban (Apixaban 5 Mg Tablet) 5 mg GT BID [facility] Last Admin: 09/07/20 09:01 Dose: 5 mg Documented by: Chlorhexidine Gluconate (Chlorhexidine 15 Ml) 15 ml PO BID [facility] Last Admin: 09/07/20 08:59 Dose: 15 ml Documented by: Cholecalciferol (Cholecalciferol (Vit D3) 1,000 Unit (25mcg)) 5,000 unit GT DAILY [facility] Last Admin: 09/07/20 09:01 Dose: 5,000 unit Documented by: Dexamethasone (Dexamethasone 4 Mg Tablet) 6 mg GT DAILY [facility] Stop: 09/09/20 12:31 Last Admin: 09/07/20 09:00 Dose: 6 mg Documented by: Enteral Nutritional Formula (Vital High Protein) 1,000 mls @ 50 mls/hr GT .Q20H [facility] Last Admin: 09/06/20 12:52 Dose: 50 mls/hr Documented by: Fentanyl Citrate 1,000 mcg/ (Sodium Chloride) 100 mls @ 5 mls/hr CONT INF .Q20H [facility]; Protocol Last Titration: 09/07/20 09:00 Dose: 75 mcg/hr, 7.5 mls/hr Documented by: Pantoprazole Sodium 40 mg/ (Sodium Chloride) 110 mls @ 330 mls/hr IV Q24 [facility] Last Admin: 09/07/20 12:00 Dose: 330 mls/hr Documented by: Norepinephrine Bitartrate 8 mg (/ Sodium Chloride) 250 mls @ 9.375 mls/hr CONT INF .[id number] [facility]; Protocol Last Titration: 09/07/20 10:00 Dose: 5 mcg/min, 9.4 mls/hr Documented by: Piperacillin Sod/Tazobactam (Sod 3.375 gm/ Sodium Chloride) 50 mls @ 12.5 mls/hr IV Q12 [facility] Last Admin: 09/07/20 06:57 Dose: 12.5 mls/hr Documented by: Vancomycin IV Pharmacy to Dose (1 ea/ Sodium Chloride) 500 mls @ 250 mls/hr IV X1 PRN; Protocol PRN Reason: Rx to Dose Insulin Glargine (Insulin Glargine 100 Units/Ml Pen) 10 units SC DAILY [facility] Last Admin: 09/07/20 12:34 Dose: 10 u Documented by: Insulin Human Lispro (Insulin Lispro 100 Unit/Ml Insuln.Pen) 0 unit SC Q6 [facility]; Protocol Last Admin: 09/07/20 12:36 Dose: 2 u Documented by: Ondansetron HCl (Ondansetron 4 Mg/2 Ml Vial) 4 mg IV Q8H PRN PRN PRN Reason: NAUSEA/VOMITING Paroxetine HCl (Paroxetine 20 Mg Tablet) 20 mg GT QHS [facility] Last Admin: 09/06/20 21:01 Dose: 20 mg Documented by: Senna/Docusate Sodium (Senna/Docusate Sodium 1 Tablet) 2 tablet GT BID [facility] Last Admin: 09/07/20 12:35 Dose: 2 tablet Documented by: Sodium Chloride (0.9% Saline Lock 10 Ml Syringe) 10 - 40 ml IV UD PRN PRN Reason: SALINE FLUSH Last Admin: 09/07/20 09:02 Dose: 30 ml Documented by: Sodium Chloride (Sodium Chloride 0.65% 1 Shobonier Shobonier.Btl) 1 - 2 spray NASAL TID PRN PRN PRN Reason: NASAL DRYNESS Last Admin: 09/02/20 16:14 Dose: 2 spray Documented by: Throat Lozenges (Benzocaine/Menthol 1 Lozenge) 1 lozenge MUCOUS MEM Q2H PRN PRN PRN Reason: SORE THROAT - Past Medical History Past Medical History (Chronic Problems): Chronic Problems (Last Reviewed 08/31/20 @ 17:[address] Alexis Aquino DO) Dyspnea (Chronic) Hypoxemia (Chronic) Neuropathy, peripheral (Chronic) Compression of sciatic nerve (Chronic) Palpitations (Chronic) Dyspnea on exertion (Chronic) Hyperkalemia (Chronic) Fatigue (Chronic) COPD (chronic obstructive pulmonary disease) (Chronic) Anxiety (Chronic) Depression (Chronic) Chronic hypoxemic respiratory failure (Chronic) PND (post-nasal drip) (Chronic) Breast cancer (Chronic) History of left heart catheterization (Chronic) 08/30/[address] Cook [facility]; 11/17/[address] Anderson [facility] (NORMAL CORONARIES) Hyperlipidemia (Chronic) Rheumatoid arthritis (Chronic) Gallstones (Chronic) Osteoarthritis (Chronic) Type 2 diabetes mellitus (Chronic) BMI 50.0-59.9, adult (Chronic) Ectopic atrial tachycardia (Chronic) Hypertension (Chronic) JAYE (obstructive sleep apnea) (Chronic) BiPAP 18/14 cm of water Pulmonary hypertension (Chronic) Anemia (Chronic) - Social History Smoking Status: Former smoker - Family History Maternal Family History: Family History (Last Reviewed 08/31/20 @ 17:[address] Alexis Aquino DO) Father CAD (coronary artery disease) Diabetes Hypertension Arthritis Mother Arthritis Heart disease Hypertension Review of Systems Eyes: Reports: - - Review of systems cannot be obtained because the patient is intubated. Patient Problems: Active and Suspected Problems (Last Reviewed 08/31/20 @ 17:[address] Alexis Aquino DO) Lung mass (Acute) Found 2018 CAMILA (acute kidney injury) (Acute) Postural dizziness with near syncope (Acute) Dehydration (Acute) Diarrhea due to COVID-19 (Acute) Pneumonia due to COVID-19 virus (Acute) COVID-19 (Acute) CAMILA (acute kidney injury) (Acute) History of lumpectomy of left breast (Acute ~06/2020) 06/27/2020 Abnormal mammogram of left breast (Acute) Subjective: Physical examination was deferred to preserve PPE and prevent further transmission of COVID-19. - Physical Exam Vitals/I&O's: Vital Signs Temp Pulse Resp BP Pulse Ox 98.7 F 93 17 118/63 93 09/07/20 10:00 09/07/20 10:00 09/07/20 11:28 09/07/20 10:00 09/07/20 11:28 Oxygen Flow Rate (L/min) 60 Oxygen Delivery Method Mechanical Ventilator Weight: 124.5 kg Body Mass Index (BMI) 47.1 Intake and Output for Last 24 Hours 09/05/20 09/06/20 09/07/20 23:59 23:59 23:59 Intake Total 50 / 50 561.38 / 573.51 1075.85 / 1075.85 Output Total 950 / 1150 1600 / 1700 300 / 300 Balance -900 / -1100 -1038.62 / -1126.49 775.85 / 775.85 Microbiology Past 72 Hours 09/06/20 10:50 Sputum, Induced/Lukens Gram Stain - Final 09/06/20 10:50 Sputum, Induced/Lukens Respiratory Culture - Preliminary Staphylococcus aureus Laboratory Results 09/06/20 05:35: Total Creatine Kinase 44, Triglycerides 73 09/06/20 16:35: POC Glucose 203 H 09/06/20 22:50: POC Glucose 238 H 09/07/20 04:00: Sodium 133 L, Potassium 4.8, Chloride 101, Carbon Dioxide 21.0, Anion Gap 11, BUN 77 H, Creatinine 2.37 H, Estim Creat Clear Calc 17.71, Est GFR (MDRD) Af Amer 26 L, Est GFR (MDRD) Non-Af 21 L, BUN/Creatinine Ratio 32.5 H, Glucose 259 H, Calcium 8.6, Phosphorus 5.9 H, Magnesium 2.1, Total Bilirubin 0.50, AST 32, ALT 42, Alkaline Phosphatase 147 H, Total Protein 7.9, Albumin 2.4 L, Globulin 5.5 H, Albumin/Globulin Ratio 0.4 L 09/07/20 06:46: POC Glucose 254 H 09/07/20 09:00: Procalcitonin 0.75 H 09/07/20 11:48: Specimen Type ART, Sample Site L Brach, pH 7.22 L, Bicarbonate Actual 20.5 L, Total CO2 22, Base Excess -7 L, O2 Saturation 91 L, O2 % 65, ABG pCO2 49.7 H, ABG pO2 75, Respiration Rate 16, O2 Delivery Device Adult Vent, Vent Mode AC/VC, Tidal Volume 500, POC PEEP 15 Current Medications Acetaminophen (Acetaminophen 650 Mg/20 Ml Udc) 650 mg GT Q6H PRN PRN PRN Reason: Pain Score 1-10/Temp > 100.7 F Last Admin: 09/06/20 16:46 Dose: 650 mg Documented by: Albuterol Sulfate (Albuterol Sulfate Hfa 6.7 Gm Inhaler (200 Puffs)) 2 puff IH Q4H PRN PRN Reason: SHORTNESS OF BREATH Last Admin: 09/04/20 20:12 Dose: 2 puff Documented by: Apixaban (Apixaban 5 Mg Tablet) 5 mg GT BID [facility] Last Admin: 09/07/20 09:01 Dose: 5 mg Documented by: Chlorhexidine Gluconate (Chlorhexidine 15 Ml) 15 ml PO BID [facility] Last Admin: 09/07/20 08:59 Dose: 15 ml Documented by: Cholecalciferol (Cholecalciferol (Vit D3) 1,000 Unit (25mcg)) 5,000 unit GT DAILY [facility] Last Admin: 09/07/20 09:01 Dose: 5,000 unit Documented by: Dexamethasone (Dexamethasone 4 Mg Tablet) 6 mg GT DAILY [facility] Stop: 09/09/20 12:31 Last Admin: 09/07/20 09:00 Dose: 6 mg Documented by: Enteral Nutritional Formula (Vital High Protein) 1,000 mls @ 50 mls/hr GT .Q20H [facility] Last Admin: 09/06/20 12:52 Dose: 50 mls/hr Documented by: Fentanyl Citrate 1,000 mcg/ (Sodium Chloride) 100 mls @ 5 mls/hr CONT INF .Q20H [facility]; Protocol Last Titration: 09/07/20 09:00 Dose: 75 mcg/hr, 7.5 mls/hr Documented by: Pantoprazole Sodium 40 mg/ (Sodium Chloride) 110 mls @ 330 mls/hr IV Q24 [facility] Last Admin: 09/07/20 12:00 Dose: 330 mls/hr Documented by: Norepinephrine Bitartrate 8 mg (/ Sodium Chloride) 250 mls @ 9.375 mls/hr CONT INF .[id number] [facility]; Protocol Last Titration: 09/07/20 10:00 Dose: 5 mcg/min, 9.4 mls/hr Documented by: Piperacillin Sod/Tazobactam (Sod 3.375 gm/ Sodium Chloride) 50 mls @ 12.5 mls/hr IV Q12 [facility] Last Admin: 09/07/20 06:57 Dose: 12.5 mls/hr Documented by: Vancomycin IV Pharmacy to Dose (1 ea/ Sodium Chloride) 500 mls @ 250 mls/hr IV X1 PRN; Protocol PRN Reason: Rx to Dose Insulin Glargine (Insulin Glargine 100 Units/Ml Pen) 10 units SC DAILY [facility] Last Admin: 09/07/20 12:34 Dose: 10 u Documented by: Insulin Human Lispro (Insulin Lispro 100 Unit/Ml Insuln.Pen) 0 unit SC Q6 [facility]; Protocol Last Admin: 09/07/20 12:36 Dose: 2 u Documented by: Ondansetron HCl (Ondansetron 4 Mg/2 Ml Vial) 4 mg IV Q8H PRN PRN PRN Reason: NAUSEA/VOMITING Paroxetine HCl (Paroxetine 20 Mg Tablet) 20 mg GT QHS [facility] Last Admin: 09/06/20 21:01 Dose: 20 mg Documented by: Senna/Docusate Sodium (Senna/Docusate Sodium 1 Tablet) 2 tablet GT BID [facility] Last Admin: 09/07/20 12:35 Dose: 2 tablet Documented by: Sodium Chloride (0.9% Saline Lock 10 Ml Syringe) 10 - 40 ml IV UD PRN PRN Reason: SALINE FLUSH Last Admin: 09/07/20 09:02 Dose: 30 ml Documented by: Sodium Chloride (Sodium Chloride 0.65% 1 Shobonier Shobonier.Btl) 1 - 2 spray NASAL TID PRN PRN PRN Reason: NASAL DRYNESS Last Admin: 09/02/20 16:14 Dose: 2 spray Documented by: Throat Lozenges (Benzocaine/Menthol 1 Lozenge) 1 lozenge MUCOUS MEM Q2H PRN PRN PRN Reason: SORE THROAT Assessment/Plan All Active Problems (Last Reviewed 08/31/20 @ 17:[address] Alexis Aquino, DO) Abnormal findings on diagnostic imaging of heart and coronary circulation (Resolved) Abnormal stress test (Resolved) Lung mass (Acute) CAMILA (acute kidney injury) (Acute) Postural dizziness with near syncope (Acute) Dehydration (Acute) Diarrhea due to COVID-19 (Acute) Pneumonia due to COVID-19 virus (Acute) COVID-19 (Acute) CAMILA (acute kidney injury) (Acute) History of lumpectomy of left breast (Acute ~06/2020) Abnormal mammogram of left breast (Acute) History of dilation and curettage (Resolved) History of hysterectomy (Resolved) History of cholecystectomy (Resolved) History of carpal tunnel release (Resolved) CAMILA?likely ATN with shock Hyperphosphatemia Acute on chronic hypoxemic respiratory failure secondary to COVID-19 JAYE Diabetes mellitus Pulmonary hypertension Serum creatinine is 2.37 urine output is is decreasing. No emergent need for dialysis today. Will reevaluate BOOK SORTER needs on a daily basis. Check renal ultrasound later on when feasible. check a UA FENA Avoid nephrotoxins. The patient is off Levophed since this morning. Keep MAP more than 65 Thank you for consult. To follow-up. IVF if ok with pulmonary. Discussed with MORRIS
--- NOTE | 2020-09-07 13:04 | PN_ITS ---
Patient Problems: Active and Suspected Problems (Last Reviewed 08/31/20 @ 17:[address] Alexis Aquino, DO) Lung mass (Acute) Found 2018 CAMILA (acute kidney injury) (Acute) Postural dizziness with near syncope (Acute) Dehydration (Acute) Diarrhea due to COVID-19 (Acute) Pneumonia due to COVID-19 virus (Acute) COVID-19 (Acute) CAMILA (acute kidney injury) (Acute) History of lumpectomy of left breast (Acute ~06/2020) 06/27/2020 Abnormal mammogram of left breast (Acute) Subjective: Intubated and sedated. PEEP is at 15 FiO2 at 60%. Vitals/I&O's: Vital Signs Temp Pulse Resp BP Pulse Ox 98.7 F 93 17 118/63 93 09/07/20 10:00 09/07/20 10:00 09/07/20 11:28 09/07/20 10:00 09/07/20 11:28 Oxygen Flow Rate (L/min) 60 Oxygen Delivery Method Mechanical Ventilator Weight: 124.5 kg Body Mass Index (BMI) 47.1 Intake and Output for Last 24 Hours 09/05/20 09/06/20 09/07/20 23:59 23:59 23:59 Intake Total 50 / 50 561.38 / 573.51 1827.85 / 1827.85 Output Total 950 / 1150 1600 / 1700 530 / 530 Balance -900 / -1100 -1038.62 / -1126.49 1297.85 / 1297.85 General: - - Intubated and sedated HEENT: Atraumatic, PERRLA, Normocephalic Oral: - - ET tube in place Lungs: No rhonchi, No wheeze, No rales, Diminished Cardiovascular: Regular rate, Regular Rhythm, Normal S1, Normal S2, No murmurs, No Ectopic Activity, No rub noted, No Gallop Abdomen: Bowel Sounds Present, Soft, Non Tender, Non-Distended, Obese Extremities: No clubbing, No cyanosis, No edema, Capillary Refill Less than 3 Seconds, Peripheral Pulses Normal Skin: No rashes Microbiology Past 72 Hours 09/06/20 10:50 Sputum, Induced/Lukens Gram Stain - Final 09/06/20 10:50 Sputum, Induced/Lukens Respiratory Culture - Preliminary Staphylococcus aureus Laboratory Results 09/06/20 16:35: POC Glucose 203 H 09/06/20 22:50: POC Glucose 238 H 09/07/20 04:00: Sodium 133 L, Potassium 4.8, Chloride 101, Carbon Dioxide 21.0, Anion Gap 11, BUN 77 H, Creatinine 2.37 H, Estim Creat Clear Calc 17.71, Est GFR (MDRD) Af Amer 26 L, Est GFR (MDRD) Non-Af 21 L, BUN/Creatinine Ratio 32.5 H, Glucose 259 H, Calcium 8.6, Phosphorus 5.9 H, Magnesium 2.1, Total Bilirubin 0.50, AST 32, ALT 42, Alkaline Phosphatase 147 H, Total Protein 7.9, Albumin 2.4 L, Globulin 5.5 H, Albumin/Globulin Ratio 0.4 L 09/07/20 06:46: POC Glucose 254 H 09/07/20 09:00: Procalcitonin 0.75 H 09/07/20 11:48: Specimen Type ART, Sample Site L Brach, pH 7.22 L, Bicarbonate Actual 20.5 L, Total CO2 22, Base Excess -7 L, O2 Saturation 91 L, O2 % 65, ABG pCO2 49.7 H, ABG pO2 75, Respiration Rate 16, O2 Delivery Device Adult Vent, Vent Mode AC/VC, Tidal Volume 500, POC PEEP 15 Current Medications Acetaminophen (Acetaminophen 650 Mg/20 Ml Udc) 650 mg GT Q6H PRN PRN PRN Reason: Pain Score 1-10/Temp > 100.7 F Last Admin: 09/06/20 16:46 Dose: 650 mg Documented by: Albuterol Sulfate (Albuterol Sulfate Hfa 6.7 Gm Inhaler (200 Puffs)) 2 puff IH Q4H PRN PRN Reason: SHORTNESS OF BREATH Last Admin: 09/04/20 20:12 Dose: 2 puff Documented by: Apixaban (Apixaban 5 Mg Tablet) 5 mg GT BID [facility] Last Admin: 09/07/20 09:01 Dose: 5 mg Documented by: Chlorhexidine Gluconate (Chlorhexidine 15 Ml) 15 ml PO BID [facility] Last Admin: 09/07/20 08:59 Dose: 15 ml Documented by: Cholecalciferol (Cholecalciferol (Vit D3) 1,000 Unit (25mcg)) 5,000 unit GT DAILY [facility] Last Admin: 09/07/20 09:01 Dose: 5,000 unit Documented by: Dexamethasone (Dexamethasone 4 Mg Tablet) 6 mg GT DAILY [facility] Stop: 09/09/20 12:31 Last Admin: 09/07/20 09:00 Dose: 6 mg Documented by: Enteral Nutritional Formula (Vital High Protein) 1,000 mls @ 50 mls/hr GT .Q20H [facility] Last Admin: 09/06/20 12:52 Dose: 50 mls/hr Documented by: Fentanyl Citrate 1,000 mcg/ (Sodium Chloride) 100 mls @ 5 mls/hr CONT INF .Q20H [facility]; Protocol Last Titration: 09/07/20 09:00 Dose: 75 mcg/hr, 7.5 mls/hr Documented by: Pantoprazole Sodium 40 mg/ (Sodium Chloride) 110 mls @ 330 mls/hr IV Q24 [facility] Last Admin: 09/07/20 12:00 Dose: 330 mls/hr Documented by: Norepinephrine Bitartrate 8 mg (/ Sodium Chloride) 250 mls @ 9.375 mls/hr CONT INF .[id number] [facility]; Protocol Last Titration: 09/07/20 10:00 Dose: 5 mcg/min, 9.4 mls/hr Documented by: Piperacillin Sod/Tazobactam (Sod 3.375 gm/ Sodium Chloride) 50 mls @ 12.5 mls/hr IV Q12 [facility] Last Admin: 09/07/20 06:57 Dose: 12.5 mls/hr Documented by: Vancomycin IV Pharmacy to Dose (1 ea/ Sodium Chloride) 500 mls @ 250 mls/hr IV X1 PRN; Protocol PRN Reason: Rx to Dose Insulin Glargine (Insulin Glargine 100 Units/Ml Pen) 10 units SC DAILY [facility] Last Admin: 09/07/20 12:34 Dose: 10 u Documented by: Insulin Human Lispro (Insulin Lispro 100 Unit/Ml Insuln.Pen) 0 unit SC Q6 [facility]; Protocol Last Admin: 09/07/20 12:36 Dose: 2 u Documented by: Ondansetron HCl (Ondansetron 4 Mg/2 Ml Vial) 4 mg IV Q8H PRN PRN PRN Reason: NAUSEA/VOMITING Paroxetine HCl (Paroxetine 20 Mg Tablet) 20 mg GT QHS [facility] Last Admin: 09/06/20 21:01 Dose: 20 mg Documented by: Senna/Docusate Sodium (Senna/Docusate Sodium 1 Tablet) 2 tablet GT BID [facility] Last Admin: 09/07/20 12:35 Dose: 2 tablet Documented by: Sodium Chloride (0.9% Saline Lock 10 Ml Syringe) 10 - 40 ml IV UD PRN PRN Reason: SALINE FLUSH Last Admin: 09/07/20 09:02 Dose: 30 ml Documented by: Sodium Chloride (Sodium Chloride 0.65% 1 [place].Btl) 1 - 2 spray NASAL TID PRN PRN PRN Reason: NASAL DRYNESS Last Admin: 09/02/20 16:14 Dose: 2 spray Documented by: Throat Lozenges (Benzocaine/Menthol 1 Lozenge) 1 lozenge MUCOUS MEM Q2H PRN PRN PRN Reason: SORE THROAT STROKE Vital Signs/Narrative: Vital Signs Temp Pulse Resp BP BP Pulse Ox 09/07/20 11:28 17 93 09/07/20 10:00 98.7 F 93 16 118/63 118/63 93 09/07/20 09:45 127/65 H 09/07/20 09:30 117/65 09/07/20 09:21 97 20 H 93 09/07/20 09:15 149/69 H Medical Necessity - Tobacco Use Smoking Status: Former smoker Assessment/Plan All Active Problems (Last Reviewed 08/31/20 @ 17:[address] Alexis Aquino, DO) Abnormal findings on diagnostic imaging of heart and coronary circulation (Resolved) Abnormal stress test (Resolved) Lung mass (Acute) CAMILA (acute kidney injury) (Acute) Postural dizziness with near syncope (Acute) Dehydration (Acute) Diarrhea due to COVID-19 (Acute) Pneumonia due to COVID-19 virus (Acute) COVID-19 (Acute) CAMILA (acute kidney injury) (Acute) History of lumpectomy of left breast (Acute ~06/2020) Abnormal mammogram of left breast (Acute) History of dilation and curettage (Resolved) History of hysterectomy (Resolved) History of cholecystectomy (Resolved) History of carpal tunnel release (Resolved) Acute hypoxic respiratory failure secondary to Covid pneumonia/staph aureus pneumonia -Patient has a baseline O2 requirement of 3 L -Intubated yesterday afternoon currently on a PEEP of 15 and an FiO2 of 60% -ABG shows next metabolic and respiratory acidosis although I suspect her PCO2 is probably close to her baseline -Continue Decadron and has completed remdesivir -Continue apixaban 5 mg twice daily -Chest x-ray overall stable -Appreciate pulmonary input Septic shock secondary to staph aureus pneumonia -Continue vancomycin as we are unclear whether this is MRSA or MSSA -May be able to discontinue Zosyn soon depending on other culture results continue to monitor -Await more information before narrowing -Patient remains on pressors -Benefit from a normalization of pH to make pressors more effective -Wean Levophed as able Mixed metabolic and respiratory acidosis -Suspect her PCO2 is close to her baseline given that she is likely a chronic CO2 retainer -At this time I think her pH reduction is related to her kidneys and ability to now compensate for her chronic respiratory acidosis -I am discussing the initiation of bicarb with the system planning engineer -Nephrology has been consulted -Normalization of pH may assist with Levophed wean Diarrhea -Resolved -C. 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 -Nephrology consult placed -CK is pending -Check urine studies Transaminitis -Resolved Hypertension -Antihypertensives on hold with pressor requirement Hyperlipidemia Patient is currently on no statin therapy at home History of breast cancer -No acute issues DM-2 -Continue to hold Metformin -Continue SSI -Lantus 10 units nightly added -Blood sugar goal 140-180 JAYE -BiPAP 18/14 cm of water as needed and at bedtime at baseline -On ventilator at this time History of pulmonary embolism -Continue Eliquis 5 mg twice daily Morbid obesity -Recommend weight loss -BMI is 49.1 -Increases risk of complications related to Covid infection Depression -Continue Paxil DVT prophylaxis -Therapeutic Eliquis CODE STATUS -Full code Inpatient E&M: 65757 Subs Hosp L2
--- NOTE | 2020-09-07 13:56 | PCM.RX.CS ---
Consult Pharmacy has been consulted to manage selected antiobiotic: Vancomycin Type of Consult: New start Suspected Infection: Pneumonia Labs: Sodium 133 mmol/L (136-145) L 09/07/20 04:00 Potassium 4.8 mmol/L (3.5-5.1) 09/07/20 04:00 Chloride 101 mmol/L (98-107) 09/07/20 04:00 Carbon Dioxide 21.0 mmol/L (21.0-32.0) 09/07/20 04:00 Anion Gap 11 (5-15) 09/07/20 04:00 BUN 77 mg/dL (7-18) H 09/07/20 04:00 Creatinine 2.37 mg/dL (0.55-1.02) H 09/07/20 04:00 Est GFR (MDRD) Af Amer 26 mL/min (>60) L 09/07/20 04:00 Est GFR (MDRD) Non-Af 21 mL/min (>60) L 09/07/20 04:00 BUN/Creatinine Ratio 32.5 RATIO (10-20) H 09/07/20 04:00 Glucose 259 mg/dL (74-106) H 09/07/20 04:00 Microbiology: Microbiology 09/06/20 10:50 Sputum, Induced/Lukens Gram Stain - Final 09/06/20 10:50 Sputum, Induced/Lukens Respiratory Culture - Preliminary Staphylococcus aureus 09/01/20 14:25 Stool Enteric Bacteriology - Final 09/01/20 14:25 Stool C. difficile DNA Amplification - Final Weight used for dosin.5 kg Estimated Creatinine Clearance: 26.7ML/MIN Goal Trough: 15-20 mcg/mL Pharmacy Plan for Drug Dosing: Give initial load of 2000mg IV x1. Since the patient's SCr is going up (up to 2.37 today from 1.03 yesterday), will not schedule further dosing at this time but will order a random vanc level for tomorrow to be drawn 24 hours after today's dose. Further dosing will be evaluated at that time. The patient's CrCl of 26.7ml/min was calculated using an adjusted body weight of 82.6kg. Pharmacy Service will continue to monitor and adjust dosing as required. Follow-Up Labs: Trough Vancomycin - random level Labs to be done on [date and time ordered]: 09/08/20 13:00
[2020-09-07] MEDS: Vital High Protein 1,000 ML 50 ML GT (15:08)
[2020-09-07 15:13] LABS: Mucous, Urine 0 SEEN /hpf (<or=2+)
[2020-09-07 15:18] LABS: Color, Urine Yellow (Yellow); Glucose, Dipstick Normal (Normal); Ketone-Dipstick Negative (Negative); Leukocyte Esterase-Dipstick 500 /ul (Negative); Nitrite-Dipstick Negative (Negative); Occult Blood-Urine 250 /ul (Negative); Protein-Dipstick 30 mg/dl (Negative); Urine Bilirubin Dipstick Negative (Negative); Urine Clarity Sl. Cloudy (Clear); Urine Urobilinogen Normal (Normal)
[2020-09-07 15:24] LABS: Bacteria 2+ /hpf (None Seen); Red Blood Cells-Urine 25-50 SEEN /hpf (0-5); Squamous Epithelial Cells - UA 0-5 SEEN /hpf (5-10); White Blood Cells 25-50 SEEN /hpf (0-5)
[2020-09-07 15:30] LABS: Urine Sodium 21 mmol/L (Not Establ.)
[2020-09-07 17:00] LABS: Bedside Glucose 225 mg/dL (70-110)
[2020-09-07] MEDS: Sodium Bicarbonate 650 MG Tablet PO ×2 (17:54→20:40)
[2020-09-07 18:25] LABS: Bedside Glucose 242 mg/dL (70-110)
[2020-09-07] MEDS: Paroxetine 20 MG Tablet GT (20:40)
[2020-09-08] VITALS (42 sets, daily range): BP systolic 85–143; BP diastolic 47–108; PULSE 97–154; RESP 12–24; TEMP 37.1–39.1; O2SAT 81–94
[2020-09-08 00:36] LABS: Bedside Glucose 241 mg/dL (70-110)
[2020-09-08 04:46] LABS: Absolute Lymphocyte Count 0.49 X10^3/uL (0.83-4.51); Absolute Neutrophil Count 11.9 X10^3/uL (2.0-7.7); Basophil# 0.02 X10^3/uL; Basophil% 0.1 % (0-1); Eosinophil# 0.01 X10^3/uL; Eosinophils% 0.1 % (0-5); Hematocrit 33.2 % (37-47); Hemoglobin 10.4 g/dL (12.0-15.0); Lymphocyte # 0.49 X10^3/ul (4.0); Lymphocyte % 3.6 % (19-41); Mean Corp Hgb Conc 31.3 g/dL (32-36); Mean Corpuscular Hgb 27.6 pg (27.0-32.0); Mean Corpuscular Volume 88.1 fL (81-99); Mean Platelet Vol. 11.3 fl (6.2-12.0); Monocyte# 0.84 X10^3/uL; Monocyte% 6.2 % (0-10); NRBC Flagged by Analyzer 0 % (0-5); Neutrophil # 11.89 X10^3/uL (2.7-7.7); POSITIVE DIFFERENTIAL YES; Platelet Count 132 K/mm3 (150-450); RBC Distribution Width CV 13.9 % (11.6-14.6); RBC Distribution Width SD 45.1 fl (35.1-43.9); Red Blood Count 3.77 M/mm3 (4.2-5.4); White Blood Count 13.5 K/mm3 (4.4-11.0)
[2020-09-08 04:47] LABS: Differential Indicated SCAN CRITERIA MET
[2020-09-08] MEDS: Insulin Lispro 100 UNIT/ML INSULN.PEN SC ×4 (04:52→23:25)
[2020-09-08 05:02] LABS: Phosphorus 4.5 mg/dL (2.5-4.9)
[2020-09-08 05:15] LABS: ALB/GLOB Ratio 0.4 RATIO (0.9-2.4); AST(SGOT) 23 U/L (15-37); Alanine Aminotransfer ALT/SGPT 31 U/L (13-56); Alkaline Phosphatase 110 U/L (45-117); Anion Gap 9 (5-15); BUN 106 mg/dL (7-18); BUN/Creat Ratio 48.8 RATIO (10-20); Calcium,Total 8.3 mg/dL (8.5-10.1); Chloride 106 mmol/L (98-107); Creatinine, Serum 2.17 mg/dL (0.55-1.02); EST Glomerular Filtration Rate 24 mL/min (>60); Est Glom Filt Rate - Afr Amer 28 mL/min (>60); Estimated Creatinine Clearance 19.34 ml/min; Globulin 4.7 g/dL (2.2-4.2); Glucose 207 mg/dL (74-106); Magnesium 2.2 mg/dL (1.6-2.6); Potassium 4.8 mmol/L (3.5-5.1); Protein, Total 6.7 g/dL (6.4-8.2); Sodium Level 136 mmol/L (136-145)
--- NOTE | 2020-09-08 06:19 | PN_ITS ---
Subjective: The patient was seen and examined at the bedside this morning. Events from the last 24 hours have been reviewed. The patient is currently hemodynamically stable and was able to be weaned off of Levophed completely yesterday. Her BUN has increased this morning to 106 with a creatinine of 2.17. The patient remains on assist control mode of mechanical ventilation with an FiO2 requirement of 90% and PEEP of 15. The patient did have overnight endotracheal tube secretions noted by the nursing staff. She is currently documented to be overall net +3.8 L for the hospital admission. Objective: The patient's most recent lab work, culture data and imaging studies have all been personally reviewed. Surface echocardiogram dated February 2020 revealed stage I diastolic dysfunction with an ejection fraction of 65%. Right ventricular systolic pressure was estimated to be 54 mmHg. Sputum culture is currently pending. General: - - Remains intubated, sedated and mechanically ventilated. HEENT: Atraumatic, PERRLA, Normocephalic Oral: No Gingival or Mucosal Lesions/ Ulcerations, - - Stable endotracheal and OG tubes Neck: Supple, No Nodes, Trachea Midline Lungs: No rhonchi, No wheeze, No rales, Diminished Cardiovascular: Regular rate, Regular Rhythm Abdomen: Bowel Sounds Present, Soft, Non Tender, Obese Extremities: No clubbing, No cyanosis, No edema Skin: - - No significant change from previous. Musculoskeletal: No Tenderness to Palpation of Joints or Extremities Lymphatic: No Cervical, Supraclavicular, or Inguinal Adenopathy Neurological: - - No focal neurological deficits. Remains sedated on the ventilator. Vital Signs Temp Pulse Resp BP Pulse Ox 99.3 F H 117 H 16 119/53 L 91 09/08/20 06:00 09/08/20 06:00 09/08/20 06:00 09/08/20 06:00 09/08/20 06:00 Oxygen Flow Rate (L/min) 60 Oxygen Delivery Method Mechanical Ventilator Weight: 278 lb 3.574 oz Body Mass Index (BMI) 47.1 Intake and Output for Last 24 Hours 09/06/20 09/07/20 09/08/20 23:59 23:59 23:59 Intake Total 561.38 / 573.51 3382.07 / 3704.57 1012.0 / 1012.0 Output Total 1600 / 1700 880 / 1080 500 / 500 Balance -1038.62 / -1126.49 2502.07 / 2624.57 512.0 / 512.0 Labs (Last 48 Hours) 09/06/20 09/06/20 09/06/20 05:35 11:16 11:52 WBC RBC Hgb Hct MCV MCH MCHC RDW Std Deviation RDW Coeff of Marine Plt Count MPV Immature Gran % (Auto) Neut % (Auto) Lymph % (Auto) [place] % (Auto) Eos % (Auto) Baso % (Auto) Absolute Neuts (auto) Absolute Lymphs (auto) Nucleated RBC % Eos Smear Total Cells Specimen Type ART Sample Site pH 7.26 L Bicarbonate Actual 23.0 Total CO2 25 Base Excess -4 L O2 Saturation 99 O2 % 100 ABG pCO2 51.0 H ABG pO2 165 H Respiration Rate 14 O2 Delivery Device ET Tube Vent Mode AC Tidal Volume 450 POC PEEP 20 Sodium Potassium Chloride Carbon Dioxide Anion Gap BUN Creatinine Estim Creat Clear Calc Est GFR (MDRD) Af Amer Est GFR (MDRD) Non-Af BUN/Creatinine Ratio Glucose Calcium Phosphorus Magnesium Total Bilirubin AST ALT Alkaline Phosphatase Total Creatine Kinase 44 Total Protein Albumin Globulin Albumin/Globulin Ratio Triglycerides 73 Procalcitonin Urine Color Urine Clarity Urine pH Ur Specific [place] Urine Protein Urine Glucose (UA) Urine Ketones Urine Occult Blood Urine Nitrite Urine Bilirubin Urine Urobilinogen Ur Leukocyte Esterase Urine RBC Urine WBC Ur Squamous Epith Cells Urine Bacteria Urine Mucus Ur Random Sodium Urine Creatinine POC Glucose 153 H 09/06/20 09/06/20 09/07/20 16:35 22:50 04:00 WBC RBC Hgb Hct MCV MCH MCHC RDW Std Deviation RDW Coeff of Marine Plt Count MPV Immature Gran % (Auto) Neut % (Auto) Lymph % (Auto) [place] % (Auto) Eos % (Auto) Baso % (Auto) Absolute Neuts (auto) Absolute Lymphs (auto) Nucleated RBC % Eos Smear Total Cells Specimen Type Sample Site pH Bicarbonate Actual Total CO2 Base Excess O2 Saturation O2 % ABG pCO2 ABG pO2 Respiration Rate O2 Delivery Device Vent Mode Tidal Volume POC PEEP Sodium 133 L Potassium 4.8 Chloride 101 Carbon Dioxide 21.0 Anion Gap 11 BUN 77 H Creatinine 2.37 H Estim Creat Clear Calc 17.71 Est GFR (MDRD) Af Amer 26 L Est GFR (MDRD) Non-Af 21 L BUN/Creatinine Ratio 32.5 H Glucose 259 H Calcium 8.6 Phosphorus 5.9 H Magnesium 2.1 Total Bilirubin 0.50 AST 32 ALT 42 Alkaline Phosphatase 147 H Total Creatine Kinase Total Protein 7.9 Albumin 2.4 L Globulin 5.5 H Albumin/Globulin Ratio 0.4 L Triglycerides Procalcitonin Urine Color Urine Clarity Urine pH Ur Specific [place] Urine Protein Urine Glucose (UA) Urine Ketones Urine Occult Blood Urine Nitrite Urine Bilirubin Urine Urobilinogen Ur Leukocyte Esterase Urine RBC Urine WBC Ur Squamous Epith Cells Urine Bacteria Urine Mucus Ur Random Sodium Urine Creatinine POC Glucose 203 H 238 H 09/07/20 09/07/20 09/07/20 06:46 09:00 11:48 WBC RBC Hgb Hct MCV MCH MCHC RDW Std Deviation RDW Coeff of Marine Plt Count MPV Immature Gran % (Auto) Neut % (Auto) Lymph % (Auto) [place] % (Auto) Eos % (Auto) Baso % (Auto) Absolute Neuts (auto) Absolute Lymphs (auto) Nucleated RBC % Eos Smear Total Cells Specimen Type ART Sample Site L Brach pH 7.22 L Bicarbonate Actual 20.5 L Total CO2 22 Base Excess -7 L O2 Saturation 91 L O2 % 65 ABG pCO2 49.7 H ABG pO2 75 Respiration Rate 16 O2 Delivery Device Adult Vent Vent Mode AC/VC Tidal Volume 500 POC PEEP 15 Sodium Potassium Chloride Carbon Dioxide Anion Gap BUN Creatinine Estim Creat Clear Calc Est GFR (MDRD) Af Amer Est GFR (MDRD) Non-Af BUN/Creatinine Ratio Glucose Calcium Phosphorus Magnesium Total Bilirubin AST ALT Alkaline Phosphatase Total Creatine Kinase Total Protein Albumin Globulin Albumin/Globulin Ratio Triglycerides Procalcitonin 0.75 H Urine Color Urine Clarity Urine pH Ur Specific [place] Urine Protein Urine Glucose (UA) Urine Ketones Urine Occult Blood Urine Nitrite Urine Bilirubin Urine Urobilinogen Ur Leukocyte Esterase Urine RBC Urine WBC Ur Squamous Epith Cells Urine Bacteria Urine Mucus Ur Random Sodium Urine Creatinine POC Glucose 254 H 09/07/20 09/07/20 09/07/20 12:28 15:00 15:00 WBC RBC Hgb Hct MCV MCH MCHC RDW Std Deviation RDW Coeff of Marine Plt Count MPV Immature Gran % (Auto) Neut % (Auto) Lymph % (Auto) [place] % (Auto) Eos % (Auto) Baso % (Auto) Absolute Neuts (auto) Absolute Lymphs (auto) Nucleated RBC % Eos Smear Total Cells Pending Specimen Type Sample Site pH Bicarbonate Actual Total CO2 Base Excess O2 Saturation O2 % ABG pCO2 ABG pO2 Respiration Rate O2 Delivery Device Vent Mode Tidal Volume POC PEEP Sodium Potassium Chloride Carbon Dioxide Anion Gap BUN Creatinine Estim Creat Clear Calc Est GFR (MDRD) Af Amer Est GFR (MDRD) Non-Af BUN/Creatinine Ratio Glucose Calcium Phosphorus Magnesium Total Bilirubin AST ALT Alkaline Phosphatase Total Creatine Kinase Total Protein Albumin Globulin Albumin/Globulin Ratio Triglycerides Procalcitonin Urine Color Yellow Urine Clarity Sl. Cloudy Urine pH 5.0 Ur Specific [place] 1.020 Urine Protein 30 H Urine Glucose (UA) Normal Urine Ketones Negative Urine Occult Blood 250 H Urine Nitrite Negative Urine Bilirubin Negative Urine Urobilinogen Normal Ur Leukocyte Esterase 500 H Urine RBC 25-50 SEEN Urine WBC 25-50 SEEN Ur Squamous Epith Cells 0-5 SEEN Urine Bacteria 2+ Urine Mucus 0 SEEN Ur Random Sodium Urine Creatinine POC Glucose 225 H 09/07/20 09/07/20 09/07/20 15:00 17:53 23:44 WBC RBC Hgb Hct MCV MCH MCHC RDW Std Deviation RDW Coeff of Marine Plt Count MPV Immature Gran % (Auto) Neut % (Auto) Lymph % (Auto) [place] % (Auto) Eos % (Auto) Baso % (Auto) Absolute Neuts (auto) Absolute Lymphs (auto) Nucleated RBC % Eos Smear Total Cells Specimen Type Sample Site pH Bicarbonate Actual Total CO2 Base Excess O2 Saturation O2 % ABG pCO2 ABG pO2 Respiration Rate O2 Delivery Device Vent Mode Tidal Volume POC PEEP Sodium Potassium Chloride Carbon Dioxide Anion Gap BUN Creatinine Estim Creat Clear Calc Est GFR (MDRD) Af Amer Est GFR (MDRD) Non-Af BUN/Creatinine Ratio Glucose Calcium Phosphorus Magnesium Total Bilirubin AST ALT Alkaline Phosphatase Total Creatine Kinase Total Protein Albumin Globulin Albumin/Globulin Ratio Triglycerides Procalcitonin Urine Color Urine Clarity Urine pH Ur Specific [place] Urine Protein Urine Glucose (UA) Urine Ketones Urine Occult Blood Urine Nitrite Urine Bilirubin Urine Urobilinogen Ur Leukocyte Esterase Urine RBC Urine WBC Ur Squamous Epith Cells Urine Bacteria Urine Mucus Ur Random Sodium 21 Urine Creatinine 126.00 POC Glucose 242 H 241 H 09/08/20 09/08/20 09/08/20 04:40 04:40 04:40 WBC 13.5 H RBC 3.77 L Hgb 10.4 L Hct 33.2 L MCV 88.1 MCH 27.6 MCHC 31.3 L RDW Std Deviation 45.1 H RDW Coeff of Marine 13.9 Plt Count 132 L MPV 11.3 Immature Gran % (Auto) 2.000 H Neut % (Auto) 88.0 H Lymph % (Auto) 3.6 L [place] % (Auto) 6.2 Eos % (Auto) 0.1 Baso % (Auto) 0.1 Absolute Neuts (auto) 11.9 H Absolute Lymphs (auto) 0.49 L Nucleated RBC % 0 Eos Smear Total Cells Specimen Type Sample Site pH Bicarbonate Actual Total CO2 Base Excess O2 Saturation O2 % ABG pCO2 ABG pO2 Respiration Rate O2 Delivery Device Vent Mode Tidal Volume POC PEEP Sodium 136 Potassium 4.8 Chloride 106 Carbon Dioxide 21.0 Anion Gap 9 BUN 106 H* Creatinine 2.17 H Estim Creat Clear Calc 19.34 Est GFR (MDRD) Af Amer 28 L Est GFR (MDRD) Non-Af 24 L BUN/Creatinine Ratio 48.8 H Glucose 207 H Calcium 8.3 L Phosphorus 4.5 Magnesium 2.2 Total Bilirubin 0.50 AST 23 ALT 31 Alkaline Phosphatase 110 Total Creatine Kinase Total Protein 6.7 Albumin 2.0 L Globulin 4.7 H Albumin/Globulin Ratio 0.4 L Triglycerides Procalcitonin Urine Color Urine Clarity Urine pH Ur Specific [place] Urine Protein Urine Glucose (UA) Urine Ketones Urine Occult Blood Urine Nitrite Urine Bilirubin Urine Urobilinogen Ur Leukocyte Esterase Urine RBC Urine WBC Ur Squamous Epith Cells Urine Bacteria Urine Mucus Ur Random Sodium Urine Creatinine POC Glucose Microbiology 09/06/20 10:50 Sputum, Induced/Lukens Gram Stain - Final 09/06/20 10:50 Sputum, Induced/Lukens Respiratory Culture - Preliminary Staphylococcus aureus Clinical Impression(s) from Imaging Studies Chest X-Ray 08/31/20 15:30 IMPRESSION: Increased markings with areas of confluence in both lung bases suggestive of bibasilar infiltrates. Electronically Signed: Reginaldo Martinez, at 15:45 EST , Service support , Chest X-Ray 09/06/20 07:11 IMPRESSION: Mild residual increased markings at the lung bases although there has been improvement as compared to prior study. Electronically Signed: Reginaldo Martinez, at 12:34 EST , Service support , Chest X-Ray 09/06/20 10:35 IMPRESSION: The tip of the endotracheal tube is at 4.9 cm proximal to the rj. The tip of the orogastric tube is in the distal portion of the body of the stomach. Electronically Signed: Reginaldo Tothdavid, at 11:10 EST , Service support , Chest X-Ray 09/07/20 06:37 IMPRESSION: 1. Interval placement of right upper extremity PICC with tip the catheter overlying the junction of the right atrium and screw vena cava. 2. Endotracheal tube and nasogastric tube both which are unchanged. 3. No active disease. Electronically Signed: Walter Tse MD at 8:05 EST Tel , Service support , Medical Necessity - Tobacco Use Smoking Status: Former smoker Assessment/Plan All Active Problems (Last Reviewed 08/31/20 @ 17:[address] Alexis Aquino, DO) Abnormal findings on diagnostic imaging of heart and coronary circulation (Resolved) Abnormal stress test (Resolved) Lung mass (Acute) CAMILA (acute kidney injury) (Acute) Postural dizziness with near syncope (Acute) Dehydration (Acute) Diarrhea due to COVID-19 (Acute) Pneumonia due to COVID-19 virus (Acute) COVID-19 (Acute) CAMILA (acute kidney injury) (Acute) History of lumpectomy of left breast (Acute ~06/2020) Abnormal mammogram of left breast (Acute) History of dilation and curettage (Resolved) History of hysterectomy (Resolved) History of cholecystectomy (Resolved) History of carpal tunnel release (Resolved) RECOMMENDATIONS: 1. Continue antimicrobials, pending finalized infectious work-up. 2. Continue to wean FiO2 and PEEP to maintain oxygen saturations at or above 90%. 3. Continue systemic anticoagulation with Eliquis. 4. Continue Decadron to complete treatment course. 5. Continue appropriate GI prophylaxis. 6. Continue tube feeds as tolerated. 7. Reattempt volume optimization with IV diuretics today. IMPRESSIONS: 1. Acute on chronic hypoxemic respiratory failure secondary to COVID-19 pneumonia The patient does have a baseline supplemental oxygen requirement of 3 L/min. At this time, the patient has been essentially BiPAP dependent for the last 3 to 4 days, without any appreciable improvement in her respiratory status. Therefore, the decision was made to proceed with intubation on the morning of September 06. The patient will remain systemically anticoagulated on Eliquis with plans to complete a 10-day treatment course of Decadron. Will reattempt volume optimization with IV Lasix today. 2. Obstructive sleep apnea/heart failure with preserved ejection fraction/pulmonary hypertension The patient can be restarted on nocturnal BiPAP therapy if she is able to be weaned successfully from invasive mechanical ventilatory support. Okay to restart diuretics today. 3. Acute kidney injury Likely prerenal in etiology and related to a component of overdiuresis coupled with hemodynamic instability leading to ischemic ATN. Nephrology is currently following. Continue to monitor urine output. Possible need for dialysis in the near future. 4. Diabetes mellitus/morbid obesity/advanced age/history of PE Complicates care, management, recovery and prognosis. Continue home medications as indicated. Continue tube feeds as tolerated. TIME: 40 minutes of critical care time, independent of procedures, was spent addressing the patient's acute on chronic hypoxemic respiratory failure, COVID- 19 pneumonia, obstructive sleep apnea, diastolic heart failure, pulmonary hypertension, acute kidney injury, review of all data and collaboration with the care team. ([id number]) [id number] Critical care first hour
[2020-09-08 06:35] LABS: Bedside Glucose 202 mg/dL (70-110)
[2020-09-08 06:53] LABS: International Normalized Ratio 2.2; Prothrombin Time (Protime)PT. 24.1 SECONDS (11.7-14.9)
[2020-09-08] MEDS: Vital High Protein 1,000 ML 50 ML GT (07:58)
[2020-09-08] MEDS: dexAMETHasone 4 MG Tablet 6 MG GT (07:59)
[2020-09-08] MEDS: Senna/Docusate Sodium 1 Tablet 2 TABLET GT ×2 (08:01→19:52)
[2020-09-08] MEDS: Sodium Bicarbonate 650 MG Tablet PO ×4 (08:01→19:53)
[2020-09-08] MEDS: APIXABAN 5 MG TABLET GT ×2 (08:01→19:53)
[2020-09-08] MEDS: Chlorhexidine 15 ML PO ×2 (08:02→19:53)
[2020-09-08] MEDS: Furosemide 40 MG/4 ML Vial IV ×2 (11:52→17:16)
--- NOTE | 2020-09-08 12:11 | CASEMGMT ---
Social Work SW placed phone call to pt Daniel to offer support. Nigel confirms that he has appreciated daily phone call updates from the ICU nurses. Emotional support provided to Nigel with encouragement to express feelings regarding 's illness and hospitalization. Pt does have two children and multiple grandchildren who live local and are very supportive. Pt own quarentine is coming to an end and family has been dropping off supplies and check on pt by phone daily. Nigel made aware SW will remain available throughout hospital stay. PRATEEK Najera
--- NOTE | 2020-09-08 12:36 | PCM.PN.HOSP ---
Patient Problems: Active and Suspected Problems (Last Reviewed 08/31/20 @ 17:[address] Alexis Aquino, DO) Lung mass (Acute) Found 2018 CAMILA (acute kidney injury) (Acute) Postural dizziness with near syncope (Acute) Dehydration (Acute) Diarrhea due to COVID-19 (Acute) Pneumonia due to COVID-19 virus (Acute) COVID-19 (Acute) CAMILA (acute kidney injury) (Acute) History of lumpectomy of left breast (Acute ~06/2020) 06/27/2020 Abnormal mammogram of left breast (Acute) Subjective: Patient intubated and sedated on the ventilator. PEEP remains at 15 but FiO2 has been increased to 90%. Vitals/I&O's: Vital Signs Temp Pulse Resp BP Pulse Ox 99.6 F H 121 H 16 120/52 L 91 09/08/20 08:00 09/08/20 09:00 09/08/20 09:00 09/08/20 09:00 09/08/20 09:00 Oxygen Flow Rate (L/min) 60 Oxygen Delivery Method Mechanical Ventilator Weight: 126.2 kg Body Mass Index (BMI) 47.1 Intake and Output for Last 24 Hours 09/06/20 09/07/20 09/08/20 23:59 23:59 23:59 Intake Total 561.38 / 573.51 3382.07 / 3704.57 1688.13 / 1688.13 Output Total 1600 / 1700 880 / 1080 900 / 900 Balance -1038.62 / -1126.49 2502.07 / 2624.57 788.13 / 788.13 General: - - Intubated and sedated HEENT: Atraumatic, PERRLA, Normocephalic Oral: Moist Mucosa, - - ET tube in place Neck: Supple, No JVD, Trachea Midline, - - For thick neck Lungs: No rhonchi, No wheeze, Diminished, Rales - Few at bases Cardiovascular: Regular Rhythm, Normal S1, Normal S2, No murmurs, No Ectopic Activity, No rub noted, No Gallop, Tachycardic Abdomen: Bowel Sounds Present, Soft, Non Tender, Non-Distended, Obese Extremities: No clubbing, No cyanosis, No edema, Capillary Refill Less than 3 Seconds, Peripheral Pulses Normal Skin: No rashes, No breakdown Microbiology Past 72 Hours 09/06/20 10:50 Sputum, Induced/Lukens Gram Stain - Final 09/06/20 10:50 Sputum, Induced/Lukens Respiratory Culture - Final Staphylococcus aureus Laboratory Results 09/07/20 12:28: POC Glucose 225 H 09/07/20 15:00: Eos Smear Total Cells Pending 09/07/20 15:00: Urine Color Yellow, Urine Clarity Sl. Cloudy, Urine pH 5.0, Ur Specific [place] 1.020, Urine Protein 30 H, Urine Glucose (UA) Normal, Urine Ketones Negative, Urine Occult Blood 250 H, Urine Nitrite Negative, Urine Bilirubin Negative, Urine Urobilinogen Normal, Ur Leukocyte Esterase 500 H, Urine RBC 25-50 SEEN, Urine WBC 25-50 SEEN, Ur Squamous Epith Cells 0-5 SEEN, Urine Bacteria 2+, Urine Mucus 0 SEEN 09/07/20 15:00: Ur Random Sodium 21, Urine Creatinine 126.00 09/07/20 17:53: POC Glucose 242 H 09/07/20 23:44: POC Glucose 241 H 09/08/20 04:35: POC Glucose 202 H 09/08/20 04:40: Sodium 136, Potassium 4.8, Chloride 106, Carbon Dioxide 21.0, Anion Gap 9, BUN 106 H*, Creatinine 2.17 H, Estim Creat Clear Calc 19.34, Est GFR (MDRD) Af Amer 28 L, Est GFR (MDRD) Non-Af 24 L, BUN/Creatinine Ratio 48.8 H, Glucose 207 H, Calcium 8.3 L, Magnesium 2.2, Total Bilirubin 0.50, AST 23, ALT 31, Alkaline Phosphatase 110, Total Protein 6.7, Albumin 2.0 L, Globulin 4.7 H, Albumin/Globulin Ratio 0.4 L 09/08/20 04:40: Phosphorus 4.5 09/08/20 04:40: WBC 13.5 H, RBC 3.77 L, Hgb 10.4 L, Hct 33.2 L, MCV 88.1, MCH 27.6, MCHC 31.3 L, RDW Std Deviation 45.1 H, RDW Coeff of Marine 13.9, Plt Count 132 L, MPV 11.3, Immature Gran % (Auto) 2.000 H, Neut % (Auto) 88.0 H, Lymph % (Auto) 3.6 L, [place] % (Auto) 6.2, Eos % (Auto) 0.1, Baso % (Auto) 0.1, Absolute Neuts (auto) 11.9 H, Absolute Lymphs (auto) 0.49 L, Nucleated RBC % 0 09/08/20 06:40: PT 24.1 H, INR 2.2 Current Medications Acetaminophen (Acetaminophen 650 Mg/20 Ml Udc) 650 mg GT Q6H PRN PRN PRN Reason: Pain Score 1-10/Temp > 100.7 F Last Admin: 09/06/20 16:46 Dose: 650 mg Documented by: Albuterol Sulfate (Albuterol Sulfate Hfa 6.7 Gm Inhaler (200 Puffs)) 2 puff IH Q4H PRN PRN Reason: SHORTNESS OF BREATH Last Admin: 09/04/20 20:12 Dose: 2 puff Documented by: Apixaban (Apixaban 5 Mg Tablet) 5 mg GT BID COUNTS INCLUDE 234 BEDS AT THE [facility] Last Admin: 09/08/20 08:01 Dose: 5 mg Documented by: Chlorhexidine Gluconate (Chlorhexidine 15 Ml) 15 ml PO BID COUNTS INCLUDE 234 BEDS AT THE [facility] Last Admin: 09/08/20 08:02 Dose: 15 ml Documented by: Cholecalciferol (Cholecalciferol (Vit D3) 1,000 Unit (25mcg)) 5,000 unit GT DAILY COUNTS INCLUDE 234 BEDS AT THE [facility] Last Admin: 09/08/20 07:59 Dose: 5,000 unit Documented by: Dexamethasone (Dexamethasone 4 Mg Tablet) 6 mg GT DAILY COUNTS INCLUDE 234 BEDS AT THE [facility] Stop: 09/09/20 12:31 Last Admin: 09/08/20 07:59 Dose: 6 mg Documented by: Furosemide (Furosemide 40 Mg/4 Ml Vial) 40 mg IV BID@1000,1800 COUNTS INCLUDE 234 BEDS AT THE [facility] Last Admin: 09/08/20 11:52 Dose: 40 mg Documented by: Enteral Nutritional Formula (Vital High Protein) 1,000 mls @ 50 mls/hr GT .Q20H COUNTS INCLUDE 234 BEDS AT THE [facility] Last Admin: 09/08/20 07:58 Dose: 50 mls/hr Documented by: Fentanyl Citrate 1,000 mcg/ (Sodium Chloride) 100 mls @ 5 mls/hr CONT INF .Q20H COUNTS INCLUDE 234 BEDS AT THE [facility]; Protocol Last Titration: 09/08/20 12:00 Dose: 75 mcg/hr, 7.5 mls/hr Documented by: Pantoprazole Sodium 40 mg/ (Sodium Chloride) 110 mls @ 330 mls/hr IV Q24 COUNTS INCLUDE 234 BEDS AT THE [facility] Last Infusion: 09/08/20 09:05 Dose: Infused Documented by: Cefazolin Sodium () 1 gm in 50 mls @ 100 mls/hr IV Q12 COUNTS INCLUDE 234 BEDS AT THE [facility] Insulin Glargine (Insulin Glargine 100 Units/Ml Pen) 10 units SC DAILY COUNTS INCLUDE 234 BEDS AT THE [facility] Last Admin: 09/08/20 11:52 Dose: 10 u Documented by: Insulin Human Lispro (Insulin Lispro 100 Unit/Ml Insuln.Pen) 0 unit SC Q6 COUNTS INCLUDE 234 BEDS AT THE [facility]; Protocol Last Admin: 09/08/20 11:52 Dose: 3 u Documented by: Metoprolol Tartrate (Metoprolol Tartrate 25 Mg Tablet) 25 mg GT BID COUNTS INCLUDE 234 BEDS AT THE [facility] Ondansetron HCl (Ondansetron 4 Mg/2 Ml Vial) 4 mg IV Q8H PRN PRN PRN Reason: NAUSEA/VOMITING Paroxetine HCl (Paroxetine 20 Mg Tablet) 20 mg GT QHS COUNTS INCLUDE 234 BEDS AT THE [facility] Last Admin: 09/07/20 20:40 Dose: 20 mg Documented by: Polyethylene Glycol (Polyethylene Glycol 3350 17 Gm Packet) 17 gm GT DAILY COUNTS INCLUDE 234 BEDS AT THE [facility] Senna/Docusate Sodium (Senna/Docusate Sodium 1 Tablet) 2 tablet GT BID COUNTS INCLUDE 234 BEDS AT THE [facility] Last Admin: 09/08/20 08:01 Dose: 2 tablet Documented by: Sodium Bicarbonate (Sodium Bicarbonate 650 Mg Tablet) 650 mg PO 4X/DAY COUNTS INCLUDE 234 BEDS AT THE [facility] Last Admin: 09/08/20 08:01 Dose: 650 mg Documented by: Sodium Chloride (0.9% Saline Lock 10 Ml Syringe) 10 - 40 ml IV UD PRN PRN Reason: SALINE FLUSH Last Admin: 09/07/20 09:02 Dose: 30 ml Documented by: Sodium Chloride (Sodium Chloride 0.65% 1 [place].Btl) 1 - 2 spray NASAL TID PRN PRN PRN Reason: NASAL DRYNESS Last Admin: 09/02/20 16:14 Dose: 2 spray Documented by: Throat Lozenges (Benzocaine/Menthol 1 Lozenge) 1 lozenge MUCOUS MEM Q2H PRN PRN PRN Reason: SORE THROAT STROKE Vital Signs/Narrative: Vital Signs Pulse Resp BP Pulse Ox 09/08/20 09:00 121 H 16 120/52 L 91 Medical Necessity - Tobacco Use Smoking Status: Former smoker Assessment/Plan All Active Problems (Last Reviewed 08/31/20 @ 17:[address] Alexis Aquino, DO) Abnormal findings on diagnostic imaging of heart and coronary circulation (Resolved) Abnormal stress test (Resolved) Lung mass (Acute) CAMILA (acute kidney injury) (Acute) Postural dizziness with near syncope (Acute) Dehydration (Acute) Diarrhea due to COVID-19 (Acute) Pneumonia due to COVID-19 virus (Acute) COVID-19 (Acute) CAMILA (acute kidney injury) (Acute) History of lumpectomy of left breast (Acute ~06/2020) Abnormal mammogram of left breast (Acute) History of dilation and curettage (Resolved) History of hysterectomy (Resolved) History of cholecystectomy (Resolved) History of carpal tunnel release (Resolved) Acute hypoxic respiratory failure secondary to Covid pneumonia/MSSA pneumonia -Patient has a baseline O2 requirement of 3 L -Intubated afternoon of 09/06/2020 currently on a PEEP of 15 and an FiO2 of 90% -Continue Decadron and has completed remdesivir -Lasix reinitiated today to attempt volume optimization -Continue apixaban 5 mg twice daily -Appreciate pulmonary input Septic shock secondary to MSSA pneumonia -Shock resolved-off pressors -Antibiotics narrowed to cefazolin -We will need at least 7-day course to complete therapy Mixed metabolic and respiratory acidosis -Patient is on p.o. bicarb at this point -Monitor serum bicarb and discontinue as able -Nephrology is following CAMILA/CKD stage II -Creatinine slightly better today -Suspect Covid nephropathy and ATN related to hypotension -Nephrology following -FeNa was 0.30% Transaminitis -Resolved Hypertension -Toprol 25 mg twice daily reinitiated Hyperlipidemia Patient is currently on no statin therapy at home History of breast cancer -No acute issues DM-2 -Continue to hold Metformin -Continue SSI -Increase Lantus to 20 units nightly blood sugars are still greater than 200 consistently -Patient may need scheduled regular insulin every 6 hours depending on blood sugars with increased basal insulin -Blood sugar goal 140-180 JAYE -BiPAP 18/14 cm of water as needed and at bedtime at baseline -On ventilator at this time History of pulmonary embolism -Continue Eliquis 5 mg twice daily Morbid obesity -Recommend weight loss -BMI is 49.1 -Increases risk of complications related to Covid infection Depression -Continue Paxil DVT prophylaxis -Therapeutic Eliquis CODE STATUS -Full code Inpatient E&M: 66641 Subs Hosp L2
[2020-09-08] MEDS: Cefazolin 1 GM/50 ML BAG IV ×2 (12:44→21:05)
[2020-09-08 13:05] LABS: Bedside Glucose 255 mg/dL (70-110)
[2020-09-08] MEDS: Polyethylene Glycol 3350 17 GM PACKET GT (13:27)
[2020-09-08] MEDS: Metoprolol Tartrate 25 MG Tablet GT ×3 (13:27→19:53)
[2020-09-08] MEDS: 0.9% Saline Lock 10 ML Syringe IV (13:35)
--- NOTE | 2020-09-08 13:42 | PCM.PN.REN ---
Patient Problems: Active and Suspected Problems (Last Reviewed 08/31/20 @ 17:[address] Alexis Aquino, DO) Lung mass (Acute) Found 2018 CAMILA (acute kidney injury) (Acute) Postural dizziness with near syncope (Acute) Dehydration (Acute) Diarrhea due to COVID-19 (Acute) Pneumonia due to COVID-19 virus (Acute) COVID-19 (Acute) CAMILA (acute kidney injury) (Acute) History of lumpectomy of left breast (Acute ~06/2020) 06/27/2020 Abnormal mammogram of left breast (Acute) Subjective: Intubated cannot do ros Objective: Physical examination deferred to prevent further transmission of COVID-19 and preserve PPE - Physical Exam Vitals/I&O's: Vital Signs Temp Pulse Resp BP Pulse Ox 99.8 F H 122 H 18 131/53 H 90 09/08/20 12:00 09/08/20 13:27 09/08/20 12:00 09/08/20 13:27 09/08/20 12:00 Oxygen Flow Rate (L/min) 60 Oxygen Delivery Method Mechanical Ventilator Weight: 126.2 kg Body Mass Index (BMI) 47.1 Intake and Output for Last 24 Hours 09/06/20 09/07/20 09/08/20 23:59 23:59 23:59 Intake Total 561.38 / 573.51 3382.07 / 3704.57 1738.13 / 1738.13 Output Total 1600 / 1700 880 / 1080 900 / 900 Balance -1038.62 / -1126.49 2502.07 / 2624.57 838.13 / 838.13 Microbiology Past 72 Hours 09/06/20 10:50 Sputum, Induced/Lukens Gram Stain - Final 09/06/20 10:50 Sputum, Induced/Lukens Respiratory Culture - Final Staphylococcus aureus Laboratory Results 09/07/20 12:28: POC Glucose 225 H 09/07/20 15:00: Eos Smear Total Cells Pending 09/07/20 15:00: Urine Color Yellow, Urine Clarity Sl. Cloudy, Urine pH 5.0, Ur Specific [place] 1.020, Urine Protein 30 H, Urine Glucose (UA) Normal, Urine Ketones Negative, Urine Occult Blood 250 H, Urine Nitrite Negative, Urine Bilirubin Negative, Urine Urobilinogen Normal, Ur Leukocyte Esterase 500 H, Urine RBC 25-50 SEEN, Urine WBC 25-50 SEEN, Ur Squamous Epith Cells 0-5 SEEN, Urine Bacteria 2+, Urine Mucus 0 SEEN 09/07/20 15:00: Ur Random Sodium 21, Urine Creatinine 126.00 09/07/20 17:53: POC Glucose 242 H 09/07/20 23:44: POC Glucose 241 H 09/08/20 04:35: POC Glucose 202 H 09/08/20 04:40: Sodium 136, Potassium 4.8, Chloride 106, Carbon Dioxide 21.0, Anion Gap 9, BUN 106 H*, Creatinine 2.17 H, Estim Creat Clear Calc 19.34, Est GFR (MDRD) Af Amer 28 L, Est GFR (MDRD) Non-Af 24 L, BUN/Creatinine Ratio 48.8 H, Glucose 207 H, Calcium 8.3 L, Magnesium 2.2, Total Bilirubin 0.50, AST 23, ALT 31, Alkaline Phosphatase 110, Total Protein 6.7, Albumin 2.0 L, Globulin 4.7 H, Albumin/Globulin Ratio 0.4 L 09/08/20 04:40: Phosphorus 4.5 09/08/20 04:40: WBC 13.5 H, RBC 3.77 L, Hgb 10.4 L, Hct 33.2 L, MCV 88.1, MCH 27.6, MCHC 31.3 L, RDW Std Deviation 45.1 H, RDW Coeff of Marine 13.9, Plt Count 132 L, MPV 11.3, Immature Gran % (Auto) 2.000 H, Neut % (Auto) 88.0 H, Lymph % (Auto) 3.6 L, [place] % (Auto) 6.2, Eos % (Auto) 0.1, Baso % (Auto) 0.1, Absolute Neuts (auto) 11.9 H, Absolute Lymphs (auto) 0.49 L, Nucleated RBC % 0 09/08/20 06:40: PT 24.1 H, INR 2.2 09/08/20 11:17: POC Glucose 255 H Current Medications Acetaminophen (Acetaminophen 650 Mg/20 Ml Udc) 650 mg GT Q6H PRN PRN PRN Reason: Pain Score 1-10/Temp > 100.7 F Last Admin: 09/06/20 16:46 Dose: 650 mg Documented by: Albuterol Sulfate (Albuterol Sulfate Hfa 6.7 Gm Inhaler (200 Puffs)) 2 puff IH Q4H PRN PRN Reason: SHORTNESS OF BREATH Last Admin: 09/04/20 20:12 Dose: 2 puff Documented by: Apixaban (Apixaban 5 Mg Tablet) 5 mg GT BID [facility] Last Admin: 09/08/20 08:01 Dose: 5 mg Documented by: Chlorhexidine Gluconate (Chlorhexidine 15 Ml) 15 ml PO BID [place] Last Admin: 09/08/20 08:02 Dose: 15 ml Documented by: Cholecalciferol (Cholecalciferol (Vit D3) 1,000 Unit (25mcg)) 5,000 unit GT DAILY [facility] Last Admin: 09/08/20 07:59 Dose: 5,000 unit Documented by: Dexamethasone (Dexamethasone 4 Mg Tablet) 6 mg GT DAILY [facility] Stop: 09/09/20 12:31 Last Admin: 09/08/20 07:59 Dose: 6 mg Documented by: Furosemide (Furosemide 40 Mg/4 Ml Vial) 40 mg IV BID@1000,1800 [facility] Last Admin: 09/08/20 11:52 Dose: 40 mg Documented by: Enteral Nutritional Formula (Vital High Protein) 1,000 mls @ 50 mls/hr GT .Q20H [facility] Last Admin: 09/08/20 07:58 Dose: 50 mls/hr Documented by: Fentanyl Citrate 1,000 mcg/ (Sodium Chloride) 100 mls @ 5 mls/hr CONT INF .Q20H [facility]; Protocol Last Titration: 09/08/20 12:00 Dose: 75 mcg/hr, 7.5 mls/hr Documented by: Pantoprazole Sodium 40 mg/ (Sodium Chloride) 110 mls @ 330 mls/hr IV Q24 [facility] Last Infusion: 09/08/20 09:05 Dose: Infused Documented by: Cefazolin Sodium () 1 gm in 50 mls @ 100 mls/hr IV Q12 [facility] Last Infusion: 09/08/20 13:28 Dose: Infused Documented by: Insulin Glargine (Insulin Glargine 100 Units/Ml Pen) 20 units SC DAILY [facility] Insulin Human Lispro (Insulin Lispro 100 Unit/Ml Insuln.Pen) 0 unit SC Q6 [facility]; Protocol Last Admin: 09/08/20 11:52 Dose: 3 u Documented by: Metoprolol Tartrate (Metoprolol Tartrate 25 Mg Tablet) 25 mg GT BID [facility] Last Admin: 09/08/20 13:27 Dose: 25 mg Documented by: Ondansetron HCl (Ondansetron 4 Mg/2 Ml Vial) 4 mg IV Q8H PRN PRN PRN Reason: NAUSEA/VOMITING Paroxetine HCl (Paroxetine 20 Mg Tablet) 20 mg GT QHS [facility] Last Admin: 09/07/20 20:40 Dose: 20 mg Documented by: Polyethylene Glycol (Polyethylene Glycol 3350 17 Gm Packet) 17 gm GT DAILY [facility] Last Admin: 09/08/20 13:27 Dose: 17 gm Documented by: Senna/Docusate Sodium (Senna/Docusate Sodium 1 Tablet) 2 tablet GT BID [facility] Last Admin: 09/08/20 08:01 Dose: 2 tablet Documented by: Sodium Bicarbonate (Sodium Bicarbonate 650 Mg Tablet) 650 mg PO 4X/DAY [facility] Last Admin: 09/08/20 13:27 Dose: 650 mg Documented by: Sodium Chloride (0.9% Saline Lock 10 Ml Syringe) 10 - 40 ml IV UD PRN PRN Reason: SALINE FLUSH Last Admin: 09/08/20 13:35 Dose: 40 ml Documented by: Sodium Chloride (Sodium Chloride 0.65% 1 [place].Btl) 1 - 2 spray NASAL TID PRN PRN PRN Reason: NASAL DRYNESS Last Admin: 09/02/20 16:14 Dose: 2 spray Documented by: Throat Lozenges (Benzocaine/Menthol 1 Lozenge) 1 lozenge MUCOUS MEM Q2H PRN PRN PRN Reason: SORE THROAT Medical Necessity - Tobacco Use Smoking Status: Former smoker Assessment/Plan All Active Problems (Last Reviewed 08/31/20 @ 17:[address] Alexis Aquino, DO) Abnormal findings on diagnostic imaging of heart and coronary circulation (Resolved) Abnormal stress test (Resolved) Lung mass (Acute) CAMILA (acute kidney injury) (Acute) Postural dizziness with near syncope (Acute) Dehydration (Acute) Diarrhea due to COVID-19 (Acute) Pneumonia due to COVID-19 virus (Acute) COVID-19 (Acute) CAMILA (acute kidney injury) (Acute) History of lumpectomy of left breast (Acute ~06/2020) Abnormal mammogram of left breast (Acute) History of dilation and curettage (Resolved) History of hysterectomy (Resolved) History of cholecystectomy (Resolved) History of carpal tunnel release (Resolved) CAMILA?likely ATN with shock Hyperphosphatemia Acute on chronic hypoxemic respiratory failure secondary to COVID-19 JAYE Diabetes mellitus Pulmonary hypertension Serum creatinine is 2.17 Now on FiO2 90% PEEP of 15 okay to use Lasix as needed. No emergent need for dialysis today. 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 Check renal ultrasound later on when feasible. check a UA FENA Avoid nephrotoxins. The patient is off Levophed Keep MAP more than 65 d/w dr. Arreola and INFORMATION SECURITY ENGINEER
--- NOTE | 2020-09-08 13:47 | EKG12_ITS ---
Test Reason : ARRYTHMIA Blood Pressure : / mmHG Vent. Rate : 173 BPM Atrial Rate : 192 BPM P-R Int : 000 ms QRS Dur : 094 ms QT Int : 270 ms P-R-T Axes : 000 046 140 degrees QTc Int : 458 ms Atrial fibrillation with premature ventricular or aberrantly conducted complexes Nonspecific ST abnormality Confirmed by USAMA WELSH, SERENA ([id number]), publications editor DANIELA BRAGA ([id number]) on 09/20/2020 2:58:22 PM Referred By: GODFREY Confirmed By:SERENA FORRESTER MD
[2020-09-08] MEDS: Adenosine 6 MG/2 ML Syringe IV (14:00)
[2020-09-08] MEDS: Adenosine 6 MG/2 ML Syringe 12 MG IV (14:07)
[2020-09-08 14:15] LABS: Vancomycin, Random Level 18.1 ug/mL (0.0-15.0)
[2020-09-08] MEDS: Amiodarone 360 MG in Dextrose 5% Viaflo Bag 192.8 ML 33.3 MG CONT INF (14:37)
[2020-09-08] MEDS: Acetaminophen 650 MG/20 ML UDC GT ×2 (16:34→22:38)
[2020-09-08 17:50] LABS: Bedside Glucose 326 mg/dL (70-110)
[2020-09-08 18:06] LABS: Allen Test Positive; Base Excess -5 mmol/L (-2 to +2); Bicarbonate 22.2 mmol/L (22-26); Blood Gas Specimen Type ART; FI02 100; Mode AC; O2 Delivery Device Adult Vent; PEEP 18; PO2 55 mmHG (75-100); RR 16; SITE R Radial; SO2 82 % (95-99); Total Carbon Dioxide 24 mmol/L; Vt 500; pCO2 51.5 mmHg (35-45); pH 7.24 (7.35-7.45)
--- NOTE | 2020-09-08 19:19 | CPS ---
Pt switched to APRV per Dr. Arreola
[2020-09-08] MEDS: Amiodarone 360 MG in Dextrose 5% Viaflo Bag 192.8 ML 16.7 MG CONT INF (19:52)
[2020-09-08] MEDS: Paroxetine 20 MG Tablet GT (19:53)
--- NOTE | 2020-09-08 23:24 | NURSING ---
Tylenol was given around 22:30 for fever, patient still having fever, ice bags were placed on her groin, axilla and behind her neck at this time.
[2020-09-08 23:35] LABS: Bedside Glucose 237 mg/dL (70-110)
[2020-09-09] VITALS (33 sets, daily range): BP systolic 46–148; BP diastolic 26–85; PULSE 43–125; RESP 11–33; TEMP 36.8–39.3; O2SAT 74–96
--- NOTE | 2020-09-09 01:10 | NURSING ---
Patient placed on the cooling blanket at this time, ice packs and Tylenol were not effective.
[2020-09-09 02:06] LABS: Base Excess -7 mmol/L (-2 to +2); Bicarbonate 21.2 mmol/L (22-26); Blood Gas Specimen Type ART; FI02 100; Mode BiLevel; O2 Delivery Device Adult Vent; PO2 61 mmHG (75-100); RR 12; SITE R Radial; SO2 85 % (95-99); Total Carbon Dioxide 23 mmol/L; pCO2 52.6 mmHg (35-45); pH 7.21 (7.35-7.45)
[2020-09-09 04:00] LABS: Absolute Lymphocyte Count 0.89 X10^3/uL (0.83-4.51); Absolute Neutrophil Count 13.9 X10^3/uL (2.0-7.7); Basophil% 0.6 % (0-1); Eosinophil# 0.01 X10^3/uL; Eosinophils% 0.1 % (0-5); Hematocrit 35.8 % (37-47); Lymphocyte # 0.89 X10^3/ul (4.0); Lymphocyte % 5.4 % (19-41); Mean Corp Hgb Conc 30.7 g/dL (32-36); Mean Corpuscular Hgb 27.7 pg (27.0-32.0); Mean Corpuscular Volume 90.2 fL (81-99); Mean Platelet Vol. 11.5 fl (6.2-12.0); Monocyte# 0.97 X10^3/uL; Monocyte% 5.8 % (0-10); NRBC Flagged by Analyzer 0.2 % (0-5); Neutrophil # 13.86 X10^3/uL (2.7-7.7); Neutrophil % 83.3 % (47-70); Platelet Count 181 K/mm3 (150-450); RBC Distribution Width SD 46.7 fl (35.1-43.9); Red Blood Count 3.97 M/mm3 (4.2-5.4); White Blood Count 16.6 K/mm3 (4.4-11.0)
[2020-09-09] MEDS: Vital High Protein 1,000 ML 50 ML GT (04:00)
[2020-09-09 04:36] LABS: ALB/GLOB Ratio 0.4 RATIO (0.9-2.4); AST(SGOT) 124 U/L (15-37); Alanine Aminotransfer ALT/SGPT 78 U/L (13-56); Albumin, Serum 2.2 g/dL (3.2-5.0); Alkaline Phosphatase 126 U/L (45-117); Anion Gap 9 (5-15); BUN 132 mg/dL (7-18); BUN/Creat Ratio 39.4 RATIO (10-20); Calcium,Total 8.4 mg/dL (8.5-10.1); Chloride 103 mmol/L (98-107); Creatinine, Serum 3.35 mg/dL (0.55-1.02); EST Glomerular Filtration Rate 14 mL/min (>60); Est Glom Filt Rate - Afr Amer 17 mL/min (>60); Estimated Creatinine Clearance 12.53 ml/min; Globulin 5.2 g/dL (2.2-4.2); Glucose 185 mg/dL (74-106); Magnesium 2.4 mg/dL (1.6-2.6); Phosphorus 5.7 mg/dL (2.5-4.9); Potassium 5.4 mmol/L (3.5-5.1); Protein, Total 7.4 g/dL (6.4-8.2); Sodium Level 135 mmol/L (136-145)
[2020-09-09] MEDS: Insulin Lispro 100 UNIT/ML INSULN.PEN SC ×2 (05:19→11:58)
[2020-09-09 05:26] LABS: Bedside Glucose 224 mg/dL (70-110)
--- NOTE | 2020-09-09 05:44 | PN_ITS ---
Subjective: The patient was seen and examined at the bedside this morning. Events from the last 24 hours have been reviewed. The patient is currently afebrile and hemodynamically stable. The patient did go into atrial fibrillation with RVR yesterday, for which she received an amiodarone bolus and was placed on a drip. She is also receiving scheduled beta-pranay therapy as well. The patient did have to be transitioned from assist control to APRV mode of mechanical ventilation last evening due to refractory hypoxemia. The patient is currently scheduled to be overall net +5.4 L for the hospital admission. Her creatinine increased over the last 24 hours, in light of being placed back on IV diuretic therapy. BUN is increased to 132 this morning with a creatinine of 3.35. Potassium is elevated to 5.4. Urine output is decreasing. I did meet personally with the patient's and family this morning and discussed overall prognosis and goals of care. Following a discussion with the entire family, the plan is to proceed with HD line placement and dialysis for volume optimization. They are agreeable to transitioning the patient from full code to DNR CCA at this time. Objective: The patient's most recent lab work, culture data and imaging studies have all been personally reviewed. Surface echocardiogram dated February 2020 revealed stage I diastolic dysfunction with an ejection fraction of 65%. Right ventricular systolic pressure was estimated to be 54 mmHg. Sputum culture was positive for MSSA. General: - - Remains intubated, sedated and mechanically ventilated. The patient appears less responsive today than previous. HEENT: Atraumatic, PERRLA, Normocephalic Oral: No Gingival or Mucosal Lesions/ Ulcerations, - - Stable endotracheal and OG tubes Neck: Supple, No Nodes, Trachea Midline Lungs: No rhonchi, No wheeze, No rales, Diminished Cardiovascular: Normal S1, Normal S2, Irregular Rate, Tachycardic Abdomen: Bowel Sounds Present, Soft, Non Tender, Obese Extremities: No clubbing, No cyanosis, No edema Skin: - - No significant change from previous Musculoskeletal: No Muscle Wasting Lymphatic: No Cervical, Supraclavicular, or Inguinal Adenopathy Neurological: - - No focal neurological deficits. Vital Signs Temp Pulse Resp BP Pulse Ox 98.8 F 118 H 13 116/72 90 09/09/20 05:00 09/09/20 05:00 09/09/20 05:00 09/09/20 05:00 09/09/20 05:00 Oxygen Flow Rate (L/min) 60 Oxygen Delivery Method Mechanical Ventilator Weight: 281 lb 4.957 oz Body Mass Index (BMI) 47.1 Intake and Output for Last 24 Hours 09/07/20 09/08/20 09/09/20 23:59 23:59 23:59 Intake Total 3382.07 / 3704.57 3077.78 / 3082.78 418.12 / 418.12 Output Total 880 / 1080 1370 / 1370 40 / 40 Balance 2502.07 / 2624.57 1707.78 / 1712.78 378.12 / 378.12 Labs (Last 48 Hours) 09/06/20 09/07/20 09/07/20 22:50 06:46 09:00 WBC RBC Hgb Hct MCV MCH MCHC RDW Std Deviation RDW Coeff of Marine Plt Count MPV Immature Gran % (Auto) Neut % (Auto) Lymph % (Auto) [place] % (Auto) Eos % (Auto) Baso % (Auto) Absolute Neuts (auto) Absolute Lymphs (auto) Nucleated RBC % Eos Smear Total Cells PT INR Specimen Type Sample Site pH Bicarbonate Actual Total CO2 Base Excess O2 Saturation O2 % ABG pCO2 ABG pO2 Miguel A Test Respiration Rate O2 Delivery Device Vent Mode Tidal Volume POC PEEP Sodium Potassium Chloride Carbon Dioxide Anion Gap BUN Creatinine Estim Creat Clear Calc Est GFR (MDRD) Af Amer Est GFR (MDRD) Non-Af BUN/Creatinine Ratio Glucose Calcium Phosphorus Magnesium Total Bilirubin AST ALT Alkaline Phosphatase Total Protein Albumin Globulin Albumin/Globulin Ratio Procalcitonin 0.75 H Urine Color Urine Clarity Urine pH Ur Specific [place] Urine Protein Urine Glucose (UA) Urine Ketones Urine Occult Blood Urine Nitrite Urine Bilirubin Urine Urobilinogen Ur Leukocyte Esterase Urine RBC Urine WBC Ur Squamous Epith Cells Urine Bacteria Urine Mucus Ur Random Sodium Urine Creatinine Random Vancomycin POC Glucose 238 H 254 H 09/07/20 09/07/20 09/07/20 11:48 12:28 15:00 WBC RBC Hgb Hct MCV MCH MCHC RDW Std Deviation RDW Coeff of Marine Plt Count MPV Immature Gran % (Auto) Neut % (Auto) Lymph % (Auto) [place] % (Auto) Eos % (Auto) Baso % (Auto) Absolute Neuts (auto) Absolute Lymphs (auto) Nucleated RBC % Eos Smear Total Cells Pending PT INR Specimen Type ART Sample Site L Brach pH 7.22 L Bicarbonate Actual 20.5 L Total CO2 22 Base Excess -7 L O2 Saturation 91 L O2 % 65 ABG pCO2 49.7 H ABG pO2 75 Miguel A Test Respiration Rate 16 O2 Delivery Device Adult Vent Vent Mode AC/VC Tidal Volume 500 POC PEEP 15 Sodium Potassium Chloride Carbon Dioxide Anion Gap BUN Creatinine Estim Creat Clear Calc Est GFR (MDRD) Af Amer Est GFR (MDRD) Non-Af BUN/Creatinine Ratio Glucose Calcium Phosphorus Magnesium Total Bilirubin AST ALT Alkaline Phosphatase Total Protein Albumin Globulin Albumin/Globulin Ratio Procalcitonin Urine Color Urine Clarity Urine pH Ur Specific [place] Urine Protein Urine Glucose (UA) Urine Ketones Urine Occult Blood Urine Nitrite Urine Bilirubin Urine Urobilinogen Ur Leukocyte Esterase Urine RBC Urine WBC Ur Squamous Epith Cells Urine Bacteria Urine Mucus Ur Random Sodium Urine Creatinine Random Vancomycin POC Glucose 225 H 09/07/20 09/07/20 09/07/20 15:00 15:00 17:53 WBC RBC Hgb Hct MCV MCH MCHC RDW Std Deviation RDW Coeff of Marine Plt Count MPV Immature Gran % (Auto) Neut % (Auto) Lymph % (Auto) [place] % (Auto) Eos % (Auto) Baso % (Auto) Absolute Neuts (auto) Absolute Lymphs (auto) Nucleated RBC % Eos Smear Total Cells PT INR Specimen Type Sample Site pH Bicarbonate Actual Total CO2 Base Excess O2 Saturation O2 % ABG pCO2 ABG pO2 Miguel A Test Respiration Rate O2 Delivery Device Vent Mode Tidal Volume POC PEEP Sodium Potassium Chloride Carbon Dioxide Anion Gap BUN Creatinine Estim Creat Clear Calc Est GFR (MDRD) Af Amer Est GFR (MDRD) Non-Af BUN/Creatinine Ratio Glucose Calcium Phosphorus Magnesium Total Bilirubin AST ALT Alkaline Phosphatase Total Protein Albumin Globulin Albumin/Globulin Ratio Procalcitonin Urine Color Yellow Urine Clarity Sl. Cloudy Urine pH 5.0 Ur Specific [place] 1.020 Urine Protein 30 H Urine Glucose (UA) Normal Urine Ketones Negative Urine Occult Blood 250 H Urine Nitrite Negative Urine Bilirubin Negative Urine Urobilinogen Normal Ur Leukocyte Esterase 500 H Urine RBC 25-50 SEEN Urine WBC 25-50 SEEN Ur Squamous Epith Cells 0-5 SEEN Urine Bacteria 2+ Urine Mucus 0 SEEN Ur Random Sodium 21 Urine Creatinine 126.00 Random Vancomycin POC Glucose 242 H 09/07/20 09/08/20 09/08/20 23:44 04:35 04:40 WBC RBC Hgb Hct MCV MCH MCHC RDW Std Deviation RDW Coeff of Marine Plt Count MPV Immature Gran % (Auto) Neut % (Auto) Lymph % (Auto) [place] % (Auto) Eos % (Auto) Baso % (Auto) Absolute Neuts (auto) Absolute Lymphs (auto) Nucleated RBC % Eos Smear Total Cells PT INR Specimen Type Sample Site pH Bicarbonate Actual Total CO2 Base Excess O2 Saturation O2 % ABG pCO2 ABG pO2 Miguel A Test Respiration Rate O2 Delivery Device Vent Mode Tidal Volume POC PEEP Sodium 136 Potassium 4.8 Chloride 106 Carbon Dioxide 21.0 Anion Gap 9 BUN 106 H* Creatinine 2.17 H Estim Creat Clear Calc 19.34 Est GFR (MDRD) Af Amer 28 L Est GFR (MDRD) Non-Af 24 L BUN/Creatinine Ratio 48.8 H Glucose 207 H Calcium 8.3 L Phosphorus Magnesium 2.2 Total Bilirubin 0.50 AST 23 ALT 31 Alkaline Phosphatase 110 Total Protein 6.7 Albumin 2.0 L Globulin 4.7 H Albumin/Globulin Ratio 0.4 L Procalcitonin Urine Color Urine Clarity Urine pH Ur Specific [place] Urine Protein Urine Glucose (UA) Urine Ketones Urine Occult Blood Urine Nitrite Urine Bilirubin Urine Urobilinogen Ur Leukocyte Esterase Urine RBC Urine WBC Ur Squamous Epith Cells Urine Bacteria Urine Mucus Ur Random Sodium Urine Creatinine Random Vancomycin POC Glucose 241 H 202 H 09/08/20 09/08/20 09/08/20 04:40 04:40 06:40 WBC 13.5 H RBC 3.77 L Hgb 10.4 L Hct 33.2 L MCV 88.1 MCH 27.6 MCHC 31.3 L RDW Std Deviation 45.1 H RDW Coeff of Marine 13.9 Plt Count 132 L MPV 11.3 Immature Gran % (Auto) 2.000 H Neut % (Auto) 88.0 H Lymph % (Auto) 3.6 L [place] % (Auto) 6.2 Eos % (Auto) 0.1 Baso % (Auto) 0.1 Absolute Neuts (auto) 11.9 H Absolute Lymphs (auto) 0.49 L Nucleated RBC % 0 Eos Smear Total Cells PT 24.1 H INR 2.2 Specimen Type Sample Site pH Bicarbonate Actual Total CO2 Base Excess O2 Saturation O2 % ABG pCO2 ABG pO2 Miguel A Test Respiration Rate O2 Delivery Device Vent Mode Tidal Volume POC PEEP Sodium Potassium Chloride Carbon Dioxide Anion Gap BUN Creatinine Estim Creat Clear Calc Est GFR (MDRD) Af Amer Est GFR (MDRD) Non-Af BUN/Creatinine Ratio Glucose Calcium Phosphorus 4.5 Magnesium Total Bilirubin AST ALT Alkaline Phosphatase Total Protein Albumin Globulin Albumin/Globulin Ratio Procalcitonin Urine Color Urine Clarity Urine pH Ur Specific [place] Urine Protein Urine Glucose (UA) Urine Ketones Urine Occult Blood Urine Nitrite Urine Bilirubin Urine Urobilinogen Ur Leukocyte Esterase Urine RBC Urine WBC Ur Squamous Epith Cells Urine Bacteria Urine Mucus Ur Random Sodium Urine Creatinine Random Vancomycin POC Glucose 09/08/20 09/08/20 09/08/20 11:17 13:40 17:15 WBC RBC Hgb Hct MCV MCH MCHC RDW Std Deviation RDW Coeff of Marine Plt Count MPV Immature Gran % (Auto) Neut % (Auto) Lymph % (Auto) [place] % (Auto) Eos % (Auto) Baso % (Auto) Absolute Neuts (auto) Absolute Lymphs (auto) Nucleated RBC % Eos Smear Total Cells PT INR Specimen Type Sample Site pH Bicarbonate Actual Total CO2 Base Excess O2 Saturation O2 % ABG pCO2 ABG pO2 Miguel A Test Respiration Rate O2 Delivery Device Vent Mode Tidal Volume POC PEEP Sodium Potassium Chloride Carbon Dioxide Anion Gap BUN Creatinine Estim Creat Clear Calc Est GFR (MDRD) Af Amer Est GFR (MDRD) Non-Af BUN/Creatinine Ratio Glucose Calcium Phosphorus Magnesium Total Bilirubin AST ALT Alkaline Phosphatase Total Protein Albumin Globulin Albumin/Globulin Ratio Procalcitonin Urine Color Urine Clarity Urine pH Ur Specific [place] Urine Protein Urine Glucose (UA) Urine Ketones Urine Occult Blood Urine Nitrite Urine Bilirubin Urine Urobilinogen Ur Leukocyte Esterase Urine RBC Urine WBC Ur Squamous Epith Cells Urine Bacteria Urine Mucus Ur Random Sodium Urine Creatinine Random Vancomycin 18.1 H POC Glucose 255 H 326 H 09/08/20 09/08/20 09/09/20 18:00 23:22 01:55 WBC RBC Hgb Hct MCV MCH MCHC RDW Std Deviation RDW Coeff of Marine Plt Count MPV Immature Gran % (Auto) Neut % (Auto) Lymph % (Auto) [place] % (Auto) Eos % (Auto) Baso % (Auto) Absolute Neuts (auto) Absolute Lymphs (auto) Nucleated RBC % Eos Smear Total Cells PT INR Specimen Type ART ART Sample Site R Radial R Radial pH 7.24 L 7.21 L Bicarbonate Actual 22.2 21.2 L Total CO2 24 23 Base Excess -5 L -7 L O2 Saturation 82 L 85 L O2 % 100 100 ABG pCO2 51.5 H 52.6 H ABG pO2 55 L 61 L Miguel A Test Positive Respiration Rate 16 12 O2 Delivery Device Adult Vent Adult Vent Vent Mode AC BiLevel Tidal Volume 500 POC PEEP 18 Sodium Potassium Chloride Carbon Dioxide Anion Gap BUN Creatinine Estim Creat Clear Calc Est GFR (MDRD) Af Amer Est GFR (MDRD) Non-Af BUN/Creatinine Ratio Glucose Calcium Phosphorus Magnesium Total Bilirubin AST ALT Alkaline Phosphatase Total Protein Albumin Globulin Albumin/Globulin Ratio Procalcitonin Urine Color Urine Clarity Urine pH Ur Specific [place] Urine Protein Urine Glucose (UA) Urine Ketones Urine Occult Blood Urine Nitrite Urine Bilirubin Urine Urobilinogen Ur Leukocyte Esterase Urine RBC Urine WBC Ur Squamous Epith Cells Urine Bacteria Urine Mucus Ur Random Sodium Urine Creatinine Random Vancomycin POC Glucose 237 H 09/09/20 09/09/20 09/09/20 03:45 03:45 05:16 WBC 16.6 H RBC 3.97 L Hgb 11.0 L Hct 35.8 L MCV 90.2 MCH 27.7 MCHC 30.7 L RDW Std Deviation 46.7 H RDW Coeff of Marine 14.0 Plt Count 181 MPV 11.5 Immature Gran % (Auto) 4.800 H Neut % (Auto) 83.3 H Lymph % (Auto) 5.4 L [place] % (Auto) 5.8 Eos % (Auto) 0.1 Baso % (Auto) 0.6 Absolute Neuts (auto) 13.9 H Absolute Lymphs (auto) 0.89 Nucleated RBC % 0.2 Eos Smear Total Cells PT INR Specimen Type Sample Site pH Bicarbonate Actual Total CO2 Base Excess O2 Saturation O2 % ABG pCO2 ABG pO2 Miguel A Test Respiration Rate O2 Delivery Device Vent Mode Tidal Volume POC PEEP Sodium 135 L Potassium 5.4 H Chloride 103 Carbon Dioxide 23.0 Anion Gap 9 BUN 132 H* Creatinine 3.35 H Estim Creat Clear Calc 12.53 Est GFR (MDRD) Af Amer 17 L Est GFR (MDRD) Non-Af 14 L BUN/Creatinine Ratio 39.4 H Glucose 185 H Calcium 8.4 L Phosphorus 5.7 H Magnesium 2.4 Total Bilirubin 0.50 AST 124 H ALT 78 H Alkaline Phosphatase 126 H Total Protein 7.4 Albumin 2.2 L Globulin 5.2 H Albumin/Globulin Ratio 0.4 L Procalcitonin Urine Color Urine Clarity Urine pH Ur Specific [place] Urine Protein Urine Glucose (UA) Urine Ketones Urine Occult Blood Urine Nitrite Urine Bilirubin Urine Urobilinogen Ur Leukocyte Esterase Urine RBC Urine WBC Ur Squamous Epith Cells Urine Bacteria Urine Mucus Ur Random Sodium Urine Creatinine Random Vancomycin POC Glucose 224 H Microbiology 09/06/20 10:50 Sputum, Induced/Lukens Gram Stain - Final 09/06/20 10:50 Sputum, Induced/Lukens Respiratory Culture - Final Staphylococcus aureus Clinical Impression(s) from Imaging Studies Chest X-Ray 08/31/20 15:30 IMPRESSION: Increased markings with areas of confluence in both lung bases suggestive of bibasilar infiltrates. Electronically Signed: Reginaldo Martinez, at 15:45 EST , Service support , Chest X-Ray 09/06/20 07:11 IMPRESSION: Mild residual increased markings at the lung bases although there has been improvement as compared to prior study. Electronically Signed: Reginaldo Martinez, at 12:34 EST , Service support , Chest X-Ray 09/06/20 10:35 IMPRESSION: The tip of the endotracheal tube is at 4.9 cm proximal to the rj. The tip of the orogastric tube is in the distal portion of the body of the stomach. Electronically Signed: Reginaldo Martinez, at 11:10 EST , Service support , Chest X-Ray 09/07/20 06:37 IMPRESSION: 1. Interval placement of right upper extremity PICC with tip the catheter overlying the junction of the right atrium and screw vena cava. 2. Endotracheal tube and nasogastric tube both which are unchanged. 3. No active disease. Electronically Signed: Walter Tse MD at 8:05 EST Tel , Service support , Medical Necessity - Tobacco Use Smoking Status: Former smoker Assessment/Plan All Active Problems (Last Reviewed 08/31/20 @ 17:[address] Alexis Aquino, DO) Abnormal findings on diagnostic imaging of heart and coronary circulation (Resolved) Abnormal stress test (Resolved) Lung mass (Acute) CAMILA (acute kidney injury) (Acute) Postural dizziness with near syncope (Acute) Dehydration (Acute) Diarrhea due to COVID-19 (Acute) Pneumonia due to COVID-19 virus (Acute) COVID-19 (Acute) CAMILA (acute kidney injury) (Acute) History of lumpectomy of left breast (Acute ~06/2020) Abnormal mammogram of left breast (Acute) History of dilation and curettage (Resolved) History of hysterectomy (Resolved) History of cholecystectomy (Resolved) History of carpal tunnel release (Resolved) RECOMMENDATIONS: 1. Continue antimicrobials. 2. Continue patient on APRV mode of mechanical ventilation and wean FiO2 to maintain oxygen saturations at or above 90%. 3. Place temporary HD line in preparation for dialysis. 4. Continue systemic anticoagulation with Eliquis. 5. Continue Decadron to complete treatment course. 6. Continue appropriate GI prophylaxis. 7. Continue tube feeds as tolerated. 8. Continue amiodarone and beta-pranay regimen. IMPRESSIONS: 1. Acute on chronic hypoxemic respiratory failure secondary to COVID-19 pneumonia The patient does have a baseline supplemental oxygen requirement of 3 L/min. At this time, the patient has been essentially BiPAP dependent for the last 3 to 4 days, without any appreciable improvement in her respiratory status. Therefore, the decision was made to proceed with intubation on the morning of September 06. The patient will remain systemically anticoagulated on Eliquis with plans to complete a 10-day treatment course of Decadron. Will discuss with nephrology over the possible need for dialysis and volume removal. 2. Obstructive sleep apnea/heart failure with preserved ejection fraction/pulmonary hypertension The patient can be restarted on nocturnal BiPAP therapy if she is able to be weaned successfully from invasive mechanical ventilatory support. 3. Acute kidney injury Likely prerenal in etiology and related to a component of overdiuresis coupled with hemodynamic instability leading to ischemic ATN. Nephrology is currently following. Continue to monitor urine output. Given worsening renal failure and decreasing urine output, anticipate need for hemodialysis. 4. Atrial fibrillation with RVR Continue amiodarone and beta-pranay regimen as ordered. 5. Diabetes mellitus/morbid obesity/advanced age/history of PE Complicates care, management, recovery and prognosis. Continue home medications as indicated. Continue tube feeds as tolerated. CODE status: Discussed CODE status at length including difference between FULL code, DNR-CCA and DNR-CC status. Following discussions about the differences in these status, patient's family requested DNR-CCA CODE STATUS. TIME: 37 minutes of critical care time, independent of procedures, was spent addressing the patient's acute on chronic hypoxemic respiratory failure, COVID- 19 pneumonia, obstructive sleep apnea, diastolic heart failure, pulmonary hypertension, acute kidney injury, review of all data and collaboration with the care team. [phone]) [phone] [id number] Critical care first hour
[2020-09-09] MEDS: Metoprolol Tartrate 50 MG Tablet GT (06:37)
[2020-09-09] MEDS: Chlorhexidine 15 ML PO (08:07)
[2020-09-09] MEDS: Amiodarone 360 MG in Dextrose 5% Viaflo Bag 192.8 ML 16.7 MG CONT INF (08:08)
[2020-09-09] MEDS: dexAMETHasone 4 MG Tablet 6 MG GT (10:30)
[2020-09-09] MEDS: Polyethylene Glycol 3350 17 GM PACKET GT (10:30)
[2020-09-09] MEDS: Senna/Docusate Sodium 1 Tablet 2 TABLET GT (10:30)
[2020-09-09] MEDS: Cefazolin 1 GM/50 ML BAG IV (10:50)
[2020-09-09] MEDS: APIXABAN 5 MG TABLET GT (11:58)
[2020-09-09] MEDS: Heparin 10,000 UNITS/10 ML Vial 10000 UNITS IV (12:20)
[2020-09-09 13:15] LABS: Bedside Glucose 297 mg/dL (70-110)
--- NOTE | 2020-09-09 14:00 | RAD_ITS ---
STUDY: X-RAY CHEST REASON FOR EXAM: Female, 75 years old. Dialysis line placement TECHNIQUE: Single AP portable view of the chest. COMPARISON: Comparison is made with prior study dated 09/07/2020. FINDINGS: The endotracheal tube is in situ. The tip is at 4.9 cm proximal to the rj. A right-sided dialysis line has been placed with the tip at the junction of the superior vena cava and right atrium. EKG electrodes are seen. A right-sided PICC line catheter is in situ and is unchanged. Stable mild increased markings at the lung bases. There is no demonstrated pleural abnormality. Normal size heart. Normal mediastinum and gama. Normal visualized pulmonary arteries. Normal visualized aortic arch and descending thoracic aorta. Normal visualized thoracic spine. Normal visualized ribs, clavicles, and shoulders. There is no demonstrated abnormality of the visualized soft tissue structures of the upper abdomen. RAD/CXR for Line Placement IMPRESSION: The tip of the right dialysis catheter is at the junction of the superior vena cava and right atrium. The remainder of the examination is unchanged. Electronically Signed: Reginaldo Martinez, at 14:24 EST , Service support ,
--- NOTE | 2020-09-09 14:02 | PCM.PN.REN ---
Patient Problems: Active and Suspected Problems (Last Reviewed 08/31/20 @ 17:[address] Alexis Aquino, DO) Lung mass (Acute) Found 2018 CAMILA (acute kidney injury) (Acute) Postural dizziness with near syncope (Acute) Dehydration (Acute) Diarrhea due to COVID-19 (Acute) Pneumonia due to COVID-19 virus (Acute) COVID-19 (Acute) CAMILA (acute kidney injury) (Acute) History of lumpectomy of left breast (Acute ~06/2020) 06/27/2020 Abnormal mammogram of left breast (Acute) Subjective: Patient is intubated cannot do review of systems. Objective: Physical examination deferred to preserve PPE and prevent further transmission of COVID-19. - Physical Exam Vitals/I&O's: Vital Signs Temp Pulse Resp BP Pulse Ox 99.6 F H 119 H 33 H 119/59 L 95 09/09/20 12:00 09/09/20 13:52 09/09/20 13:52 09/09/20 12:00 09/09/20 13:52 Oxygen Flow Rate (L/min) 60 Oxygen Delivery Method Mechanical Ventilator Weight: 127.6 kg Body Mass Index (BMI) 47.1 Intake and Output for Last 24 Hours 09/07/20 09/08/20 09/09/20 23:59 23:59 23:59 Intake Total 3382.07 / 3704.57 3077.78 / 3082.78 833.12 / 833.12 Output Total 880 / 1080 1370 / 1370 40 / 40 Balance 2502.07 / 2624.57 1707.78 / 1712.78 793.12 / 793.12 Microbiology Past 72 Hours 09/06/20 10:50 Sputum, Induced/Lukens Gram Stain - Final 09/06/20 10:50 Sputum, Induced/Lukens Respiratory Culture - Final Staphylococcus aureus Laboratory Results 09/08/20 13:40: Random Vancomycin 18.1 H 09/08/20 17:15: POC Glucose 326 H 09/08/20 18:00: Specimen Type ART, Sample Site R Radial, pH 7.24 L, Bicarbonate Actual 22.2, Total CO2 24, Base Excess -5 L, O2 Saturation 82 L, O2 % 100, ABG pCO2 51.5 H, ABG pO2 55 L, Miguel A Test Positive, Respiration Rate 16, O2 Delivery Device Adult Vent, Vent Mode AC, Tidal Volume 500, POC PEEP 18 09/08/20 23:22: POC Glucose 237 H 09/09/20 01:55: Specimen Type ART, Sample Site R Radial, pH 7.21 L, Bicarbonate Actual 21.2 L, Total CO2 23, Base Excess -7 L, O2 Saturation 85 L, O2 % 100, ABG pCO2 52.6 H, ABG pO2 61 L, Respiration Rate 12, O2 Delivery Device Adult Vent, Vent Mode BiLevel 09/09/20 03:45: Sodium 135 L, Potassium 5.4 H, Chloride 103, Carbon Dioxide 23.0, Anion Gap 9, BUN 132 H*, Creatinine 3.35 H, Estim Creat Clear Calc 12.53, Est GFR (MDRD) Af Amer 17 L, Est GFR (MDRD) Non-Af 14 L, BUN/Creatinine Ratio 39.4 H, Glucose 185 H, Calcium 8.4 L, Phosphorus 5.7 H, Magnesium 2.4, Total Bilirubin 0.50, AST 124 H, ALT 78 H, Alkaline Phosphatase 126 H, Total Protein 7.4, Albumin 2.2 L, Globulin 5.2 H, Albumin/Globulin Ratio 0.4 L 09/09/20 03:45: WBC 16.6 H, RBC 3.97 L, Hgb 11.0 L, Hct 35.8 L, MCV 90.2, MCH 27.7, MCHC 30.7 L, RDW Std Deviation 46.7 H, RDW Coeff of Marine 14.0, Plt Count 181, MPV 11.5, Immature Gran % (Auto) 4.800 H, Neut % (Auto) 83.3 H, Lymph % (Auto) 5.4 L, [place] % (Auto) 5.8, Eos % (Auto) 0.1, Baso % (Auto) 0.6, Absolute Neuts (auto) 13.9 H, Absolute Lymphs (auto) 0.89, Nucleated RBC % 0.2 09/09/20 05:16: POC Glucose 224 H 09/09/20 11:52: POC Glucose 297 H Current Medications Acetaminophen (Acetaminophen 650 Mg/20 Ml Udc) 650 mg GT Q6H PRN PRN PRN Reason: Pain Score 1-10/Temp > 100.7 F Last Admin: 09/08/20 22:38 Dose: 650 mg Documented by: Albuterol Sulfate (Albuterol Sulfate Hfa 6.7 Gm Inhaler (200 Puffs)) 2 puff IH Q4H PRN PRN Reason: SHORTNESS OF BREATH Last Admin: 09/04/20 20:12 Dose: 2 puff Documented by: Apixaban (Apixaban 5 Mg Tablet) 5 mg GT BID [facility] Last Admin: 09/09/20 11:58 Dose: 5 mg Documented by: Chlorhexidine Gluconate (Chlorhexidine 15 Ml) 15 ml PO BID [facility] Last Admin: 09/09/20 08:07 Dose: 15 ml Documented by: Cholecalciferol (Cholecalciferol (Vit D3) 1,000 Unit (25mcg)) 5,000 unit GT DAILY [facility] Last Admin: 09/09/20 10:30 Dose: 5,000 unit Documented by: Heparin Sodium (Beef Lung) (Heparin Pf Lock 10 Units/Ml 50 Units/5 Ml Syringe) 7 units IV UD PRN PRN Reason: HEPARIN FLUSH Enteral Nutritional Formula (Vital High Protein) 1,000 mls @ 50 mls/hr GT .Q20H [facility] Last Admin: 09/09/20 04:00 Dose: 50 mls/hr Documented by: Fentanyl Citrate 1,000 mcg/ (Sodium Chloride) 100 mls @ 5 mls/hr CONT INF .Q20H [facility]; Protocol Last Titration: 09/09/20 13:30 Dose: 100 mcg/hr, 10 mls/hr Documented by: Pantoprazole Sodium 40 mg/ (Sodium Chloride) 110 mls @ 330 mls/hr IV Q24 [facility] Last Infusion: 09/09/20 11:03 Dose: Infused Documented by: Cefazolin Sodium () 1 gm in 50 mls @ 100 mls/hr IV Q12 [facility] Last Admin: 09/09/20 10:50 Dose: 100 mls/hr Documented by: Amiodarone HCl 360 mg/ (Dextrose) 200 mls @ 16.667 mls/hr CONT INF .Q12H [facility] Stop: 09/09/20 14:29 Last Admin: 09/09/20 08:08 Dose: 0.5 mg/min, 16.7 mls/hr Documented by: Insulin Glargine (Insulin Glargine 100 Units/Ml Pen) 20 units SC DAILY [facility] Last Admin: 09/09/20 11:57 Dose: 20 u Documented by: Insulin Human Lispro (Insulin Lispro 100 Unit/Ml Insuln.Pen) 0 unit SC Q6 [facility]; Protocol Last Admin: 09/09/20 11:58 Dose: 4 u Documented by: Metoprolol Tartrate (Metoprolol Tartrate 50 Mg Tablet) 50 mg GT BID [facility] Last Admin: 09/09/20 06:37 Dose: 50 mg Documented by: Ondansetron HCl (Ondansetron 4 Mg/2 Ml Vial) 4 mg IV Q8H PRN PRN PRN Reason: NAUSEA/VOMITING Paroxetine HCl (Paroxetine 20 Mg Tablet) 20 mg GT QHS [facility] Last Admin: 09/08/20 19:53 Dose: 20 mg Documented by: Polyethylene Glycol (Polyethylene Glycol 3350 17 Gm Packet) 17 gm GT DAILY [facility] Last Admin: 09/09/20 10:30 Dose: 17 gm Documented by: Senna/Docusate Sodium (Senna/Docusate Sodium 1 Tablet) 2 tablet GT BID [facility] Last Admin: 09/09/20 10:30 Dose: 2 tablet Documented by: Sodium Chloride (0.9% Saline Lock 10 Ml Syringe) 10 - 40 ml IV UD PRN PRN Reason: SALINE FLUSH Last Admin: 09/08/20 13:35 Dose: 40 ml Documented by: Sodium Chloride (Sodium Chloride 0.65% 1 [place].Btl) 1 - 2 spray NASAL TID PRN PRN PRN Reason: NASAL DRYNESS Last Admin: 09/02/20 16:14 Dose: 2 spray Documented by: Throat Lozenges (Benzocaine/Menthol 1 Lozenge) 1 lozenge MUCOUS MEM Q2H PRN PRN PRN Reason: SORE THROAT Medical Necessity - Tobacco Use Smoking Status: Former smoker Assessment/Plan All Active Problems (Last Reviewed 08/31/20 @ 17:[address] Alexis Aquino, DO) Abnormal findings on diagnostic imaging of heart and coronary circulation (Resolved) Abnormal stress test (Resolved) Lung mass (Acute) CAMILA (acute kidney injury) (Acute) Postural dizziness with near syncope (Acute) Dehydration (Acute) Diarrhea due to COVID-19 (Acute) Pneumonia due to COVID-19 virus (Acute) COVID-19 (Acute) CAMILA (acute kidney injury) (Acute) History of lumpectomy of left breast (Acute ~06/2020) Abnormal mammogram of left breast (Acute) History of dilation and curettage (Resolved) History of hysterectomy (Resolved) History of cholecystectomy (Resolved) History of carpal tunnel release (Resolved) CAMILA?likely ATN with shock Hyperphosphatemia Acute on chronic hypoxemic respiratory failure secondary to COVID-19 JAYE Diabetes mellitus Pulmonary hypertension Serum creatinine is 2.17 Now on FiO2 100 % PEEP of 15 okay to use Lasix as needed f/u renal ultrasound Avoid nephrotoxins. The patient is off Levophed still but worsening CAMILA initiate HD today Keep MAP more than 65 Dose all medications especially antibiotics per pharmacy. d/w dr. Arreola and MILL FEEDER and HD RN
--- NOTE | 2020-09-09 14:21 | PCM.OPRPT ---
Report of Operation Date of Procedure: 09/09/20 Surgery/Procedure Performed:: Dialysis catheter insertion Description of Surgical Findings:: Temporary hemodialysis catheter placement procedure note Indication: Hemodialysis Procedure: A time-out was completed to verify correct patient, indication, medication allergies, procedure, coagulation studies, informed consent signed, and equipment needed. The patient was placed in the supine position for a central line placement to the rt IJ vein. The patients rt neck was prepped using chlorhexidine and a full body sterile drape was applied. 1% lidocaine was used to anesthetize the surrounding skin. A 12fr 20 cm Temporary hemodialysis catheter introduced into the internal jugular vein using the modified Seldinger technique with the assistance of ultrasound. The site was dilated up twice in a stepwise fashion. The catheter was threaded smoothly over the guidewire, the guidewire was removed easily, nonpulsatile blood returned. All ports were aspirated of air and flushed with sterile saline, Then locked with you 1000 heparin 1.4 cc to each port. The catheter was sutured in place and covered with an occlusive dressing impregnated with chlorhexidine. Post-procedure: The patient tolerated the procedure well. Vital signs remained stable. EBL 5cc. No complications. Chest X Ray ordered to confirm tip placement and the absence of pneumothorax. Procedures: 30532 Insert Non-tunnel CV Cath
[2020-09-09] MEDS: Albumin Human 25% (100 mL) 25 GM/100 ML BAG IV (17:00)
--- NOTE | 2020-09-09 17:01 | PCM.PROGNOTE ---
Patient Problems: Active and Suspected Problems (Last Reviewed 08/31/20 @ 17:[address] Alexis Aquino, DO) Lung mass (Acute) Found 2018 CAMILA (acute kidney injury) (Acute) Postural dizziness with near syncope (Acute) Dehydration (Acute) Diarrhea due to COVID-19 (Acute) Pneumonia due to COVID-19 virus (Acute) COVID-19 (Acute) CAMILA (acute kidney injury) (Acute) History of lumpectomy of left breast (Acute ~06/2020) 06/27/2020 Abnormal mammogram of left breast (Acute) Subjective: Patient was seen and examined today, she remains on the ventilator and is minimally responsive despite no sedation at the time of my examination this morning. I dialysis catheter was placed today, patient's CODE STATUS was changed to DNR CC arrest with intubation. - Physical Exam Vitals/I&O's: Vital Signs Temp Pulse Resp BP Pulse Ox 100.8 F H 122 H 15 100/51 L 95 09/09/20 15:48 09/09/20 15:48 09/09/20 15:48 09/09/20 15:48 09/09/20 13:52 Oxygen Flow Rate (L/min) 60 Oxygen Delivery Method Mechanical Ventilator Weight: 127.6 kg Body Mass Index (BMI) 47.1 Intake and Output for Last 24 Hours 09/07/20 09/08/20 09/09/20 23:59 23:59 23:59 Intake Total 3382.07 / 3704.57 3077.78 / 3082.78 947.87 / 947.87 Output Total 880 / 1080 1370 / 1370 315 / 315 Balance 2502.07 / 2624.57 1707.78 / 1712.78 632.87 / 632.87 General: No apparent distress, - - Patient does not respond to verbal or painful stimuli HEENT: Atraumatic, PERRLA, EOMI, Normocephalic Neck: Supple, No JVD Lungs: Clear to auscultation, No rhonchi, No wheeze, No rales, Diminished Cardiovascular: No murmurs, PMI Normal, Irregular Rate, No rub noted, No Gallop Abdomen: Bowel Sounds Present, Soft, Non Tender, Non-Distended Extremities: No clubbing, No cyanosis, No edema, Capillary Refill Less than 3 Seconds Skin: No rashes, No breakdown Musculoskeletal: No Tenderness to Palpation of Joints or Extremities Neurological: - - Not respond to verbal stimuli or light touch Psych/Mental Status: - - Patient response to painful stimuli only Microbiology Past 72 Hours 09/06/20 10:50 Sputum, Induced/Lukens Gram Stain - Final 09/06/20 10:50 Sputum, Induced/Lukens Respiratory Culture - Final Staphylococcus aureus Laboratory Results 09/08/20 17:15: POC Glucose 326 H 09/08/20 18:00: Specimen Type ART, Sample Site R Radial, pH 7.24 L, Bicarbonate Actual 22.2, Total CO2 24, Base Excess -5 L, O2 Saturation 82 L, O2 % 100, ABG pCO2 51.5 H, ABG pO2 55 L, Miguel A Test Positive, Respiration Rate 16, O2 Delivery Device Adult Vent, Vent Mode AC, Tidal Volume 500, POC PEEP 18 09/08/20 23:22: POC Glucose 237 H 09/09/20 01:55: Specimen Type ART, Sample Site R Radial, pH 7.21 L, Bicarbonate Actual 21.2 L, Total CO2 23, Base Excess -7 L, O2 Saturation 85 L, O2 % 100, ABG pCO2 52.6 H, ABG pO2 61 L, Respiration Rate 12, O2 Delivery Device Adult Vent, Vent Mode BiLevel 09/09/20 03:45: Sodium 135 L, Potassium 5.4 H, Chloride 103, Carbon Dioxide 23.0, Anion Gap 9, BUN 132 H*, Creatinine 3.35 H, Estim Creat Clear Calc 12.53, Est GFR (MDRD) Af Amer 17 L, Est GFR (MDRD) Non-Af 14 L, BUN/Creatinine Ratio 39.4 H, Glucose 185 H, Calcium 8.4 L, Phosphorus 5.7 H, Magnesium 2.4, Total Bilirubin 0.50, AST 124 H, ALT 78 H, Alkaline Phosphatase 126 H, Total Protein 7.4, Albumin 2.2 L, Globulin 5.2 H, Albumin/Globulin Ratio 0.4 L 09/09/20 03:45: WBC 16.6 H, RBC 3.97 L, Hgb 11.0 L, Hct 35.8 L, MCV 90.2, MCH 27.7, MCHC 30.7 L, RDW Std Deviation 46.7 H, RDW Coeff of Marine 14.0, Plt Count 181, MPV 11.5, Immature Gran % (Auto) 4.800 H, Neut % (Auto) 83.3 H, Lymph % (Auto) 5.4 L, [place] % (Auto) 5.8, Eos % (Auto) 0.1, Baso % (Auto) 0.6, Absolute Neuts (auto) 13.9 H, Absolute Lymphs (auto) 0.89, Nucleated RBC % 0.2 09/09/20 05:16: POC Glucose 224 H 09/09/20 11:52: POC Glucose 297 H 09/09/20 16:45: Hep Bs Antigen Pending Current Medications Acetaminophen (Acetaminophen 650 Mg/20 Ml Udc) 650 mg GT Q6H PRN PRN PRN Reason: Pain Score 1-10/Temp > 100.7 F Last Admin: 09/08/20 22:38 Dose: 650 mg Documented by: Albuterol Sulfate (Albuterol Sulfate Hfa 6.7 Gm Inhaler (200 Puffs)) 2 puff IH Q4H PRN PRN Reason: SHORTNESS OF BREATH Last Admin: 09/04/20 20:12 Dose: 2 puff Documented by: Apixaban (Apixaban 5 Mg Tablet) 5 mg GT BID [facility] Last Admin: 09/09/20 11:58 Dose: 5 mg Documented by: Chlorhexidine Gluconate (Chlorhexidine 15 Ml) 15 ml PO BID [facility] Last Admin: 09/09/20 08:07 Dose: 15 ml Documented by: Cholecalciferol (Cholecalciferol (Vit D3) 1,000 Unit (25mcg)) 5,000 unit GT DAILY [facility] Last Admin: 09/09/20 10:30 Dose: 5,000 unit Documented by: Heparin Sodium (Beef Lung) (Heparin Pf Lock 10 Units/Ml 50 Units/5 Ml Syringe) 7 units IV UD PRN PRN Reason: HEPARIN FLUSH Enteral Nutritional Formula (Vital High Protein) 1,000 mls @ 50 mls/hr GT .Q20H [facility] Last Admin: 09/09/20 04:00 Dose: 50 mls/hr Documented by: Fentanyl Citrate 1,000 mcg/ (Sodium Chloride) 100 mls @ 5 mls/hr CONT INF .Q20H [facility]; Protocol Last Titration: 09/09/20 16:24 Dose: 150 mcg/hr, 15 mls/hr Documented by: Pantoprazole Sodium 40 mg/ (Sodium Chloride) 110 mls @ 330 mls/hr IV Q24 [facility] Last Infusion: 09/09/20 11:03 Dose: Infused Documented by: Cefazolin Sodium () 1 gm in 50 mls @ 100 mls/hr IV DAILY@1800 [place] Albumin Human () 25 gm in 100 mls @ 60 mls/hr IV X1 [facility] Stop: 09/09/20 18:39 Insulin Glargine (Insulin Glargine 100 Units/Ml Pen) 20 units SC DAILY [facility] Last Admin: 09/09/20 11:57 Dose: 20 u Documented by: Insulin Human Lispro (Insulin Lispro 100 Unit/Ml Insuln.Pen) 0 unit SC Q6 [facility]; Protocol Last Admin: 09/09/20 11:58 Dose: 4 u Documented by: Metoprolol Tartrate (Metoprolol Tartrate 50 Mg Tablet) 50 mg GT BID [facility] Last Admin: 09/09/20 06:37 Dose: 50 mg Documented by: Ondansetron HCl (Ondansetron 4 Mg/2 Ml Vial) 4 mg IV Q8H PRN PRN PRN Reason: NAUSEA/VOMITING Paroxetine HCl (Paroxetine 20 Mg Tablet) 20 mg GT QHS [facility] Last Admin: 09/08/20 19:53 Dose: 20 mg Documented by: Polyethylene Glycol (Polyethylene Glycol 3350 17 Gm Packet) 17 gm GT DAILY [facility] Last Admin: 09/09/20 10:30 Dose: 17 gm Documented by: Senna/Docusate Sodium (Senna/Docusate Sodium 1 Tablet) 2 tablet GT BID [facility] Last Admin: 09/09/20 10:30 Dose: 2 tablet Documented by: Sodium Chloride (0.9% Saline Lock 10 Ml Syringe) 10 - 40 ml IV UD PRN PRN Reason: SALINE FLUSH Last Admin: 09/08/20 13:35 Dose: 40 ml Documented by: Sodium Chloride (Sodium Chloride 0.65% 1 [place].Btl) 1 - 2 spray NASAL TID PRN PRN PRN Reason: NASAL DRYNESS Last Admin: 09/02/20 16:14 Dose: 2 spray Documented by: Throat Lozenges (Benzocaine/Menthol 1 Lozenge) 1 lozenge MUCOUS MEM Q2H PRN PRN PRN Reason: SORE THROAT Medical Necessity - Tobacco Use Smoking Status: Former smoker Assessment/Plan All Active Problems (Last Reviewed 08/31/20 @ 17:[address] Alexis Aquino, DO) Abnormal findings on diagnostic imaging of heart and coronary circulation (Resolved) Abnormal stress test (Resolved) Lung mass (Acute) CAMILA (acute kidney injury) (Acute) Postural dizziness with near syncope (Acute) Dehydration (Acute) Diarrhea due to COVID-19 (Acute) Pneumonia due to COVID-19 virus (Acute) COVID-19 (Acute) CAMILA (acute kidney injury) (Acute) History of lumpectomy of left breast (Acute ~06/2020) Abnormal mammogram of left breast (Acute) History of dilation and curettage (Resolved) History of hysterectomy (Resolved) History of cholecystectomy (Resolved) History of carpal tunnel release (Resolved) #1 COVID-19 pneumonia-patient remains on the ventilator at this time #2 acute on chronic hypoxic respiratory failure-patient remains on the ventilator at this time #3 CAMILA on a component of chronic kidney disease stage III-he dialysis catheter was placed today, patient will be undergoing dialysis #4 morbid obesity #5 obstructive sleep apnea #6 hyperlipidemia #7 type 2 diabetes-blood sugars will be monitored, sliding scale insulin will be administered #8 pulmonary hypertension #9 breast cancer Inpatient E&M: [id number] [facility] L2
--- NOTE | 2020-09-09 18:01 | DIALYSIS ---
Hemodialysis initiated at 1545. BP dropped soon after initiating treatment. NS rinses given and stopped pulling fluid, leaving pt at end of treatment positive for 400ml, Dr. Kam made aware, ordering UF off and Albumin 25gm as well as levophed IV drip if albumin not effective. Albumin given at 1700. BP 63/38 at 1715, so treatment was stopped and blood returned, flushing lines with NS. Dr. Kam made aware of events and also made aware pt around 1730.
--- NOTE | 2020-09-09 18:27 | NURSING ---
Chantelle RN, and Yahir RN verified absence of pulse and breathe sounds. pt at 1731. Dr. Arreola and Dr. Shipley verified.
--- NOTE | 2020-09-09 19:56 | EXP.PCM_ITS ---
Preliminary Cause of Hypoxic respiratory failure secondary to COVID-19 pneumonia Date of Admission: 08/31/20 Date of : 09/09/20 - Principle Diagnosis #1 COVID-19 pneumonia #2 acute on chronic hypoxic respiratory failure secondary to COVID-19 pneumonia #3 acute renal failure secondary to COVID-19 pneumonia #4 morbid obesity #5 obstructive sleep apnea #6 type 2 diabetes #7 pulmonary hypertension #8 breast cancer Problem List: Active and Suspected Problems (Last Reviewed 08/31/20 @ 17:[address] Alexis Aquino, DO) Lung mass (Acute) Found 2018 CAMILA (acute kidney injury) (Acute) Postural dizziness with near syncope (Acute) Dehydration (Acute) Diarrhea due to COVID-19 (Acute) Pneumonia due to COVID-19 virus (Acute) COVID-19 (Acute) CAMILA (acute kidney injury) (Acute) History of lumpectomy of left breast (Acute ~06/2020) 06/27/2020 Abnormal mammogram of left breast (Acute) Hospital Course This 75-year-old white female was admitted to [facility] with increasing shortness of breath despite home O2 use. He had been diagnosed with COVID-19 infection August 28. Patient was admitted initially to [place] [address], she was treated with remdesivir and dexamethasone and seen in consultation by pulmonary medicine. Patient's respiratory status worsened during her hospitalization and she was transferred to ICU and underwent intubation. Following this the patient went into renal failure and was seen in consultation by nephrology, a dialysis catheter was placed on 09/09/2020, the patient's CODE STATUS was changed on that date to DNR CC arrest with intubation. During her dialysis on 09/09/2020, patient became hypotensive and the dialysis had to be stopped, she was placed on some pressors initially, acutely patient became bradycardic and eventually pulseless. At 1731 on 09/09/2020, patient was pronounced . Cause of the patient's was hypoxia secondary to COVID- 19 pneumonia. Inpatient E&M: [id number] [facility]
[2020-09-09 21:07] LABS: Eosinophil Ct. Urine Rare % (.)
[2020-09-12 10:06] LABS: Hepatitis B Surface Antigen Non-Reactive (Nonreactive)
== END 2020-09-09 18:45 | DRG 208 ==
LOC: ED 17:00 → MS2 17:49 → ICU 09-05 23:04
PROVIDERS: Internal Medicine; Internal Medicine Critical Care Medicine; Emergency Provider Emergency Medicine; PCP Internal Medicine; Visit Provider Internal Medicine
DX: U07.1 COVID-19 (principal); J12.82 Pneumonia due to coronavirus disease 2019; J96.21 Acute and chronic respiratory failure with hypoxia; A41.01 Sepsis due to Methicillin susceptible Staphylococcus aureus; R65.21 Severe sepsis with septic shock; J15.211 Pneumonia due to Methicillin susceptible Staphylococcus aureus; N17.0 Acute kidney failure with tubular necrosis; J44.0 Chronic obstructive pulmonary disease with (acute) lower respiratory infection; I13.0 Hypertensive heart and chronic kidney disease with heart failure and stage 1 through stage 4 chronic kidney disease, or unspecified chronic kidney disease; Z68.43 Body mass index [BMI] 50.0-59.9, adult; E87.4 Mixed disorder of acid-base balance; I50.30 Unspecified diastolic (congestive) heart failure; G62.9 Polyneuropathy, unspecified; F41.9 Anxiety disorder, unspecified; F32.9 Major depressive disorder, single episode, unspecified; E78.5 Hyperlipidemia, unspecified; N18.30 Chronic kidney disease, stage 3 unspecified; E66.01 Morbid (severe) obesity due to excess calories; G47.33 Obstructive sleep apnea (adult) (pediatric); I27.20 Pulmonary hypertension, unspecified; E78.00 Pure hypercholesterolemia, unspecified; E11.22 Type 2 diabetes mellitus with diabetic chronic kidney disease; C50.919 Malignant neoplasm of unspecified site of unspecified female breast; Z79.01 Long term (current) use of anticoagulants; Z82.49 Family history of ischemic heart disease and other diseases of the circulatory system; Z79.4 Long term (current) use of insulin; Z83.3 Family history of diabetes mellitus; Z85.3 Personal history of malignant neoplasm of breast; Z86.711 Personal history of pulmonary embolism; Z66 Do not resuscitate; Z87.891 Personal history of nicotine dependence; Z90.710 Acquired absence of both cervix and uterus; Z90.49 Acquired absence of other specified parts of digestive tract; M06.9 Rheumatoid arthritis, unspecified; I48.91 Unspecified atrial fibrillation; E83.39 Other disorders of phosphorus metabolism; E86.0 Dehydration; E87.5 Hyperkalemia; D64.9 Anemia, unspecified
CPT/HCPCS: 31500; 31720; 36415; 36569; 36600; 71045; 80053; 80202; 81001; 82550; 82570; 82803; 82962; 83615; 83735; 83880; 84075; 84100; 84145; 84300; 84478; 85025; 85379; 85384; 85610; 87070; 87077; 87186; 87205; 87340; 87493; 87506; 90937; 93005; 94002; 94003; 94660; 97802; 97803; 99251; 99285; J7030; J7040; J7050; P9047; A4216; C1752; G0257; G0463; J0153; J1940; J3010